=== PATIENT | male | born 1930 | race Caucasian/White ===

== ENCOUNTER 2016-07-26 17:01 | Observation (INO) | payer OTHER ==
[~2016-07-26] VITALS: Ht 167.6 cm; Wt 69.5 kg
--- NOTE | 2016-07-26 18:28 | ED CLINICAL REPORT ---
Clinical Report - Physicians/[facility] [address] [place] [address] 07/26/2016 17:03 Patient: ISIDRA FIELD Time Seen: 17:33. Arrived- By private vehicle. Historian- patient and family. HISTORY OF PRESENT ILLNESS Chief Complaint: "CAN'T EAT". This started about 2 weeks ago and is still present. It was gradual in onset and has been waxing/waning. At its maximum, severity described as moderate. When seen in the E.D., severity described as moderate. Modifying factors- worsened by food. Not relieved by anything. The patient has had loss of appetite and fatigue. No headache. He has had new onset of generalized weakness. (Pt states that his "nerves are shot" and he his having insomnia and has "no appetite". He also admits to some abdominal discomfort over the past weeks (mild)). Similar symptoms previously: Recent medical care: Not recently seen/assessed. REVIEW OF SYSTEMS No fever, sore throat, sinus drainage, nasal congestion or cough. No difficulty breathing, chest pain, vomiting, diarrhea or black stools. No bloody stools, difficulty with urination, skin rash, back pain or calf pain. No headache. The patient has had abdominal pain. He has had mild difficulty with ambulation. It has been associated with weakness in both legs. All systems otherwise negative, except as recorded above. PAST HISTORY PCP: Cristiano HEWITT PROBLEMS: Hypertension. Gout Mild dementia SURGERIES: Appendectomy. Cholecystectomy. Colonoscopy. Dental Surgery. Tonsillectomy. SOCIAL HISTORY Former smoker. No alcohol use. Is a local resident. ADDITIONAL NOTES The nursing notes have been reviewed. PHYSICAL EXAM Vital Signs: 07/26/2016 17:13 BP: 172/73. HR: 69. RR: 20. O2 saturation: 95%. Temp: 98.5 F. Pain level now: 7/10. Appearance: Alert. Patient in moderate distress. Eyes: Eyes normal inspection. No scleral icterus or pale conjunctivae. ENT: Pharynx normal. No pharyngeal erythema or tonsillar exudate. The mucous membranes are not dry. Neck: Normal inspection. Neck supple. CVS: Heart sounds normal. Pulses normal. Respiratory: No respiratory distress. Breath sounds normal. Abdomen: No visible injury. Moderate tenderness. No mass. No rebound tenderness or guarding. Back: Normal inspection. Skin: Skin warm and dry. Normal skin color. Normal skin turgor. Extremities: Extremities exhibit normal ROM. No lower extremity edema. Neuro: Oriented X 3. No motor deficit. LABS, X-RAYS, AND EKG Abdominal CT: IMPRESSION: 1. There is a 1.5 cm cyst in the head of the pancreas with a few layering dystrophic calcifications. Findings suggest possible chronic pseudocyst. No evidence of acute pancreatitis. 2. Multiple bilateral renal cysts. 3. Moderate calcified atheromatous changes aorta, iliac, and mesenteric vessels. 4. Moderate distention of the urinary bladder with prior transurethral resection of the prostate (TURP). 5. Findings discussed with Dr. Alfred. Study type: abdomen and pelvis. Abdominal CT performed with IV contrast. The study was independently viewed by me, interpreted by the radiologist and discussed with the radiologist. Laboratory Tests: UA-Culture if indicated: (LINDSAY: 07/26/2016 19:15) ( [facility] 07/26/2016 19:50) Final results Test Result Flag Units (Reference) URINE COLOR YELLOW URINE APPEARANCE CLEAR URINE GLUCOSE NEGATIVE (NEGATIVE) URINE BILIRUBIN NEGATIVE (NEGATIVE) URINE KETONE NEGATIVE (NEGATIVE) URINE SPECIFIC GRAVITY 1.010 (1.010-1.030) URINE PH 7.0 (5.0-8.0) URINE PROTEIN 2+ (NEGATIVE) URINE UROBILINOGEN 0.2 EU/dL (0.2-1.0) URINE NITRITE NEGATIVE (NEGATIVE) URINE BLOOD NEGATIVE (NEGATIVE) URINE LEUK ESTERASE NEGATIVE (NEGATIVE) URINE RBC NONE SEEN rbc/hpf (0-1) URINE WBC 0-1 wbc/hpf (0-1) URINE EPITHELIAL CELLS 0-1 EPI/hpf (0-5) URINE BACTERIA NONE SEEN (NONE SEEN) URINE COMMENT CULT NOT INDICATED URINE CULTURES ARE SET-UP BASED ON THE FOLLOWING CRITERIA:POSITIVE NITRITEPOSITIVE LEUKOCYTE ESTERASEGREATER THAN 10 WHITE BLOOD CELLSMODERATE (2+) OR GREATER BACTERIA CBC w Diff: (LINDSAY: 07/26/2016 17:55) ( Msg[facility]cvd 07/26/2016 18:10) Final results Test Result Flag Units (Reference) WHITE BLOOD COUNT 6.6 K/uL (4.5-11.5) RED BLOOD COUNT 5.56 M/uL (4.50-5.90) HEMOGLOBIN 14.8 gm/dL (13.5-17.5) HEMATOCRIT 44.6 % (41.0-53.0) MEAN CELL VOLUME 80 fL (80-100) MEAN CORPUSCULAR HGB 27 pg (26-34) MEAN CORPUSCULAR HGB CONC 33 g/dL (31-37) RED CELL DISTRIBUTION WIDTH 18.1 H % (11.6-14.8) PLATELET COUNT 325 K/uL (150-400) NEUTROPHIL % 63.1 % (50-75) LYMPH % 27.0 % (25-40) MONO % 7.5 % (3-14) EOSINOPHIL % 1.7 % (0-4) BASOPHIL % 0.7 % (0-2) PT with INR: (LINDSAY: 07/26/2016 17:55) ( [facility] 07/26/2016 18:20) Final results Test Result Flag Units (Reference) INR 0.9 (0.8-1.2) Low Intensity Therapy: INR 1.5-2.0 PT range 18.5-23.1Mod.Intensity Therapy: INR 2.0-3.0 PT range 23.1-31.5High Intensity Therapy: INR 2.5-3.5 PT range 27.4-35.5High Intensity Therapy 2: INR 3.0-4.0 PT range 31.5-39.3 BNP: (LINDSAY: 07/26/2016 17:55) ( [facility] 07/26/[facility] 18:32) Final results Test Result Flag Units (Reference) B-TYPE NATRIURETIC PEPTIDE 38.2 pg/ml (5-100) Lipase: (LINDSAY: 07/26/2016 17:55) ( [facility] 07/26/2016 18:21) Final results Test Result Flag Units (Reference) LIPASE 793 H U/L (73-393) AMYLASE 117 H U/L (25-115) ETHYL ALCOHOL <3 L mg/dL (3-10) CHEM 13 PANEL: (LINDSAY: 07/26/2016 17:55) ( MsgRcvd 07/26/2016 18:24) Final results Test Result Flag Units (Reference) GLUCOSE 103 mg/dL (70-110) BUN 19 H mg/dL (7-18) CREATININE 1.7 H mg/dL (0.6-1.3) Estimated GFR 41.01 mL/min Estimated GFR- 49.71 mL/min Note: Persistent reduction over 3 months in eGFR<60 mL/min/1.73 m2 defines CKD. Patients with eGFR values>=60 mL/min/1.73 m2 may also have CKD if evidence ofpersistent proteinuria. Additional information may be foundat www.kidney.org. SODIUM 141 mmol/L (136-145) POTASSIUM 4.8 mmol/L (3.5-5.1) CHLORIDE 101 mmol/L (98-107) CARBON DIOXIDE 27 mmol/L (21-32) CALCIUM 9.6 mg/dL (8.5-10.1) TOTAL PROTEIN 8.3 H g/dL (6.4-8.2) ALBUMIN 4.3 g/dL (3.3-5.0) BILIRUBIN, TOTAL 0.8 mg/dL (0.0-1.0) ALKALINE PHOSPHATASE 93 U/L (46-116) AST (SGOT) 26 U/L (15-37) ALT (SGPT) 21 U/L (12-78) CPK 82 U/L (24-260) MAGNESIUM 2.0 mg/dL (1.8-2.4) TROPONIN I <0.05 ng/mL (0.00-1.5) TROPONIN REFERENCE RANGE:<0.1 NEGATIVE0.1-1.5 INDETERMINANT>1.5 POSITIVE . Pulse Oximetry: 07/26/2016 17:13 O2 saturation: 95%. (FIO2 - room air). Interpretation: normal. PROGRESS AND PROCEDURES Course of Care: Normal Saline 1 liter IVPB given. Zofran 4 mg IVP given. Dilaudid 0.5 mg IVP given. Patient is stable. Physical exam findings are improved. Symptoms much better. Discussed case with hospitalist, (Liset). Reviewed test results. Agreed upon treatment plan. Health care provider will see patient in hospital. Patient/family counseled. Old ED records reviewed. Transition orders written. Disposition: Admitted to Acute Care. Condition: stable and improved. CLINICAL IMPRESSION Acute idiopathic pancreatitis. Essential hypertension. 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 INSTRUCTIONS Follow-up: Screening today revealed the patient's blood pressure to be in the hypertensive range. The patient should follow up with a primary care provider for blood pressure management. The patient was admitted and blood pressure will be managed during the admission. (Electronically signed by Kenton Alfred DO 07/26/2016 21:39)
--- NOTE | 2016-07-26 18:28 | ED ORDER SUMMARY ---
..... Patient: ISIDRA FIELD OrderSheet [facility] VisitID: [id number] [place] [address] 86y, M Registration Date/Time: 07/26/2016 ORDER SHEET Weight: 68.0 kg (stated) Allergies: Penicillin GENERAL ORDERS: UA-Culture if indicated Urgent (17:35 07/26/2016 [facility] (Ack 17:58 LTapper) (19:18 AMcQuoid ER Tech1) Amylase Urgent (17:35 07/26/2016 PHilson DO) (Ack 17:58 LTapper) (18:02 SRoberts R.N.) Lipase Urgent (17:35 07/26/2016 PH) (Ack 17:58 LTapper) (18:02 SRoberts R.N.) PT with INR Urgent (17:35 07/26/2016 PHilson DO) (Ack 17:58 LTapper) (18:02 SRoberts R.N.) Cardiac Panel Stat (17:35 07/26/2016 [facility]) (Ack 17:58 LTapper) (18:02 SRoberts R.N.) BNP Urgent (17:35 07/26/2016 PHilson DO) (Ack 17:58 LTapper) (18:02 SRoberts R.N.) Ethyl Alcohol Urgent (17:35 [facility]2016 [facility] (Ack 17:58 LTapper) (18:02 SRoberts R.N.) CT Abd/Pel w Cont (No) (N/A) Urgent (17:42 [facility]/[address] [facility] (Ack 17:58 LTapper) (19:06 Alesia) Call (Place call to): (Dr Hutchins) (19:30 07/26/[address] [facility] [address] [facility] [address] [facility] (Ack 19:38 AMcQuoid ER Tech1) (19:49 AMcQuoid ER Tech1) MEDICATION ORDERS: IV FLUIDS: IV NS : initial bolus 250 mL (1000 mL/hr), then 250 mL/hr for X3 (NOW) (17:34 07/26/2016 [facility]) (18:04 Stacy Lopez.NBlanka) Zofran IV 4 mg (NOW) (17:35 07/26/2016 [facility]) (18:06 Stacy Lopez.N.) Dilaudid IV 0.5 mg (HIGH ALERT MEDICATION, NOW) (18:28 07/26/2016 [facility]) (18:39 Yamilka Lopez.N.) ORDER SHEET NOTES: [Electronically signed by Dnoya Farris R.N. (20:40 07/26/2016)] [Electronically signed by Kenton Alfred DO (21:39 07/26/2016)] [Electronically locked/signed by Donya Farris R.N. (20:40 07/26/2016)]
--- NOTE | 2016-07-26 18:28 | ED ORDER SUMMARY ---
..... Patient: ISIDRA FIELD OrderSheet [facility] VisitID: [id number] [place] [address] 86y, M Registration Date/Time: 07/26/2016 ORDER SHEET Weight: 68.0 kg (stated) Allergies: Penicillin GENERAL ORDERS: UA-Culture if indicated Urgent (17:35 [facility]/26/2016 [facility] (Ack 17:58 LTapper) (19:18 AMcQuoid ER Tech1) Amylase Urgent (17:35 07/26/2016 PHmtson DO) (Ack 17:58 LTapper) (18:02 SRoberts R.N.) Lipase Urgent (17:35 07/26/2016 PH) (Ack 17:58 LTapper) (18:02 SRoberts R.N.) PT with INR Urgent (17:35 07/26/2016 PHmtson DO) (Ack 17:58 LTapper) (18:02 SRoberts R.N.) Cardiac Panel Stat (17:35 07/26/2016 [facility]) (Ack 17:58 LTapper) (18:02 SRoberts R.N.) BNP Urgent (17:35 07/26/2016 PHmtson DO) (Ack 17:58 LTapper) (18:02 SRoberts R.N.) Ethyl Alcohol Urgent (17:35 [facility]26/2016 [facility] (Ack 17:58 LTapper) (18:02 SRoberts R.N.) CT Abd/Pel w Cont (No) (N/A) Urgent (17:42 [facility]/26/2016 [facility] (Ack 17:58 LTapper) (19:06 Alesia) Call (Place call to): (Dr Hutchins) (19:30 07/26/2016 [facility] (Ack 19:38 AMcQuoid ER Tech1) (19:49 AMcQuoid ER Tech1) MEDICATION ORDERS: IV FLUIDS: IV NS : initial bolus 250 mL (1000 mL/hr), then 250 mL/hr for X3 (NOW) (17:34 07/26/2016 [facility]) (18:04 Stacy Lopez.NBlanka) Zofran IV 4 mg (NOW) (17:35 07/26/2016 [facility]) (18:06 Stacy Lopez.N.) Dilaudid IV 0.5 mg (HIGH ALERT MEDICATION, NOW) (18:28 07/26/2016 [facility]) (18:39 Yamilka Lopez.N.) ORDER SHEET NOTES: [Electronically signed by Donya Farris R.N. (20:40 07/26/2016)] [Electronically signed by Kenton Alfred DO (21:39 07/26/2016)] [Electronically locked/signed by Donya Farris R.N. (20:40 07/26/2016)]
--- NOTE | 2016-07-26 18:28 | ED NURSING NOTES ---
Clinical Report - Nurses [facility] [address] [place] [address] 07/26/2016 17:03 Patient: ISIDRA FIELD TRIAGE Triage time 17:14 Jul 26 2016. Acuity: LEVEL 3. Chief Complaint: (pt states that he is unable to eat for the last week or two). Alert. No acute distress. --17:24 Diana Nieto R.N. 17:13 07/26/16. BP: 172/73. HR: 69. RR: 20 (regular, unlabored and normal). O2 saturation: 95%. Temp: 98.5 F. Pain level now: 7/10. Pain level upon arrival: 7/10. Pain level at maximum: 7/10. Describes the quality as sharp. --17:24 Diana Nieto R.N. Weight: 68 kg stated. Height/Length: 67 inches Per Patient. BMI: 23.5. --17:23 Diana Nieto R.N. Medications None. --17:16 Diana Nieto R.N. Allergies Penicillin. --17:16 Diana Nieto R.N. History Historian: daughter and family. Onset. (2 weeks). He has had weakness. Reports muscle aches. 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 PAST MEDICAL HX: Hypertension. Immunizations: up-to-date. SOCIAL HX: Smoker- current status unknown. No infectious disease exposure. FALL RISK ASSESSMENT: Fall risk assessment completed. Risk factors identified include dizziness and patient age greater than 65 years. Fall interventions initiated. Side rails up x1. Brakes on Bed in low position. Patient identified as a fall risk by ID band. Family at bedside. Call light in reach of patient. Instructed not to get up without assistance. NUTRITIONAL RISK ASSESSMENT: Deficiencies were identified during the nutritional risk assessment. The patient has experienced recent unexpected weight loss- more than 10 pounds in 30 days. The patient has recently had a 75 percent decrease in intake. --17:24 Diana Nieto R.N. PROBLEMS: Upper Extremity Pain. Arthritis. Gout. Hypertension. --17:18 Diana Nieto R.N. ADDITIONAL SURGERIES: Appendectomy. Cholecystectomy. Colonoscopy. Dental Surgery. Tonsillectomy. --17:18 Diana Nieto R.N. Interventions ID and allergy band on patient. --17:24 Diana Nieto R.N. PHYSICAL ASSESSMENT GENERAL / NEURO / PSYCH: Alert. Oriented X 4. Appears in no acute distress. HEENT: No facial asymmetry noted. RESPIRATORY: Respirations not labored. CVS: Capillary refill less than 2 seconds. GI / : Abdominal tenderness. SKIN: Skin is warm and dry. --17:25 Diana Nieto R.N. NURSING PROGRESS NOTES Two patient identifiers checked. Call light placed in reach. Side rails up. Bed placed in lowest position. Brakes of bed on. Patient ready for evaluation- chart flagged. --17:25 Diana Nieto R.N. 17:49 07/26/2016 Started bag #1 1000 mL IV Fluids IV NS (Saline); bolus of 250 mL over 30 minute(s) then at 250 mL/hr over 3 hour(s) via site #1 via IV pump. Allergies verified and confirmed 5 rights. IV patency established. IV site checked: no pain, redness, or swelling. IV flushed thoroughly pre- and post-medication administration. --18:04 Donya Farris R.N. 17:54 07/26/2016 Site #1 started via IV in the right hand with an 22g angiocath, with aseptic technique and good blood return; one attempt. Blood drawn: rainbow set. Labeled in the presence of the patient and sent to the lab. Saline lock flushed. --18:04 Donya Farris R.N. 17:55 07/26/2016 Zofran (Ondansetron HCl) IVP 4 mg given over 1 minute(s) via site #1. Allergies verified and confirmed 5 rights. IV patency established. IV site checked: no pain, redness, or swelling. IV flushed thoroughly pre- and post-medication administration. IVP given by RN. --18:06 Donya Farris R.N. 18:18 07/26/2016 IV Fluids IV NS via IV site #1 Rate Changed: bag #1 decreased to 250 mL/hr via IV pump. IV patency established. IV site checked: no pain, redness, or swelling. IV flushed thoroughly. Confirmed 5 Rights. --18:18 Diana Nieto R.N. 18:35 07/26/2016 Dilaudid (HYDROmorphone HCl PF) IVP 0.5 mg given over 2 minute(s) via site #1. Allergies verified, confirmed 5 rights and sedative warning given to the patient. IV patency established. IV site checked: no pain, redness, or swelling. IV flushed thoroughly pre- and post-medication administration. --18:39 Diana Nieto R.N. 19:40. Patient ID band checked for patient name: patient confirmed. Instructions provided to collect clean catch urine and patient verbalized understanding. Clean catch urine collected with return of yellow-colored clear urine; sample sent to lab for urinalysis and culture. Specimen labeled in the presence of the patient. --19:55 Donya Farris R.N. 20:08 07/26/16. BP: 161/89. HR: 86. RR: 18. O2 saturation: 98% on room air. Pain level now: 0/10. 19:07/26/16. BP: 174/86. HR: 88. RR: 18. O2 saturation: 98%. Pain level now: 0/10. 18:07/26/16. BP: 162/87. HR: 85. RR: 18. 17:07/26/16. BP: 172/73. HR: 69. RR: 20 (regular, unlabored and normal). O2 saturation: 95%. Temp: 98.5 F. Pain level now: 7/10. Pain level upon arrival: 7/10. Pain level at maximum: 7/10. Describes the quality as sharp. --20:12 Donya Farris R.N. 20:10 Patient call light answered; patient requesting food, explained current NPO orders. --20:19 McQuoid, Cleopatra, ER Tech1 20:13 07/26/2016 Site #[address] upon admission; patent, no pain and no signs of infection or infiltration. --20:38 Donya Farris R.N. 20:24 07/26/2016 IV Fluids IV NS Continued: upon admission at the rate of 250 mL/hr. 250 mL remaining bag #1. IV patency established. IV site checked: no pain, redness, or swelling. IV flushed thoroughly. --20:39 Donya Farris R.N. DISPOSITION / DISCHARGE Admitted to Acute Care. Transported via stretcher by nurse with IV. Report was given to a nurse via a phone call. Report included patient's care, treatment, medications, reviewed medication reconcilliation, and condition (including any recent changes or anticipated changes). Report was acknowledged and care was transferred. (Pablito RN). Patient's personal items include: shirt, pants, undergarments, socks, shoes and hat; items were placed in belongings bag and transported with the patient. Collection of belongings was witnessed by 1 nurse. --20:14 Donya Farris R.N. 20:08 07/26/16. BP: 161/89. HR: 86. RR: 18. O2 saturation: 98% on room air. Pain level now: 0/10. 19:08 07/26/16. BP: 174/86. HR: 88. RR: 18. O2 saturation: 98%. Pain level now: 0/10. 18:09 07/26/16. BP: 162/87. HR: 85. RR: 18. 17:13 07/26/16. BP: 172/73. HR: 69. RR: 20 (regular, unlabored and normal). O2 saturation: 95%. Temp: 98.5 F. Pain level now: 7/10. Pain level upon arrival: 7/10. Pain level at maximum: 7/10. Describes the quality as sharp. --20:14 Donya Farris R.N. Medication list reviewed and validated. --20:14 Donya Farris R.N. Locked/Released at 07/26/2016 20:40 by Donya Farris R.N.
--- NOTE | 2016-07-26 19:48 | DIAGNOSTIC IMAGING REPORT ---
PROCEDURE: CT ABD/PELVIS WITH CONTRAST INDICATION: Abdominal pain. Elevated lipase amylase. Nausea. TECHNIQUE: 75 ml (one half-dose) of Isovue 300 were injected intravenously and axial images were obtained of the entire abdomen and pelvis with sagittal and coronal reformations. COMPARISON: None. FINDINGS: ABDOMEN: There is a 1.5 cm cyst in the head of the pancreas with layering dystrophic calcifications. Pancreas is otherwise normal. Gallbladder demonstrates a phrygian cap. No calcified gallstones are identified. Common duct is normal (4 mm). Liver and spleen (2 cm accessory splenic nodule) are normal. Bowel pattern is within normal limits, including appendix. Right kidney is of normal size (10.0 cm) with moderate parenchymal scarring and multiple cysts (largest 3.5 cm lower pole). Left kidney is of normal size (9.6 cm) with moderate parenchymal scarring and renal cysts (largest 4.5 cm upper pole). There are moderate calcified atheromatous changes aorta, mesenteric, iliac vessels. 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 There are moderate degenerative changes of the lumbar spine. PELVIS: Moderate distention of the urinary bladder with mild sacculation. Findings suggest prior TURP. No evidence of free fluid. IMPRESSION: 1. There is a 1.5 cm cyst in the head of the pancreas with a few layering dystrophic calcifications. Findings suggest possible chronic pseudocyst. No evidence of acute pancreatitis. 2. Multiple bilateral renal cysts. 3. Moderate calcified atheromatous changes aorta, iliac, and mesenteric vessels. 4. Moderate distention of the urinary bladder with prior transurethral resection of the prostate (TURP). 5. Findings discussed with Dr. Alfred. All CT scans at this facility use dose modulation, iterative reconstruction, and/or weight-based dosing when appropriate to reduce radiation dose to as low as reasonably achievable.
[2016-07-26 20:35] VITALS: BP 175/76
[2016-07-26] MEDS ORDERED: ALLOPURINOL300 MG PO (21:12)
--- NOTE | 2016-07-26 21:39 | ED MAR SUMMARY ---
..... Medication Administration Record [facility] [address] [place] [place] [address] Patient: ISIDRA FIELD Visit ID: [id number] 86y, M Weight: 68.0 kg Height/Length: 67 in BMI: 23.5 ALLERGIES: Penicillin Start 17:49 07/26/2016 Donya Farris R.N., Continued Upon Admission 20:24 07/26/2016 Donya Farris R.N. Medication Administered: IV NS (SALINE), Dose: IV Fluids over 3 hour(s), Rate: 250 mL/hr, Bolus: 250 mL over 30 minute(s), Dispensed: 1000 mL bag, Site: #1. Medication Ordered: IV NS : initial bolus 250 mL (1000 mL/hr), then 250 mL/hr for X3 (NOW). Given 17:55 07/26/2016 Donya Farris R.N. Medication Administered: ZOFRAN [IVP] (ONDANSETRON HCL), Dose: 4 mg IVP over 1 minute(s), Site: #1 right hand. Medication Ordered: Zofran IV 4 mg (NOW). Given 18:35 07/26/2016 Diana Nieto R.N. Medication Administered: DILAUDID [IVP] (HYDROMORPHONE HCL PF), Dose: 0.5 mg IVP over 2 minute(s), Site: #1 right hand. Medication Ordered: Dilaudid IV 0.5 mg (HIGH ALERT MEDICATION, NOW).
--- NOTE | 2016-07-26 21:39 | ED DISCHARGE INSTRUCTIONS ---
Patient: ISIDRA FIELD General Instructions [facility] VisitID: [id number] [place] [address] 86y, M Registration Date/Time: 07/26/2016 Acute idiopathic pancreatitis. Essential hypertension. 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 INSTRUCTIONS Follow-up: Screening today revealed the patient's blood pressure to be in the hypertensive range. The patient should follow up with a primary care provider for blood pressure management. The patient was admitted and blood pressure will be managed during the admission. ADDITIONAL INFORMATION High Blood Pressure --Established High Blood Pressure (Hypertension) is a chronic disease. The cause is unknown in most cases. It can usually be controlled with lifestyle changes and/or medicines. Symptoms of high blood pressure may include headache, dizziness, visual changes, chest pain and shortness of breath. Sometimes it causes no symptoms at all. However, even if there are no symptoms, untreated high blood pressure increases the risk of heart attack, also known as acute myocardial infarction, or AMI, and stroke. It is a serious health risk and should not be ignored. A normal blood pressure is 120/80 or less. The first (top) number is the "systolic" pressure. The second (bottom) number is the "diastolic" pressure. Hypertension exists when either the top number is 140 or higher, OR the bottom number is 90 or higher on repeated measurements. Home Care: All patients with high blood pressure should do the following to lower their pressure. If you are on medicines, then these methods may reduce or eliminate your need for medicines in the future. Begin a weight loss program if you are overweight. Reduce your salt intake. Avoid high salt foods (olives, pickles, smoked meats, salted potato chips, etc.). Do not add salt to your food at the table. Use only small amounts of salt when cooking. Begin an exercise program. Discuss with your doctor what type of exercise program would be best for you. It doesn't have to be difficult. Even brisk walking for 20 minutes three times a week is a good form of exercise. Avoid medicines which contain heart stimulants. This includes many cold and sinus decongestant pills and sprays as well as diet pills. Check the warnings about hypertension on the label. Stimulants such as amphetamine or cocaine could be lethal for someone with hypertension. Never take these. Limit your caffeine intake or switch to caffeine-free products. Stop smoking. If you are a long-time smoker, this can be hard. Enroll in a stop-smoking program to improve your chance of success. Learning how to handle stress better is an important part of any program to lower blood pressure. Learn about relaxation methods such as meditation, yoga or biofeedback. If medicines were prescribed, take them exactly as directed. Missing doses may cause your blood pressure get out of control. Consider buying an automatic blood pressure machine (available at most pharmacies). Use this to monitor your blood pressure at home and report the results to your doctor. Follow Up: Regular visits to your own physician for blood pressure checks and medicine adjustment is an important part of your care. Make a follow-up appointment as directed by our staff. Get Prompt Medical Attention if any of the following occur: Chest pain or shortness of breath Severe headache Throbbing or rushing sound in the ears Nosebleed Sudden severe abdominal pain Extreme drowsiness, confusion or fainting Dizziness or vertigo (dizziness with spinning sensation) Weakness of an arm or leg or one side of the face Difficulty with speech or vision You have been given the following additional information: Hypertension, Established (Electronically signed by Kenton Alfred DO 07/26/2016 21:39)
--- NOTE | 2016-07-26 21:39 | ED MAR SUMMARY ---
..... Medication Administration Record [facility] [address] [place] [address] Patient: ISIDRA FIELD Visit ID: [id number] 86y, M Weight: 68.0 kg Height/Length: 67 in BMI: 23.5 ALLERGIES: Penicillin Start 17:49 07/26/2016 Donya Farris R.N., Continued Upon Admission 20:24 07/26/2016 Donya Farris R.N. Medication Administered: IV NS (SALINE), Dose: IV Fluids over 3 hour(s), Rate: 250 mL/hr, Bolus: 250 mL over 30 minute(s), Dispensed: 1000 mL bag, Site: #1. Medication Ordered: IV NS : initial bolus 250 mL (1000 mL/hr), then 250 mL/hr for X3 (NOW). Given 17:55 07/26/2016 Donya Farris R.N. Medication Administered: ZOFRAN [IVP] (ONDANSETRON HCL), Dose: 4 mg IVP over 1 minute(s), Site: #1 right hand. Medication Ordered: Zofran IV 4 mg (NOW). Given 18:35 07/26/2016 Diana Nieto R.N. Medication Administered: DILAUDID [IVP] (HYDROMORPHONE HCL PF), Dose: 0.5 mg IVP over 2 minute(s), Site: #1 right hand. Medication Ordered: Dilaudid IV 0.5 mg (HIGH ALERT MEDICATION, NOW).
--- NOTE | 2016-07-26 21:39 | ED MED RECONCILIATION SUMMARY ---
Patient: ISIDRA FIELD Medication Reconciliation Report [facility] VisitID: [id number] [address] [place] [address] 86y, M Registration Date/Time: 07/26/2016 Weight: 68.0 kg Height/Length: 67 in. BMI: 23.5 ALLERGIES: Penicillin The patient's Home Medications are listed below: NONE. The source(s) of the original Home Medication information: Not obtained. The following Medications were given to the patient in the Emergency Department: IV NS IV Fluids bolus 250 mL over 30 minute(s), then 250 mL/hr, administered: 07/26/2016 5:49:00 PM Zofran [IVP] IVP 4 mg, administered: 07/26/2016 5:55:00 PM Dilaudid [IVP] IVP 0.5 mg, administered: 07/26/2016 6:35:00 PM The following Medications were prescribed to the patient: None.
--- NOTE | 2016-07-26 21:39 | ED MED RECONCILIATION SUMMARY ---
Patient: ISIDRA FIELD Medication Reconciliation Report [facility] VisitID: [id number] [address] [place] [address] 86y, M Registration Date/Time: 07/26/2016 Weight: 68.0 kg Height/Length: 67 in. BMI: 23.5 ALLERGIES: Penicillin The patient's Home Medications are listed below: NONE. The source(s) of the original Home Medication information: Not obtained. The following Medications were given to the patient in the Emergency Department: IV NS IV Fluids bolus 250 mL over 30 minute(s), then 250 mL/hr, administered: 07/26/2016 5:49:00 PM Zofran [IVP] IVP 4 mg, administered: 07/26/2016 5:55:00 PM Dilaudid [IVP] IVP 0.5 mg, administered: 07/26/2016 6:35:00 PM The following Medications were prescribed to the patient: None.
[2016-07-26 22:29] VITALS: BP 168/80
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
[2016-07-27 03:24] VITALS: BP 172/76
[2016-07-27 06:44] VITALS: BP 172/66
--- NOTE | 2016-07-27 08:19 | DIAGNOSTIC IMAGING REPORT ---
PROCEDURE: XR CHEST 1 VIEW INDICATION: pancreatitis, hypertension TECHNIQUE: Single view chest. 06:43 hours COMPARISON: None FINDINGS: Cardiomediastinal contour is within normal limits. Mild aortic arch atherosclerosis. No central venous congestion. Clear lungs. No effusion or pneumothorax. Intact osseous structures. Undersurface spurring at both acromioclavicular joints. IMPRESSION: 1. No evidence of acute cardiopulmonary disease.
--- NOTE | 2016-07-27 09:20 | Provider's Discharge Care Plan ---
Problem, Goal, Plan Problem List 1. Acute pancreatitis Instructions: Follow up as directed, You may resume a regular diet as tolerated. Please follow up with your primary care doctor as previously scheduled. Please return to the ER if your symptoms return or worsen. 2. Hypertension Instructions: Follow up as directed, Take meds as directed, Please continue taking your home blood pressure medications, and keep a list of your medications with you in your wallet. Please follow up with your primary care doctor.
--- NOTE | 2016-07-27 09:31 | Discharge Summary ---
Discharge Summary Report Admit Date 07/26/16 Discharge Date 07/27/16 Admission Diagnosis Acute pancreatitis Hypertension Discharge Diagnosis Acute pancreatitis, now resolved Hypertension Gout Early dementia Brief History Per H&P by admitting physician: 86-year-old white male, who is a resident of [facility], who relates a history of having decreased appetite and not eating very much over the last week and a half to 2 weeks. He seemed to worsen over the last 2 or 3 days and was not eating really anything at all. He was able to keep down orange juice. He and his daughter both became concerned and felt he should be evaluated. He has had no major emesis. He thinks he threw up 1 time a small amount. He had no blood in the emesis. He has had no diarrhea. He has had no fever or chills. He does not drink alcohol. He has not been on any medications other than allopurinol. He does relate a history of having had ulcer problems and surgery for ulcers many, many years ago. He thinks this was when he was still in the [employer] just after the [place] War. He has not had problems with ulcers since then. He has developed some memory difficulties over the last several years. He is normally followed at the [facility] in [place], but has not been there for quite some time. Hospital Course Patient was admitted for management of acute pancreatitis. Though patient did not have evidence of acute inflammation on CT, he met criteria based on classic pain and elevated lipase and amylase. There was an old pseudocyst also noted on CT that did not appear c/w malignancy. He was placed on bowel rest, IVF, and pain/nausea control. He did better than expected overnight, and his diet was quickly advanced the next morning. He had no further pain and tolerated regular food well. His lipase was downtrending. He will follow up with his PCP at his already-scheduled appointment at the [place]. He was noted to have significant HTN, for which we used amlodipine in house. He was adamant that he took blood pressure pills at home, and did not want any new prescriptions for this. General Appearance Alert, Cooperative, No acute distress, Oriented to person and place, thinks it's 2013. HEENT Atraumatic, PERRLA, Mucous membran moist/pink Lungs Normal air movement Cardiovascular Regular Rate, Normal S1, Normal S2, No murmurs Abdomen Normal bowel sounds, Soft, No tenderness Skin No Rashes Neurological Strength at 5/5 X4 ext, Sensation intact, Cranial nerves 3-12 NL Psych/Mental Status Mood NL Lab/Imaging Laboratory Tests 07/27 07/27 07/27 0506 0500 0500 Chemistry Plasma Sodium (136 - 145 mmol/L) 144 Plasma Potassium (3.5 - 5.1 mmol/L) 3.2 Plasma Chloride (98 - 107 mmol/L) 105 CO2 (Enzymatic) (21 - 32 mmol/L) 26 BUN (7 - 18 mg/dL) 15 Creatinine (0.6 - 1.3 mg/dL) 1.5 Est GFR ( Amer) (mL/min) 57.43 Est GFR (Non-Af Amer) (mL/min) 47.39 Glucose (70 - 110 mg/dL) 87 Uric Acid (2.6 - 7.2 mg/dL) 8.7 Cancelled Plasma Calcium (8.5 - 10.1 mg/dL) 8.4 Plasma Magnesium (1.8 - 2.4 mg/dL) 1.8 Total Bilirubin (0.0 - 1.0 mg/dL) 0.6 Direct Bilirubin (0 - 0.3 mg/dL) 0.2 AST (15 - 37 U/L) 11 ALT (12 - 78 U/L) 17 Alkaline Phosphatase (46 - 116 U/L) 81 Total Protein (6.4 - 8.2 g/dL) 7.0 Albumin (3.3 - 5.0 g/dL) 3.6 Triglycerides (30 - 200 mg/dL) 235 Cancelled Cholesterol (140 - 200 mg/dL) 175 Cancelled LDL Cholesterol, Calc (mg/dL) 85 Cancelled HDL Cholesterol (32 - 96 mg/dL) 43 Cancelled LDL/HDL Ratio 2.0 Cancelled Cholesterol/HDL Ratio 4.1 Cancelled Coronary Risk Interp (0.4 - 1.0) 0.6 Cancelled Amylase (25 - 115 U/L) 98 Lipase (73 - 393 U/L) 557 Hematology WBC (4.5 - 11.5 K/uL) 5.0 RBC (4.50 - 5.90 M/uL) 5.08 Hgb (13.5 - 17.5 gm/dL) 13.5 Hct (41.0 - 53.0 %) 40.6 MCV (80 - 100 fL) 80 MCH (26 - 34 pg) 27 RDW (11.6 - 14.8 %) 17.4 Neut % (Auto) (50 - 75 %) 66.5 Lymph % (Auto) (25 - 40 %) 24.9 [place] % (Auto) (3 - 14 %) 6.5 Eos % (Auto) (0 - 4 %) 1.8 Baso % (Auto) (0 - 2 %) 0.3 Plt Count, EDTA (150 - 400 K/uL) 270 PUBS MCHC (31 - 37 g/dL) 33 ESR Westergren (0 - 20 mm/hr) 16 07/26 07/26 07/26 07/26 1915 1755 1755 1755 Chemistry Plasma Sodium (136 - 145 mmol/L) 141 Plasma Potassium (3.5 - 5.1 mmol/L) 4.8 Plasma Chloride (98 - 107 mmol/L) 101 CO2 (Enzymatic) (21 - 32 mmol/L) 27 BUN (7 - 18 mg/dL) 19 Creatinine (0.6 - 1.3 mg/dL) 1.7 Est GFR ( Amer) (mL/min) 49.71 Est GFR (Non-Af Amer) (mL/min) 41.01 Glucose (70 - 110 mg/dL) 103 Plasma Calcium (8.5 - 10.1 mg/dL) 9.6 Plasma Magnesium (1.8 - 2.4 mg/dL) 2.0 Total Bilirubin (0.0 - 1.0 mg/dL) 0.8 AST (15 - 37 U/L) 26 ALT (12 - 78 U/L) 21 Alkaline Phosphatase (46 - 116 U/L) 93 Creatine Kinase (24 - 260 U/L) 82 Troponin (0.00 - 1.5 ng/mL) <0.05 B-Natriuretic Peptide (5 - 100 pg/ml) 38.2 Total Protein (6.4 - 8.2 g/dL) 8.3 Albumin (3.3 - 5.0 g/dL) 4.3 Amylase (25 - 115 U/L) 117 Lipase (73 - 393 U/L) 793 Coagulation INR (0.8 - 1.2) 0.9 Hematology WBC (4.5 - 11.5 K/uL) 6.6 RBC (4.50 - 5.90 M/uL) 5.56 Hgb (13.5 - 17.5 gm/dL) 14.8 Hct (41.0 - 53.0 %) 44.6 MCV (80 - 100 fL) 80 MCH (26 - 34 pg) 27 RDW (11.6 - 14.8 %) 18.1 Neut % (Auto) (50 - 75 %) 63.1 Lymph % (Auto) (25 - 40 %) 27.0 [place] % (Auto) (3 - 14 %) 7.5 Eos % (Auto) (0 - 4 %) 1.7 Baso % (Auto) (0 - 2 %) 0.7 Plt Count, EDTA (150 - 400 K/uL) 325 PUBS MCHC (31 - 37 g/dL) 33 Toxicology Plasma/Serum Ethyl Alc (3 - 10 mg/dL) <3 Urines Urine Color YELLOW Urine Appearance CLEAR Urine pH (5.0 - 8.0) 7.0 Ur Specific [place] (1.010 - 1.030) 1.010 Urine Protein (NEGATIVE) 2+ Urine Ketones (NEGATIVE) NEGATIVE Urine Blood (NEGATIVE) NEGATIVE Urine Nitrite (NEGATIVE) NEGATIVE Urine Bilirubin (NEGATIVE) NEGATIVE Urine Urobilinogen (0.2 - 1.0 EU/dL) 0.2 Ur Leukocyte Esterase (NEGATIVE) NEGATIVE Urine RBC (0 - 1 rbc/hpf) NONE SEEN Urine WBC (0 - 1 wbc/hpf) 0-1 Ur Epithelial Cells (0 - 5 EPI/hpf) 0-1 Urine Bacteria (NONE SEEN) NONE SEEN Urine Glucose (NEGATIVE) NEGATIVE Urine Comment CULT NOT INDICATED Microbiology Date/Time Procedure - Status Source Growth 07/26 2153 Superficial Wound Culture - RES NOSE 07/26 2153 Gram Stain - RES NOSE Discharge Instructions/Meds Patient was instructed to follow up with his PCP at his already scheduled appointment. He may resume a regular diet. E&M Codes Discharge: Inpt <30 min spent/[id number]
== END 2016-07-27 10:20 | disposition home or self-care (01) ==
LOC: ED SRH 17:01 → TRANS SRH 18:52 → ACUTE2 SRH 18:52
PROVIDERS: ADMIT Family Medicine
DX: K85.00 Idiopathic acute pancreatitis without necrosis or infection (principal); K86.3 Pseudocyst of pancreas; I10 Essential (primary) hypertension; M10.9 Gout, unspecified; F03.90 Unspecified dementia, unspecified severity, without behavioral disturbance, psychotic disturbance, mood disturbance, and anxiety; F06.8 Other specified mental disorders due to known physiological condition; R79.89 Other specified abnormal findings of blood chemistry
CPT/HCPCS: 29230; 29259; 90004; 90047; 90074; 90100; 90131; 90309; 90616; 91320; 92010; 92235; 92530; 92610; 92690; 92710; 92720; 92860; 94060; 95059; 95150

== ENCOUNTER 2016-07-30 15:08 | Emergency (ER) | payer OTHER ==
[~2016-07-30 15:08] MED LIST: ALLOPURINOL300 MG PO
--- NOTE | 2016-07-30 16:25 | DIAGNOSTIC IMAGING REPORT ---
PROCEDURE: CT HEAD WITHOUT CONTRAST INDICATION: TRAUMA/INJURY TECHNIQUE: Axial CT images were acquired through the head. Coronal and sagittal reformations were created. COMPARISON: None. FINDINGS: Moderate atrophy with prominent ventricles and sulci. No intracranial hemorrhage or extraaxial fluid collections. Ventricles are normal in size, shape and position. There is no mass, mass effect or midline shift. The graham-white matter differentiation is normal. There is no edema. The calvarium is intact. The paranasal sinuses and mastoid air cells are normally aerated. The extracranial soft tissues and orbits are normal. IMPRESSION: 1. No CT evidence of acute intracranial process. 2. Age related involutional and white matter changes. 3. Findings discussed with Terrell at 04:[address] scans at this facility use dose modulation, iterative reconstruction, and/or weight-based dosing when appropriate to reduce radiation dose to as low as reasonably achievable.
--- NOTE | 2016-07-30 16:27 | ED NURSING NOTES ---
Clinical Report - Nurses [place] [address] [place] [address] 07/30/2016 15:08 Patient: ISIDRA FIELD TRIAGE Triage time 15:10. Acuity: LEVEL 3. Chief Complaint: FALL while walking. Alert. No acute distress. EMMA COMA SCORE: Emma Coma Scale: 15- eyes open spontaneously (4); best verbal response- oriented x 4 (5); best motor response- obeys commands (6). --15:18 Radha Richards R.N. 15:10 07/30/16. BP: 169/83. HR: 94. RR: 18. O2 saturation: 98% on room air. Temp: 98.1 F (oral). Pain level now: 5/10. --15:18 Radha Richards R.N. Weight: 72.5 kg estimated. Height/Length: 67 inches Per Patient. BMI: 25.1. --15:15 Radha Richards R.N. Medications Allopurinol Oral 300 mg, daily. --15:12 Radha Richards R.N. Medication/allergy information source: the patient's correction record. --15:18 Radha Richards R.N. Allergies Penicillin. --15:12 Radha Richards R.N. Gemfibrozil. --15:14 Radha Richards R.N. History Arrived by EMS. Historian: EMS and patient. Accompanied by daughter (EMS). [facility] This occurred just prior to arrival. Occurred at home (correction). No loss of consciousness. SOCIAL HX: Smoker- current status unknown (no). No alcohol use or drug use. LEARNING NEEDS ASSESSMENT: The learning needs assessment revealed no barriers. FALL RISK ASSESSMENT: Fall risk assessment completed. Risk factors identified include patient age greater than 65 years and impairment of mobility. Fall interventions initiated. Patient placed on stretcher. Side rails up x2. Brakes on Bed in low position. FUNCTIONAL ASSESSMENT: Functional assessment performed: requires assistance with the activities of daily living; uses walker and cane. --15:18 Radha Richards R.N. PROBLEMS: PTSD. Pancreatitis. Upper Extremity Pain. Arthritis. Gout. Hypertension. --15:14 Radha Richards R.N. ADDITIONAL SURGERIES: Appendectomy. Cholecystectomy. Colonoscopy. Dental Surgery. Tonsillectomy. Umbilical Hernia Repair. --15:14 Radha Richards R.N. Assessment GENERAL / NEURO / PSYCH: Alert. Oriented X 4. Appears in no acute distress. Patient appears calm and cooperative. RESPIRATORY: Respirations not labored. SKIN: Skin is warm and dry. --15:18 Radha Richards R.N. Interventions ID and allergy band on patient. To treatment room. --15:18 Radha Richards R.N. DISPOSITION / DISCHARGE Departure time: 1710 PM. Condition at departure: improved and stable. The goals identified in the patient's plan of care were met. No learning barriers present. Discharge instructions provided and reviewed with the patient. Patient verbalized understanding. Written instructions provided in Irish. 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 No medication instructions, treatment instructions or referrals given to the patient. The patient was discharged by the physician. He was discharged home and unaccompanied at time of discharge anabella jenkins scrap picker. He left the Emergency Department ambulatory and via ([employer]). Driving ([employer]). FALL RISK ASSESSMENT: Fall risk assessment completed. No fall risk identified. EMMA COMA SCORE: Emma Coma Scale: 15- eyes open spontaneously (4); best verbal response- oriented x 4 (5); best motor response- obeys commands (6). --17:12 Kelsie Mooney R.N. 17:08 07/30/16. BP: 168/78 (regular adult cuff) taken on the left arm, via an automated monitor, while sitting. HR: 100. RR: 15. O2 saturation: 100% on room air. Temp: 98.6 F (oral). Pain level now: 0/10. --17:12 Kelsie Mooney R.N. Departure time: 1710 PM. --17:12 Kelsie Mooney R.N. Locked/Released at 07/30/2016 17:12 by eKlsie Mooney R.N.
--- NOTE | 2016-07-30 16:27 | ED NURSING NOTES ---
Clinical Report - Nurses [place] [address] [place] [address] 07/30/2016 15:08 Patient: ISIDRA FIELD TRIAGE Triage time 15:10. Acuity: LEVEL 3. Chief Complaint: FALL while walking. Alert. No acute distress. EMMA COMA SCORE: Emma Coma Scale: 15- eyes open spontaneously (4); best verbal response- oriented x 4 (5); best motor response- obeys commands (6). --15:18 Radha Richards R.N. 15:10 07/30/16. BP: 169/83. HR: 94. RR: 18. O2 saturation: 98% on room air. Temp: 98.1 F (oral). Pain level now: 5/10. --15:18 Radha Richards R.N. Weight: 72.5 kg estimated. Height/Length: 67 inches Per Patient. BMI: 25.1. --15:15 Radha Richards R.N. Medications Allopurinol Oral 300 mg, daily. --15:12 Radha Richards R.N. Medication/allergy information source: the patient's care home record. --15:18 Radha Richards R.N. Allergies Penicillin. --15:12 Radha Richards R.N. Gemfibrozil. --15:14 Radha Richards R.N. History Arrived by EMS. Historian: EMS and patient. Accompanied by daughter (EMS). [facility] This occurred just prior to arrival. Occurred at home (care home). No loss of consciousness. SOCIAL HX: Smoker- current status unknown (no). No alcohol use or drug use. LEARNING NEEDS ASSESSMENT: The learning needs assessment revealed no barriers. FALL RISK ASSESSMENT: Fall risk assessment completed. Risk factors identified include patient age greater than 65 years and impairment of mobility. Fall interventions initiated. Patient placed on stretcher. Side rails up x2. Brakes on Bed in low position. FUNCTIONAL ASSESSMENT: Functional assessment performed: requires assistance with the activities of daily living; uses walker and cane. --15:18 Radha Richards R.N. PROBLEMS: PTSD. Pancreatitis. Upper Extremity Pain. Arthritis. Gout. Hypertension. --15:14 Radha Richards R.N. ADDITIONAL SURGERIES: Appendectomy. Cholecystectomy. Colonoscopy. Dental Surgery. Tonsillectomy. Umbilical Hernia Repair. --15:14 Radha Richards R.N. Assessment GENERAL / NEURO / PSYCH: Alert. Oriented X 4. Appears in no acute distress. Patient appears calm and cooperative. RESPIRATORY: Respirations not labored. SKIN: Skin is warm and dry. --15:18 Radha Richards R.N. Interventions ID and allergy band on patient. To treatment room. --15:18 Radha Richards R.N. DISPOSITION / DISCHARGE Departure time: 1710 PM. Condition at departure: improved and stable. The goals identified in the patient's plan of care were met. No learning barriers present. Discharge instructions provided and reviewed with the patient. Patient verbalized understanding. Written instructions provided in Czech. 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 No medication instructions, treatment instructions or referrals given to the patient. The patient was discharged by the physician. He was discharged home and unaccompanied at time of discharge anabella jenkins pickup driver. He left the Emergency Department ambulatory and via ([employer]). Driving ([employer]). FALL RISK ASSESSMENT: Fall risk assessment completed. No fall risk identified. EMMA COMA SCORE: Emma Coma Scale: 15- eyes open spontaneously (4); best verbal response- oriented x 4 (5); best motor response- obeys commands (6). --17:12 Kelsie Mooney R.N. 17:08 07/30/16. BP: 168/78 (regular adult cuff) taken on the left arm, via an automated monitor, while sitting. HR: 100. RR: 15. O2 saturation: 100% on room air. Temp: 98.6 F (oral). Pain level now: 0/10. --17:12 Kelsie Mooney R.N. Departure time: 1710 PM. --17:12 Kelsie Mooney R.N. Locked/Released at 07/30/2016 17:12 by Kelsie Mooney R.N.
--- NOTE | 2016-07-30 16:27 | ED ORDER SUMMARY ---
..... Patient: ISIDRA FIELD OrderSheet [facility] VisitID: [id number] [address] [place] [address] 86y, M Registration Date/Time: 07/30/2016 ORDER SHEET Weight: 72.5 kg (estimated) Allergies: Penicillin, Gemfibrozil GENERAL ORDERS: CT Head wo Cont Urgent (15:45 07/30/2016 Jacque KEMP) (Ack 15:47 Justin) (15:58 Justin) MEDICATION ORDERS: IV FLUIDS: ORDER SHEET NOTES: [Electronically signed by Kelsie Mooney R.N. (17:12 07/30/2016)] [Electronically signed by Sandra Tejada MD (17:26 08/01/2016)] [Electronically locked/signed by Kelsie Mooney R.N. (17:12 07/30/2016)]
--- NOTE | 2016-07-30 16:27 | ED CLINICAL REPORT ---
Clinical Report - Physicians/Mid Levels [facility] [address] [place] [address] 07/30/2016 15:08 Patient: ISIDRA FIELD Time Seen: 15:16. Arrived- By ambulance. Historian- patient and EMS personnel. HISTORY OF PRESENT ILLNESS Chief Complaint: FALL. Location of injuries- head. The injury occurred today. Fell (Pt states he tripped and fell walking into the bathroom. He stumbled into the wall, which broke his fall, then ended up on the floor. Pt states he is not hurting anywhere, and has no complaints.). Occurred at home. The patient denies pain. The patient sustained a mild blow to the head. No neck pain, loss of consciousness or seizure. Not dazed. REVIEW OF SYSTEMS No numbness, dizziness, loss of vision, hearing loss or chest pain. No difficulty breathing, weakness, headache, nausea or abdominal pain. No laceration, fever, vomiting or urinary problems. The patient has no pain on weight bearing. All systems otherwise negative, except as recorded above. PAST HISTORY Problems: PTSD. Pancreatitis. Arthritis. Gout. Hypertension. Additional Surgeries: Appendectomy. Cholecystectomy. Colonoscopy. Dental Surgery. Tonsillectomy. Umbilical Hernia Repair. Medications: Allopurinol Oral 300 mg, daily. Allergies: Gemfibrozil. Penicillin. SOCIAL HISTORY Never smoker. No alcohol use or drug use. ADDITIONAL NOTES The nursing notes have been reviewed. PHYSICAL EXAM Vital Signs: 07/30/2016 15:10 BP: 169/83. HR: 94. RR: 18. O2 saturation: 98%. Temp: 98.1 F. Pain level now: 5/10. Have been reviewed. Appearance: Alert. No acute distress. (Pt answers questions appropriately.). Head: Head non-tender. Forehead: small abrasion of the upper left side of the forehead (Abrasion is faint, and partial-thickness only.). No erythema, tenderness, swelling, laceration or ecchymosis. No puncture wound, foreign body or deformity. Eyes: Pupils equal, round and reactive to light. EOM intact. ENT: No dental injury. Neck: Painless ROM. Non-tender. CVS: Heart sounds normal. Pulses normal. Respiratory: Breath sounds normal. Chest nontender. Abdomen: No visible injury. Soft and nontender. Back: No tenderness. ROM normal. Skin: Skin intact. Skin warm and dry. Normal skin color. Normal skin turgor. Extremities: Normal inspection. Pelvis stable. Extremities atraumatic. No lower extremity edema. (PT walks without difficulty, and requested to ambulate to the bathroom, which he did without assistance.). Gait: No limping gait. Neuro: No motor deficit. No sensory deficit. (Pt is alert and appropriate.). LABS, X-RAYS, AND EKG Pulse Oximetry: 07/30/2016 15:10 O2 saturation: 98%. (FIO2 - room air). Interpretation: normal. PROGRESS AND PROCEDURES Course of Care: D/w pt that I do not see any signs of serious injury. Pt had a clear-cut mechanical cause of his fall. No diagnostic work-up is indicated. Patient counseled in person regarding the patient's stable condition, test results, diagnosis and need for follow-up. Concerns were addressed. Old medical records reviewed. Disposition: Discharged. Condition: stable. CLINICAL IMPRESSION Single contusion to the scalp. Fall on same level by tripping. INSTRUCTIONS (The CT scan of your head looks good!). Warnings: GENERAL WARNINGS: Return or contact your physician immediately if your condition worsens or changes unexpectedly, if not improving as expected, or if other problems arise. Your Current Medications: CONTINUE TAKING THE FOLLOWING MEDICATIONS: Allopurinol Oral : 300 mg daily. Follow-up: Follow up with your doctor as needed. Understanding of the discharge instructions verbalized by patient. (Electronically signed by Sandra Tejada MD 08/01/2016 17:26)
--- NOTE | 2016-07-30 16:27 | ED ORDER SUMMARY ---
..... Patient: ISIDRA FIELD OrderSheet [facility] VisitID: [id number] [address] [place] [address] 86y, M Registration Date/Time: 07/30/2016 ORDER SHEET Weight: 72.5 kg (estimated) Allergies: Penicillin, Gemfibrozil GENERAL ORDERS: CT Head wo Cont Urgent (15:45 07/30/2016 Jacque KEMP) (Ack 15:47 Justin) (15:58 Justin) MEDICATION ORDERS: IV FLUIDS: ORDER SHEET NOTES: [Electronically signed by Kelsie Mooney R.N. (17:12 07/30/2016)] [Electronically signed by Sandra Tejada MD (17:26 08/01/2016)] [Electronically locked/signed by Kelsie Mooney R.N. (17:12 07/30/2016)]
--- NOTE | 2016-08-01 17:26 | ED DISCHARGE INSTRUCTIONS ---
Patient: ISIDRA FIELD General Instructions [facility] VisitID: [id number] [address] [place] [address] 86y, M Registration Date/Time: 07/30/2016 Single contusion to the scalp. Fall on same level by tripping. INSTRUCTIONS (The CT scan of your head looks good!). Warnings: GENERAL WARNINGS: Return or contact your physician immediately if your condition worsens or changes unexpectedly, if not improving as expected, or if other problems arise. Your Current Medications: CONTINUE TAKING THE FOLLOWING MEDICATIONS: Allopurinol Oral : 300 mg daily. Follow-up: Follow up with your doctor as needed. Understanding of the discharge instructions verbalized by patient. ADDITIONAL INFORMATION Scalp Contusion [No Wake-Up] A scalp contusion is a bruise with swelling and sometimes bleeding under the skin. The swelling should start to go down within two days. Although there is no sign of a serious injury at this time, symptoms may appear later. These could be a sign of a more serious problem (bruising or bleeding in the brain). Therefore, watch for the warning signs below. Home Care: During the next 24 hours someone must stay with you to check for the signs below. It is not necessary to stay awake or be awakened during the night. If you have swelling of the face or scalp, apply an ice pack (ice cubes in a plastic bag, wrapped in a towel) for 20 minutes. Do this every 1-2 hours until the swelling starts to go down. You may use acetaminophen (Tylenol) or ibuprofen (Motrin, Advil) to control pain, unless another pain medicine was prescribed. [ NOTE : If you have chronic liver or kidney disease or ever had a stomach ulcer or GI bleeding, talk with your doctor before using these medicines.] For the next 24 hours: Do not take alcohol, sedatives or medicines that make you sleepy. Do not drive or operate machinery. Avoid strenuous activities. No lifting or straining. If you have had any symptoms of a concussion today (nausea, vomiting, dizziness, confusion, headache, memory loss or if you were knocked out), do not return to sports or any activity that could result in another head injury until all symptoms are gone and you have been cleared by your doctor. A second head injury before fully recovering from the first one can lead to serious brain injury. Follow Up with your doctor if symptoms are not improving after 24 hours, or as directed. [NOTE: Any X-rays or CT scans taken will be reviewed by a radiologist. You will be notified of any new findings that may affect your care.] Get Prompt Medical Attention if any of the following occur: Repeated vomiting Severe or worsening headache or dizziness Unusual drowsiness, or unable to awaken as usual Confusion or change in behavior or speech, memory loss, blurred vision Convulsion (seizure) Increasing scalp or face swelling Redness, warmth or pus from the swollen area Fluid drainage or bleeding from the nose or ears Fever of 100.4F(38C) or higher, or as directed by your healthcare provider Mechanical Fall You have had a fall today. It appears that the cause is mechanical. That means that you slipped, tripped or lost your balance. If your fall had been due to fainting or a seizure, further tests would be required. Home Care: Rest today and resume your normal activities when you are feeling back to normal. If you were injured during the fall, follow the advice from your doctor regarding care of your injury. You may use acetaminophen (Tylenol) or ibuprofen (Motrin, Advil) to control pain, unless another pain medicine was prescribed. [NOTE: If you have chronic liver or kidney disease or ever had a stomach ulcer or GI bleeding, talk with your doctor before using these medicines.] Fall Prevention: Was there anything that caused your fall that can be fixed, removed, or replaced? Make your home safe by keeping walkways clear of objects you may trip over. Use non-slip pads under rugs. Do not walk in poorly lit areas. Do not stand on chairs or wobbly ladders. Use caution when reaching overhead or looking upward. This position can cause a loss of balance. Be sure your shoes fit properly, have non-slip bottoms and are in good condition. Be cautious when going up and down curbs, and walking on uneven sidewalks. If your balance is poor, consider using a cane or walker. Stay as active as you can. Balance, flexibility, strength, and endurance all come from exercise. They all play a role in preventing falls. Follow Up with your doctor or as advised by our staff. Get Prompt Medical Attention if any of the following occur: Repeated mechanical falls, or unexplained falls Dizziness, fainting or seizure Severe headache Chest pain or shortness of breath Palpitations (very rapid or very slow or irregular heartbeat) Blood in vomit, stools (black or red color) Weakness of an arm or leg or one side of the face Difficulty with speech or vision You have been given the following additional information: Scalp Contusion, No Wake Up Fall, Mechanical (Electronically signed by Sandra Tejada MD 08/01/2016 17:26)
--- NOTE | 2016-08-01 17:26 | ED MAR SUMMARY ---
..... Medication Administration Record [facility] [address] [place], [place] [id number] Patient: ISIDRA FIELD Visit ID: [id number] 86y, M Weight: 72.5 kg Height/Length: 67 in BMI: 25.1 ALLERGIES: Penicillin, Gemfibrozil
--- NOTE | 2016-08-01 17:26 | ED MED RECONCILIATION SUMMARY ---
Patient: ISIDRA FIELD Medication Reconciliation Report [facility] VisitID: [id number] [address] [place] [address] 86y, M Registration Date/Time: 07/30/2016 Weight: 72.5 kg Height/Length: 67 in. BMI: 25.1 ALLERGIES: Gemfibrozil, Penicillin The patient's Home Medications are listed below: CONTINUE TAKING THE FOLLOWING MEDICATIONS: Allopurinol Oral 300 mg, daily The source(s) of the original Home Medication information: patient's halfway record The following Medications were given to the patient in the Emergency Department: None. The following Medications were prescribed to the patient: None.
--- NOTE | 2016-08-01 17:26 | ED MED RECONCILIATION SUMMARY ---
Patient: ISIDRA FIELD Medication Reconciliation Report [facility] VisitID: [id number] [address] [place] [address] 86y, M Registration Date/Time: 07/30/2016 Weight: 72.5 kg Height/Length: 67 in. BMI: 25.1 ALLERGIES: Gemfibrozil, Penicillin The patient's Home Medications are listed below: CONTINUE TAKING THE FOLLOWING MEDICATIONS: Allopurinol Oral 300 mg, daily The source(s) of the original Home Medication information: patient's residential record The following Medications were given to the patient in the Emergency Department: None. The following Medications were prescribed to the patient: None.
--- NOTE | 2016-08-01 17:26 | ED MAR SUMMARY ---
..... Medication Administration Record [facility] [address] [place], [place] [id number] Patient: ISIDRA FIELD Visit ID: [id number] 86y, M Weight: 72.5 kg Height/Length: 67 in BMI: 25.1 ALLERGIES: Penicillin, Gemfibrozil
== END 2016-07-30 17:10 | disposition home or self-care (01) ==
LOC: ED SRH 15:08
DX: S00.03XA Contusion of scalp, initial encounter (principal); W01.0XXA Fall on same level from slipping, tripping and stumbling without subsequent striking against object, initial encounter; Y93.01 Activity, walking, marching and hiking; Y92.009 Unspecified place in unspecified non-institutional (private) residence as the place of occurrence of the external cause; Y99.8 Other external cause status; I10 Essential (primary) hypertension; Z79.899 Other long term (current) drug therapy; Z88.0 Allergy status to penicillin; Z88.8 Allergy status to other drugs, medicaments and biological substances

== ENCOUNTER 2016-08-05 23:22 | Emergency (ER) | payer OTHER ==
--- NOTE | 2016-08-07 02:29 | ED MAR SUMMARY ---
..... Medication Administration Record [facility] [address] [place], [place] [id number] Patient: ISIDRA FIELD Visit ID: [id number] 86y, M Weight: 79.3 kg Height/Length: 69 in BMI: 25.8 ALLERGIES: Penicillins
--- NOTE | 2016-08-07 02:29 | ED MED RECONCILIATION SUMMARY ---
Patient: ISIDRA FIELD Medication Reconciliation Report [facility] VisitID: [id number] [address] [place] [address] 86y, M Registration Date/Time: 08/05/2016 Weight: 79.3 kg Height/Length: 69 in. BMI: 25.8 ALLERGIES: Penicillins The patient's Home Medications are listed below: THE FOLLOWING MEDICATIONS NEED TO BE RECONCILED: Allopurinol Oral The source(s) of the original Home Medication information: Not obtained. The following Medications were given to the patient in the Emergency Department: None. The following Medications were prescribed to the patient: None.
--- NOTE | 2016-08-07 02:29 | ED NURSING NOTES ---
Clinical Report - Nurses [place] [address] [place] [address] 08/06/2016 4:01 Patient: ISIDRA FIELD TRIAGE Triage time 2322Aug 05 2016. ( see paper chart for all nursing notes.). --04:21 Mirtha Peterson R.N. Chief Complaint: NECK PAIN. --04:22 Mirtha Peterson R.N. Weight: 79.3 kg estimated. Height/Length: 69 inches Estimated. BMI: 25.8. --04:21 Mirtha Peterson R.N. Medications Allopurinol Oral. --04:23 Mirtha Peterson R.N. Allergies Penicillins. --04:23 Mirtha Peterson R.N. DISPOSITION / DISCHARGE Departure time: 0014. --04:22 Mirtha Peterson R.N. Locked/Released at 08/06/2016 4:23 by Mirtha Peterson R.N.
--- NOTE | 2016-08-07 02:29 | ED NURSING NOTES ---
Clinical Report - Nurses [place] [address] [place] [address] 08/06/2016 4:01 Patient: ISIDRA FIELD TRIAGE Triage time 2322Aug 05 2016. ( see paper chart for all nursing notes.). --04:21 Mirtha Peterson R.N. Chief Complaint: NECK PAIN. --04:22 Mirtha Peterson R.N. Weight: 79.3 kg estimated. Height/Length: 69 inches Estimated. BMI: 25.8. --04:21 Mirtha Peterson R.N. Medications Allopurinol Oral. --04:23 Mirtha Peterson R.N. Allergies Penicillins. --04:23 Mirtha Peterson R.N. DISPOSITION / DISCHARGE Departure time: 0014. --04:22 Mirtha Peterson R.N. Locked/Released at 08/06/2016 4:23 by Mirtha Peterson R.N.
--- NOTE | 2016-08-07 02:29 | ED MED RECONCILIATION SUMMARY ---
Patient: ISIDRA FIELD Medication Reconciliation Report [facility] VisitID: [id number] [address] [place] [address] 86y, M Registration Date/Time: 08/05/2016 Weight: 79.3 kg Height/Length: 69 in. BMI: 25.8 ALLERGIES: Penicillins The patient's Home Medications are listed below: THE FOLLOWING MEDICATIONS NEED TO BE RECONCILED: Allopurinol Oral The source(s) of the original Home Medication information: Not obtained. The following Medications were given to the patient in the Emergency Department: None. The following Medications were prescribed to the patient: None.
--- NOTE | 2016-08-07 02:29 | ED MAR SUMMARY ---
..... Medication Administration Record [facility] [address], [place] [id number] Patient: ISIDRA FIELD Visit ID: [id number] 86y, M Weight: 79.3 kg Height/Length: 69 in BMI: 25.8 ALLERGIES: Penicillins
--- NOTE | 2016-08-07 02:30 | ED CLINICAL REPORT ---
Clinical Report - Physicians/Mid Levels [facility] [address] [place] [address] 08/06/2016 4:01 Patient: ISIDRA FIELD Time Seen: 23:29. Arrived- By ambulance. Historian- patient and EMS personnel. HISTORY OF PRESENT ILLNESS Chief Complaint: NECK PAIN. Modifying factors- worsened by rotation of the head. Relieved by remaining still. It is described as being moderate in degree and in the area of the right side of the cervical spine. The quality is noted to be "pain" and similar to prior episodes. No radiation. Onset was today and it is still present. It was gradual in onset and has been waxing/waning. No bladder dysfunction, bowel dysfunction, sensory loss or motor loss. Patient notes the possibility of an injury but denies injury to the head or chest. Mechanism of injury- he was turning and bending (fall about one week ago). Occurred at home. No other injury. Similar symptoms previously: Recent medical care: The patient was seen recently at this facility in the emergency department and hospitalized. Seen for other problems. ( Seen on 07/26/16 with Diagnosis: Acute idiopathic pancreatitis. Essential hypertension. 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 REVIEW OF SYSTEMS No fever, chills, headache, sore throat or cough. No difficulty breathing, chest pain, skin rash, abdominal pain or nausea. No vomiting, diarrhea, black stools, difficulty with urination or urinary frequency. No hematuria or bloody stools. All systems otherwise negative, except as recorded above. PAST HISTORY Problems: PTSD. Arthritis. Gout. Hypertension. Acute idiopathic pancreatitis. Essential hypertension. 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 Cholecystectomy. Colonoscopy. Dental Surgery. Tonsillectomy. Umbilical Hernia Repair. Medications: Allopurinol Oral. Allergies: Penicillins. SOCIAL HISTORY Former smoker. History of drug use "medical": marijuana. No alcohol use. Residence: [facility]. ADDITIONAL NOTES The nursing notes have been reviewed. PHYSICAL EXAM Vital Signs: Blood pressure: BP 162 / 66. Heart rate: 70. Respiratory rate 20. Temperature: 98.2 oral. Oxygen saturation: 100 % room air. Appearance: Alert. Anxious. Patient in mild distress. HEENT: Normal external inspection. Head: No scalp tenderness. No swelling of the head or ecchymosis of the head. Eyes: No scleral icterus. ENT: Pharynx normal. No pharyngeal erythema or tonsillar exudate. Neck: Normal inspection. Pain in the neck upon movement. No vertebral tenderness. Moderate soft tissue tenderness in the right upper and mid neck area. (no midline tenderness). CVS: Normal heart rate and rhythm. Pulses normal. Respiratory: No respiratory distress. Breath sounds normal. Chest nontender. Abdomen: Normal inspection. Soft and nontender. Back: Normal inspection. No tenderness. Skin: Skin warm and dry. Normal skin color. Normal skin turgor. Extremities: Extremities exhibit normal ROM. Extremities nontender. Neuro: Mood/affect normal. No motor deficit. No sensory deficit. Reflexes normal. PROGRESS AND PROCEDURES Course of Care: Hydrocodone/APAP 5 mg PO given. Zofran 4 mg ODT PO given. Flexeril 10 mg PO given. 04:42 08/06/16. Patient is stable. Physical exam findings are improved. Symptoms much better. Pt with clear muscular tenderness and no bony tenderness or reason to suspect bony injury. Imaging (or other work up) not emergently indicated. Patient/family counseled. Old ED records reviewed. Patient has had multiple ED visits. Disposition: Discharged. Condition: stable and improved. CLINICAL IMPRESSION Acute neck pain associated with cervical strain. No radiculopathy or neuro deficit. INSTRUCTIONS Apply ice. Warnings: GENERAL WARNINGS: Return or contact your physician immediately if your condition worsens or changes unexpectedly, if not improving as expected, or if other problems arise. Your Current Medications: CONTINUE TAKING THE FOLLOWING MEDICATIONS: Allopurinol Oral. Prescription Medications: Hydrocodone/APAP 5mg / 325mg: take 1 orally every 8 hours as needed for pain. Dispense ten (10). No refill. Flexeril 10 mg: take 1 orally every 12 hours as needed for muscle spasm or pain. Dispense twenty (20). No refills. Substitution is permissible. OTC Medications: Acetaminophen (available over the counter): take according to label instructions. Motrin (available over the counter): take according to label instructions. Follow-up: Follow up with your doctor in about one day. (Electronically signed by Kenton Alfred DO 08/06/2016 4:44)
--- NOTE | 2016-08-07 02:30 | ED DISCHARGE INSTRUCTIONS ---
Patient: ISIDRA FIELD General Instructions [facility] VisitID: [id number] [place] [address] 86y, M Registration Date/Time: 08/05/2016 Acute neck pain associated with cervical strain. No radiculopathy or neuro deficit. INSTRUCTIONS Apply ice. Warnings: GENERAL WARNINGS: Return or contact your physician immediately if your condition worsens or changes unexpectedly, if not improving as expected, or if other problems arise. Your Current Medications: CONTINUE TAKING THE FOLLOWING MEDICATIONS: Allopurinol Oral. Prescription Medications: Hydrocodone/APAP 5mg / 325mg: take 1 orally every 8 hours as needed for pain. Dispense ten (10). No refill. Flexeril 10 mg: take 1 orally every 12 hours as needed for muscle spasm or pain. Dispense twenty (20). No refills. Substitution is permissible. OTC Medications: Acetaminophen (available over the counter): take according to label instructions. Motrin (available over the counter): take according to label instructions. Follow-up: Follow up with your doctor in about one day. ADDITIONAL INFORMATION Neck Pain [No Trauma] There are several possible causes of neck pain without injury: You can get a minor ligament sprain or muscle strain from a sudden minor neck movement. Sleeping with your neck in an awkward position can also cause this. Some persons respond to emotional stress by tensing the muscles of their neck, shoulders and upper back. Chronic spasm in these muscles can cause neck pain and sometimes headaches. Gradualwear and tearof the joints in the spine can cause degenerative arthritis.This can be a source of occasional or chronic neck pain. With aging or repeated small injuries to the neck, the spinal disks (the cushions between each spinal bone) may bulge and put pressure on a nearby spinal nerve. This causes tingling, pain or numbness spreading from the neck to the shoulder, arm or hand on one side. Acute neck pain usually gets better in one to two weeks. Neck pain related to disk disease, arthritis in the spinal joints or spinal stenosis (narrowing of the spinal canal) can become chronic and last for months or years. Unless you had a forceful physical injury (for example, a car accident or fall), X-rays are usually not ordered for the initial evaluation of neck pain. If pain continues and does not respond to medical treatment, x-rays and other tests may be performed at a later time. Home Care: Rest and relax the muscles. Use a comfortable pillow that supports the head and keeps the spine in a neutral position. The position of the head should not be tilted forward or backward. A rolled up towel may help for a custom fit. Some persons find relief with heat (hot shower, hot bath or heating pad) and massage, while others prefer cold packs (crushed or cubed ice in a plastic bag, wrapped in a towel) . Try both and use the method that feels best for 20 minutes several times a day. You may use acetaminophen (Tylenol) or ibuprofen (Motrin, Advil) to control pain, unless another medicine was prescribed. [ NOTE : If you have chronic liver or kidney disease or ever had a stomach ulcer or GI bleeding, talk with your doctor before using these medicines.] Follow Up with your physician or this facility if your symptoms do not show signs of improvement after one week. Physical therapy or further tests may be needed. [NOTE: A radiologist will review any X-rays or CT scans that were taken. We will notify you of any new findings that may affect your care.] Get Prompt Medical Attention if any of the following occur: Pain becomes worse or spreads into one or both arms Weakness or numbness in one or both arms Increasing headache Neck swelling, difficulty or painful swallowing Fever of 100.4F (38C) or higher, or as directed by your healthcare provider Hydrocodone Bitartrate, Acetaminophen Oral tablet What is this medicine? ACETAMINOPHEN; HYDROCODONE (a set a ZACARIAS bobby fen; jordan droe KOE done) is a pain reliever. It is used to treat mild to moderate pain. How should I use this medicine? Take this medicine by mouth. Swallow it with a full glass of water. Follow the directions on the prescription label. If the medicine upsets your stomach, take the medicine with food or milk. Do not take more than you are told to take. Talk to your plunger machine operator regarding the use of this medicine in children. This medicine is not approved for use in children. What side effects may I notice from receiving this medicine? Side effects that you should report to your doctor or health care transport nurse as soon as possible: allergic reactions like skin rash, itching or hives, swelling of the face, lips, or tongue breathing problems confusion feeling faint or lightheaded, falls stomach pain yellowing of the eyes or skin Side effects that usually do not require medical attention (report to your doctor or health care transport nurse if they continue or are bothersome): nausea, vomiting stomach upset What may interact with this medicine? alcohol antihistamines isoniazid medicines for depression, anxiety, or psychotic disturbances medicines for sleep muscle relaxants naltrexone narcotic medicines (opiates) for pain phenobarbital ritonavir tramadol What if I miss a dose? If you miss a dose, take it as soon as you can. If it is almost time for your next dose, take only that dose. Do not take double or extra doses. Where should I keep my medicine? Keep out of the reach of children. This medicine can be abused. Keep your medicine in a safe place to protect it from theft. Do not share this medicine with anyone. Selling or giving away this medicine is dangerous and against the law. Store at room temperature between 15 and 30 degrees C (59 and 86 degrees F). Protect from light. Keep container tightly closed. Throw away any unused medicine after the expiration date. Discard unused medicine and used packaging carefully. Pets and children can be harmed if they find used or lost packages. What should I tell my health care provider before I take this medicine? They need to know if you have any of these conditions: brain tumor Crohn's disease, inflammatory bowel disease, or ulcerative colitis drink more than 3 alcohol-containing drinks per day drug abuse or addiction head injury heart or circulation problems kidney disease or problems going to the bathroom liver disease lung disease, asthma, or breathing problems an unusual or allergic reaction to acetaminophen, hydrocodone, other opioid analgesics, other medicines, foods, dyes, or preservatives or trying to get breast-feeding What should I watch for while using this medicine? Tell your doctor or health care transport nurse if your pain does not go away, if it gets worse, or if you have new or a different type of pain. You may develop tolerance to the medicine. Tolerance means that you will need a higher dose of the medicine for pain relief. Tolerance is normal and is expected if you take the medicine for a long time. Do not suddenly stop taking your medicine because you may develop a severe reaction. Your body becomes used to the medicine. This does NOT mean you are addicted. Addiction is a behavior related to getting and using a drug for a non-medical reason. If you have pain, you have a medical reason to take pain medicine. Your doctor will tell you how much medicine to take. If your doctor wants you to stop the medicine, the dose will be slowly lowered over time to avoid any side effects. You may get drowsy or dizzy when you first start taking the medicine or change doses. Do not drive, use machinery, or do anything that may be dangerous until you know how the medicine affects you. Stand or sit up slowly. There are different types of narcotic medicines (opiates) for pain. If you take more than one type at the same time, you may have more side effects. Give your health care provider a list of all medicines you use. Your doctor will tell you how much medicine to take. Do not take more medicine than directed. Call emergency for help if you have problems breathing. The medicine will cause constipation. Try to have a bowel movement at least every 2 to 3 days. If you do not have a bowel movement for 3 days, call your doctor or health care transport nurse. Too much acetaminophen can be very dangerous. Do not take Tylenol (acetaminophen) or medicines that contain acetaminophen with this medicine. Many non-prescription medicines contain acetaminophen. Always read the labels carefully. Cyclobenzaprine Hydrochloride Oral tablet What is this medicine? CYCLOBENZAPRINE (norberto de la torre) is a muscle relaxer. It is used to treat muscle pain, spasms, and stiffness. How should I use this medicine? Take this medicine by mouth with a glass of water. Follow the directions on the prescription label. If this medicine upsets your stomach, take it with food or milk. Take your medicine at regular intervals. Do not take it more often than directed. Talk to your plunger machine operator regarding the use of this medicine in children. Special care may be needed. What side effects may I notice from receiving this medicine? Side effects that you should report to your doctor or health care transport nurse as soon as possible: allergic reactions like skin rash, itching or hives, swelling of the face, lips, or tongue chest pain fast heartbeat hallucinations seizures vomiting Side effects that usually do not require medical attention (report to your doctor or health care transport nurse if they continue or are bothersome): headache What may interact with this medicine? Do not take this medicine with any of the following medications: cisapride droperidol flecainide grepafloxacin halofantrine levomethadyl MAOIs like Carbex, Eldepryl, Marplan, Nardil, and Parnate nilotinib pimozide probucol sertindole This medicine may also interact with the following medications: abarelix alcohol contrast dyes dolasetron guanethidine medicines for cancer medicines for depression, anxiety, or psychotic disturbances medicines to treat an irregular heartbeat medicines used for sleep or numbness during surgery or procedure methadone octreotide ondansetron palonosetron phenothiazines like chlorpromazine, mesoridazine, prochlorperazine, thioridazine some medicines for infection like alfuzosin, chloroquine, clarithromycin, levofloxacin, mefloquine, pentamidine, troleandomycin tramadol vardenafil What if I miss a dose? If you miss a dose, take it as soon as you can. If it is almost time for your next dose, take only that dose. Do not take double or extra doses. Where should I keep my medicine? Keep out of the reach of children. Store at room temperature between 15 and 30 degrees C (59 and 86 degrees F). Keep container tightly closed. Throw away any unused medicine after the expiration date. What should I tell my health care provider before I take this medicine? They need to know if you have any of these conditions: heart disease, irregular heartbeat, or previous heart attack liver disease thyroid problem an unusual or allergic reaction to cyclobenzaprine, tricyclic antidepressants, lactose, other medicines, foods, dyes, or preservatives or trying to get breast-feeding What should I watch for while using this medicine? Check with your doctor or health care transport nurse if your condition does not improve within 1 to 3 weeks. You may get drowsy or dizzy when you first start taking the medicine or change doses. Do not drive, use machinery, or do anything that may be dangerous until you know how the medicine affects you. Stand or sit up slowly. Your mouth may get dry. Drinking water, chewing sugarless gum, or sucking on hard candy may help. You have been given the following additional information: Neck Pain, No Trauma Hydrocodone Bitartrate, Acetaminophen Oral tablet Cyclobenzaprine Hydrochloride Oral tablet (Electronically signed by Kenton Alfred DO 08/06/2016 4:44)
== END 2016-08-06 00:14 | disposition home or self-care (01) ==
LOC: ED SRH 23:22
DX: S16.1XXA Strain of muscle, fascia and tendon at neck level, initial encounter (principal); X58.XXXA Exposure to other specified factors, initial encounter; Y93.9 Activity, unspecified; Y92.9 Unspecified place or not applicable; Y99.9 Unspecified external cause status; I10 Essential (primary) hypertension; Z88.0 Allergy status to penicillin

== ENCOUNTER 2016-08-18 12:08 | Emergency (ER) | payer OTHER ==
--- NOTE | 2016-08-18 13:23 | DIAGNOSTIC IMAGING REPORT ---
PROCEDURE: CT HEAD WITHOUT CONTRAST INDICATION: FALL, ALTERED TECHNIQUE: Axial CT images were acquired through the head. Coronal and sagittal reformations were created. COMPARISON: Head CT 07/30/2016 FINDINGS: Moderate atrophy with prominent ventricles and sulci. No intracranial hemorrhage or extraaxial fluid collections. Ventricles are normal in size, shape and position. There is no mass, mass effect or midline shift. The graham-white matter differentiation is normal. There is no edema. The calvarium is intact. The paranasal sinuses and mastoid air cells are normally aerated. The extracranial soft tissues and orbits are normal. IMPRESSION: 1. No CT evidence of acute intracranial process. 2. Age related involutional and white matter changes All CT scans at this facility use dose modulation, iterative reconstruction, and/or weight-based dosing when appropriate to reduce radiation dose to as low as reasonably achievable.
--- NOTE | 2016-08-18 13:26 | DIAGNOSTIC IMAGING REPORT ---
PROCEDURE: CT CERVICAL SPINE W/O CONTRAST INDICATION: FALL TECHNIQUE: Noncontrast axial images with sagittal and coronal reformations. COMPARISON: None. 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 Alignment is normal. IMPRESSION: 1. Negative CT cervical spine. No evidence of an acute process or fracture. 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
--- NOTE | 2016-08-18 13:37 | DIAGNOSTIC IMAGING REPORT ---
PROCEDURE: XR CHEST 1 VIEW INDICATION: FALL, ALTERED TECHNIQUE: Portable AP view 01:18 p.m. COMPARISON: 07/27/2016 chest FINDINGS: Lungs are clear. Heart and mediastinum are normal. Thorax is normal. IMPRESSION: 1. Negative chest.
--- NOTE | 2016-08-18 16:06 | ED CLINICAL REPORT ---
Clinical Report - Physicians/Mid Levels [facility] [address] [address] 08/18/2016 12:09 Patient: ISIDRA FIELD Time Seen: 1222. Arrived- By ambulance. Historian- patient. HISTORY OF PRESENT ILLNESS Chief Complaint: FALL. Location of injuries- neck. The injury occurred just prior to arrival. Occurred on a street. Fell. The patient complains of moderate pain. (does not recall. incident. possible head injury. no other areas of pain/injury. does not remember fall or preceding symptoms.). REVIEW OF SYSTEMS No loss of vision, chest pain, nausea, abdominal pain or laceration. No fever or vomiting. All systems otherwise negative, except as recorded above. PAST HISTORY See nurses notes. Tetanus immunization status is unknown. SOCIAL HISTORY Never smoker. No alcohol use or drug use. No recent travel. Is a local resident. ADDITIONAL NOTES The nursing notes have been reviewed. PHYSICAL EXAM Vital Signs: 08/18/2016 12:06 BP: 190/79. HR: 105. RR: 20. O2 saturation: 98%. Blood pressure normal. Oxygen saturation normal. Appearance: Patient on a backboard. C-collar in place. Alert. Oriented X3. No acute distress. Head: Head non-tender. No swelling of head. No Coker's sign or raccoon eyes. Eyes: Pupils equal, round and reactive to light. Pupillary exam: (opacified right pupil). Left pupil: 3mm, round and reactive to light directly and consensually and with accommodation. EOM intact. Neck: Decrease in ROM. Tenderness present. Vertebral tenderness. (c-collar in place). CVS: Heart sounds normal. Pulses normal. Respiratory: No respiratory distress. Breath sounds normal. Chest nontender. No chest wall injury, rales, wheezes, rhonchi or crepitus. Abdomen: No visible injury. Soft and nontender. Bowel sounds normal. No mass. Back: No tenderness. ROM normal. No vertebral point tenderness, muscle spasm or limitation in ROM. Skin: Skin intact. Skin warm and dry. Normal skin color. Normal skin turgor. Extremities: Normal inspection. Pelvis stable. Extremities atraumatic. No lower extremity edema. Neuro: [place] Coma Scale: 15- eyes open spontaneously (4); best verbal response- oriented x 3 (5); best motor response- obeys commands (6). Oriented X 3. No motor deficit. No sensory deficit. LABS, X-RAYS, AND EKG Chest X-ray: (PROCEDURE: XR CHEST 1 VIEW INDICATION: FALL, ALTERED TECHNIQUE: Portable AP view 01:18 p.m. COMPARISON: 07/27/2016 chest FINDINGS: Lungs are clear. Heart and mediastinum are normal. Thorax is normal. IMPRESSION: 1. Negative chest.). Views: PA. The X-rays were independently viewed by me and interpreted by the radiologist. The X-rays were discussed with the radiologist (via pacs). CT C-Spine: (PROCEDURE: CT CERVICAL SPINE W/O CONTRAST INDICATION: FALL TECHNIQUE: Noncontrast axial images with sagittal and coronal reformations. COMPARISON: None. 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 Alignment is normal. IMPRESSION: 1. Negative CT cervical spine. No evidence of an acute process or fracture. 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 The study was independently viewed by me and interpreted by the radiologist. The study was discussed with the radiologist (via pacs). CT Head: (PROCEDURE: CT HEAD WITHOUT CONTRAST INDICATION: FALL, ALTERED TECHNIQUE: Axial CT images were acquired through the head. Coronal and sagittal reformations were created. COMPARISON: Head CT 07/30/2016 FINDINGS: Moderate atrophy with prominent ventricles and sulci. No intracranial hemorrhage or extraaxial fluid collections. Ventricles are normal in size, shape and position. There is no mass, mass effect or midline shift. The graham-white matter differentiation is normal. There is no edema. The calvarium is intact. The paranasal sinuses and mastoid air cells are normally aerated. The extracranial soft tissues and orbits are normal. IMPRESSION: 1. No CT evidence of acute intracranial process. 2. Age related involutional and white matter changes). Laboratory Tests: UA-Culture if indicated: (LINDSAY: 08/18/2016 14:20) ( MsgRcvd 08/18/2016 15:05) Final results Test Result Flag Units (Reference) URINE COLOR YELLOW URINE APPEARANCE CLEAR URINE GLUCOSE NEGATIVE (NEGATIVE) URINE BILIRUBIN NEGATIVE (NEGATIVE) URINE KETONE TRACE (NEGATIVE) URINE SPECIFIC GRAVITY 1.020 (1.010-1.030) URINE PH 6.0 (5.0-8.0) URINE PROTEIN 2+ (NEGATIVE) URINE UROBILINOGEN 0.2 EU/dL (0.2-1.0) URINE NITRITE NEGATIVE (NEGATIVE) URINE BLOOD TRACE-INTACT (NEGATIVE) URINE LEUK ESTERASE NEGATIVE (NEGATIVE) URINE RBC NONE SEEN rbc/hpf (0-1) URINE WBC RARE wbc/hpf (0-1) URINE EPITHELIAL CELLS RARE EPI/hpf (0-5) URINE BACTERIA NONE SEEN (NONE SEEN) URINE COMMENT CULT NOT INDICATED URINE CULTURES ARE SET-UP BASED ON THE FOLLOWING CRITERIA:POSITIVE NITRITEPOSITIVE LEUKOCYTE ESTERASEGREATER THAN 10 WHITE BLOOD CELLSMODERATE (2+) OR GREATER BACTERIA CBC w Diff: (LINDSAY: 08/18/2016 12:43) ( [facility] 08/18/2016 13:23) Final results Test Result Flag Units (Reference) WHITE BLOOD COUNT 7.0 K/uL (4.5-11.5) RED BLOOD COUNT 4.81 M/uL (4.50-5.90) HEMOGLOBIN 12.8 L gm/dL (13.5-17.5) HEMATOCRIT 38.6 L % (41.0-53.0) MEAN CELL VOLUME 80 fL (80-100) MEAN CORPUSCULAR HGB 27 pg (26-34) MEAN CORPUSCULAR HGB CONC 33 g/dL (31-37) RED CELL DISTRIBUTION WIDTH 18.3 H % (11.6-14.8) PLATELET COUNT 342 K/uL (150-400) NEUTROPHIL % 72.5 % (50-75) LYMPH % 19.0 L % (25-40) MONO % 7.8 % (3-14) EOSINOPHIL % 0.4 % (0-4) BASOPHIL % 0.3 % (0-2) PT with INR: (LINDSAY: 08/18/2016 12:43) ( [facility] 08/18/2016 13:23) Final results Test Result Flag Units (Reference) INR 1.0 (0.8-1.2) Low Intensity Therapy: INR 1.5-2.0 PT range 18.5-23.1Mod.Intensity Therapy: INR 2.0-3.0 PT range 23.1-31.5High Intensity Therapy: INR 2.5-3.5 PT range 27.4-35.5High Intensity Therapy 2: INR 3.0-4.0 PT range 31.5-39.3 Lactate, Serum: (LINDSAY: 08/18/2016 15:10) ( [facility] 08/18/2016 15:41) Final results Test Result Flag Units (Reference) LACTIC ACID 1.7 mmol/L (0.4-2.0) Lactate, Serum: (LINDSAY: 08/18/2016 12:43) ( [facility] 08/18/2016 13:39) Final results Test Result Flag Units (Reference) LACTIC ACID 3.0 H mmol/L (0.4-2.0) CMP: (LINDSAY: 08/18/2016 12:43) ( [facility] 08/18/2016 13:39) Final results Test Result Flag Units (Reference) GLUCOSE 108 mg/dL (70-110) BUN 39 H mg/dL (7-18) CREATININE 2.1 H mg/dL (0.6-1.3) Estimated GFR 32.14 mL/min Estimated GFR- 38.95 mL/min Note: Persistent reduction over 3 months in eGFR<60 mL/min/1.73 m2 defines CKD. Patients with eGFR values>=60 mL/min/1.73 m2 may also have CKD if evidence ofpersistent proteinuria. Additional information may be foundat www.kidney.org. SODIUM 140 mmol/L (136-145) POTASSIUM 4.5 mmol/L (3.5-5.1) CHLORIDE 101 mmol/L (98-107) CARBON DIOXIDE 25 mmol/L (21-32) CALCIUM 9.5 mg/dL (8.5-10.1) TOTAL PROTEIN 7.5 g/dL (6.4-8.2) ALBUMIN 3.9 g/dL (3.3-5.0) BILIRUBIN, TOTAL 0.7 mg/dL (0.0-1.0) ALKALINE PHOSPHATASE 81 U/L (46-116) AST (SGOT) 15 U/L (15-37) ALT (SGPT) 19 U/L (12-78) TROPONIN I <0.05 ng/mL (0.00-1.5) TROPONIN REFERENCE RANGE:<0.1 NEGATIVE0.1-1.5 INDETERMINANT>1.5 POSITIVE THYROID STIMULATING HORMONE 0.271 L uIU/mL (0.30-3.74) . PROGRESS AND PROCEDURES C-Spine Status: Cervical spine cleared by history and physical exam and CT scan. Patient alert and oriented times three and does not appear intoxicated. No distracting injury present. No complaint of neck pain. There is no neurological deficit or point tenderness on examination. Full cervical spine range of motion without pain. Course of Care: the patient is a pleasant 86-year-old male presenting for evaluation of ground-level fall. On examination, the patient is reporting posterior neck pain. No neurological deficits orevidence of trauma on examination except for mild tenderness. Patient will be evaluated with CT scan of the head as well as neck. Patient is amnestic to the event. We'll also order laboratory studies for possible preceding symptoms however patient does not recall any these. Patient is agreeable to the treatment and plan. Laboratory studies are pending. Patient is currently resting in bed and in no acute distress. The patient's workup was remarkable for lactic acidosis. Lactate is 3.0. The patient will be given fluid bolus and the lactate will be redrawn. Patient likely with mild dehydration. Rest of laboratory studies and imaging are otherwise unremarkable. Please see results above. C-spine was cleared clinically and radiographically. Patient continues to be astigmatic at this time. Pain is improved since being here in the emergency department. Repeat lactic acid is noted to be normal. Patient is stable for outpatient management. Patient encouraged to follow up with his primary care doctor and return for any worsening of symptoms. Discussed with patient workup, diagnosis, home care, follow-up, and return precautions. All questions have been answered. The patient expressed understanding of these instructions and was agreeable to them. CLINICAL IMPRESSION Acute neck pain associated with cervical sprain. (acute right sided). Fall (acute). Minor closed head injury. Unknown whether a loss of consciousness occurred. (acute). lactic acidosis, acute resolved. INSTRUCTIONS (use extreme cautions when walking). Warnings: GENERAL WARNINGS: Return or contact your physician immediately if your condition worsens or changes unexpectedly, if not improving as expected, or if other problems arise. SPECIFICALLY, return if you develop weakness, numbness, tingling, pain or incontinence. Prescription Medications: [place] 5 mg / 325 mg tablets: take 1 orally every 6 hours as needed for pain. Dispense ten (10). No refill. Substitution is permissible. Follow-up: Return to the emergency department as needed. Follow up with your doctor in three days. Reason for referral: recheck today's concerns. Summary of care provided to patient via paper. Screening today revealed the patient's blood pressure to be in the normal range. The patient should follow up with a primary care provider for blood pressure management. Understanding of the discharge instructions verbalized by patient. (Electronically signed by Anil Holloway Dr. 08/24/2016 21:45)
--- NOTE | 2016-08-18 16:07 | ED ORDER SUMMARY ---
..... Patient: ISIDRA FIELD OrderSheet [facility] VisitID: [id number] [place] [address] 86y, M Registration Date/Time: 08/18/2016 ORDER SHEET Weight: 72.5 kg (stated) Allergies: Penicillins GENERAL ORDERS: Chest 1V Urgent (12:35 08/18/2016 Harshad Reddy) (Ack 12:43 LNations ER Tech1) (13:11 Justin) CT Head wo Cont Urgent (12:35 08/18/2016 Harshad Reddy) (Ack 12:44 LNations ER Tech1) (13:11 Justin) Inside Sales Engineer (Continuous) (altered) (12:35 08/18/2016 Harshad Reddy) (Ack 12:38 LNations ER Tech1) (12:51 TChapman R.N.) CT Cervical Spine wo Cont Urgent (12:36 08/18/2016 Harshad Reddy) (Ack 12:44 LNations ER Tech1) (13:11 Justin) - (c-spine precations) (12:37 08/18/2016 Harshad Reddy) (Ack 12:38 LNations ER Tech1) (14:41 JBoardley R.N.) CBC w Diff Urgent (12:37 08/18/2016 Harshad Reddy) (Ack 12:39 LNations ER Tech1) (14:40 JBoardley R.N.) CMP Urgent (12:37 08/18/2016 Harshad Reddy) (Ack 12:39 LNations ER Tech1) (14:40 JBoardley R.N.) UA-Culture if indicated Urgent (12:37 08/18/2016 Harshad Reddy) (Ack 12:39 LNations ER Tech1) (14:40 JBoardley R.N.) PT with INR Urgent (12:37 08/18/2016 Harshad Reddy) (Ack 12:39 LNations ER Tech1) (14:40 JBoardley R.N.) Troponin-I Urgent (12:37 08/18/2016 Harshad Reddy) (Ack 12:43 LNations ER Tech1) (14:40 JBoardley R.N.) Lactate, Serum Urgent (12:37 08/18/2016 Harshad Reddy) (Ack 12:43 LNations ER Tech1) (14:40 JBoardley R.N.) TSH Urgent (12:37 08/18/2016 Harshad Reddy) (Ack 12:43 LNations ER Tech1) (14:40 JBoardley R.N.) Pulse oximeter (12:37 08/18/2016 Harshad Reddy) (Ack 12:38 LNations ER Tech1) (12:51 TChapman R.N.) EKG - ER Stat (12:37 08/18/2016 Harshad Reddy) (Ack 12:38 LNations ER Tech1) (12:54 NIKOoerner) C-Collar, Remove (13:47 08/18/2016 Harshad Reddy) (14:41 JBoardley R.N.) Lactate, Serum Urgent (14:47 08/18/2016 Harshad Reddy) (Ack 14:53 LNations ER Tech1) (15:26 LNations ER Tech1) MEDICATION ORDERS: IV FLUIDS: Morphine IV 4 mg (HIGH ALERT MEDICATION, NOW) (12:36 08/18/2016 Harshad Reddy) (12:47 TChapman R.N.) IV Saline Lock (12:37 08/18/2016 Harshad Reddy) (12:46 TChapman R.N.) IV NS : initial bolus 1000 mL (1000 mL/hr), then none - for X1 (NOW) (13:47 08/18/2016 Harshad Redyd) (Ack 14:37 JBoardley R.N.) (14:40 JBoardley R.N.) Zofran IV 4 mg (NOW) (14:36 08/18/2016 JBoardley R.N. verbal order read back to Harshad Reddy) (14:36 JBoardley R.N.) Zofran IV 4 mg (NOW) (14:46 08/18/2016 Harshad Reddy) (Ack 14:53 JBoardley R.N.) (Cancelled: Other15:44 JBoardley R.N.) ORDER SHEET NOTES: [Electronically signed by Bernarda Kinney R.N. (17:16 08/18/2016)] [Electronically signed by Anil Holloway Dr. (21:45 08/24/2016)] [Electronically locked/signed by Bernarda Kinney R.N. (17:16 08/18/2016)]
--- NOTE | 2016-08-18 16:07 | ED NURSING NOTES ---
Clinical Report - Nurses [facility] [place] [address] 08/18/2016 12:09 [id number] Triage time 12:06. --12:11 Bernarda Kinney R.N. 12:06 08/18/16. BP: 190/79. HR: 105. RR: 20. O2 saturation: 98%. Pain level now 03/10. --12:11 Bernarda Kinney R.N. Chief Complaint: NECK PAIN. PM late entry -12:06. --16:57 Bernarda Kinney R.N. 12:25 08/18/16. Pain level now 03/10. --16:57 Bernarda Kinney R.N. Weight: 72.5 kg stated. Height/Length: 67 inches Per Patient. BMI: 25.1. --14:42 Nikunj Linares R.N. Allergies Penicillins. --16:55 Bernarda Kinney R.N. History Arrived by EMS. Historian: patient. ( out front on street at [facility]). History of recent trauma- fall. Occurred at home. SOCIAL HX: No alcohol use or drug use. --12:11 Bernarda Kinney R.N. PHYSICAL ASSESSMENT GENERAL / NEURO / PSYCH: Appears in pain, anxious and in distress. The patient is disoriented to person, place, time and situation. RESPIRATORY: Respirations not labored. Chest nontender. Breath sounds within normal limits. CVS: Normal heart rate and rhythm. Capillary refill less than 2 seconds. GI / : Abdomen soft and nontender. Bowel sounds within normal limits. CVA tenderness. EXTREMITIES: Sensation intact in extremities. BACK: ( c collar in place). Limited ROM of the neck. --12:19 Bernarda Kinney R.N. NURSING PROGRESS NOTES 12:10. C-collar applied. Patient placed on backboard. Patient gowned. Side rails up x 1. Bed placed in lowest position. Brakes of bed on. Patient ready for evaluation- chart flagged and ED physician notified. ( physician has been notified. Pt needs to be cleared from board). --12:21 Bernarda Kinney R.N. HEENT: The patient reports neck pain. ( patient very confused. Is stating "Just let me "). --12:22 Bernarda Kinney R.N. 12:34 08/18/16. ( patient removed from backboard). --12:34 Bernarda Kinney R.N. 12:46 08/18/2016 Site #1 started via IV in the left forearm with an 22g angiocath, with good blood return; one attempt. Blood drawn: rainbow set. Saline lock flushed. --12:46 Bernarda Kinney R.N. 12:47 08/18/2016 Morphine IVP 4 mg given. via site #1. --12:47 Bernarda Kinney R.N. 12:52 08/18/16. EKG time: (1252). EKG was performed by a tech and shown to the ED physician. --12:53 Collette eBrnard 12:59 08/18/16. Reassessment after medication administered (patient states pain in neck is 4/10. He continues to call out for gorlfriend and does not remember that he has been told dtr is on the way. Patient is continually reassured that dtr is coming anf that he fell. He seems to think he tried to kill himself.). --12:59 Bernarda Kinney R.N. 13:25 08/18/16. BP: 148/78. HR: 90. RR: 16. O2 saturation: 100%. Pain level now 0/10. --13:26 Bernarda Kinney R.N. 13:25 08/18/16. ( patient is still talking about his girlfriend and "why he tried to kill himself"). --13:26 Bernarda Kinney R.N. 13:33 08/18/16. ( spoke with Mera at [facility] where patient lives. She states that he was on a HTN medication but has not been on one since at [facility]. They do not give him his medications but monitor for if patient is taking or not.). --13:33 Bernarda Kinney R.N. 14:36 08/18/2016 Zofran (Ondansetron HCl) IVP 4 mg given over 2 minute(s) via site #1. Allergies verified and confirmed 5 rights. IV patency established. IV site checked: no pain, redness, or swelling. IV flushed thoroughly pre- and post-medication administration. IVP given by RN. --14:36 Nikunj Linares R.N. 14:40 08/18/2016 Started bag #1 1000 mL IV Fluids IV NS (Saline); at 1000 mL/hr over 1 hour(s) via site #1. Completed per protocol. --14:40 Nikunj Linares R.N. 14:41 08/18/16. ( C-collar removed). --14:41 Nikunj Linares R.N. 14:43 08/18/16. Pulse oximeter and NIBP monitor placed on patient; monitor alarms on. --14:43 Nikujn Linares R.N. 14:43 08/18/16. ( Pt with emesis, aware, new order for zofran for nausea). --14:43 Nikunj Linares R.N. 14:43 08/18/16. --14:43 Nikunj Linares R.N. 14:43 08/18/16. BP: 155/59. HR: 92. RR: 18. O2 saturation: 99% on room air. --14:43 Nikunj Linares R.N. 15:05 08/18/16. ( Lab at bedside drawing blood). --15:05 Nikunj Linares R.N. ( assisted pt. to stand beside bed to urinate. Assisted pt back to bed.). --15:31 Ritu Jones ER [facility] 15:32 08/18/16. BP: 156/53 (regular adult cuff) taken on the right arm, via an automated monitor, while lying. HR: 91. RR: 16. O2 saturation: 99%. Pain level now: 4/10. Additional comments: head. --15:34 Bernarda Kinney R.N. 16:40. ( Patient getting dressed. Awaiting daughters arrival). --16:54 Bernarda Kinney R.N. DISPOSITION / DISCHARGE Condition at departure: improved. No learning barriers present. Discharge instructions provided and reviewed with the relative, patient and family. Reviewed medication(s) side effects and precautions information. Prescription(s) given to the animal caretaker supervisor. Patient and family verbalized understanding. The patient was discharged home and accompanied by family. He left the Emergency Department in a wheelchair and via private vehicle. Family member driving. --17:16 Bernarda Kinney R.N. 16:50 08/18/16. BP: 180/57. HR: 94. RR: 18. O2 saturation: 100%. Temp: 98 F. Pain level now: 08/08. --17:16 Bernarda Kinney R.N. Locked/Released at 08/18/2016 17:16 by Bernarda Kinney R.N.
--- NOTE | 2016-08-18 16:07 | ED ORDER SUMMARY ---
..... Patient: ISIDRA FIELD OrderSheet [facility] VisitID: [id number] [place] [address] 86y, M Registration Date/Time: 08/18/2016 ORDER SHEET Weight: 72.5 kg (stated) Allergies: Penicillins GENERAL ORDERS: Chest 1V Urgent (12:35 08/18/2016 Harshad Reddy) (Ack 12:43 LNations ER Tech1) (13:11 Justin) CT Head wo Cont Urgent (12:35 08/18/2016 Harshad Reddy) (Ack 12:44 LNations ER Tech1) (13:11 Justin) Cosmetology Instructor (Continuous) (altered) (12:35 08/18/2016 Harshad Reddy) (Ack 12:38 LNations ER Tech1) (12:51 TChapman R.N.) CT Cervical Spine wo Cont Urgent (12:36 08/18/2016 Harshad Reddy) (Ack 12:44 LNations ER Tech1) (13:11 Justin) - (c-spine precations) (12:37 08/18/2016 Harshad Reddy) (Ack 12:38 LNations ER Tech1) (14:41 JBoardley R.N.) CBC w Diff Urgent (12:37 08/18/2016 Harshad Reddy) (Ack 12:39 LNations ER Tech1) (14:40 JBoardley R.N.) CMP Urgent (12:37 08/18/2016 Harshad Reddy) (Ack 12:39 LNations ER Tech1) (14:40 JBoardley R.N.) UA-Culture if indicated Urgent (12:37 08/18/2016 Harshad Reddy) (Ack 12:39 LNations ER Tech1) (14:40 JBoardley R.N.) PT with INR Urgent (12:37 08/18/2016 Harshad Reddy) (Ack 12:39 LNations ER Tech1) (14:40 JBoardley R.N.) Troponin-I Urgent (12:37 08/18/2016 Harshad Reddy) (Ack 12:43 LNations ER Tech1) (14:40 JBoardley R.N.) Lactate, Serum Urgent (12:37 08/18/2016 Harshad Reddy) (Ack 12:43 LNations ER Tech1) (14:40 JBoardley R.N.) TSH Urgent (12:37 08/18/2016 Harshad Reddy) (Ack 12:43 LNations ER Tech1) (14:40 JBoardley R.N.) Pulse oximeter (12:37 08/18/2016 Harshad Reddy) (Ack 12:38 LNations ER Tech1) (12:51 TChapman R.N.) EKG - ER Stat (12:37 08/18/2016 Harshad Reddy) (Ack 12:38 LNations ER Tech1) (12:54 NIKOoerner) C-Collar, Remove (13:47 08/18/2016 Harshad Reddy) (14:41 JBoardley R.N.) Lactate, Serum Urgent (14:47 08/18/2016 Harshad Reddy) (Ack 14:53 LNations ER Tech1) (15:26 LNations ER Tech1) MEDICATION ORDERS: IV FLUIDS: Morphine IV 4 mg (HIGH ALERT MEDICATION, NOW) (12:36 08/18/2016 Harshad Reddy) (12:47 TChapman R.N.) IV Saline Lock (12:37 08/18/2016 Harshad Reddy) (12:46 TChapman R.N.) IV NS : initial bolus 1000 mL (1000 mL/hr), then none - for X1 (NOW) (13:47 08/18/2016 Harshad Reddy) (Ack 14:37 JBoardley R.N.) (14:40 JBoardley R.N.) Zofran IV 4 mg (NOW) (14:36 08/18/2016 JBoardley R.N. verbal order read back to Harshad Reddy) (14:36 JBoardley R.N.) Zofran IV 4 mg (NOW) (14:46 08/18/2016 Harshad Reddy) (Ack 14:53 JBoardley R.N.) (Cancelled: Other15:44 JBoardley R.N.) ORDER SHEET NOTES: [Electronically signed by Bernarda Kinney R.N. (17:16 08/18/2016)] [Electronically signed by Anil Holloway Dr. (21:45 08/24/2016)] [Electronically locked/signed by Bernarda Kinney R.N. (17:16 08/18/2016)]
--- NOTE | 2016-08-18 16:07 | ED NURSING NOTES ---
Clinical Report - Nurses [facility] [place] [address] 08/18/2016 12:09 [id number] Triage time 12:06. --12:11 Bernarda Kinney R.N. 12:06 08/18/16. BP: 190/79. HR: 105. RR: 20. O2 saturation: 98%. Pain level now 03/10. --12:11 Bernarda Kinney R.N. Chief Complaint: NECK PAIN. PM late entry -12:06. --16:57 Bernarda Kinney R.N. 12:25 08/18/16. Pain level now 03/10. --16:57 Bernarda Kinney R.N. Weight: 72.5 kg stated. Height/Length: 67 inches Per Patient. BMI: 25.1. --14:42 Nikunj Linares R.N. Allergies Penicillins. --16:55 Bernarda Kinney R.N. History Arrived by EMS. Historian: patient. ( out front on street at [facility]). History of recent trauma- fall. Occurred at home. SOCIAL HX: No alcohol use or drug use. --12:11 Bernarda Kinney R.N. PHYSICAL ASSESSMENT GENERAL / NEURO / PSYCH: Appears in pain, anxious and in distress. The patient is disoriented to person, place, time and situation. RESPIRATORY: Respirations not labored. Chest nontender. Breath sounds within normal limits. CVS: Normal heart rate and rhythm. Capillary refill less than 2 seconds. GI / : Abdomen soft and nontender. Bowel sounds within normal limits. CVA tenderness. EXTREMITIES: Sensation intact in extremities. BACK: ( c collar in place). Limited ROM of the neck. --12:19 Bernarda Kinney R.N. NURSING PROGRESS NOTES 12:10. C-collar applied. Patient placed on backboard. Patient gowned. Side rails up x 1. Bed placed in lowest position. Brakes of bed on. Patient ready for evaluation- chart flagged and ED physician notified. ( physician has been notified. Pt needs to be cleared from board). --12:21 Bernarda Kinney R.N. HEENT: The patient reports neck pain. ( patient very confused. Is stating "Just let me "). --12:22 Bernarda Kinney R.N. 12:34 08/18/16. ( patient removed from backboard). --12:34 Bernarda Kinney R.N. 12:46 08/18/2016 Site #1 started via IV in the left forearm with an 22g angiocath, with good blood return; one attempt. Blood drawn: rainbow set. Saline lock flushed. --12:46 Bernarda Kinney R.N. 12:47 08/18/2016 Morphine IVP 4 mg given. via site #1. --12:47 Bernarda Kinney R.N. 12:52 08/18/16. EKG time: (1252). EKG was performed by a tech and shown to the ED physician. --12:53 Collette Bernard 12:59 08/18/16. Reassessment after medication administered (patient states pain in neck is 4/10. He continues to call out for gorlfriend and does not remember that he has been told dtr is on the way. Patient is continually reassured that dtr is coming anf that he fell. He seems to think he tried to kill himself.). --12:59 Bernarda Kinney R.N. 13:25 08/18/16. BP: 148/78. HR: 90. RR: 16. O2 saturation: 100%. Pain level now 0/10. --13:26 Bernarda Kinney R.N. 13:25 08/18/16. ( patient is still talking about his girlfriend and "why he tried to kill himself"). --13:26 Bernarda Kinney R.N. 13:33 08/18/16. ( spoke with Mera at [facility] where patient lives. She states that he was on a HTN medication but has not been on one since at [facility]. They do not give him his medications but monitor for if patient is taking or not.). --13:33 Bernarda Kinney R.N. 14:36 08/18/2016 Zofran (Ondansetron HCl) IVP 4 mg given over 2 minute(s) via site #1. Allergies verified and confirmed 5 rights. IV patency established. IV site checked: no pain, redness, or swelling. IV flushed thoroughly pre- and post-medication administration. IVP given by RN. --14:36 Nikunj Linares R.N. 14:40 08/18/2016 Started bag #1 1000 mL IV Fluids IV NS (Saline); at 1000 mL/hr over 1 hour(s) via site #1. Completed per protocol. --14:40 Nikunj Linares R.N. 14:41 08/18/16. ( C-collar removed). --14:41 Nikunj Linares R.N. 14:43 08/18/16. Pulse oximeter and NIBP monitor placed on patient; monitor alarms on. --14:43 Nikunj Linares R.N. 14:43 08/18/16. ( Pt with emesis, aware, new order for zofran for nausea). --14:43 Nikunj Linares R.N. 14:43 08/18/16. --14:43 Nikunj Linares R.N. 14:43 08/18/16. BP: 155/59. HR: 92. RR: 18. O2 saturation: 99% on room air. --14:43 Nikunj Linares R.N. 15:05 08/18/16. ( Lab at bedside drawing blood). --15:05 Nikunj Linares R.N. ( assisted pt. to stand beside bed to urinate. Assisted pt back to bed.). --15:31 Ritu Jones ER [facility] 15:32 08/18/16. BP: 156/53 (regular adult cuff) taken on the right arm, via an automated monitor, while lying. HR: 91. RR: 16. O2 saturation: 99%. Pain level now: 4/10. Additional comments: head. --15:34 Bernarda Kinney R.N. 16:40. ( Patient getting dressed. Awaiting daughters arrival). --16:54 Bernarda Kinney R.N. DISPOSITION / DISCHARGE Condition at departure: improved. No learning barriers present. Discharge instructions provided and reviewed with the relative, patient and family. Reviewed medication(s) side effects and precautions information. Prescription(s) given to the corporate staff accountant. Patient and family verbalized understanding. The patient was discharged home and accompanied by family. He left the Emergency Department in a wheelchair and via private vehicle. Family member driving. --17:16 Bernarda Kinney R.N. 16:50 08/18/16. BP: 180/57. HR: 94. RR: 18. O2 saturation: 100%. Temp: 98 F. Pain level now: 08/08. --17:16 Bernarda Kinney R.N. Locked/Released at 08/18/2016 17:16 by Bernarda Kinney R.N.
--- NOTE | 2016-08-24 21:45 | ED MAR SUMMARY ---
..... Medication Administration Record [facility] [address] [address] Patient: ISIDRA FIELD Visit ID: [id number] 86y, M Weight: 72.5 kg Height/Length: 67 in BMI: 25.1 ALLERGIES: Penicillins Given 12:47 08/18/2016 Bernarda Kinney R.N. Medication Administered: MORPHINE [IVP], Dose: 4 mg IVP, Site: #1 left forearm. Medication Ordered: Morphine IV 4 mg (HIGH ALERT MEDICATION, NOW). Given 14:36 08/18/2016 Nikunj Linares R.N. Medication Administered: ZOFRAN [IVP] (ONDANSETRON HCL), Dose: 4 mg IVP over 2 minute(s), Site: #1 left forearm. Medication Ordered: Zofran IV 4 mg (NOW). Start 14:40 08/18/2016 Nikunj Linares R.N. Medication Administered: IV NS (SALINE), Dose: IV Fluids over 1 hour(s), Rate: 1000 mL/hr, Dispensed: 1000 mL bag, Site: #1 left forearm. Medication Ordered: IV NS : initial bolus 1000 mL (1000 mL/hr), then none - for X1 (NOW).
--- NOTE | 2016-08-24 21:45 | ED MED RECONCILIATION SUMMARY ---
Patient: ISIDRA FIELD Medication Reconciliation Report [facility] VisitID: [id number] [address] [place] [address] 86y, M Registration Date/Time: 08/18/2016 Weight: 72.5 kg Height/Length: 67 in. BMI: 25.1 ALLERGIES: Penicillins The patient's Home Medications are listed below: Not obtained. The source(s) of the original Home Medication information: Not obtained. The following Medications were given to the patient in the Emergency Department: Morphine [IVP] IVP 4 mg, administered: 08/18/2016 12:47:00 PM Zofran [IVP] IVP 4 mg, administered: 08/18/2016 2:36:00 PM IV NS IV Fluids bolus 0, then 1000 mL/hr, administered: 08/18/2016 2:40:00 PM The following Medications were prescribed to the patient: [place] 5 mg / 325 mg tablets: take 1 orally every 6 hours as needed for pain. Dispense ten (10). No refill. Substitution is permissible. -- Anil Holloway Dr.
--- NOTE | 2016-08-24 21:45 | ED MED RECONCILIATION SUMMARY ---
Patient: ISIDRA FIELD Medication Reconciliation Report [facility] VisitID: [id number] [address] [place] [address] 86y, M Registration Date/Time: 08/18/2016 Weight: 72.5 kg Height/Length: 67 in. BMI: 25.1 ALLERGIES: Penicillins The patient's Home Medications are listed below: Not obtained. The source(s) of the original Home Medication information: Not obtained. The following Medications were given to the patient in the Emergency Department: Morphine [IVP] IVP 4 mg, administered: 08/18/2016 12:47:00 PM Zofran [IVP] IVP 4 mg, administered: 08/18/2016 2:36:00 PM IV NS IV Fluids bolus 0, then 1000 mL/hr, administered: 08/18/2016 2:40:00 PM The following Medications were prescribed to the patient: [place] 5 mg / 325 mg tablets: take 1 orally every 6 hours as needed for pain. Dispense ten (10). No refill. Substitution is permissible. -- Anil Holloway Dr.
--- NOTE | 2016-08-24 21:45 | ED DISCHARGE INSTRUCTIONS ---
Patient: ISIDRA FIELD General Instructions [facility] VisitID: [id number] [place] [address] 86y, M Registration Date/Time: 08/18/2016 Acute neck pain associated with cervical sprain. (acute right sided). Fall (acute). Minor closed head injury. Unknown whether a loss of consciousness occurred. (acute). lactic acidosis, acute resolved. INSTRUCTIONS (use extreme cautions when walking). Warnings: GENERAL WARNINGS: Return or contact your physician immediately if your condition worsens or changes unexpectedly, if not improving as expected, or if other problems arise. SPECIFICALLY, return if you develop weakness, numbness, tingling, pain or incontinence. Prescription Medications: [place] 5 mg / 325 mg tablets: take 1 orally every 6 hours as needed for pain. Dispense ten (10). No refill. Substitution is permissible. Follow-up: Return to the emergency department as needed. Follow up with your doctor in three days. Reason for referral: recheck today's concerns. Summary of care provided to patient via paper. Screening today revealed the patient's blood pressure to be in the normal range. The patient should follow up with a primary care provider for blood pressure management. Understanding of the discharge instructions verbalized by patient. ADDITIONAL INFORMATION Fall, Uncertain Cause You have had a fall today. but the cause of your fall is not certain. Falls can occur due to slipping, tripping or losing your balance. A fall can also occur from a fainting spell or seizure. Because the cause of your fall today is not certain, it is possible that a fainting spell or seizure was the cause. This means that it could happen again, without warning. If you fall again, without a cause, then you should return to this facility promptly to have further tests. Otherwise, follow up with your doctor as explained below. Home Care: 1) Rest today and resume your normal activities as soon as you are feeling back to normal. It is best to remain with someone who can check on you for the next 24 hours to watch for another episode of falling. 2) If you were injured during the fall, follow the advice from your doctor regarding care of your injury. 3) If you become light-headed or dizzy, lie down immediately or sit and lean forward with your head down. 4) As a precaution, do not drive a car or operate dangerous equipment, do not take a bath alone (use a shower instead) and do not swim alone until you see your doctor. A condition causing fainting or seizures must be ruled out before resuming these activities. 5)You may use acetaminophen (Tylenol) or ibuprofen (Motrin, Advil) to control pain, unless another pain medicine was prescribed. [ NOTE : If you have chronic liver or kidney disease or ever had a stomach ulcer or GI bleeding, talk with your doctor before using these medicines.] 6) Keep your appointments for any further testing that may have been scheduled for you. Follow Up: Unless, given other advice, call your doctor on the next office day to advise of your fall and to schedule an appointment. Get Prompt Medical Attention if any of the following occur: -- Another unexplained fall -- Dizziness, fainting or seizure -- Severe headache -- Chest pain or shortness of breath -- Palpitations (very rapid or very slow or irregular heart beat) -- Blood in vomit, stools (black or red color) -- Weakness of an arm or leg or one side of the face -- Difficulty with speech or vision Neck Sprain Or Strain A sudden force that causes turning or bending of the neck (such as in a car accident) can stretch or tear muscles (strain) and ligaments (sprain) and cause neck pain. Sometimes neck pain occurs after a simple awkward movement. In either case, muscle spasm is commonly present and contributes to the pain. Unless you had a forceful physical injury (for example, a car accident or fall), X-rays are usually not ordered for the initial evaluation of neck pain. If pain continues and dose not respond to medical treatment, X-rays and other tests may be performed at a later time. Home care The following guidelines will help you care for your injury at home: You may feel more soreness and spasm the first few days after the injury. Reduce your activity level until symptoms begin to improve. When lying down, use a comfortable pillow that supports the head and keeps the spine in a neutral position. The position of the head should not be tilted forward or backward. Use ice packs (ice in a plastic bag, wrapped in a towel) to treat acute pain. Apply for 20 minutes every 24 hours during the first two days. Then, begin local heat (hot shower, hot bath or heating pad) andmassageto reduce muscle spasm. Some patients feel best alternating hot and cold treatments, or just staying with one method only. Do what feels the best to you and gives the most relief. You may use acetaminophen or ibuprofen to control pain, unless another pain medicine was prescribed.If you have chronic liver or kidney disease or ever had a stomach ulcer or GI bleeding, talk with your doctor before using these medicines. Follow-up care Follow up with your physician or this facility if your symptoms do not show signs of improvement. Physical therapy may be needed. If you had X-rays today, they didnt show any broken bones, breaks, or fractures. Sometimes fractures dont show up on the first X-ray. Bruises and sprains can sometimes hurt as much as a fracture. These injuries can take time to heal completely. If your symptoms dont improve or they get worse, talk with your doctor. You may need a repeat X-ray. When to seek medical care Get prompt medical attention if any of the following occur: Pain becomes worse or spreads into your arms Weakness or numbness in one or both arms Head Injury, No Wake-Up (Adult) You have had a head injury. It does not appear serious at this time. Symptoms of a more serious problem (concussion, bruising, or bleeding in the brain) may appear later. Therefore, watch for the WARNING SIGNS listed below. Home Care: Your healthcare provider will tell you whether its okay to drive. If so, you can drive yourself home. For the next day or so, be careful when driving or using heavy machinery until you are sure you have no delayed symptoms. During the next 24 hours someone must stay with you to check for the signs below. It is not necessary to stay awake or be awakened during the night. If you have swelling of the face or scalp, apply an ice pack (ice cubes in a plastic bag, wrapped in a towel) for 20 minutes. Do this every 1-2 hours until the swelling starts to go down. Do not use aspirin or ibuprofen (Motrin, Advil) after a head injury.You may use acetaminophen (Tylenol)to control pain, unless another pain medicine was prescribed. [NOTE: If you have chronic liver or kidney disease or ever had a stomach ulcer or GI bleeding, talk with your doctor before using these medicines.] For the next 24 hours: Do not take alcohol, sedatives or medicines that make you sleepy. Avoid strenuous activities. No lifting or straining. If you have had any symptoms of a concussion today (nausea, vomiting, dizziness, confusion, headache, memory loss or if you were knocked out), do not return to sports or any activity that could result in another head injury until all symptoms are gone and you have been cleared by your doctor. A second head injury before fully recovering from the first one can lead to serious brain injury. Follow Up with your doctor if symptoms are not improving after 24 hours, or as directed. [NOTE: A radiologist will review any X-rays or CT scans that were taken. We will notify you of any new findings that may affect your care.] Get Prompt Medical Attention if any of the followingWARNING SIGNS occur: Repeated vomiting Severe or worsening headache or dizziness Unusual drowsiness, or unable to awaken as usual Confusion or change in behavior or speech, memory loss, blurred vision Convulsion (seizure) Increasing scalp or face swelling Redness, warmth or pus from the swollen area Fluid drainage or bleeding from the nose or ears Hydrocodone Bitartrate, Acetaminophen Oral tablet What is this medicine? ACETAMINOPHEN; HYDROCODONE (a set a ZACARIAS bobby fen; jordan droe KOE done) is a pain reliever. It is used to treat mild to moderate pain. How should I use this medicine? Take this medicine by mouth. Swallow it with a full glass of water. Follow the directions on the prescription label. If the medicine upsets your stomach, take the medicine with food or milk. Do not take more than you are told to take. Talk to your community dietitian regarding the use of this medicine in children. This medicine is not approved for use in children. What side effects may I notice from receiving this medicine? Side effects that you should report to your doctor or health director of healthcare systems as soon as possible: allergic reactions like skin rash, itching or hives, swelling of the face, lips, or tongue breathing problems confusion feeling faint or lightheaded, falls stomach pain yellowing of the eyes or skin Side effects that usually do not require medical attention (report to your doctor or health director of healthcare systems if they continue or are bothersome): nausea, vomiting stomach upset What may interact with this medicine? alcohol antihistamines isoniazid medicines for depression, anxiety, or psychotic disturbances medicines for sleep muscle relaxants naltrexone narcotic medicines (opiates) for pain phenobarbital ritonavir tramadol What if I miss a dose? If you miss a dose, take it as soon as you can. If it is almost time for your next dose, take only that dose. Do not take double or extra doses. Where should I keep my medicine? Keep out of the reach of children. This medicine can be abused. Keep your medicine in a safe place to protect it from theft. Do not share this medicine with anyone. Selling or giving away this medicine is dangerous and against the law. Store at room temperature between 15 and 30 degrees C (59 and 86 degrees F). Protect from light. Keep container tightly closed. Throw away any unused medicine after the expiration date. Discard unused medicine and used packaging carefully. Pets and children can be harmed if they find used or lost packages. What should I tell my health care provider before I take this medicine? They need to know if you have any of these conditions: brain tumor Crohn's disease, inflammatory bowel disease, or ulcerative colitis drink more than 3 alcohol-containing drinks per day drug abuse or addiction head injury heart or circulation problems kidney disease or problems going to the bathroom liver disease lung disease, asthma, or breathing problems an unusual or allergic reaction to acetaminophen, hydrocodone, other opioid analgesics, other medicines, foods, dyes, or preservatives or trying to get breast-feeding What should I watch for while using this medicine? Tell your doctor or health director of healthcare systems if your pain does not go away, if it gets worse, or if you have new or a different type of pain. You may develop tolerance to the medicine. Tolerance means that you will need a higher dose of the medicine for pain relief. Tolerance is normal and is expected if you take the medicine for a long time. Do not suddenly stop taking your medicine because you may develop a severe reaction. Your body becomes used to the medicine. This does NOT mean you are addicted. Addiction is a behavior related to getting and using a drug for a non-medical reason. If you have pain, you have a medical reason to take pain medicine. Your doctor will tell you how much medicine to take. If your doctor wants you to stop the medicine, the dose will be slowly lowered over time to avoid any side effects. You may get drowsy or dizzy when you first start taking the medicine or change doses. Do not drive, use machinery, or do anything that may be dangerous until you know how the medicine affects you. Stand or sit up slowly. There are different types of narcotic medicines (opiates) for pain. If you take more than one type at the same time, you may have more side effects. Give your health care provider a list of all medicines you use. Your doctor will tell you how much medicine to take. Do not take more medicine than directed. Call emergency for help if you have problems breathing. The medicine will cause constipation. Try to have a bowel movement at least every 2 to 3 days. If you do not have a bowel movement for 3 days, call your doctor or health director of healthcare systems. Too much acetaminophen can be very dangerous. Do not take Tylenol (acetaminophen) or medicines that contain acetaminophen with this medicine. Many non-prescription medicines contain acetaminophen. Always read the labels carefully. You have been given the following additional information: Fall, Uncertain Cause Neck Sprain/Strain HEAD INJURY, No Wake-Up (Adult) Hydrocodone Bitartrate, Acetaminophen Oral tablet (Electronically signed by Anil Holloway Dr. 08/24/2016 21:45)
--- NOTE | 2016-08-24 21:45 | ED MAR SUMMARY ---
..... Medication Administration Record [facility] [address] [place] [address] Patient: ISIDRA FIELD Visit ID: [id number] 86y, M Weight: 72.5 kg Height/Length: 67 in BMI: 25.1 ALLERGIES: Penicillins Given 12:47 08/18/2016 Bernarda Kinney R.N. Medication Administered: MORPHINE [IVP], Dose: 4 mg IVP, Site: #1 left forearm. Medication Ordered: Morphine IV 4 mg (HIGH ALERT MEDICATION, NOW). Given 14:36 08/18/2016 Nikunj Linares R.N. Medication Administered: ZOFRAN [IVP] (ONDANSETRON HCL), Dose: 4 mg IVP over 2 minute(s), Site: #1 left forearm. Medication Ordered: Zofran IV 4 mg (NOW). Start 14:40 08/18/2016 Nikunj Linares R.N. Medication Administered: IV NS (SALINE), Dose: IV Fluids over 1 hour(s), Rate: 1000 mL/hr, Dispensed: 1000 mL bag, Site: #1 left forearm. Medication Ordered: IV NS : initial bolus 1000 mL (1000 mL/hr), then none - for X1 (NOW).
== END 2016-08-18 16:50 | disposition home or self-care (01) ==
LOC: ED SRH 12:08
DX: S13.4XXA Sprain of ligaments of cervical spine, initial encounter (principal); S09.90XA Unspecified injury of head, initial encounter; E87.2 Acidosis; W19.XXXA Unspecified fall, initial encounter; Y92.410 Unspecified street and highway as the place of occurrence of the external cause; Z88.0 Allergy status to penicillin
CPT/HCPCS: 90004; 90100; 90616; 92031; 93140; 94060; 95059

== ENCOUNTER 2016-08-19 17:09 | Emergency (ER) | payer OTHER ==
--- NOTE | 2016-08-19 19:01 | ED CLINICAL REPORT ---
Clinical Report - Physicians/Mid Levels [facility] [address] [place] [address] 08/19/2016 17:10 Patient: ISIDRA FIELD Time Seen: 17:30. Arrived- By ambulance. Historian- patient and EMS personnel. HISTORY OF PRESENT ILLNESS Chief Complaint: HEAD INJURY. This started yesterday and is still present. It was gradual in onset and has been waxing/waning. At its maximum, severity described as moderate. When seen in the E.D., severity described as moderate. Modifying factors- worsened by movement. Relieved by rest. The patient has had a moderate left-sided headache (states scalp hurts after a fall). He has had fatigue and muscle aches. Similar symptoms previously: Recent medical care: The patient was seen recently at this facility in the emergency department. Seen for similar symptoms. Evaluation/treatment: CXR, CT and labs. REVIEW OF SYSTEMS No fever, sore throat, sinus drainage, nasal congestion or cough. No difficulty breathing, chest pain, abdominal pain, nausea or vomiting. No diarrhea, skin rash or calf pain. He has had mild difficulty with urination (hesitancy - chronic). It has been similar to previous symptoms. No urgency or frequency of urination. He has had a headache (left posterior scalp area). No difficulty with ambulation. All systems otherwise negative, except as recorded above. PAST HISTORY Problems: PTSD. Arthritis. Gout. Hypertension. Acute idiopathic pancreatitis. Essential hypertension. 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 Cholecystectomy. Colonoscopy. Dental Surgery. Tonsillectomy. Umbilical Hernia Repair. Medications: None. Allergies: Penicillins. SOCIAL HISTORY Never smoker. No alcohol use or drug use. Residence: [facility] Is a local resident. Resides in an assisted living center. ADDITIONAL NOTES The nursing notes have been reviewed. PHYSICAL EXAM Vital Signs: 08/19/2016 17:14 BP: 159/70. HR: 91. RR: 15. O2 saturation: 100%. Temp: 98.4 F. Appearance: Alert. Patient in mild distress. Eyes: No scleral icterus or pale conjunctivae. ENT: Pharynx normal. No pharyngeal erythema or tonsillar exudate. The mucous membranes are not dry. Neck: Trachea is not deviated. Normal inspection. Mild pain in the entire posterior neck upon turning the head to the right and turning the head to the left. Neck supple. No mass in the neck. Mild soft tissue tenderness in the left upper, mid and lower neck area. No vertebral tenderness. No vertebral step-off. CVS: Normal heart rate and rhythm. Pulses normal. Respiratory: No respiratory distress. Breath sounds normal. Chest nontender. No decreased air movement, rales, rhonchi or wheezes. Abdomen: No visible injury. Soft and nontender. Bowel sounds normal. No mass. No rebound tenderness, distention or guarding. (umbilical hernia which is easily reduced; nonincarcerated or strangulated). Back: Normal inspection. Skin: Skin warm and dry. Normal skin color. Normal skin turgor. Extremities: Lower extremity edema. Extremities exhibit normal ROM. No calf tenderness. Neuro: Oriented X 3. No motor deficit. LABS, X-RAYS, AND EKG EKG: EKG time: (17:41). Normal sinus rhythm. Rate: 75. Normal P waves. First-degree atrioventricular block. Normal axis. 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 Non-specific ST segment / T wave abnormalities. EKG unchanged when compared with prior EKG. The study has been interpreted contemporaneously by me. The EKG appears to be a good tracing. Laboratory Tests: UA-Culture if indicated: (LINDSAY: 08/19/2016 18:40) ( MsgRcvd 08/19/2016 18:55) Final results Test Result Flag Units (Reference) URINE COLOR YELLOW URINE APPEARANCE CLEAR URINE GLUCOSE NEGATIVE (NEGATIVE) URINE BILIRUBIN NEGATIVE (NEGATIVE) URINE KETONE NEGATIVE (NEGATIVE) URINE SPECIFIC GRAVITY 1.015 (1.010-1.030) URINE PH 6.5 (5.0-8.0) URINE PROTEIN 2+ (NEGATIVE) URINE UROBILINOGEN 0.2 EU/dL (0.2-1.0) URINE NITRITE NEGATIVE (NEGATIVE) URINE BLOOD NEGATIVE (NEGATIVE) URINE LEUK ESTERASE NEGATIVE (NEGATIVE) URINE RBC NONE SEEN rbc/hpf (0-1) URINE WBC RARE wbc/hpf (0-1) URINE EPITHELIAL CELLS RARE EPI/hpf (0-5) URINE BACTERIA NONE SEEN (NONE SEEN) URINE COMMENT CULT NOT INDICATED URINE CULTURES ARE SET-UP BASED ON THE FOLLOWING CRITERIA:POSITIVE NITRITEPOSITIVE LEUKOCYTE ESTERASEGREATER THAN 10 WHITE BLOOD CELLSMODERATE (2+) OR GREATER BACTERIA CBC w Diff: (LINDSAY: 08/19/2016 17:25) ( [facility] 08/19/2016 17:48) Final results Test Result Flag Units (Reference) WHITE BLOOD COUNT 5.8 K/uL (4.5-11.5) RED BLOOD COUNT 4.27 L M/uL (4.50-5.90) HEMOGLOBIN 11.6 L gm/dL (13.5-17.5) HEMATOCRIT 34.4 L % (41.0-53.0) MEAN CELL VOLUME 81 fL (80-100) MEAN CORPUSCULAR HGB 27 pg (26-34) MEAN CORPUSCULAR HGB CONC 34 g/dL (31-37) RED CELL DISTRIBUTION WIDTH 18.9 H % (11.6-14.8) PLATELET COUNT 311 K/uL (150-400) NEUTROPHIL % 67.5 % (50-75) LYMPH % 22.6 L % (25-40) MONO % 8.4 % (3-14) EOSINOPHIL % 1.1 % (0-4) BASOPHIL % 0.4 % (0-2) [id number]: (LINDSAY: 08/19/2016 17:25) ( [facility] 08/19/2016 17:58) Final results Test Result Flag Units (Reference) D-DIMER QUANTITATIVE 0.57 H ug/mLFEU (0.27-0.52) The primary value of this quantitative assay relates toits negative predictive value (i.e. exclusion) of pulmonaryembolism/deep vein thrombosis/DIC.Elevated levels of d-dimer may also occur with:, age, cancer, inflammation, liver disease,post-op, infection, hematoma, coronary disease, peripheralarteriopathy, bleeding disorders and thrombolytic treatment.Results should be correlated with other clinical andradiological data.Testing Methodology: Latex Immunoassay Urine Drug Screen: (LINDSAY: 08/19/2016 18:40) ( [facility] 08/19/2016 19:05) Final results Test Result Flag Units (Reference) AMPHETAMINE/METHAMPHETAMINE NEGATIVE (NEGATIVE) BARBITURATE NEGATIVE (NEGATIVE) BENZODIAZEPINE NEGATIVE (NEGATIVE) CANNABINOID NEGATIVE (NEGATIVE) COCAINE NEGATIVE (NEGATIVE) ECSTASY NEGATIVE (NEGATIVE) METHADONE NEGATIVE (NEGATIVE) OPIATE POSITIVE H (NEGATIVE) The urine drug screen is a qualitative screening test fordrug overdose and abuse. All screen results should beconsidered as presumptive.Drugs screened for are as follows:BenzodiazepinesCocaineAmphetamines/MetamphetaminesTHC (Tetrahydrocannabinol)OpiatesBarbituratesEcstasyMethadonePositive results are unconfirmed. For confirmation, notifythe lab for the specimen to be sent to the reference lab.All confirmations must be performed by a differentmethodology.The ingestion of natural herbal and plant productscontaining Ephedra/Ephedra metabolites can produce in urineone or more substances capable of cross reacting withamphetamine/methamphetamine immunoassays. These testsprovide a preliminary result only. A more specificalternative chemical method must be used to obtain aconfirmed analytical result. BNP: (LINDSAY: 08/19/2016 17:25) ( [facility] 08/19/2016 18:12) Final results Test Result Flag Units (Reference) B-TYPE NATRIURETIC PEPTIDE 21.2 pg/ml (5-100) Amylase: (LINDSAY: 08/19/2016 17:25) ( [facility] 08/19/2016 18:09) Final results Test Result Flag Units (Reference) AMYLASE 91 U/L (25-115) THYROID STIMULATING HORMONE 0.174 L uIU/mL (0.30-3.74) CHEM 13 PANEL: (LINDSAY: 08/19/2016 17:25) ( [facility] 08/19/2016 18:00) Final results Test Result Flag Units (Reference) GLUCOSE 107 mg/dL (70-110) BUN 32 H mg/dL (7-18) CREATININE 1.9 H mg/dL (0.6-1.3) Estimated GFR 36.07 mL/min Estimated GFR- 43.72 mL/min Note: Persistent reduction over 3 months in eGFR<60 mL/min/1.73 m2 defines CKD. Patients with eGFR values>=60 mL/min/1.73 m2 may also have CKD if evidence ofpersistent proteinuria. Additional information may be foundat www.kidney.org. SODIUM 138 mmol/L (136-145) POTASSIUM 3.7 # mmol/L (3.5-5.1) CHLORIDE 100 mmol/L (98-107) CARBON DIOXIDE 29 mmol/L (21-32) CALCIUM 9.1 mg/dL (8.5-10.1) TOTAL PROTEIN 7.3 g/dL (6.4-8.2) ALBUMIN 3.7 g/dL (3.3-5.0) BILIRUBIN, TOTAL 0.5 mg/dL (0.0-1.0) ALKALINE PHOSPHATASE 78 U/L (46-116) AST (SGOT) 15 U/L (15-37) ALT (SGPT) 19 U/L (12-78) CPK 75 U/L (24-260) MAGNESIUM 1.9 mg/dL (1.8-2.4) TROPONIN I <0.05 ng/mL (0.00-1.5) TROPONIN REFERENCE RANGE:<0.1 NEGATIVE0.1-1.5 INDETERMINANT>1.5 POSITIVE . Pulse Oximetry: 08/19/2016 17:14 O2 saturation: 100%. (FIO2 - room air). Interpretation: normal. Note - Tests: (IMAGING TESTS DONE YESTERDAY: Chest X-ray: (PROCEDURE: XR CHEST 1 VIEW INDICATION: FALL, ALTERED TECHNIQUE: Portable AP view 01:18 p.m. COMPARISON: 07/27/2016 chest FINDINGS: Lungs are clear. Heart and mediastinum are normal. Thorax is normal. IMPRESSION: 1. Negative chest.). Views: PA. The X-rays were independently viewed by me and interpreted by the radiologist. The X-rays were discussed with the radiologist (via pacs). CT C-Spine: (PROCEDURE: CT CERVICAL SPINE W/O CONTRAST INDICATION: FALL TECHNIQUE: Noncontrast axial images with sagittal and coronal reformations. COMPARISON: None. 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 Alignment is normal. IMPRESSION: 1. Negative CT cervical spine. No evidence of an acute process or fracture. 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 The study was independently viewed by me and interpreted by the radiologist. The study was discussed with the radiologist (via pacs). CT Head: (PROCEDURE: CT HEAD WITHOUT CONTRAST INDICATION: FALL, ALTERED TECHNIQUE: Axial CT images were acquired through the head. Coronal and sagittal reformations were created. COMPARISON: Head CT 07/30/2016 FINDINGS: Moderate atrophy with prominent ventricles and sulci. No intracranial hemorrhage or extraaxial fluid collections. Ventricles are normal in size, shape and position. There is no mass, mass effect or midline shift. The graham-white matter differentiation is normal. There is no edema. The calvarium is intact. The paranasal sinuses and mastoid air cells are normally aerated. The extracranial soft tissues and orbits are normal. IMPRESSION: 1. No CT evidence of acute intracranial process. 2. Age related involutional and white matter changes).). PROGRESS AND PROCEDURES Course of Care: Flexeril 10mg po. Acetaminophen 1000mg po. Very slight elevation of d-dimer c/w small scalp hematoma. Otherwise there are no clinical signs of VTE. He has chronic dementia and may need a higher level of care. His daughter, who was with him yesterday is ill with a viral sounding illness by her report. We called [facility] and someone will check on him tonight and tomorrow and he should f/u with his pcp tomorrow. He has assisted living at [facility], but still lives independently. His daughter reports that she took his car keys yesterday. Patient/family counseled. Old ED records reviewed. Disposition: Discharged. Condition: stable and improved. CLINICAL IMPRESSION Chronic dementia. No behavioral disturbance. Acute cervical strain. Single contusion with soft tissue hematoma to the scalp. Acute hyperthyroidism. No thyroid storm or goiter. Fall on same level by tripping. INSTRUCTIONS Drink plenty of fluids. (You were given a prescription for Christiana yesterday, please take this as prescribed. It is very important that you follow up with your doctor). Warnings: Further evaluation is necessary in order to recheck abnormal lab, obtain test results, conduct further tests and assess the possibility of serious illness. It is very important to follow up with a physician. SEDATIVE MEDICATION: You were given sedative medication during your visit. Do not drive or operate dangerous machinery. CONTROLLED SUBSTANCE WARNINGS. GENERAL WARNINGS: Return or contact your physician immediately if your condition worsens or changes unexpectedly, if not improving as expected, or if other problems arise. Prescription Medications: Methocarbamol 750 mg: take 1-2 orally every 8 hours as needed for muscle spasm or pain. Dispense twenty (20). No refill. OTC Medications: Acetaminophen (available over the counter): take according to label instructions. Motrin (available over the counter): take according to label instructions. Follow-up: Follow up with your doctor tomorrow. (Electronically signed by Kenton Alfred DO 08/19/2016 22:16)
--- NOTE | 2016-08-19 19:01 | ED ORDER SUMMARY ---
..... Patient: ISIDRA FIELD OrderSheet [facility] VisitID: [id number] [place] [address] 86y, M Registration Date/Time: 08/19/2016 ORDER SHEET Weight: 72.5 kg (stated) Allergies: Penicillins GENERAL ORDERS: EKG - ER Stat (17:08/19/2016 SReitz R.N. per protocol) (17:32 SReitz R.N.) (Ack 17:32 LNations ER Tech1) Paving And Surfacing Labourer (Continuous) ([facility]/2016 [facility]) (17:32 MWinterer R.N.) (17:32 SReitz R.N.) (Ack 17:32 LNations ER Tech1) UA-Culture if indicated Urgent (17:08/19/2016 [facility]) (Ack 17:32 LNations ER Tech1) (18:43 MWinterer R.N.) Cardiac Panel Stat (17:08/19/2016 [facility]) (Ack 17:32 LNations ER Tech1) (17:42 MWinterer R.N.) BNP Urgent ([facility] (Ack 17:32 LNations ER Tech1) (17:42 MWinterer R.N.) D-Dimer Urgent (17:08/19/2016 [facility] (Ack 17:32 LNations ER Tech1) (17:42 MWinterer R.N.) Amylase Urgent (17:08/19/2016 [facility] (Ack 17:32 LNations ER Tech1) (17:42 MWinterer R.N.) Urine Drug Screen Urgent (:08/19/2016 [facility]) (Ack 17:33 LNations ER Tech1) (18:43 MWinterer R.N.) TSH Urgent (:08/19/2016 [facility] (Ack 17:33 LNations ER Tech1) (17:42 MWinterer R.N.) Oxygen (2 L/min) (NC) (17:08/19/2016 [facility]) (17:32 MWinterer R.N.) (Ack 17:32 LNations ER Tech1) Pulse oximeter (17:31 08/19/2016 [facility]) (17:32 MWinterer R.N.) (17:32 SReitz R.N.) (Ack 17:32 LNations ER Tech1) Vitals (17:31 08/19/2016 [facility]) (17:32 MWinterer R.N.) (17:32 SReitz R.N.) (Ack 17:32 LNations ER Tech1) MEDICATION ORDERS: Flexeril PO 10 mg (NOW) (18:07 08/19/2016 [facility]) (Ack 18:36 MWinterer R.N.) (18:50 MWinterer R.N.) Acetaminophen PO 1,000 mg (NOW) (18:08 08/19/2016 [facility]) (Ack 18:36 MWinterer R.N.) (18:50 MWinterer R.N.) IV FLUIDS: IV NS with Normal Saline 1 Liter: initial bolus 500 mL (1000 mL/hr), then 250 mL/hr for X2 (NOW) (17:31 08/19/2016 [facility]) (17:42 MWinterer R.N.) ORDER SHEET NOTES: [Electronically signed by Savanna Harris R.N. (21:34 08/19/2016)] [Electronically signed by Kenton Alfred DO (22:16 08/19/2016)] [Electronically locked/signed by Savanna Harris R.N. (21:34 08/19/2016)]
--- NOTE | 2016-08-19 19:01 | ED NURSING NOTES ---
Clinical Report - Nurses [facility] [address] [place] [address] 08/19/2016 17:10 Patient: ISIDRA FIELD TRIAGE Triage time 17:14. Acuity: LEVEL 3. Chief Complaint: CONFUSED and (dizzy/headache and neck/back pain). Alert. No acute distress. ( Per EMS: supervisor floor assembly at [facility] stated pt. was not at his baseline functioning and was confused. Pt appears alert and oriented at this time.). SEPSIS SCREEN: Sepsis Screen. Negative (no infection suspected/documented). EMMA COMA SCORE: Emma Coma Scale: 15- eyes open spontaneously (4); best verbal response- oriented x 4 (5); best motor response- obeys commands (6). --17:22 Ramona Casas R.N. 17:14 08/19/16. BP: 159/70. HR: 91. RR: 15. O2 saturation: 100%. Temp: 98.4 F. Pain level now 10/10. --17:22 Ramona Casas R.N. Weight: 72.5 kg stated. Height/Length: 67 inches Per Patient. BMI: 25.1. --17:19 Ramona Casas R.N. Medications None. --17:21 Ramona Casas R.N. Allergies Penicillins. --17:21 Ramona Casas R.N. History Arrived by EMS. Historian: patient. Unaccompanied. Primary physician (pt does not recall). This started yesterday. Treatment LOCATE TECHNICIAN: None. Finger stick glucose performed (196). BP: 184/94. ( LOCATE TECHNICIAN: multiple attempt for IV access.). PAST MEDICAL HX: Immunizations: up-to-date. SOCIAL HX: Never smoker. No alcohol use or drug use. No infectious disease exposure. ABUSE ASSESSMENT: No report of abuse. NUTRITIONAL RISK ASSESSMENT: The nutritional risk assessment revealed no deficiencies. LEARNING NEEDS ASSESSMENT: The learning needs assessment revealed no barriers. 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 --17:22 Ramona Casas R.N. FUNCTIONAL ASSESSMENT: Functional assessment performed: cognitive impairment- senile dementia. --17:24 Ramona Casas R.N. PROBLEMS: Head Injury. Neck Pain. Contusion. Fall. PTSD. Pancreatitis. Upper Extremity Pain. Arthritis. Gout. Hypertension. --17:21 Ramona Casas R.N. ADDITIONAL SURGERIES: Appendectomy. Cholecystectomy. Colonoscopy. Dental Surgery. Tonsillectomy. Umbilical Hernia Repair. --17:21 Ramona Casas R.N. Interventions ID band on patient. Transported via stretcher. --17:22 Ramona Casas R.N. PHYSICAL ASSESSMENT Ambulatory to room. GENERAL / NEURO / PSYCH: Alert. Appears in no acute distress. Speech within normal limits. RESPIRATORY: Respirations not labored. CVS: Capillary refill less than 2 seconds. SKIN: Skin is warm and dry. Normal skin turgor. --17:23 Ramona Casas R.N. NURSING PROGRESS NOTES generator operator, pulse oximeter and NIBP monitor placed on patient; addiction professional- Lead II; monitor alarms on. Patient gowned. Two patient identifiers checked. Call light placed in reach. Side rails up x 2. Bed placed in lowest position. Brakes of bed on. Patient ready for evaluation- chart flagged. --17:23 Ramona Casas R.N. 17:30 08/19/2016 Site #1 started via IV in the left forearm with an 22g angiocath, with aseptic technique and good blood return; two attempts. Blood drawn: rainbow set. Labeled in the presence of the patient and sent to the lab. Saline lock flushed with 10 mL saline. --17:30 Savanna Harris R.N. 17:42 08/19/2016 Started bag #1 1000 mL IV Fluids IV NS (Saline); at 999 mL/hr over 30 minute(s) via site #1 via IV pump. Allergies verified and confirmed 5 rights. IV patency established. IV site checked: no pain, redness, or swelling. IV flushed thoroughly pre- and post-medication administration. --17:42 Winterer, Savanna, R.N. Care transferred and report given (to Savanna Clemens RN). --17:58 Ramona Casas R.N. EKG time: (1741). EKG was performed by a nurse and shown to the ED physician. --18:25 Jenna Arvizu R.N. Assisted patient with urinal and to stand (x2 RNs x20 minutes. Unable to urinate. Will attempt again). --18:26 Jenna Arvizu R.N. 18:44 08/19/16. Checked patient name and birthdate: patient confirmed urine collected with return of yellow-colored clear urine; sample sent to lab for urinalysis. Specimen labeled in the presence of the patient. ( Pt urinated in urinal. 300 mL output.). --18:44 Savanna Harris R.N. 18:50 08/19/2016 Flexeril (Cyclobenzaprine HCl) PO 10 mg given. Allergies verified and confirmed 5 rights. --18:50 Savanna Harris R.N. 18:50 08/19/2016 Acetaminophen (APAP) PO 1000 mg given. Allergies verified and confirmed 5 rights. --18:50 Savanna Harris R.N. 19:30 08/19/2016 IV Fluids IV NS Discontinued: bag #1 discontinued upon discharge. Total amount infused: 600 mL. IV patency established. IV site checked: no pain, redness, or swelling. IV flushed thoroughly. --21:34 Savanna Harris R.N. DISPOSITION / DISCHARGE Departure time: 19:30 Aug 19 2016. Condition at departure: improved and stable. No learning barriers present. Reviewed medication(s) side effects, precautions and dosing information. Prescription(s) given to the patient. Patient verbalized understanding. Written instructions provided in Faroese. The patient was discharged by the physician. He was discharged home and accompanied by grandson. He left the Emergency Department in a wheelchair and via private vehicle. Family member driving. --21:32 Savanna Harris R.N. 21:26 08/19/16. BP: 134/76. HR: 75. RR: 12. O2 saturation: 98% on room air. Temp: 98.2 F (oral). --21:32 Savanna Harris R.N. 19:30 08/19/2016 Site #1 removed upon discharge. Catheter intact. Manual pressure and bandage applied. --21:33 Savanna Harris R.N. Locked/Released at 08/19/2016 21:34 by Savanna Harris R.N.
--- NOTE | 2016-08-19 19:01 | ED NURSING NOTES ---
Clinical Report - Nurses [facility] [address] [place] [address] 08/19/2016 17:10 Patient: ISIDRA FIELD TRIAGE Triage time 17:14. Acuity: LEVEL 3. Chief Complaint: CONFUSED and (dizzy/headache and neck/back pain). Alert. No acute distress. ( Per EMS: wild animal caretaker at [facility] stated pt. was not at his baseline functioning and was confused. Pt appears alert and oriented at this time.). SEPSIS SCREEN: Sepsis Screen. Negative (no infection suspected/documented). EMMA COMA SCORE: Emma Coma Scale: 15- eyes open spontaneously (4); best verbal response- oriented x 4 (5); best motor response- obeys commands (6). --17:22 Ramona Casas R.N. 17:14 08/19/16. BP: 159/70. HR: 91. RR: 15. O2 saturation: 100%. Temp: 98.4 F. Pain level now 10/10. --17:22 Ramona Casas R.N. Weight: 72.5 kg stated. Height/Length: 67 inches Per Patient. BMI: 25.1. --17:19 Ramona Casas R.N. Medications None. --17:21 Ramona Casas R.N. Allergies Penicillins. --17:21 Ramona Casas R.N. History Arrived by EMS. Historian: patient. Unaccompanied. Primary physician (pt does not recall). This started yesterday. Treatment LOCKSTITCH LINING SETTER: None. Finger stick glucose performed (196). BP: 184/94. ( LOCKSTITCH LINING SETTER: multiple attempt for IV access.). PAST MEDICAL HX: Immunizations: up-to-date. SOCIAL HX: Never smoker. No alcohol use or drug use. No infectious disease exposure. ABUSE ASSESSMENT: No report of abuse. NUTRITIONAL RISK ASSESSMENT: The nutritional risk assessment revealed no deficiencies. LEARNING NEEDS ASSESSMENT: The learning needs assessment revealed no barriers. 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 --17:22 Ramona Casas R.N. FUNCTIONAL ASSESSMENT: Functional assessment performed: cognitive impairment- senile dementia. --17:24 Ramona Casas R.N. PROBLEMS: Head Injury. Neck Pain. Contusion. Fall. PTSD. Pancreatitis. Upper Extremity Pain. Arthritis. Gout. Hypertension. --17:21 Ramona Casas R.N. ADDITIONAL SURGERIES: Appendectomy. Cholecystectomy. Colonoscopy. Dental Surgery. Tonsillectomy. Umbilical Hernia Repair. --17:21 Ramona Casas R.N. Interventions ID band on patient. Transported via stretcher. --17:22 Ramona Casas R.N. PHYSICAL ASSESSMENT Ambulatory to room. GENERAL / NEURO / PSYCH: Alert. Appears in no acute distress. Speech within normal limits. RESPIRATORY: Respirations not labored. CVS: Capillary refill less than 2 seconds. SKIN: Skin is warm and dry. Normal skin turgor. --17:23 Ramona Casas R.N. NURSING PROGRESS NOTES phototypesetting equipment monitor, pulse oximeter and NIBP monitor placed on patient; monitoring coordinator- Lead II; monitor alarms on. Patient gowned. Two patient identifiers checked. Call light placed in reach. Side rails up x 2. Bed placed in lowest position. Brakes of bed on. Patient ready for evaluation- chart flagged. --17:23 Ramona Casas R.N. 17:30 08/19/2016 Site #1 started via IV in the left forearm with an 22g angiocath, with aseptic technique and good blood return; two attempts. Blood drawn: rainbow set. Labeled in the presence of the patient and sent to the lab. Saline lock flushed with 10 mL saline. --17:30 Savanna Harris R.N. 17:42 08/19/2016 Started bag #1 1000 mL IV Fluids IV NS (Saline); at 999 mL/hr over 30 minute(s) via site #1 via IV pump. Allergies verified and confirmed 5 rights. IV patency established. IV site checked: no pain, redness, or swelling. IV flushed thoroughly pre- and post-medication administration. --17:42 Winterer, Savanna, R.N. Care transferred and report given (to Savanna Clemens RN). --17:58 Ramona Casas R.N. EKG time: (1741). EKG was performed by a nurse and shown to the ED physician. --18:25 Jenna Arvizu R.N. Assisted patient with urinal and to stand (x2 RNs x20 minutes. Unable to urinate. Will attempt again). --18:26 Jenna Arvizu R.N. 18:44 08/19/16. Checked patient name and birthdate: patient confirmed urine collected with return of yellow-colored clear urine; sample sent to lab for urinalysis. Specimen labeled in the presence of the patient. ( Pt urinated in urinal. 300 mL output.). --18:44 Saavnna Harris R.N. 18:50 08/19/2016 Flexeril (Cyclobenzaprine HCl) PO 10 mg given. Allergies verified and confirmed 5 rights. --18:50 Savanna Harris R.N. 18:50 08/19/2016 Acetaminophen (APAP) PO 1000 mg given. Allergies verified and confirmed 5 rights. --18:50 Savanna Harris R.N. 19:30 08/19/2016 IV Fluids IV NS Discontinued: bag #1 discontinued upon discharge. Total amount infused: 600 mL. IV patency established. IV site checked: no pain, redness, or swelling. IV flushed thoroughly. --21:34 Savanna Harris R.N. DISPOSITION / DISCHARGE Departure time: 19:30 Aug 19 2016. Condition at departure: improved and stable. No learning barriers present. Reviewed medication(s) side effects, precautions and dosing information. Prescription(s) given to the patient. Patient verbalized understanding. Written instructions provided in Kyrgyz. The patient was discharged by the physician. He was discharged home and accompanied by grandson. He left the Emergency Department in a wheelchair and via private vehicle. Family member driving. --21:32 Savanna Harris R.N. 21:26 08/19/16. BP: 134/76. HR: 75. RR: 12. O2 saturation: 98% on room air. Temp: 98.2 F (oral). --21:32 Savanna Harris R.N. 19:30 08/19/2016 Site #1 removed upon discharge. Catheter intact. Manual pressure and bandage applied. --21:33 Savanna Harris R.N. Locked/Released at 08/19/2016 21:34 by Savanna Harris R.N.
--- NOTE | 2016-08-19 19:01 | ED ORDER SUMMARY ---
..... Patient: ISIDRA FIELD OrderSheet [facility] VisitID: [id number] [place] [address] 86y, M Registration Date/Time: 08/19/2016 ORDER SHEET Weight: 72.5 kg (stated) Allergies: Penicillins GENERAL ORDERS: EKG - ER Stat (17:08/19/2016 SReitz R.N. per protocol) (17:32 SReitz R.N.) (Ack 17:32 LNations ER Tech1) Nurse Advisor (Continuous) ([facility] (17:32 MWinterer R.N.) (17:32 SReitz R.N.) (Ack 17:32 LNations ER Tech1) UA-Culture if indicated Urgent (17:08/19/2016 [facility] (Ack 17:32 LNations ER Tech1) (18:43 MWinterer R.N.) Cardiac Panel Stat (17:08/19/2016 [facility] (Ack 17:32 LNations ER Tech1) (17:42 MWinterer R.N.) BNP Urgent [facility] (Ack 17:32 LNations ER Tech1) (17:42 MWinterer R.N.) D-Dimer Urgent ([facility] (Ack 17:32 LNations ER Tech1) (17:42 MWinterer R.N.) Amylase Urgent (17:08[facility]19[facility] (Ack 17:32 LNations ER Tech1) (17:42 MWinterer R.N.) Urine Drug Screen Urgent (:08/19/2016 [facility] (Ack 17:33 LNations ER Tech1) (18:43 MWinterer R.N.) TSH Urgent (:08[facility]19/[facility] (Ack 17:33 LNations ER Tech1) (17:42 MWinterer R.N.) Oxygen (2 L/min) (NC) (17:08/19/2016 [facility]) (17:32 MWinterer R.N.) (Ack 17:32 LNations ER Tech1) Pulse oximeter (17:31 08/19/2016 [facility]) (17:32 MWinterer R.N.) (17:32 SReitz R.N.) (Ack 17:32 LNations ER Tech1) Vitals (17:31 08/19/2016 [facility]) (17:32 MWinterer R.N.) (17:32 SReitz R.N.) (Ack 17:32 LNations ER Tech1) MEDICATION ORDERS: Flexeril PO 10 mg (NOW) (18:07 08/19/2016 [facility]) (Ack 18:36 MWinterer R.N.) (18:50 MWinterer R.N.) Acetaminophen PO 1,000 mg (NOW) (18:08 08/19/2016 [facility]) (Ack 18:36 MWinterer R.N.) (18:50 MWinterer R.N.) IV FLUIDS: IV NS with Normal Saline 1 Liter: initial bolus 500 mL (1000 mL/hr), then 250 mL/hr for X2 (NOW) (17:31 08/19/2016 [facility]) (17:42 MWinterer R.N.) ORDER SHEET NOTES: [Electronically signed by Savanna Harris R.N. (21:34 08/19/2016)] [Electronically signed by Kenton Alfred DO (22:16 08/19/2016)] [Electronically locked/signed by Savanna Harris R.N. (21:34 08/19/2016)]
--- NOTE | 2016-08-19 22:16 | ED MED RECONCILIATION SUMMARY ---
Patient: ISIDRA FIELD Medication Reconciliation Report [facility] VisitID: [id number] [address] [place] [address] 86y, M Registration Date/Time: 08/19/2016 Weight: 72.5 kg Height/Length: 67 in. BMI: 25.1 ALLERGIES: Penicillins The patient's Home Medications are listed below: NONE. The source(s) of the original Home Medication information: Not obtained. The following Medications were given to the patient in the Emergency Department: IV NS IV Fluids bolus 0, then 999 mL/hr, administered: 08/19/2016 5:42:00 PM Flexeril [PO] PO 10 mg, administered: 08/19/2016 6:50:00 PM Acetaminophen [PO] PO 1000 mg, administered: 08/19/2016 6:50:00 PM The following Medications were prescribed to the patient: Acetaminophen (available over the counter): take according to label instructions. -- Kenton Alfred DO Motrin (available over the counter): take according to label instructions. -- Kenton Alfred DO Methocarbamol 750 mg: take 1-2 orally every 8 hours as needed for muscle spasm or pain. Dispense twenty (20). No refill. -- Kenton Alfred DO
--- NOTE | 2016-08-19 22:16 | ED MED RECONCILIATION SUMMARY ---
Patient: ISIDRA FIELD Medication Reconciliation Report [facility] VisitID: [id number] [address] [place] [address] 86y, M Registration Date/Time: 08/19/2016 Weight: 72.5 kg Height/Length: 67 in. BMI: 25.1 ALLERGIES: Penicillins The patient's Home Medications are listed below: NONE. The source(s) of the original Home Medication information: Not obtained. The following Medications were given to the patient in the Emergency Department: IV NS IV Fluids bolus 0, then 999 mL/hr, administered: 08/19/2016 5:42:00 PM Flexeril [PO] PO 10 mg, administered: 08/19/2016 6:50:00 PM Acetaminophen [PO] PO 1000 mg, administered: 08/19/2016 6:50:00 PM The following Medications were prescribed to the patient: Acetaminophen (available over the counter): take according to label instructions. -- Kenton Alfred DO Motrin (available over the counter): take according to label instructions. -- Kenton Alfred DO Methocarbamol 750 mg: take 1-2 orally every 8 hours as needed for muscle spasm or pain. Dispense twenty (20). No refill. -- Kenton Alfred DO
--- NOTE | 2016-08-19 22:16 | ED MAR SUMMARY ---
..... Medication Administration Record [facility] [address] [place] [address] Patient: ISIDRA FIELD Visit ID: [id number] 86y, M Weight: 72.5 kg Height/Length: 67 in BMI: 25.1 ALLERGIES: Penicillins Start 17:42 08/19/2016 Savanna Harris R.N., Stop 19:30 08/19/2016 Savanna Harris R.N. Medication Administered: IV NS (SALINE), Dose: IV Fluids over 30 minute(s), Rate: 999 mL/hr, Dispensed: 1000 mL bag, Site: #1 left forearm. Medication Ordered: IV NS with Normal Saline 1 Liter: initial bolus 500 mL (1000 mL/hr), then 250 mL/hr for X2 (NOW). Given 18:50 08/19/2016 Savanna Harris R.N. Medication Administered: FLEXERIL [PO] (CYCLOBENZAPRINE HCL), Dose: 10 mg PO. Medication Ordered: Flexeril PO 10 mg (NOW). Given 18:50 08/19/2016 Savanna Harris R.N. Medication Administered: ACETAMINOPHEN [PO] (APAP), Dose: 1000 mg PO. Medication Ordered: Acetaminophen PO 1,000 mg (NOW).
--- NOTE | 2016-08-19 22:16 | ED MAR SUMMARY ---
..... Medication Administration Record [facility] [address] [place] [address] Patient: ISIDRA FIELD Visit ID: [id number] 86y, M Weight: 72.5 kg Height/Length: 67 in BMI: 25.1 ALLERGIES: Penicillins Start 17:42 08/19/2016 Savanna Harris R.N., Stop 19:30 08/19/2016 Savanna Harris R.N. Medication Administered: IV NS (SALINE), Dose: IV Fluids over 30 minute(s), Rate: 999 mL/hr, Dispensed: 1000 mL bag, Site: #1 left forearm. Medication Ordered: IV NS with Normal Saline 1 Liter: initial bolus 500 mL (1000 mL/hr), then 250 mL/hr for X2 (NOW). Given 18:50 08/19/2016 Savanna Harris R.N. Medication Administered: FLEXERIL [PO] (CYCLOBENZAPRINE HCL), Dose: 10 mg PO. Medication Ordered: Flexeril PO 10 mg (NOW). Given 18:50 08/19/2016 Savanna Harris R.N. Medication Administered: ACETAMINOPHEN [PO] (APAP), Dose: 1000 mg PO. Medication Ordered: Acetaminophen PO 1,000 mg (NOW).
--- NOTE | 2016-08-19 22:16 | ED DISCHARGE INSTRUCTIONS ---
Patient: ISIDRA FIELD General Instructions [facility] VisitID: [id number] [place] [address] 86y, M Registration Date/Time: 08/19/2016 Chronic dementia. No behavioral disturbance. Acute cervical strain. Single contusion with soft tissue hematoma to the scalp. Acute hyperthyroidism. No thyroid storm or goiter. Fall on same level by tripping. INSTRUCTIONS Drink plenty of fluids. (You were given a prescription for [place] yesterday, please take this as prescribed. It is very important that you follow up with your doctor). Warnings: Further evaluation is necessary in order to recheck abnormal lab, obtain test results, conduct further tests and assess the possibility of serious illness. It is very important to follow up with a physician. SEDATIVE MEDICATION: You were given sedative medication during your visit. Do not drive or operate dangerous machinery. CONTROLLED SUBSTANCE WARNINGS. GENERAL WARNINGS: Return or contact your physician immediately if your condition worsens or changes unexpectedly, if not improving as expected, or if other problems arise. Prescription Medications: Methocarbamol 750 mg: take 1-2 orally every 8 hours as needed for muscle spasm or pain. Dispense twenty (20). No refill. OTC Medications: Acetaminophen (available over the counter): take according to label instructions. Motrin (available over the counter): take according to label instructions. Follow-up: Follow up with your doctor tomorrow. ADDITIONAL INFORMATION Neck Sprain Or Strain A sudden force that causes turning or bending of the neck (such as in a car accident) can stretch or tear muscles (strain) and ligaments (sprain) and cause neck pain. Sometimes neck pain occurs after a simple awkward movement. In either case, muscle spasm is commonly present and contributes to the pain. Unless you had a forceful physical injury (for example, a car accident or fall), X-rays are usually not ordered for the initial evaluation of neck pain. If pain continues and dose not respond to medical treatment, X-rays and other tests may be performed at a later time. Home care The following guidelines will help you care for your injury at home: You may feel more soreness and spasm the first few days after the injury. Reduce your activity level until symptoms begin to improve. When lying down, use a comfortable pillow that supports the head and keeps the spine in a neutral position. The position of the head should not be tilted forward or backward. Use ice packs (ice in a plastic bag, wrapped in a towel) to treat acute pain. Apply for 20 minutes every 24 hours during the first two days. Then, begin local heat (hot shower, hot bath or heating pad) andmassageto reduce muscle spasm. Some patients feel best alternating hot and cold treatments, or just staying with one method only. Do what feels the best to you and gives the most relief. You may use acetaminophen or ibuprofen to control pain, unless another pain medicine was prescribed.If you have chronic liver or kidney disease or ever had a stomach ulcer or GI bleeding, talk with your doctor before using these medicines. Follow-up care Follow up with your physician or this facility if your symptoms do not show signs of improvement. Physical therapy may be needed. If you had X-rays today, they didnt show any broken bones, breaks, or fractures. Sometimes fractures dont show up on the first X-ray. Bruises and sprains can sometimes hurt as much as a fracture. These injuries can take time to heal completely. If your symptoms dont improve or they get worse, talk with your doctor. You may need a repeat X-ray. When to seek medical care Get prompt medical attention if any of the following occur: Pain becomes worse or spreads into your arms Weakness or numbness in one or both arms Scalp Contusion [No Wake-Up] A scalp contusion is a bruise with swelling and sometimes bleeding under the skin. The swelling should start to go down within two days. Although there is no sign of a serious injury at this time, symptoms may appear later. These could be a sign of a more serious problem (bruising or bleeding in the brain). Therefore, watch for the warning signs below. Home Care: During the next 24 hours someone must stay with you to check for the signs below. It is not necessary to stay awake or be awakened during the night. If you have swelling of the face or scalp, apply an ice pack (ice cubes in a plastic bag, wrapped in a towel) for 20 minutes. Do this every 1-2 hours until the swelling starts to go down. You may use acetaminophen (Tylenol) or ibuprofen (Motrin, Advil) to control pain, unless another pain medicine was prescribed. [ NOTE : If you have chronic liver or kidney disease or ever had a stomach ulcer or GI bleeding, talk with your doctor before using these medicines.] For the next 24 hours: Do not take alcohol, sedatives or medicines that make you sleepy. Do not drive or operate machinery. Avoid strenuous activities. No lifting or straining. If you have had any symptoms of a concussion today (nausea, vomiting, dizziness, confusion, headache, memory loss or if you were knocked out), do not return to sports or any activity that could result in another head injury until all symptoms are gone and you have been cleared by your doctor. A second head injury before fully recovering from the first one can lead to serious brain injury. Follow Up with your doctor if symptoms are not improving after 24 hours, or as directed. [NOTE: Any X-rays or CT scans taken will be reviewed by a radiologist. You will be notified of any new findings that may affect your care.] Get Prompt Medical Attention if any of the following occur: Repeated vomiting Severe or worsening headache or dizziness Unusual drowsiness, or unable to awaken as usual Confusion or change in behavior or speech, memory loss, blurred vision Convulsion (seizure) Increasing scalp or face swelling Redness, warmth or pus from the swollen area Fluid drainage or bleeding from the nose or ears Fever of 100.4F(38C) or higher, or as directed by your healthcare provider Mechanical Fall You have had a fall today. It appears that the cause is mechanical. That means that you slipped, tripped or lost your balance. If your fall had been due to fainting or a seizure, further tests would be required. Home Care: Rest today and resume your normal activities when you are feeling back to normal. If you were injured during the fall, follow the advice from your doctor regarding care of your injury. You may use acetaminophen (Tylenol) or ibuprofen (Motrin, Advil) to control pain, unless another pain medicine was prescribed. [NOTE: If you have chronic liver or kidney disease or ever had a stomach ulcer or GI bleeding, talk with your doctor before using these medicines.] Fall Prevention: Was there anything that caused your fall that can be fixed, removed, or replaced? Make your home safe by keeping walkways clear of objects you may trip over. Use non-slip pads under rugs. Do not walk in poorly lit areas. Do not stand on chairs or wobbly ladders. Use caution when reaching overhead or looking upward. This position can cause a loss of balance. Be sure your shoes fit properly, have non-slip bottoms and are in good condition. Be cautious when going up and down curbs, and walking on uneven sidewalks. If your balance is poor, consider using a cane or walker. Stay as active as you can. Balance, flexibility, strength, and endurance all come from exercise. They all play a role in preventing falls. Follow Up with your doctor or as advised by our staff. Get Prompt Medical Attention if any of the following occur: Repeated mechanical falls, or unexplained falls Dizziness, fainting or seizure Severe headache Chest pain or shortness of breath Palpitations (very rapid or very slow or irregular heartbeat) Blood in vomit, stools (black or red color) Weakness of an arm or leg or one side of the face Difficulty with speech or vision Hyperthyroidism You have been diagnosed with hyperthyroidism, which means you have an overactive thyroid gland that produces too much thyroid hormone. This hormone is important to body growth and metabolism. If you have too much thyroid hormone many body processes speed up or overreact, causing a variety of symptoms. Your doctor may recommend thyroid-lowering medicines, radiation or surgery to treat your condition. Signs Of Hyperthyroidism (too much thyroid hormone, which can be a side effect of treatment for low thyroid): Restlessness, nervousness, tremor Increased appetite with weight loss Excess sweating Palpitations or irregular heartbeat Feeling cold, or cold hands and/or feet Signs Of Hypothyroidism (too little thyroid hormone): Fatigue or sluggishness Difficulty concentrating or thinking clearly; forgetfulness Dry skin, hair loss Depression Unexpected weight gain Feeling overheated Home Care: Take your medicine exactly as directed at the same time every day. Keep your pills in a container that is labeled with the days of the week. This will help you remember whether youve taken your medicine each day. Never stop treatment on your own. If you do, your symptoms will return. Follow Up with your doctor or as advised by our staff. Your thyroid level will need to be monitored for the rest of your life. During your routine visits, tell your doctor about any symptoms such as the ones listed below. Get Prompt Medical Attention if any of the following occur: Loss of consciousness Extreme fatigue Puffy hands, face, or feet Chest pain or shortness of breath Trouble breathing Fast or irregular heartbeat Confusion Methocarbamol Oral tablet What is this medicine? METHOCARBAMOL (meth oh JOLLY ba mole) helps to relieve pain and stiffness in muscles caused by strains, sprains, or other injury to your muscles. How should I use this medicine? Take this medicine by mouth with a full glass of water. Follow the directions on the prescription label. Take your medicine at regular intervals. Do not take your medicine more often than directed. Talk to your dag coater regarding the use of this medicine in children. Special care may be needed. What side effects may I notice from receiving this medicine? Side effects that you should report to your doctor or health critical care unit manager as soon as possible: allergic reactions like skin rash, itching or hives, swelling of the face, lips, or tongue blurred vision or changes in vision confusion fainting spells fever nausea or vomiting seizures Side effects that usually do not require medical attention (report to your doctor or health critical care unit manager if they continue or are bothersome): dizziness drowsiness headache metallic taste What may interact with this medicine? alcohol or medicines that contain alcohol cholinesterase inhibitors like neostigmine, ambenonium, and pyridostigmine bromide other medicines that cause drowsiness What if I miss a dose? If you miss a dose, take it as soon as you can. If it is almost time for your next dose, take only the next dose. Do not take double or extra doses. Where should I keep my medicine? Keep out of the reach of children. Store at room temperature between 20 and 25 degrees C (68 and 77 degrees F). Keep container tightly closed. Throw away any unused medicine after the expiration date. What should I tell my health care provider before I take this medicine? They need to know if you have any of these conditions: kidney disease seizures an unusual or allergic reaction to methocarbamol, other medicines, foods, dyes, or preservatives or trying to get breast-feeding What should I watch for while using this medicine? You may get drowsy or dizzy. Do not drive, use machinery, or do anything that needs mental alertness until you know how this medicine affects you. Do not stand or sit up quickly, especially if you are an older patient. This reduces the risk of dizzy or fainting spells. Alcohol may interfere with the effect of this medicine. Avoid alcoholic drinks. Acetaminophen Oral tablet What is this medicine? ACETAMINOPHEN (a set a ZACARIAS bobby fen) is a pain reliever. It is used to treat mild pain and fever. How should I use this medicine? Take this medicine by mouth with a glass of water. Follow the directions on the package or prescription label. Take your medicine at regular intervals. Do not take your medicine more often than directed. Talk to your dag coater regarding the use of this medicine in children. While this drug may be prescribed for children as young as 6 years of age for selected conditions, precautions do apply. What side effects may I notice from receiving this medicine? Side effects that you should report to your doctor or health critical care unit manager as soon as possible: allergic reactions like skin rash, itching or hives, swelling of the face, lips, or tongue breathing problems fever or sore throat redness, blistering, peeling or loosening of the skin, including inside the mouth trouble passing urine or change in the amount of urine unusual bleeding or bruising unusually weak or tired yellowing of the eyes or skin Side effects that usually do not require medical attention (report to your doctor or health critical care unit manager if they continue or are bothersome): headache nausea, stomach upset What may interact with this medicine? alcohol imatinib isoniazid other medicines with acetaminophen What if I miss a dose? If you miss a dose, take it as soon as you can. If it is almost time for your next dose, take only that dose. Do not take double or extra doses. Where should I keep my medicine? Keep out of reach of children. Store at room temperature between 20 and 25 degrees C (68 and 77 degrees F). Protect from moisture and heat. Throw away any unused medicine after the expiration date. What should I tell my health care provider before I take this medicine? They need to know if you have any of these conditions: if you frequently drink alcohol containing drinks liver disease an unusual or allergic reaction to acetaminophen, other medicines, foods, dyes or preservatives or trying to get breast-feeding What should I watch for while using this medicine? Tell your doctor or health critical care unit manager if the pain lasts more than 10 days (5 days for children), if it gets worse, or if there is a new or different kind of pain. Also, check with your doctor if a fever lasts for more than 3 days. Do not take other medicines that contain acetaminophen with this medicine. Always read labels carefully. If you have questions, ask your doctor or pharmacist. If you take too much acetaminophen get medical help right away. Too much acetaminophen can be very dangerous and cause liver damage. Even if you do not have symptoms, it is important to get help right away. Ibuprofen Oral tablet What is this medicine? IBUPROFEN (eye BYOO proe fen) is a non-steroidal anti-inflammatory drug (NSAID). It is used for dental pain, fever, headaches or migraines, osteoarthritis, rheumatoid arthritis, or painful monthly periods. It can also relieve minor aches and pains caused by a cold, flu, or sore throat. How should I use this medicine? Take this medicine by mouth with a glass of water. Follow the directions on the prescription label. Take this medicine with food if your stomach gets upset. Try to not lie down for at least 10 minutes after you take the medicine. Take your medicine at regular intervals. Do not take your medicine more often than directed. A special MedGuide will be given to you by the pharmacist with each prescription and refill. Be sure to read this information carefully each time. Talk to your dag coater regarding the use of this medicine in children. Special care may be needed. What side effects may I notice from receiving this medicine? Side effects that you should report to your doctor or health critical care unit manager as soon as possible: allergic reactions like skin rash, itching or hives, swelling of the face, lips, or tongue black or bloody stools, blood in the urine or in vomit breathing problems changes in vision chest pain general ill feeling or flu-like symptoms nausea or vomiting redness, blistering, peeling or loosening of the skin, including inside the mouth slurred speech or weakness on one side of the body stomach pain unexplained weight gain or swelling unusually weak or tired yellowing of eyes or skin Side effects that usually do not require medical attention (report to your doctor or health critical care unit manager if they continue or are bothersome): constipation or diarrhea dizziness gas or heartburn stomach upset What may interact with this medicine? Do not take this medicine with any of the following medications: cidofovir ketorolac methotrexate pemetrexed This medicine may also interact with the following medications: alcohol aspirin diuretics lithium other drugs for inflammation like prednisone warfarin What if I miss a dose? If you miss a dose, take it as soon as you can. If it is almost time for your next dose, take only that dose. Do not take double or extra doses. Where should I keep my medicine? Keep out of the reach of children. Store at room temperature between 15 and 30 degrees C (59 and 86 degrees F). Keep container tightly closed. Throw away any unused medicine after the expiration date. What should I tell my health care provider before I take this medicine? They need to know if you have any of these conditions: asthma cigarette smoker drink more than 3 alcohol containing drinks a day heart disease or circulation problems such as heart failure or leg edema (fluid retention) high blood pressure kidney disease liver disease stomach bleeding or ulcers an unusual or allergic reaction to ibuprofen, aspirin, other NSAIDS, other medicines, foods, dyes, or preservatives or trying to get breast-feeding What should I watch for while using this medicine? Tell your doctor or healthcare professional if your symptoms do not start to get better or if they get worse. This medicine does not prevent heart attack or stroke. In fact, this medicine may increase the chance of a heart attack or stroke. The chance may increase with longer use of this medicine and in people who have heart disease. If you take aspirin to prevent heart attack or stroke, talk with your doctor or health critical care unit manager. Do not take other medicines that contain aspirin, ibuprofen, or naproxen with this medicine. Side effects such as stomach upset, nausea, or ulcers may be more likely to occur. Many medicines available without a prescription should not be taken with this medicine. This medicine can cause ulcers and bleeding in the stomach and intestines at any time during treatment. Ulcers and bleeding can happen without warning symptoms and can cause . To reduce your risk, do not smoke cigarettes or drink alcohol while you are taking this medicine. You may get drowsy or dizzy. Do not drive, use machinery, or do anything that needs mental alertness until you know how this medicine affects you. Do not stand or sit up quickly, especially if you are an older patient. This reduces the risk of dizzy or fainting spells. This medicine can cause you to bleed more easily. Try to avoid damage to your teeth and gums when you brush or floss your teeth. You have been given the following additional information: Neck Sprain/Strain Scalp Contusion, No Wake Up Fall, Mechanical Hyperthyroidism Methocarbamol Oral tablet Acetaminophen Oral tablet Ibuprofen Oral tablet (Electronically signed by Kenton Alfred DO 08/19/2016 22:16)
== END 2016-08-19 19:30 | disposition home or self-care (01) ==
LOC: ED SRH 17:09
DX: S00.03XA Contusion of scalp, initial encounter (principal); S16.1XXA Strain of muscle, fascia and tendon at neck level, initial encounter; E05.90 Thyrotoxicosis, unspecified without thyrotoxic crisis or storm; F03.90 Unspecified dementia, unspecified severity, without behavioral disturbance, psychotic disturbance, mood disturbance, and anxiety; W01.0XXA Fall on same level from slipping, tripping and stumbling without subsequent striking against object, initial encounter; Y93.9 Activity, unspecified; Y92.9 Unspecified place or not applicable; Y99.9 Unspecified external cause status; I10 Essential (primary) hypertension; Z88.0 Allergy status to penicillin
CPT/HCPCS: 90004; 90100; 90616; 91320; 91556; 92530; 92610; 92720; 92760; 92761; 92762; 92763; 92764; 92765; 92766; 92767; 93140; 95059

== ENCOUNTER 2016-08-20 13:26 | Emergency (ER) | payer OTHER ==
--- NOTE | 2016-08-20 14:48 | DIAGNOSTIC IMAGING REPORT ---
PROCEDURE: CT HEAD WITHOUT CONTRAST INDICATION: TRAUMA/INJURY TECHNIQUE: Noncontrast axial images with sagittal and coronal reformations. COMPARISON: Compared to a head CT studies on 08/18/2016 and 07/30/2016. FINDINGS: There is mild old small vessel disease and mild atrophic changes. Brain and ventricles are otherwise normal. No evidence of an acute process or hemorrhage. Sinuses and mastoids are normal. 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 Carotid vascular calcifications. IMPRESSION: 1. 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 2. Otherwise negative head CT. No evidence of acute process. 3. Findings discussed with ARON Murdock at [address] scans at this facility use dose modulation, iterative reconstruction, and/or weight-based dosing when appropriate to reduce radiation dose to as low as reasonably achievable.
--- NOTE | 2016-08-20 14:55 | ED ORDER SUMMARY ---
..... Patient: ISIDRA FIELD OrderSheet [facility] VisitID: [id number] [place] [address] 86y, M Registration Date/Time: 08/20/2016 ORDER SHEET Weight: 72.5 kg (stated) Allergies: Penicillins GENERAL ORDERS: CT Head wo Cont Urgent (13:08/20/2016 HBivens A.R.N.P.) (Ack 13:37 KHoerner) (14:09 LNations ER Tech1) CBC w Diff Urgent (13:08/20/2016 HBivens A.R.N.P.) (Ack 13:37 KHoerner) (16:56 SRoberts R.N.) CMP Urgent (13:08/20/2016 HBivens A.R.N.P.) (Ack 13:37 KHoerner) (16:56 SRoberts R.N.) MEDICATION ORDERS: IV FLUIDS: IV Saline Lock (13:08/20/2016 HBivens A.R.N.P.) (Ack 13:36 SRoberts R.N.) (16:58 SRoberts R.N.) ORDER SHEET NOTES: [Electronically signed by Deana Best A.R.N.P. (15:58 08/20/2016)] [Electronically signed by Donya Farris R.N. (16:59 08/20/2016)] [Electronically locked/signed by Donya Farris R.N. (16:59 08/20/2016)]
--- NOTE | 2016-08-20 14:55 | ED NURSING NOTES ---
Clinical Report - Nurses [address] [place] [address] 08/20/2016 13:25 [id number] Triage time 13:25. Acuity: LEVEL 4. Chief Complaint: FALL while standing, onto a wood surface and landed on their head; slipped (Getting out of chair, slipped and fell. Hitting rt side of the head.). Alert. No acute distress. SEPSIS SCREEN: Sepsis Screen: negative. Negative (no infection suspected/documented). GABRIELLE COMA SCORE: [place] Coma Scale: 15- eyes open spontaneously (4); best verbal response- oriented x 4 (5); best motor response- obeys commands (6). --13:35 Donya Farris R.N. 13:25 08/20/16. BP: 188/87. HR: 115. RR: 20. O2 saturation: 100%. Temp: 98.7 F. Pain level now: 8/10. --13:35 Donya Farris R.N. 13:25 08/20/16. BP: 188/87. HR: 115. RR: 20. O2 saturation: 100%. Temp: 98.7 F. Pain level now: 8/10. --13:35 Donya Farris R.N. Weight: 72.5 kg stated. Height/Length: 67 inches Per Patient. BMI: 25.1. --13:30 Donya Farris R.N. Medications Robaxin 750mg 1-2 tabs q 8 hrs prn . --13:32 Donya Farris R.N. Motrin Oral, PRN. --13:33 Donya Farris R.N. Acetaminophen Oral. --13:33 Donya Farris R.N. Allergies Penicillins. --13:32 Donya Farris R.N. Medication/allergy information source: the patient. --13:35 Donya Farris R.N. History Arrived by EMS. Historian: patient. [facility] Location of [place]: head. He has had neck pain. No loss of consciousness. Trauma activation: Pre-hospital notification of patient arrival was not received. 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 HR: 110. RR: 20. O2 saturation: 100. Upon arrival patient awake. PAST MEDICAL HX: Tetanus status: unknown. SOCIAL HX: Smoker- current status unknown. No alcohol use or drug use. FALL RISK ASSESSMENT: Fall risk assessment completed. No fall risk identified. NUTRITIONAL RISK ASSESSMENT: The nutritional risk assessment revealed no deficiencies. FUNCTIONAL ASSESSMENT: Functional assessment: no impairments noted. LEARNING NEEDS ASSESSMENT: The learning needs assessment revealed no barriers. SKIN INTEGRITY ASSESSMENT: Skin integrity risk assessment completed. No skin integrity risk identified. --13:35 Donya Farris R.N. PROBLEMS: Dementia. Hyperthyroidism. Cervical Strain. Head Injury. Neck Pain. Contusion. Fall. PTSD. Pancreatitis. Upper Extremity Pain. Arthritis. Gout. Hypertension. --13:34 Donya Farris R.N. ADDITIONAL SURGERIES: Appendectomy. Cholecystectomy. Colonoscopy. Dental Surgery. Tonsillectomy. Umbilical Hernia Repair. --13:34 Donya Farris R.N. Interventions ID band on patient. To room. --13:35 Donya Farris R.N. PHYSICAL ASSESSMENT Ambulatory to room. Patient gowned. GENERAL / NEURO / PSYCH: Alert. Oriented X 4. Appears anxious. HEENT: ( pain rt sikhism). RESPIRATORY: Respirations not labored. CVS: Capillary refill less than 2 seconds. GI / : Abdomen nontender. EXTREMITIES: Extremities exhibit normal ROM. Neuro-vascular status intact to the extremity. SKIN: Skin intact. Skin is warm and dry. --13:36 Donya Farris R.N. NURSING PROGRESS NOTES Patient gowned. Two patient identifiers checked. Call light placed in reach. Side rails up x 2. Bed placed in lowest position. Brakes of bed on. Patient ready for evaluation. --13:36 Donya Farris R.N. 13:36 08/20/2016 One (1) unsuccessful IV access attempt including the left forearm. Applied bandaid. --13:41 Etelvina Miguel R.N. ( pt. request bed side commode. Is taken to . Pt. refuses to use it. States "I will just shit the bed"). --14:06 Ritu Jones, ER Tech1 Patient transported to CT by stretcher with tech. --14:09 Ritu Jones, ER Tech1 Patient returned from CT by stretcher with tech. --14:22 Donya Farris R.N. 13:38 08/20/2016 Site #1 started via IV in the left forearm with an 22g angiocath, with aseptic technique and good blood return; one attempt. Blood drawn: rainbow set. Labeled in the presence of the patient and sent to the lab. Saline lock flushed with 10 mL saline. --16:58 Donya Farris R.N. 15:12 08/20/2016 Site #1 removed upon discharge. Catheter intact. Bandaid applied. --16:59 Donya Farris R.N. DISPOSITION / DISCHARGE Condition at departure: improved. No learning barriers present. Discharge instructions provided and reviewed with the patient. Patient verbalized understanding. Written instructions provided in Maltese. The patient was discharged home and accompanied by family. He left the Emergency Department in a wheelchair and via private vehicle. Family member driving. Medication list reviewed and validated. --16:54 Donya Farris R.N. 16:51 08/20/16. BP: 180/79. HR: 89. RR: 20. O2 saturation: 100% on room air. Temp: deferred. Pain level now: 06/10. 14:43 08/20/16. BP: 156/78. HR: 86. RR: 18. O2 saturation: 98% on room air. 13:25 08/20/16. BP: 188/87. HR: 115. RR: 20. O2 saturation: 100%. Temp: 98.7 F. Pain level now: 01/08. --16:54 Donya Farris R.N. Locked/Released at 08/20/2016 16:59 by Donya Farris R.N.
--- NOTE | 2016-08-20 14:55 | ED NURSING NOTES ---
Clinical Report - Nurses [address] [place] [address] 08/20/2016 13:25 [id number] Triage time 13:25. Acuity: LEVEL 4. Chief Complaint: FALL while standing, onto a wood surface and landed on their head; slipped (Getting out of chair, slipped and fell. Hitting rt side of the head.). Alert. No acute distress. SEPSIS SCREEN: Sepsis Screen: negative. Negative (no infection suspected/documented). GABRIELLE COMA SCORE: [place] Coma Scale: 15- eyes open spontaneously (4); best verbal response- oriented x 4 (5); best motor response- obeys commands (6). --13:35 Donya Farris R.N. 13:25 08/20/16. BP: 188/87. HR: 115. RR: 20. O2 saturation: 100%. Temp: 98.7 F. Pain level now: 8/10. --13:35 Donya Farris R.N. 13:25 08/20/16. BP: 188/87. HR: 115. RR: 20. O2 saturation: 100%. Temp: 98.7 F. Pain level now: 8/10. --13:35 Donya Farris R.N. Weight: 72.5 kg stated. Height/Length: 67 inches Per Patient. BMI: 25.1. --13:30 Donya Farris R.N. Medications Robaxin 750mg 1-2 tabs q 8 hrs prn . --13:32 Donya Farris R.N. Motrin Oral, PRN. --13:33 Donya Farris R.N. Acetaminophen Oral. --13:33 Donya Farris R.N. Allergies Penicillins. --13:32 Donya Farris R.N. Medication/allergy information source: the patient. --13:35 Donya Farris R.N. History Arrived by EMS. Historian: patient. [facility] Location of injuries: head. He has had neck pain. No loss of consciousness. Trauma activation: Pre-hospital notification of patient arrival was not received. 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 HR: 110. RR: 20. O2 saturation: 100. Upon arrival patient awake. PAST MEDICAL HX: Tetanus status: unknown. SOCIAL HX: Smoker- current status unknown. No alcohol use or drug use. FALL RISK ASSESSMENT: Fall risk assessment completed. No fall risk identified. NUTRITIONAL RISK ASSESSMENT: The nutritional risk assessment revealed no deficiencies. FUNCTIONAL ASSESSMENT: Functional assessment: no impairments noted. LEARNING NEEDS ASSESSMENT: The learning needs assessment revealed no barriers. SKIN INTEGRITY ASSESSMENT: Skin integrity risk assessment completed. No skin integrity risk identified. --13:35 Donya Farris R.N. PROBLEMS: Dementia. Hyperthyroidism. Cervical Strain. Head Injury. Neck Pain. Contusion. Fall. PTSD. Pancreatitis. Upper Extremity Pain. Arthritis. Gout. Hypertension. --13:34 Donya Farris R.N. ADDITIONAL SURGERIES: Appendectomy. Cholecystectomy. Colonoscopy. Dental Surgery. Tonsillectomy. Umbilical Hernia Repair. --13:34 Donya Farris R.N. Interventions ID band on patient. To room. --13:35 Donya Farris R.N. PHYSICAL ASSESSMENT Ambulatory to room. Patient gowned. GENERAL / NEURO / PSYCH: Alert. Oriented X 4. Appears anxious. HEENT: ( pain rt gnosticist). RESPIRATORY: Respirations not labored. CVS: Capillary refill less than 2 seconds. GI / : Abdomen nontender. EXTREMITIES: Extremities exhibit normal ROM. Neuro-vascular status intact to the extremity. SKIN: Skin intact. Skin is warm and dry. --13:36 Donya Farris R.N. NURSING PROGRESS NOTES Patient gowned. Two patient identifiers checked. Call light placed in reach. Side rails up x 2. Bed placed in lowest position. Brakes of bed on. Patient ready for evaluation. --13:36 Donya Farris R.N. 13:36 08/20/2016 One (1) unsuccessful IV access attempt including the left forearm. Applied bandaid. --13:41 Etelvina Miguel R.N. ( pt. request bed side commode. Is taken to . Pt. refuses to use it. States "I will just shit the bed"). --14:06 Ritu Jones, ER Tech1 Patient transported to CT by stretcher with tech. --14:09 Ritu Jones, ER Tech1 Patient returned from CT by stretcher with tech. --14:22 Donya Farris R.N. 13:38 08/20/2016 Site #1 started via IV in the left forearm with an 22g angiocath, with aseptic technique and good blood return; one attempt. Blood drawn: rainbow set. Labeled in the presence of the patient and sent to the lab. Saline lock flushed with 10 mL saline. --16:58 Donya Farris R.N. 15:12 08/20/2016 Site #1 removed upon discharge. Catheter intact. Bandaid applied. --16:59 Donya Farris R.N. DISPOSITION / DISCHARGE Condition at departure: improved. No learning barriers present. Discharge instructions provided and reviewed with the patient. Patient verbalized understanding. Written instructions provided in Syriac. The patient was discharged home and accompanied by family. He left the Emergency Department in a wheelchair and via private vehicle. Family member driving. Medication list reviewed and validated. --16:54 Donya Farris R.N. 16:51 08/20/16. BP: 180/79. HR: 89. RR: 20. O2 saturation: 100% on room air. Temp: deferred. Pain level now: 06/10. 14:43 08/20/16. BP: 156/78. HR: 86. RR: 18. O2 saturation: 98% on room air. 13:25 08/20/16. BP: 188/87. HR: 115. RR: 20. O2 saturation: 100%. Temp: 98.7 F. Pain level now: 01/08. --16:54 Donya Farris R.N. Locked/Released at 08/20/2016 16:59 by Donya Farris R.N.
--- NOTE | 2016-08-20 14:55 | ED CLINICAL REPORT ---
Clinical Report - Physicians/Mid Levels [facility] [address] [place] [address] 08/20/2016 13:25 Patient: ISIDRA FIELD Time Seen: 1320; initial patient contact, initial documentation, patient care assumed. Arrived- By ambulance. Historian- patient. RETURN VISIT: recently seen in this ED by another ED physician. Seen now for the same problem as before. HISTORY OF PRESENT ILLNESS Chief Complaint: INJURY TO HEAD. Location of injuries- head. The injury occurred 2 days ago. Fell. Occurred at home. The patient complains of mild pain. The patient sustained a blow to the head. No neck pain, loss of consciousness or seizure. Not dazed. pt seen here 08/18 for fall and hit his head, everything ok, dc home, was sent here yesterday because staff said he wasn't acting right, work up done, everything ok, sent back, sent back here again today, for same thing, staff said he wasn't acting right and pt c/o headache, on L side of head near synagogue. REVIEW OF SYSTEMS No seizure, numbness, hearing loss, loss of vision or chest pain. No weakness, difficulty breathing or laceration. All systems otherwise negative, except as recorded above. PAST HISTORY See nurses notes. PROBLEMS: Dementia. Hyperthyroidism. Cervical Strain. Head Injury. Neck Pain. Contusion. Fall. PTSD. Pancreatitis. Upper Extremity Pain. Arthritis. Gout. Hypertension. --13:34 Donya Farris R.N. ADDITIONAL SURGERIES: Appendectomy. Cholecystectomy. Colonoscopy. Dental Surgery. Tonsillectomy. Umbilical Hernia Repair. --13:34 Donya Farris R.N. SOCIAL HISTORY Former smoker. No alcohol use or drug use. No recent travel. Is a local resident. Resides in an assisted living center. FAMILY HISTORY No significant family medical history. ADDITIONAL NOTES The nursing notes have been reviewed with agreement regarding the chief complaint, HPI, ROS, PMH and patient medications and allergies. PHYSICAL EXAM Vital Signs: 08/20/2016 13:25 BP: 188/87. HR: 115. RR: 20. O2 saturation: 100%. Temp: 98.7 F. Pain level now: 01/08. Have been reviewed as abnormal and appear to be correct. Hypertensive. Tachycardic. Respiratory rate normal. Temperature normal. Oxygen saturation normal. Appearance: Alert. No acute distress. Head: Head non-tender. No swelling of head. Eyes: Pupils equal, round and reactive to light. EOM intact. ENT: No dental injury. Pharynx normal. Neck: Painless ROM. Non-tender. CVS: Normal heart rate and rhythm. Heart sounds normal. Pulses normal. Respiratory: Breath sounds normal. Chest nontender. Abdomen: Soft and nontender. No organomegaly. Back: No tenderness. ROM normal. Skin: Skin intact. Skin warm and dry. Normal skin color. Normal skin turgor. Extremities: Normal inspection. Pelvis stable. Extremities atraumatic. No lower extremity edema. Neuro: Oriented X 3. Mood/affect normal. Speech normal. No motor deficit. No sensory deficit. LABS, X-RAYS, AND EKG CT Head: . (IMPRESSION: 1. 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 2. Otherwise negative head CT. No evidence of acute process. 3. Findings discussed with ARON Murdock at [address] scans at this facility use dose modulation, iterative reconstruction, and/or weight-based dosing when appropriate to reduce radiation dose to as low as reasonably achievable. Electronically Final signed by:Elías Lamb MD 08/20/2016 2:43:48 PM). The study was interpreted by the radiologist and discussed with the radiologist. Interpretation time: 14:45. Laboratory Tests: . CBC w Diff: (LINDSAY: 08/20/2016 13:40) ( MsgRcvd 08/20/2016 13:59) Final results Test Result Flag Units (Reference) WHITE BLOOD COUNT 5.4 K/uL (4.5-11.5) RED BLOOD COUNT 4.20 L M/uL (4.50-5.90) HEMOGLOBIN 11.2 L gm/dL (13.5-17.5) HEMATOCRIT 33.6 L % (41.0-53.0) MEAN CELL VOLUME 80 fL (80-100) MEAN CORPUSCULAR HGB 27 pg (26-34) MEAN CORPUSCULAR HGB CONC 33 g/dL (31-37) RED CELL DISTRIBUTION WIDTH 18.5 H % (11.6-14.8) PLATELET COUNT 277 K/uL (150-400) NEUTROPHIL % 74.9 % (50-75) LYMPH % 15.9 L % (25-40) MONO % 7.8 % (3-14) EOSINOPHIL % 1.0 % (0-4) BASOPHIL % 0.4 % (0-2) CMP: (LINDSAY: 08/20/2016 13:40) ( MsgRcvd 08/20/2016 14:11) Final results Test Result Flag Units (Reference) GLUCOSE 140 H mg/dL (70-110) BUN 27 H mg/dL (7-18) CREATININE 1.9 H mg/dL (0.6-1.3) Estimated GFR 36.07 mL/min Estimated GFR- 43.72 mL/min Note: Persistent reduction over 3 months in eGFR<60 mL/min/1.73 m2 defines CKD. Patients with eGFR values>=60 mL/min/1.73 m2 may also have CKD if evidence ofpersistent proteinuria. Additional information may be foundat www.kidney.org. SODIUM 142 mmol/L (136-145) POTASSIUM 3.7 mmol/L (3.5-5.1) CHLORIDE 103 mmol/L (98-107) CARBON DIOXIDE 28 mmol/L (21-32) CALCIUM 8.8 mg/dL (8.5-10.1) TOTAL PROTEIN 7.1 g/dL (6.4-8.2) ALBUMIN 3.6 g/dL (3.3-5.0) BILIRUBIN, TOTAL 0.5 mg/dL (0.0-1.0) ALKALINE PHOSPHATASE 83 U/L (46-116) AST (SGOT) 21 U/L (15-37) ALT (SGPT) 21 U/L (12-78) . PROGRESS AND PROCEDURES Course of Care: old er charts reviewed 14:32 08/20/16. Bun creat results last 2 visits 08/18 39 and 2.1 08/19 32 and 1.9. Patient counseled in person regarding the patient's stable condition, test results and diagnosis. 14:54. Differential Diagnosis: Other possible considerations: icb, sah, subdural hematoma, skull fx, concussion, contusion, electrolyte issue. Above considerations are based on history, physical exam, laboratory data and other information. Differential diagnosis was discussed with patient. Disposition: Discharged home in good and unchanged condition (14:54). Condition: good and stable. CLINICAL IMPRESSION Minor closed head injury. Left cerebral contusion. No loss of consciousness. INSTRUCTIONS Warnings: HEAD INJURY PRECAUTIONS: An observer must check on the patient frequently for the next 24 hours to confirm that the patient responds as expected, is not confused, has no new weakness or numbness, and has no other problems. GENERAL WARNINGS: Return or contact your physician immediately if your condition worsens or changes unexpectedly, if not improving as expected, or if other problems arise. Specifically return if problem worsens. Follow-up: Follow up with your doctor in about three days even if well. Call for an appointment. Summary of care provided to patient. Screening today revealed the patient's blood pressure to be in the hypertensive range. The patient should follow up with a primary care provider for blood pressure management. Understanding of the discharge instructions verbalized by patient. (Electronically signed by Deana Best A.R.N.P. 08/20/2016 15:58)
--- NOTE | 2016-08-20 14:55 | ED ORDER SUMMARY ---
..... Patient: ISIDRA FIELD OrderSheet [facility] VisitID: [id number] [place] [address] 86y, M Registration Date/Time: 08/20/2016 ORDER SHEET Weight: 72.5 kg (stated) Allergies: Penicillins GENERAL ORDERS: CT Head wo Cont Urgent (13:08/20/2016 HBivens A.R.N.P.) (Ack 13:37 KHoerner) (14:09 LNations ER Tech1) CBC w Diff Urgent (13:08/20/2016 HBivens A.R.N.P.) (Ack 13:37 KHoerner) (16:56 SRoberts R.N.) CMP Urgent (13:08/20/2016 HBivens A.R.N.P.) (Ack 13:37 KHoerner) (16:56 SRoberts R.N.) MEDICATION ORDERS: IV FLUIDS: IV Saline Lock (13:08/20/2016 HBivens A.R.N.P.) (Ack 13:36 SRoberts R.N.) (16:58 SRoberts R.N.) ORDER SHEET NOTES: [Electronically signed by Deana Best A.R.N.P. (15:58 08/20/2016)] [Electronically signed by Donya Farris R.N. (16:59 08/20/2016)] [Electronically locked/signed by Donya Farris R.N. (16:59 08/20/2016)]
--- NOTE | 2016-08-20 16:59 | ED MAR SUMMARY ---
..... Medication Administration Record [address] [place], [place] [id number] Patient: ISIDRA FIELD Visit ID: [id number] 86y, M Weight: 72.5 kg Height/Length: 67 in BMI: 25.1 ALLERGIES: Penicillins
--- NOTE | 2016-08-20 16:59 | ED MED RECONCILIATION SUMMARY ---
Patient: ISIDRA FIELD Medication Reconciliation Report [facility] VisitID: [id number] [address] [place] [address] 86y, M Registration Date/Time: 08/20/2016 Weight: 72.5 kg Height/Length: 67 in. BMI: 25.1 ALLERGIES: Penicillins The patient's Home Medications are listed below: THE FOLLOWING MEDICATIONS NEED TO BE RECONCILED: Acetaminophen Oral Motrin Oral, PRN Robaxin 750mg 1-2 tabs q 8 hrs prn The source(s) of the original Home Medication information: patient The following Medications were given to the patient in the Emergency Department: None. The following Medications were prescribed to the patient: None.
--- NOTE | 2016-08-20 16:59 | ED DISCHARGE INSTRUCTIONS ---
Patient: ISIDRA FIELD General Instructions [facility] VisitID: [id number] [place] [address] 86y, M Registration Date/Time: 08/20/2016 Minor closed head injury. Left cerebral contusion. No loss of consciousness. INSTRUCTIONS Warnings: HEAD INJURY PRECAUTIONS: An observer must check on the patient frequently for the next 24 hours to confirm that the patient responds as expected, is not confused, has no new weakness or numbness, and has no other problems. GENERAL WARNINGS: Return or contact your physician immediately if your condition worsens or changes unexpectedly, if not improving as expected, or if other problems arise. Specifically return if problem worsens. Follow-up: Follow up with your doctor in about three days even if well. Call for an appointment. Summary of care provided to patient. Screening today revealed the patient's blood pressure to be in the hypertensive range. The patient should follow up with a primary care provider for blood pressure management. Understanding of the discharge instructions verbalized by patient. ADDITIONAL INFORMATION Head Injury, No Wake-Up (Adult) You have had a head injury. It does not appear serious at this time. Symptoms of a more serious problem (concussion, bruising, or bleeding in the brain) may appear later. Therefore, watch for the WARNING SIGNS listed below. Home Care: Your healthcare provider will tell you whether its okay to drive. If so, you can drive yourself home. For the next day or so, be careful when driving or using heavy machinery until you are sure you have no delayed symptoms. During the next 24 hours someone must stay with you to check for the signs below. It is not necessary to stay awake or be awakened during the night. If you have swelling of the face or scalp, apply an ice pack (ice cubes in a plastic bag, wrapped in a towel) for 20 minutes. Do this every 1-2 hours until the swelling starts to go down. Do not use aspirin or ibuprofen (Motrin, Advil) after a head injury.You may use acetaminophen (Tylenol)to control pain, unless another pain medicine was prescribed. [NOTE: If you have chronic liver or kidney disease or ever had a stomach ulcer or GI bleeding, talk with your doctor before using these medicines.] For the next 24 hours: Do not take alcohol, sedatives or medicines that make you sleepy. Avoid strenuous activities. No lifting or straining. If you have had any symptoms of a concussion today (nausea, vomiting, dizziness, confusion, headache, memory loss or if you were knocked out), do not return to sports or any activity that could result in another head injury until all symptoms are gone and you have been cleared by your doctor. A second head injury before fully recovering from the first one can lead to serious brain injury. Follow Up with your doctor if symptoms are not improving after 24 hours, or as directed. [NOTE: A radiologist will review any X-rays or CT scans that were taken. We will notify you of any new findings that may affect your care.] Get Prompt Medical Attention if any of the followingWARNING SIGNS occur: Repeated vomiting Severe or worsening headache or dizziness Unusual drowsiness, or unable to awaken as usual Confusion or change in behavior or speech, memory loss, blurred vision Convulsion (seizure) Increasing scalp or face swelling Redness, warmth or pus from the swollen area Fluid drainage or bleeding from the nose or ears Head Injury, No Wake-Up (Adult) You have had a head injury. It does not appear serious at this time. Symptoms of a more serious problem (concussion, bruising, or bleeding in the brain) may appear later. Therefore, watch for the WARNING SIGNS listed below. Home Care: Your healthcare provider will tell you whether its okay to drive. If so, you can drive yourself home. For the next day or so, be careful when driving or using heavy machinery until you are sure you have no delayed symptoms. During the next 24 hours someone must stay with you to check for the signs below. It is not necessary to stay awake or be awakened during the night. If you have swelling of the face or scalp, apply an ice pack (ice cubes in a plastic bag, wrapped in a towel) for 20 minutes. Do this every 1-2 hours until the swelling starts to go down. Do not use aspirin or ibuprofen (Motrin, Advil) after a head injury.You may use acetaminophen (Tylenol)to control pain, unless another pain medicine was prescribed. [NOTE: If you have chronic liver or kidney disease or ever had a stomach ulcer or GI bleeding, talk with your doctor before using these medicines.] For the next 24 hours: Do not take alcohol, sedatives or medicines that make you sleepy. Avoid strenuous activities. No lifting or straining. If you have had any symptoms of a concussion today (nausea, vomiting, dizziness, confusion, headache, memory loss or if you were knocked out), do not return to sports or any activity that could result in another head injury until all symptoms are gone and you have been cleared by your doctor. A second head injury before fully recovering from the first one can lead to serious brain injury. Follow Up with your doctor if symptoms are not improving after 24 hours, or as directed. [NOTE: A radiologist will review any X-rays or CT scans that were taken. We will notify you of any new findings that may affect your care.] Get Prompt Medical Attention if any of the followingWARNING SIGNS occur: Repeated vomiting Severe or worsening headache or dizziness Unusual drowsiness, or unable to awaken as usual Confusion or change in behavior or speech, memory loss, blurred vision Convulsion (seizure) Increasing scalp or face swelling Redness, warmth or pus from the swollen area Fluid drainage or bleeding from the nose or ears You have been given the following additional information: HEAD INJURY, No Wake-Up (Adult) HEAD INJURY, No Wake-Up (Adult) (Electronically signed by Deana Best A.R.N.P. 08/20/2016 15:58)
--- NOTE | 2016-08-20 16:59 | ED MAR SUMMARY ---
..... Medication Administration Record [facility] [address] [place], [place] [id number] Patient: ISIDRA FIELD Visit ID: [id number] 86y, M Weight: 72.5 kg Height/Length: 67 in BMI: 25.1 ALLERGIES: Penicillins
--- NOTE | 2016-08-20 16:59 | ED MED RECONCILIATION SUMMARY ---
Patient: ISIDRA FIELD Medication Reconciliation Report [facility] VisitID: [id number] [address] [place] [address] 86y, M Registration Date/Time: 08/20/2016 Weight: 72.5 kg Height/Length: 67 in. BMI: 25.1 ALLERGIES: Penicillins The patient's Home Medications are listed below: THE FOLLOWING MEDICATIONS NEED TO BE RECONCILED: Acetaminophen Oral Motrin Oral, PRN Robaxin 750mg 1-2 tabs q 8 hrs prn The source(s) of the original Home Medication information: patient The following Medications were given to the patient in the Emergency Department: None. The following Medications were prescribed to the patient: None.
== END 2016-08-20 15:12 | disposition home or self-care (01) ==
LOC: ED SRH 13:26
DX: S09.90XD Unspecified injury of head, subsequent encounter (principal); F43.10 Post-traumatic stress disorder, unspecified; W01.198D Fall on same level from slipping, tripping and stumbling with subsequent striking against other object, subsequent encounter; Y93.9 Activity, unspecified; Y92.009 Unspecified place in unspecified non-institutional (private) residence as the place of occurrence of the external cause; Y99.9 Unspecified external cause status; I10 Essential (primary) hypertension; F03.90 Unspecified dementia, unspecified severity, without behavioral disturbance, psychotic disturbance, mood disturbance, and anxiety; Z87.891 Personal history of nicotine dependence; Z88.0 Allergy status to penicillin
CPT/HCPCS: 90100; 95059

== ENCOUNTER 2016-08-27 21:16 | Emergency (ER) | payer OTHER ==
--- NOTE | 2016-08-27 22:20 | DIAGNOSTIC IMAGING REPORT ---
PROCEDURE: XR RIBS UNILAT W/PA CHEST-RT INDICATION: TRAUMA/INJURY TECHNIQUE: Two views of the right ribs with single PA view chest. COMPARISON: Compared to chest x-ray on 08/06/2016. FINDINGS: RIGHT RIBS: Findings suggest old fracture of the right fourth, fifth, and sixth ribs. Osseous structures are otherwise normal. No evidence of acute fracture. CHEST: Allowing for suboptimal inspiration, lungs are clear. Heart and mediastinum are normal. Thorax is unchanged. IMPRESSION: 1. Findings suggest old fractures of the right ribs. 2. No evidence of acute rib fracture. 3. Negative chest.
--- NOTE | 2016-08-28 00:15 | DIAGNOSTIC IMAGING REPORT ---
PROCEDURE: CT ABD/PELVIS WITH CONTRAST INDICATION: Trauma/injury. TECHNIQUE: 80 ml of Isovue 300 were injected intravenously and axial images were obtained of the entire abdomen and pelvis with sagittal and coronal reformations. COMPARISON: Comparison is made to CT abdomen and pelvis on 07/26/2016. FINDINGS: ABDOMEN: Gallbladder demonstrates a phrygian cap. liver and spleen (2 cm accessory splenic nodule) are normal. There is a 1.5 cm cyst with layering dystrophic calcifications in the head of the pancreas. Pancreas is otherwise normal. There are multiple bilateral renal cysts which are unchanged. There are moderate calcified atheromatous changes of the aorta. Interruption of the inferior vena cava represents a normal variant. There are moderate degenerative change of the lumbar spine. PELVIS: Moderate distention of the urinary bladder. Pelvic structures are otherwise normal. IMPRESSION: 1. There is a 1.5 cm cyst in the head of the pancreas with a few dystrophic calcification is most compatible with chronic pseudocyst. No change. 2. Bilateral renal cysts. 3. 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 4. Moderate distention of the urinary bladder. 5. No evidence of acute process. 6. Findings discussed with Dr. Be Dutta. All CT scans at this facility use dose modulation, iterative reconstruction, and/or weight-based dosing when appropriate to reduce radiation dose to as low as reasonably achievable.
--- NOTE | 2016-08-28 00:18 | DIAGNOSTIC IMAGING REPORT ---
PROCEDURE: CTA THORAX WITH CONTRAST INDICATION: CHEST PAIN TECHNIQUE: AML of Isovue 370 was injected intravenously and axial images were obtained of the entire thorax with 3D sagittal and coronal MIP reconstructions. COMPARISON: Comparison is made to chest x-ray and right ribs earlier in the day (08/27/2016). FINDINGS: There is mild basilar parenchymal scarring. Lungs are otherwise clear. Pulmonary vessels are normal and there is no evidence of pulmonary embolus. 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 There are moderate calcifications of the thoracic aorta. Heart and mediastinum are of normal size. There are moderate degenerative change of the thoracic spine with ossification of the anterior longitudinal ligament. There are old right rib fractures. IMPRESSION: 1. Negative CT pulmonary arteriogram. No evidence of pulmonary embolus. 2. 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 3. No evidence of acute process. Findings discussed with Dr. Be Dutta. All CT scans at this facility use dose modulation, iterative reconstruction, and/or weight-based dosing when appropriate to reduce radiation dose to as low as reasonably achievable.
--- NOTE | 2016-08-28 00:24 | ED ORDER SUMMARY ---
..... Patient: ISIDRA FIELD OrderSheet [facility] VisitID: [id number] [address] [place] [address] 86y, M Registration Date/Time: 08/27/2016 ORDER SHEET Weight: 71.2 kg (stated) Allergies: Penicillins GENERAL ORDERS: Ribs Unilat w PA Chest Right Urgent (21:44 08/27/2016 Blayne Reddy) (Ack 21:45 NIKOoerner) (22:09 SBalde R.N.) CBC w Diff Urgent (21:45 08/27/2016 Blayne Reddy) (Ack 21:45 NIKOoerner) (22:09 SBalde R.N.) CMP Urgent (21:45 08/27/2016 Blayne Reddy) (Ack 21:45 NIKOoerner) (22:09 SBalde R.N.) UA-Culture if indicated Urgent (21:45 08/27/2016 Blayne Reddy) (Ack 21:45 NIKOoerner) (23:33 KHoerner) D-Dimer Urgent (21:45 08/27/2016 Blayne Reddy) (Ack 21:45 NIKOoerner) (22:09 SBalde R.N.) CT Thorax/Abd/Pelvis wo Cont Urgent (22:31 08/27/2016 Blayne Reddy) (Ack 22:33 KHoerner) (Cancelled: Physician Order22:43 SBalde R.N.) CT Abd/Pel w Cont (No) (yes) Urgent (22:41 08/27/2016 SBalde R.N. verbal order read back to Blayne Reddy) (Ack 22:46 NIKOoejose danielner) (23:03 SBalde R.N.) CTA Thorax w Cont (No) (yes) Urgent (22:42 08/27/2016 SBalde R.N. verbal order read back to Blayne Reddy) (Ack 22:46 NIKOoejose danielner) (23:03 SBalde R.N.) MEDICATION ORDERS: IV FLUIDS: IV Saline Lock (21:45 08/27/2016 Blayne Reddy) (21:48 SBalde R.N.) Morphine IV 4 mg (HIGH ALERT MEDICATION, NOW) (21:45 08/27/2016 Blayne Reddy) (21:48 SBalde R.N.) Morphine IV 4 mg (HIGH ALERT MEDICATION, NOW) (22:56 08/27/2016 Blayne Reddy) (23:03 SBalde R.N.) IV NS : initial bolus none -, then 1000 mL/hr for X1 (NOW) (23:26 08/27/2016 Blayne Reddy) (Ack 23:35 HSoule) (23:36 TLewis R.N.) ORDER SHEET NOTES: [Electronically signed by Chela Ramirez (03:16 08/28/2016)] [Electronically signed by Be Dutta Dr. (04:54 08/28/2016)] [Electronically locked/signed by Chela Ramirez (03:16 08/28/2016)]
--- NOTE | 2016-08-28 00:24 | ED NURSING NOTES ---
Clinical Report - Nurses [facility] [address] [place] [address] 08/27/2016 21:17 [id number] Triage time 21:Aug 27 2016. Acuity: LEVEL 3. Chief Complaint: FALL ("CAN'T REMEMBER"). Alert. No acute distress. EMMA COMA SCORE: Emma Coma Scale: 15- eyes open spontaneously (4); best verbal response- oriented x 4 (5); best motor response- obeys commands (6). --21:36 Saige Fowler R.N. 21:21 08/27/16. BP: 200/74. HR: 92. RR: 18. O2 saturation: 100%. Temp: 97.2 F. Pain level now 10/10. --21:36 Saige Fowler R.N. Weight: 71.2 kg stated. Height/Length: 67 inches Per Patient. BMI: 24.6. --21:20 Saige Fowler R.N. Medications None. --21:23 Saige Fowler R.N. Allergies Penicillins. --21:23 Saige Fowler R.N. History Arrived by EMS. Historian: patient. Accompanied by (BY SELF). Location of injuries: back. This occurred just prior to arrival. Treatment BENEFITS COUNSELOR: None. Trauma activation: Pre-hospital notification of patient arrival was received. PAST MEDICAL HX: Immunizations: has received pneumonia vaccine; seasonal influenza. SOCIAL HX: Former smoker. No alcohol use or drug use. No infectious disease exposure. NUTRITIONAL RISK ASSESSMENT: The nutritional risk assessment revealed no deficiencies. FUNCTIONAL ASSESSMENT: Functional assessment: no impairments noted. LEARNING NEEDS ASSESSMENT: The learning needs assessment revealed no barriers. SKIN INTEGRITY ASSESSMENT: Skin integrity risk assessment completed. No skin integrity risk identified. --21:36 Saige Fowler R.N. PROBLEMS: Dementia. Hyperthyroidism. Cervical Strain. Head Injury. Neck Pain. Contusion. Fall. PTSD. Pancreatitis. Upper Extremity Pain. Arthritis. Gout. Hypertension. --21:24 Saige Fowler R.N. ADDITIONAL SURGERIES: Appendectomy. Cholecystectomy. Colonoscopy. Dental Surgery. Tonsillectomy. Umbilical Hernia Repair. --21:24 Saige Fowler R.N. Interventions ID band on patient. To room. --21:36 Saige Fowler R.N. PHYSICAL ASSESSMENT BACK: Back: ("it hurts" pt can't specifiy). --22:08 Saige Fowler R.N. RESPIRATORY: Respirations not labored. CVS: Capillary refill less than 2 seconds. EXTREMITIES: Limited ROM present ("I can't sit up"). SKIN: Skin is warm and dry. --22:08 Saige Fowler R.N. GENERAL / NEURO / PSYCH: Emma Coma Scale: 14- eyes open spontaneously (4); best verbal response- disoriented (4); best motor response- obeys commands (6). The patient is disoriented to place and situation (daughter states her father is a bit confused, he has been getting worse. She is currently the POA and is trying to change his living situation from Independant to Assisted.). --23:06 Saige Fowler R.N. NURSING PROGRESS NOTES 21:35 08/27/2016 Site #1 started via IV in the left antecubital space with an 20g angiocath, with aseptic technique and good blood return; two attempts. Blood drawn: rainbow set. Labeled in the presence of the patient and sent to the lab. Saline lock flushed with 10 mL saline. --21:36 Mirtha Peterson R.N. 21:48 08/27/2016 Morphine IVP 4 mg given over 1 minute(s) via site #1. --21:48 Saige Fowler R.N. Patient transported to radiology by stretcher with tech. (21:50Aug 27 2016). --22:02 Saige Fowler R.N. ( Called [facility] and gave Cassandra an update.). --22:09 Saige Fowler R.N. Patient returned from radiology by stretcher with tech. (22:13 Aug 27 2016). --22:13 Saige Fowler R.N. 22:14 08/27/16. BP: 198/71. HR: 78. RR: 18. O2 saturation: 100%. Pain level now 10. --22:14 Saige Fowler R.N. ( pt continues to complain of pain with any movement, yelling and moaning. Daughter Zahida was called and updated on pt's care. She will come and get him when discharged,.). --22:36 Saige Fowler R.N. Patient transported to [place] by stretcher with [employer]. (23:00 Aug 27 2016). --23:00 Saige Fowler R.N. ( Pt offered a urinal numerous times, states he has to pee, but will not move. Offered a catheter for quick relief, but pt refused.). --23:03 Saige Fowler R.N. 23:03 08/27/2016 Morphine IVP 4 mg given over 2 minute(s) via site #1. Sedative warning given to the patient. IV patency established. IV site checked: no pain, redness, or swelling. IV flushed thoroughly pre- and post-medication administration. IVP given by RN. --23:03 Saige Fowler R.N. 23:22 08/27/16. BP: 112/78. HR: 95. RR: 20. O2 saturation: 98%. Pain level now 03/10. --23:31 Saige Fowler R.N. ( pt moved to room 3.). --23:31 Saige Fowler R.N. Care transferred and report given (To Ela RN). --23:32 Saige Fowler R.N. 23:36 08/27/2016 Started IV Fluids IV NS (Saline); at 1000 mL/hr over 1 hour(s) via site #1 via IV pump. Allergies verified and confirmed 5 rights. IV patency established. IV site checked: no pain, redness, or swelling. IV flushed thoroughly pre- and post-medication administration. --23:36 Vickey Briones R.N. 23:55 08/27/16. BP: 171/57. HR: 98. RR: 20. O2 saturation: 98%. --23:56 Chela Ramirez ( Patient assisted with urinal. New blankets given and patient rolled to side with pillows for support. Patient has no complaints at this time.). --23:56 Chela Ramirez ( Provider aware of patient vitals no new orders at this time). --00:13 Chela Ramirez ( Patient family at bedside, RN and family attempting to transfer patient from bed to chair, patient normally ambulates with walker independently . Patient experiencing difficulty standing and turning. Provider notified.). --00:42 Chela Ramirez ( Patient assisted back into bed.). --00:53 Chela Ramirez ( Provider at bedside discussing plan of care with patient and family). --01:31 Chela Ramirez 01:55 08/28/2016 IV Fluids IV NS Discontinued: bag #1 discontinued upon discharge. Total amount infused: 800 mL. IV patency established. IV site checked: no pain, redness, or swelling. IV flushed thoroughly. --02:33 Chela Ramirez. DISPOSITION / DISCHARGE 00:34 08/28/16. BP: 164/70. HR: 70. RR: 20. O2 saturation: 96% on room air. Temp: 98 F (oral). Pain level now: 01/08. --00:35 Chela Ramirez 01:55 08/28/16. BP: 162/70. HR: 68. RR: 20. O2 saturation: 96% on room air. Temp: 98 F. Pain level now: 01/08. --02:32 Chela Ramirez 01:55 08/28/16. Condition at departure: stable. The goals identified in the patient's plan of care were met. No learning barriers present. Discharge instructions provided and reviewed with the patient and family. Patient and family verbalized understanding. Written instructions provided in Malagasy. ( Follow up with PCP in two days. Daughter states she will help facilitate an appointment for him. Patient daughter and RN discussed potential need for increased care at the facility. Patient assisted up and into wheelchair. Patient and family left without paperwork and prescriptions, RN will send discharge paperwork to [facility]. Patient and family verbalized understanding and have no additional questions at this time.). The patient was discharged by the physician. He was discharged home and accompanied by family. He left the Emergency Department in a wheelchair and via private vehicle. Family member driving. ( Patient assisted out to vehicle with his daughter.). --02:32 Chela Ramirez 01:55 08/28/2016 Site #1 removed upon discharge. Catheter intact. Bandaid applied. --02:33 Chela Ramirez. Locked/Released at 08/28/2016 3:16 by Chela Ramirez,
--- NOTE | 2016-08-28 00:24 | ED ORDER SUMMARY ---
..... Patient: ISIDRA FIELD OrderSheet [facility] VisitID: [id number] [address] [place] [address] 86y, M Registration Date/Time: 08/27/2016 ORDER SHEET Weight: 71.2 kg (stated) Allergies: Penicillins GENERAL ORDERS: Ribs Unilat w PA Chest Right Urgent (21:44 08/27/2016 Blayne Reddy) (Ack 21:45 NIKOoerner) (22:09 SBalde R.N.) CBC w Diff Urgent (21:45 08/27/2016 Blayne Reddy) (Ack 21:45 NIKOoerner) (22:09 SBalde R.N.) CMP Urgent (21:45 08/27/2016 Blayne Reddy) (Ack 21:45 NIKOoerner) (22:09 SBalde R.N.) UA-Culture if indicated Urgent (21:45 08/27/2016 Blayne Reddy) (Ack 21:45 NIKOoerner) (23:33 KHoerner) D-Dimer Urgent (21:45 08/27/2016 Blayne Reddy) (Ack 21:45 NIKOoerner) (22:09 SBalde R.N.) CT Thorax/Abd/Pelvis wo Cont Urgent (22:31 08/27/2016 Blayne Reddy) (Ack 22:33 KHoerner) (Cancelled: Physician Order22:43 SBalde R.N.) CT Abd/Pel w Cont (No) (yes) Urgent (22:41 08/27/2016 SBalde R.N. verbal order read back to Blayne Reddy) (Ack 22:46 NIKOoejose danielner) (23:03 SBalde R.N.) CTA Thorax w Cont (No) (yes) Urgent (22:42 08/27/2016 SBalde R.N. verbal order read back to Blayne Reddy) (Ack 22:46 NIKOoejose danielner) (23:03 SBalde R.N.) MEDICATION ORDERS: IV FLUIDS: IV Saline Lock (21:45 08/27/2016 Blayne Reddy) (21:48 SBalde R.N.) Morphine IV 4 mg (HIGH ALERT MEDICATION, NOW) (21:45 08/27/2016 Blayne Reddy) (21:48 SBalde R.N.) Morphine IV 4 mg (HIGH ALERT MEDICATION, NOW) (22:56 08/27/2016 Blayne Reddy) (23:03 SBalde R.N.) IV NS : initial bolus none -, then 1000 mL/hr for X1 (NOW) (23:26 08/27/2016 Blayne Reddy) (Ack 23:35 HSoule) (23:36 TLewis R.N.) ORDER SHEET NOTES: [Electronically signed by Chela Ramirez (03:16 08/28/2016)] [Electronically signed by Be Dutta Dr. (04:54 08/28/2016)] [Electronically locked/signed by Chela Ramirez (03:16 08/28/2016)]
--- NOTE | 2016-08-28 00:24 | ED NURSING NOTES ---
Clinical Report - Nurses [facility] [address] [place] [address] 08/27/2016 21:17 [id number] Triage time 21:Aug 27 2016. Acuity: LEVEL 3. Chief Complaint: FALL ("CAN'T REMEMBER"). Alert. No acute distress. EMMA COMA SCORE: Emma Coma Scale: 15- eyes open spontaneously (4); best verbal response- oriented x 4 (5); best motor response- obeys commands (6). --21:36 Saige Fowler R.N. 21:21 08/27/16. BP: 200/74. HR: 92. RR: 18. O2 saturation: 100%. Temp: 97.2 F. Pain level now 10/10. --21:36 Saige Fowler R.N. Weight: 71.2 kg stated. Height/Length: 67 inches Per Patient. BMI: 24.6. --21:20 Saige Fowler R.N. Medications None. --21:23 Saige Fowler R.N. Allergies Penicillins. --21:23 Saige Fowler R.N. History Arrived by EMS. Historian: patient. Accompanied by (BY SELF). Location of injuries: back. This occurred just prior to arrival. Treatment CASING MAN: None. Trauma activation: Pre-hospital notification of patient arrival was received. PAST MEDICAL HX: Immunizations: has received pneumonia vaccine; seasonal influenza. SOCIAL HX: Former smoker. No alcohol use or drug use. No infectious disease exposure. NUTRITIONAL RISK ASSESSMENT: The nutritional risk assessment revealed no deficiencies. FUNCTIONAL ASSESSMENT: Functional assessment: no impairments noted. LEARNING NEEDS ASSESSMENT: The learning needs assessment revealed no barriers. SKIN INTEGRITY ASSESSMENT: Skin integrity risk assessment completed. No skin integrity risk identified. --21:36 Saige Fowler R.N. PROBLEMS: Dementia. Hyperthyroidism. Cervical Strain. Head Injury. Neck Pain. Contusion. Fall. PTSD. Pancreatitis. Upper Extremity Pain. Arthritis. Gout. Hypertension. --21:24 Saige Fowler R.N. ADDITIONAL SURGERIES: Appendectomy. Cholecystectomy. Colonoscopy. Dental Surgery. Tonsillectomy. Umbilical Hernia Repair. --21:24 Saige Fowler R.N. Interventions ID band on patient. To room. --21:36 Saige Fowler R.N. PHYSICAL ASSESSMENT BACK: Back: ("it hurts" pt can't specifiy). --22:08 Saige Fowler R.N. RESPIRATORY: Respirations not labored. CVS: Capillary refill less than 2 seconds. EXTREMITIES: Limited ROM present ("I can't sit up"). SKIN: Skin is warm and dry. --22:08 Saige Fowler R.N. GENERAL / NEURO / PSYCH: Emma Coma Scale: 14- eyes open spontaneously (4); best verbal response- disoriented (4); best motor response- obeys commands (6). The patient is disoriented to place and situation (daughter states her father is a bit confused, he has been getting worse. She is currently the POA and is trying to change his living situation from Independant to Assisted.). --23:06 Saige Fowler R.N. NURSING PROGRESS NOTES 21:35 08/27/2016 Site #1 started via IV in the left antecubital space with an 20g angiocath, with aseptic technique and good blood return; two attempts. Blood drawn: rainbow set. Labeled in the presence of the patient and sent to the lab. Saline lock flushed with 10 mL saline. --21:36 Mirtha Peterson R.N. 21:48 08/27/2016 Morphine IVP 4 mg given over 1 minute(s) via site #1. --21:48 Saige Fowler R.N. Patient transported to radiology by stretcher with tech. (21:50Aug 27 2016). --22:02 Saige Fowler R.N. ( Called [facility] and gave Cassandra an update.). --22:09 Saige Fowler R.N. Patient returned from radiology by stretcher with tech. (22:13 Aug 27 2016). --22:13 Saige Fowler R.N. 22:14 08/27/16. BP: 198/71. HR: 78. RR: 18. O2 saturation: 100%. Pain level now 10. --22:14 Saige Fowler R.N. ( pt continues to complain of pain with any movement, yelling and moaning. Daughter Zahida was called and updated on pt's care. She will come and get him when discharged,.). --22:36 Saige Fowler R.N. Patient transported to [place] by stretcher with [employer]. (23:00 Aug 27 2016). --23:00 Saige Fowler R.N. ( Pt offered a urinal numerous times, states he has to pee, but will not move. Offered a catheter for quick relief, but pt refused.). --23:03 Saige Fowler R.N. 23:03 08/27/2016 Morphine IVP 4 mg given over 2 minute(s) via site #1. Sedative warning given to the patient. IV patency established. IV site checked: no pain, redness, or swelling. IV flushed thoroughly pre- and post-medication administration. IVP given by RN. --23:03 Saige Fowler R.N. 23:22 08/27/16. BP: 112/78. HR: 95. RR: 20. O2 saturation: 98%. Pain level now 03/10. --23:31 Saige Fowler R.N. ( pt moved to room 3.). --23:31 Saige Fowler R.N. Care transferred and report given (To Ela RN). --23:32 Saige Fowler R.N. 23:36 08/27/2016 Started IV Fluids IV NS (Saline); at 1000 mL/hr over 1 hour(s) via site #1 via IV pump. Allergies verified and confirmed 5 rights. IV patency established. IV site checked: no pain, redness, or swelling. IV flushed thoroughly pre- and post-medication administration. --23:36 Vickey Briones R.N. 23:55 08/27/16. BP: 171/57. HR: 98. RR: 20. O2 saturation: 98%. --23:56 Chela Ramirez ( Patient assisted with urinal. New blankets given and patient rolled to side with pillows for support. Patient has no complaints at this time.). --23:56 Chela Ramirez ( Provider aware of patient vitals no new orders at this time). --00:13 Chela Ramirez ( Patient family at bedside, RN and family attempting to transfer patient from bed to chair, patient normally ambulates with walker independently . Patient experiencing difficulty standing and turning. Provider notified.). --00:42 Chela Ramirez ( Patient assisted back into bed.). --00:53 Chela Ramirez ( Provider at bedside discussing plan of care with patient and family). --01:31 Chela Ramirez 01:55 08/28/2016 IV Fluids IV NS Discontinued: bag #1 discontinued upon discharge. Total amount infused: 800 mL. IV patency established. IV site checked: no pain, redness, or swelling. IV flushed thoroughly. --02:33 Chela Ramirez. DISPOSITION / DISCHARGE 00:34 08/28/16. BP: 164/70. HR: 70. RR: 20. O2 saturation: 96% on room air. Temp: 98 F (oral). Pain level now: 01/08. --00:35 Chela Ramirez 01:55 08/28/16. BP: 162/70. HR: 68. RR: 20. O2 saturation: 96% on room air. Temp: 98 F. Pain level now: 01/08. --02:32 Chela Ramirez 01:55 08/28/16. Condition at departure: stable. The goals identified in the patient's plan of care were met. No learning barriers present. Discharge instructions provided and reviewed with the patient and family. Patient and family verbalized understanding. Written instructions provided in Bulgarian. ( Follow up with PCP in two days. Daughter states she will help facilitate an appointment for him. Patient daughter and RN discussed potential need for increased care at the facility. Patient assisted up and into wheelchair. Patient and family left without paperwork and prescriptions, RN will send discharge paperwork to [facility]. Patient and family verbalized understanding and have no additional questions at this time.). The patient was discharged by the physician. He was discharged home and accompanied by family. He left the Emergency Department in a wheelchair and via private vehicle. Family member driving. ( Patient assisted out to vehicle with his daughter.). --02:32 Chela Ramirez 01:55 08/28/2016 Site #1 removed upon discharge. Catheter intact. Bandaid applied. --02:33 Chela Ramirez. Locked/Released at 08/28/2016 3:16 by Chela Ramirez,
--- NOTE | 2016-08-28 00:24 | ED CLINICAL REPORT ---
Clinical Report - Physicians/Mid Levels [facility] [address] [place] [address] 08/27/2016 21:17 Patient: ISIDRA FIELD Time Seen: 21:23; initial patient contact. Arrived- By ambulance. Historian- patient and EMS personnel. HISTORY OF PRESENT ILLNESS Location of injuries- chest. Chief Complaint: FALL. The injury occurred just prior to arrival. Fell and landed on a carpeted surface; tripped. No fainting episodes. Occurred at a [place] [facility]. The patient complains of moderate pain. REVIEW OF SYSTEMS No numbness, dizziness, loss of vision or laceration. He has had difficulty breathing, right-sided chest pain and abdominal pain but no pain on weight bearing. All systems otherwise negative, except as recorded above. PAST HISTORY Dementia. Hyperthyroidism. Cervical Strain. Head Injury. Neck Pain. Contusion. Fall. PTSD. Pancreatitis. Upper Extremity Pain. Arthritis. Gout. Hypertension. SURGERIES: Colonoscopy. Dental Surgery. Tonsillectomy. Umbilical Hernia Repair. SOCIAL HISTORY Former smoker. No alcohol use or drug use. ADDITIONAL NOTES The nursing notes have been reviewed. PHYSICAL EXAM Vital Signs: 08/27/2016 21:21 BP: 200/74. HR: 92. RR: 18. O2 saturation: 100%. Temp: 97.2 F. Have been reviewed. Hypertensive. Heart rate normal. Respiratory rate normal. Temperature normal. Oxygen saturation normal. Appearance: Alert. Oriented X3. Appears to be in pain. Head: Head non-tender. No swelling of head. Eyes: Pupils equal, round and reactive to light. EOM intact. ENT: No dental injury. Neck: No pain with movement of head/neck. No muscle spasm in the neck. Non-tender. No vertebral tenderness. CVS: Heart sounds normal. Rate normal. Rhythm normal. Respiratory: Chest wall injury: moderate tenderness and small abrasion and ecchymosis located in the left, anterior and lateral chest. No deformity. No splinting present. No paradoxical movement. Breath sounds normal. Abdomen: No visible injury. Soft. Mild tenderness diffusely. No guarding, rebound tenderness or Schaffer's sign present. Bowel sounds normal. No organomegaly. No mass. Back: No tenderness. ROM normal. Skin: Skin intact. Skin warm and dry. Normal skin color. Extremities: Extremities atraumatic. Neuro: Oriented X 3. No motor deficit. LABS, X-RAYS, AND EKG EKG: EKG time: (2134). No acute process. Normal sinus rhythm. Rate: 90. Normal P waves. First-degree atrioventricular block. Normal QRS complex. Left axis deviation. Normal ST and T waves, QT and QTc. Prior EKG unavailable. The study has been interpreted contemporaneously by me. The EKG appears to be a good tracing. I agree with and confirm the computer reading of the EKG. Interpretation time: 2134. Sternum / Ribs X-rays: (1. Findings suggest old fractures of the right ribs. 2. No evidence of acute rib fracture. 3. Negative chest.). Views: right ribs. AP of chest. Technique: good. The X-rays were independently viewed by me, interpreted by the radiologist and discussed with the radiologist. A comparison with prior films reveals that the findings are unchanged. Interpretation time: 22:34. Chest CT: (1. Negative CT pulmonary arteriogram. No evidence of pulmonary embolus. 2. 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 Chest CT performed with contrast. The study was interpreted by the radiologist and discussed with the radiologist. Interpretation time: 00:26. CT Abdomen: 1. There is a 1.5 cm cyst in the head of the pancreas with a few dystrophic calcification is most compatible with chronic pseudocyst. No change. 2. Bilateral renal cysts. 3. 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 4. Moderate distention of the urinary bladder. 5. No evidence of acute process. Study type: upper abdomen; lower abdomen; pelvis. Abdominal CT performed with IV contrast. The study was interpreted by the radiologist and discussed with the radiologist. Interpretation time: 00:27. Laboratory Tests: CBC w Diff: (LINDSAY: 08/27/2016 21:30) ( MsgRcvd 08/27/2016 21:54) Final results Test Result Flag Units (Reference) WHITE BLOOD COUNT 6.4 K/uL (4.5-11.5) RED BLOOD COUNT 4.07 L M/uL (4.50-5.90) HEMOGLOBIN 10.9 L gm/dL (13.5-17.5) HEMATOCRIT 32.7 L % (41.0-53.0) MEAN CELL VOLUME 80 fL (80-100) MEAN CORPUSCULAR HGB 27 pg (26-34) MEAN CORPUSCULAR HGB CONC 33 g/dL (31-37) RED CELL DISTRIBUTION WIDTH 18.9 H % (11.6-14.8) PLATELET COUNT 334 K/uL (150-400) NEUTROPHIL % 60.3 % (50-75) LYMPH % 29.7 % (25-40) MONO % 7.3 % (3-14) EOSINOPHIL % 1.7 % (0-4) BASOPHIL % 1.0 % (0-2) [id number]: (LINDSAY: 08/27/2016 21:30) ( MsgRcvd 08/27/2016 22:17) Final results Test Result Flag Units (Reference) D-DIMER QUANTITATIVE 5.30 *H ug/mLFEU (0.27-0.52) CRITICAL RESULTS CALLEDCalled to JONEL CHAVARRIA RN 08/27/16 2216Were 2 patient identifiers used? YWas the result read back? YThe primary value of this quantitative assay relates toits negative predictive value (i.e. exclusion) of pulmonaryembolism/deep vein thrombosis/DIC.Elevated levels of d-dimer may also occur with:, age, cancer, inflammation, liver disease,post-op, infection, hematoma, coronary disease, peripheralarteriopathy, bleeding disorders and thrombolytic treatment.Results should be correlated with other clinical andradiological data.Testing Methodology: Latex Immunoassay CMP: (LINDSAY: 08/27/2016 21:30) ( MsgRcvd 08/27/2016 22:18) Final results Test Result Flag Units (Reference) GLUCOSE 110 mg/dL (70-110) BUN 28 H mg/dL (7-18) CREATININE 1.8 H mg/dL (0.6-1.3) Estimated GFR 38.40 mL/min Estimated GFR- 46.54 mL/min Note: Persistent reduction over 3 months in eGFR<60 mL/min/1.73 m2 defines CKD. Patients with eGFR values>=60 mL/min/1.73 m2 may also have CKD if evidence ofpersistent proteinuria. Additional information may be foundat www.[email or web address].org. SODIUM 137 mmol/L (136-145) POTASSIUM 4.8 mmol/L (3.5-5.1) CHLORIDE 101 mmol/L (98-107) CARBON DIOXIDE 27 mmol/L (21-32) CALCIUM 9.3 mg/dL (8.5-10.1) TOTAL PROTEIN 7.1 g/dL (6.4-8.2) ALBUMIN 3.6 g/dL (3.3-5.0) BILIRUBIN, TOTAL 0.7 mg/dL (0.0-1.0) ALKALINE PHOSPHATASE 93 U/L (46-116) AST (SGOT) 22 U/L (15-37) ALT (SGPT) 28 U/L (12-78) . PROGRESS AND PROCEDURES Disposition: [facility] to [place] [facility] in good and improved condition. Condition: good. CLINICAL IMPRESSION Single contusion with soft tissue hematoma and abrasion to the right chest. Fall on same level by tripping. INSTRUCTIONS Apply ice for 20 minutes four times a day until better. Don't apply ice directly to skin. (You need to take your medications as prescribed!!!). Prescription Medications: Hydrocodone/APAP 5mg / 325mg: take 1 orally every 6 hours as needed for pain. Dispense fifteen (15). No refill. Follow-up: Follow up with your doctor in about two days. Call for an appointment. Blood pressure screening was not performed during this visit because the patient has an active diagnosis of hypertension. The patient should follow up with a primary care provider for blood pressure management. (Electronically signed by Be Dutta Dr. 08/28/2016 4:54)
--- NOTE | 2016-08-28 04:55 | ED MAR SUMMARY ---
..... Medication Administration Record [facility] [address] [place] [address] Patient: ISIDRA FIELD Visit ID: [id number] 86y, M Weight: 71.2 kg Height/Length: 67 in BMI: 24.6 ALLERGIES: Penicillins Given 21:48 08/27/2016 Saige Fowler R.N. Medication Administered: MORPHINE [IVP], Dose: 4 mg IVP over 1 minute(s), Site: #1 left AC. Medication Ordered: Morphine IV 4 mg (HIGH ALERT MEDICATION, NOW). Given 23:03 08/27/2016 Saige Fowler R.N. Medication Administered: MORPHINE [IVP], Dose: 4 mg IVP over 2 minute(s), Site: #1 left AC. Medication Ordered: Morphine IV 4 mg (HIGH ALERT MEDICATION, NOW). Start 23:36 08/27/2016 Vickey Briones R.N., Stop 01:55 08/28/2016 Chela Ramirez, Medication Administered: IV NS (SALINE), Dose: IV Fluids over 1 hour(s), Rate: 1000 mL/hr, Site: #1 left AC. Medication Ordered: IV NS : initial bolus none -, then 1000 mL/hr for X1 (NOW).
--- NOTE | 2016-08-28 04:55 | ED MAR SUMMARY ---
..... Medication Administration Record [facility] [address] [place] [address] Patient: ISIDRA FIELD Visit ID: [id number] 86y, M Weight: 71.2 kg Height/Length: 67 in BMI: 24.6 ALLERGIES: Penicillins Given 21:48 08/27/2016 Saige Fowler R.N. Medication Administered: MORPHINE [IVP], Dose: 4 mg IVP over 1 minute(s), Site: #1 left AC. Medication Ordered: Morphine IV 4 mg (HIGH ALERT MEDICATION, NOW). Given 23:03 08/27/2016 Saige Fowler R.N. Medication Administered: MORPHINE [IVP], Dose: 4 mg IVP over 2 minute(s), Site: #1 left AC. Medication Ordered: Morphine IV 4 mg (HIGH ALERT MEDICATION, NOW). Start 23:36 08/27/2016 Vickey Briones R.N., Stop 01:55 08/28/2016 Chela Ramirez, Medication Administered: IV NS (SALINE), Dose: IV Fluids over 1 hour(s), Rate: 1000 mL/hr, Site: #1 left AC. Medication Ordered: IV NS : initial bolus none -, then 1000 mL/hr for X1 (NOW).
--- NOTE | 2016-08-28 04:55 | ED MED RECONCILIATION SUMMARY ---
Patient: ISIDRA FIELD Medication Reconciliation Report [facility] VisitID: [id number] [address] [place] [address] 86y, M Registration Date/Time: 08/27/2016 Weight: 71.2 kg Height/Length: 67 in. BMI: 24.6 ALLERGIES: Penicillins The patient's Home Medications are listed below: NONE. The source(s) of the original Home Medication information: Not obtained. The following Medications were given to the patient in the Emergency Department: Morphine [IVP] IVP 4 mg, administered: 08/27/2016 9:48:00 PM Morphine [IVP] IVP 4 mg, administered: 08/27/2016 11:03:00 PM IV NS IV Fluids bolus 0, then 1000 mL/hr, administered: 08/27/2016 11:36:00 PM The following Medications were prescribed to the patient: Hydrocodone/APAP 5mg / 325mg: take 1 orally every 6 hours as needed for pain. Dispense fifteen (15). No refill. -- Be Dutta Dr.
--- NOTE | 2016-08-28 04:55 | ED MED RECONCILIATION SUMMARY ---
Patient: ISIDRA FIELD Medication Reconciliation Report [facility] VisitID: [id number] [address] [place] [address] 86y, M Registration Date/Time: 08/27/2016 Weight: 71.2 kg Height/Length: 67 in. BMI: 24.6 ALLERGIES: Penicillins The patient's Home Medications are listed below: NONE. The source(s) of the original Home Medication information: Not obtained. The following Medications were given to the patient in the Emergency Department: Morphine [IVP] IVP 4 mg, administered: 08/27/2016 9:48:00 PM Morphine [IVP] IVP 4 mg, administered: 08/27/2016 11:03:00 PM IV NS IV Fluids bolus 0, then 1000 mL/hr, administered: 08/27/2016 11:36:00 PM The following Medications were prescribed to the patient: Hydrocodone/APAP 5mg / 325mg: take 1 orally every 6 hours as needed for pain. Dispense fifteen (15). No refill. -- Be Dutta Dr.
--- NOTE | 2016-08-28 04:55 | ED DISCHARGE INSTRUCTIONS ---
Patient: ISIDRA FIELD General Instructions [facility] VisitID: [id number] [address] [place] [address] 86y, M Registration Date/Time: 08/27/2016 Single contusion with soft tissue hematoma and abrasion to the right chest. Fall on same level by tripping. INSTRUCTIONS Apply ice for 20 minutes four times a day until better. Don't apply ice directly to skin. (You need to take your medications as prescribed!!!). Prescription Medications: Hydrocodone/APAP 5mg / 325mg: take 1 orally every 6 hours as needed for pain. Dispense fifteen (15). No refill. Follow-up: Follow up with your doctor in about two days. Call for an appointment. Blood pressure screening was not performed during this visit because the patient has an active diagnosis of hypertension. The patient should follow up with a primary care provider for blood pressure management. ADDITIONAL INFORMATION Mechanical Fall You have had a fall today. It appears that the cause is mechanical. That means that you slipped, tripped or lost your balance. If your fall had been due to fainting or a seizure, further tests would be required. Home Care: Rest today and resume your normal activities when you are feeling back to normal. If you were injured during the fall, follow the advice from your doctor regarding care of your injury. You may use acetaminophen (Tylenol) or ibuprofen (Motrin, Advil) to control pain, unless another pain medicine was prescribed. [NOTE: If you have chronic liver or kidney disease or ever had a stomach ulcer or GI bleeding, talk with your doctor before using these medicines.] Fall Prevention: Was there anything that caused your fall that can be fixed, removed, or replaced? Make your home safe by keeping walkways clear of objects you may trip over. Use non-slip pads under rugs. Do not walk in poorly lit areas. Do not stand on chairs or wobbly ladders. Use caution when reaching overhead or looking upward. This position can cause a loss of balance. Be sure your shoes fit properly, have non-slip bottoms and are in good condition. Be cautious when going up and down curbs, and walking on uneven sidewalks. If your balance is poor, consider using a cane or walker. Stay as active as you can. Balance, flexibility, strength, and endurance all come from exercise. They all play a role in preventing falls. Follow Up with your doctor or as advised by our staff. Get Prompt Medical Attention if any of the following occur: Repeated mechanical falls, or unexplained falls Dizziness, fainting or seizure Severe headache Chest pain or shortness of breath Palpitations (very rapid or very slow or irregular heartbeat) Blood in vomit, stools (black or red color) Weakness of an arm or leg or one side of the face Difficulty with speech or vision Contusion,Soft Tissue You have a CONTUSION, which is a bruise with swelling and some bleeding under the skin. There are no broken bones. This injury takes a few days to a few weeks to heal. Home Care: 1) Keep the injured part elevated to reduce pain and swelling. This is especially important during the first 48 hours. 2) Make an ice pack (ice cubes in a plastic bag, wrapped in a towel) and apply for 20 minutes every 1-2 hours the first day. Continue this 3-4 times a day until the pain and swelling goes away. 3) You may use acetaminophen (Tylenol) or ibuprofen (Motrin, Advil) to control pain, unless another pain medicine was prescribed. [ NOTE : If you have chronic liver or kidney disease or ever had a stomach ulcer or GI bleeding, talk with your doctor before using these medicines.] Follow Up with your doctor or this facility if you are not improving within the next THREE days. [NOTE: If X-rays were taken, they will be reviewed by a radiologist. You will be notified of any new findings that may affect your care.] Get Prompt Medical Attention if any of the following occur: -- Pain or swelling increases -- Injured arm or leg becomes cold, blue, numb or tingly -- Redness, warmth or drainage from the skin Hydrocodone Bitartrate, Acetaminophen Oral tablet What is this medicine? ACETAMINOPHEN; HYDROCODONE (a set a ZACARIAS bobby fen; jordan droe KOE done) is a pain reliever. It is used to treat mild to moderate pain. How should I use this medicine? Take this medicine by mouth. Swallow it with a full glass of water. Follow the directions on the prescription label. If the medicine upsets your stomach, take the medicine with food or milk. Do not take more than you are told to take. Talk to your [employer] regarding the use of this medicine in children. This medicine is not approved for use in children. What side effects may I notice from receiving this medicine? Side effects that you should report to your doctor or health student career development specialist as soon as possible: allergic reactions like skin rash, itching or hives, swelling of the face, lips, or tongue breathing problems confusion feeling faint or lightheaded, falls stomach pain yellowing of the eyes or skin Side effects that usually do not require medical attention (report to your doctor or health student career development specialist if they continue or are bothersome): nausea, vomiting stomach upset What may interact with this medicine? alcohol antihistamines isoniazid medicines for depression, anxiety, or psychotic disturbances medicines for sleep muscle relaxants naltrexone narcotic medicines (opiates) for pain phenobarbital ritonavir tramadol What if I miss a dose? If you miss a dose, take it as soon as you can. If it is almost time for your next dose, take only that dose. Do not take double or extra doses. Where should I keep my medicine? Keep out of the reach of children. This medicine can be abused. Keep your medicine in a safe place to protect it from theft. Do not share this medicine with anyone. Selling or giving away this medicine is dangerous and against the law. Store at room temperature between 15 and 30 degrees C (59 and 86 degrees F). Protect from light. Keep container tightly closed. Throw away any unused medicine after the expiration date. Discard unused medicine and used packaging carefully. Pets and children can be harmed if they find used or lost packages. What should I tell my health care provider before I take this medicine? They need to know if you have any of these conditions: brain tumor Crohn's disease, inflammatory bowel disease, or ulcerative colitis drink more than 3 alcohol-containing drinks per day drug abuse or addiction head injury heart or circulation problems kidney disease or problems going to the bathroom liver disease lung disease, asthma, or breathing problems an unusual or allergic reaction to acetaminophen, hydrocodone, other opioid analgesics, other medicines, foods, dyes, or preservatives or trying to get breast-feeding What should I watch for while using this medicine? Tell your doctor or health student career development specialist if your pain does not go away, if it gets worse, or if you have new or a different type of pain. You may develop tolerance to the medicine. Tolerance means that you will need a higher dose of the medicine for pain relief. Tolerance is normal and is expected if you take the medicine for a long time. Do not suddenly stop taking your medicine because you may develop a severe reaction. Your body becomes used to the medicine. This does NOT mean you are addicted. Addiction is a behavior related to getting and using a drug for a non-medical reason. If you have pain, you have a medical reason to take pain medicine. Your doctor will tell you how much medicine to take. If your doctor wants you to stop the medicine, the dose will be slowly lowered over time to avoid any side effects. You may get drowsy or dizzy when you first start taking the medicine or change doses. Do not drive, use machinery, or do anything that may be dangerous until you know how the medicine affects you. Stand or sit up slowly. There are different types of narcotic medicines (opiates) for pain. If you take more than one type at the same time, you may have more side effects. Give your health care provider a list of all medicines you use. Your doctor will tell you how much medicine to take. Do not take more medicine than directed. Call emergency for help if you have problems breathing. The medicine will cause constipation. Try to have a bowel movement at least every 2 to 3 days. If you do not have a bowel movement for 3 days, call your doctor or health student career development specialist. Too much acetaminophen can be very dangerous. Do not take Tylenol (acetaminophen) or medicines that contain acetaminophen with this medicine. Many non-prescription medicines contain acetaminophen. Always read the labels carefully. You have been given the following additional information: Fall, Mechanical Contusion, Soft Tissue Hydrocodone Bitartrate, Acetaminophen Oral tablet (Electronically signed by Be Dutta Dr. 08/28/2016 4:54)
== END 2016-08-28 01:55 | disposition home or self-care (01) ==
LOC: ED SRH 21:16
DX: S20.211A Contusion of right front wall of thorax, initial encounter (principal); S20.311A Abrasion of right front wall of thorax, initial encounter; W01.0XXA Fall on same level from slipping, tripping and stumbling without subsequent striking against object, initial encounter; Y93.89 Activity, other specified; Y92.129 Unspecified place in nursing home as the place of occurrence of the external cause; I10 Essential (primary) hypertension; Z87.891 Personal history of nicotine dependence; Z88.0 Allergy status to penicillin

== ENCOUNTER 2016-09-13 14:35 | Emergency (ER) | payer OTHER ==
--- NOTE | 2016-09-13 15:36 | DIAGNOSTIC IMAGING REPORT ---
PROCEDURE: XR CHEST 2 VIEW INDICATION: CHEST PAIN TECHNIQUE: PA and lateral view. COMPARISON: Chest x-ray 08/18/2016 FINDINGS: Lingular scar. Cardiovascular structures are normal. Bony thorax is unremarkable. IMPRESSION: 1. Negative chest.
--- NOTE | 2016-09-13 17:00 | ED ORDER SUMMARY ---
..... Patient: ISDIRA FIELD OrderSheet [facility] VisitID: [id number] [place] [address] 86y, M Registration Date/Time: 09/13/2016 ORDER SHEET Weight: 81.6 kg (stated) Allergies: Penicillins GENERAL ORDERS: Chest 2V Urgent (14:54 09/13/2016 [facility] (Ack 14:56 TBergley) (15:22 JSimbeck R.N.) Parking Lot Spotter (Continuous) (14:54 09/13/2016 [facility] (Ack 14:55 TBergley) (15:11 JSimbeck R.N.) UA-Culture if indicated Urgent (14:54 [facility]/2016 [facility] (Ack 14:55 TBergley) (16:26 RMarsden R.N.) Cardiac Panel Stat (14:54 09/13/2016 [facility] (Ack 14:55 TBergley) (15:57 JSimbeck R.N.) BNP Urgent (14:54 09/13/2016 [facility]) (Ack 14:55 TBergley) (15:57 JSimbeck R.N.) D-Dimer Urgent (14:54 [facility]/2016 [facility] (Ack 14:55 TBergley) (15:57 JSimbeck R.N.) Amylase Urgent (14:54 09/13/2016 [facility] ) (Ack 14:55 TBergley) (15:57 JSimbeck R.N.) PT with INR Urgent (14:54 09/13/2016 [facility]) (Ack 14:55 TBergley) (15:57 JSimbeck R.N.) TSH Urgent (14:54 09/13/2016 [facility]) (Ack 14:55 TBergley) (15:57 JSimbeck R.N.) Urine Drug Screen Urgent (14:54 09/13/2016 [facility]) (Ack 14:56 TBergley) (16:26 RMarsden R.N.) Pulse oximeter (14:54 09/13/2016 [facility]) (Ack 14:55 TBergley) (15:11 JSimbeck R.N.) EKG - ER Stat (14:54 09/13/2016 [facility]) (Ack 14:55 TBergley) (14:57 TBergley) Vitals (14:54 09/13/2016 [facility]) (Ack 14:55 TBergley) (15:11 JSimbeck R.N.) Call (Place call to): (Dr Fontenot) (16:45 09/13/2016 [facility]) (Ack 16:47 TBergley) (16:56 TBergley) MEDICATION ORDERS: Aspirin PO 325 mg (if not yet taken today) (15:22 09/13/2016 [facility]) (Ack 15:25 JSimbeck R.N.) (Hold 15:25 JSimbeck R.N.) NitroGLYCERIN Paste Topical 1.5 in. (NOW, to CW) (15:23 09/13/2016 [facility]) (15:57 JSimbeck R.N.) Lovenox Subcut 80 mg (HIGH ALERT MEDICATION, NOW) (16:44 09/13/2016 [facility]) (Ack 16:56 Fayden R.N.) (Cancelled: Patient Nktsevk57:26 JSimbeck R.N.) IV FLUIDS: IV NS : initial bolus 250 mL (1000 mL/hr), then 250 mL/hr for X3 (NOW) (14:54 09/13/2016 [facility]) (15:56 JSimbeck R.N.) ORDER SHEET NOTES: [Electronically signed by Todd Ramesh R.N. (17:45 09/13/2016)] [Electronically signed by Kenton Alfred DO (19:59 09/13/2016)] [Electronically locked/signed by Todd Ramesh R.N. (17:45 09/13/2016)]
--- NOTE | 2016-09-13 17:00 | ED CLINICAL REPORT ---
Clinical Report - Physicians/Mid Levels [facility] [address] [place] [address] 09/13/2016 14:46 Patient: ISIDRA FIELD Time Seen: 14:50. Arrived- By ambulance. Historian- patient and EMS personnel. HISTORY OF PRESENT ILLNESS Chief Complaint: CHEST DISCOMFORT. At its maximum, severity described as moderate. When seen in the E.D., severity described as mild. Modifying factors. Not worsened by anything. Not relieved by anything. It is described as dull and "pain" and it is described as located in the left chest area. No radiation. This started just prior to arrival about 3 hours ago and is still present. It was gradual in onset and has been waxing/waning. Onset during light activity. No nausea, vomiting or diaphoresis. He has had difficulty breathing. (Pt had a fall about 2 1/2 weeks ago with left chest wall injury Daughter reports to be his POA). Similar symptoms previously: None. Recent medical care: The patient was seen recently at this facility in the emergency department. Seen for other problems. Evaluation/treatment: CT and labs. Diagnosis: (fall with chest wall injury). REVIEW OF SYSTEMS No fever, chills, pedal edema, calf pain or fainting episodes. No headache, sore throat, abdominal pain, black stools or difficulty with urination. No skin rash, joint pain or bloody stools. The patient has had a mild nonproductive cough. No blood tinged sputum or frankly bloody sputum. He has had occasional suicidal thoughts. The patient has not conceived of a specific plan. All systems otherwise negative, except as recorded above. PAST HISTORY [facility]. Hyperthyroidism. Cervical Strain. Head Injury. Neck Pain. Contusion. Fall. PTSD. Pancreatitis. Upper Extremity Pain. Arthritis. Gout. Hypertension. SURGERIES: Appendectomy. Cholecystectomy. Colonoscopy. Dental Surgery. Tonsillectomy. Umbilical Hernia Repair. Medications: None. Allergies: Penicillins. SOCIAL HISTORY Former smoker, end date 1981. No alcohol use or drug use. Residence: [facility]. ADDITIONAL NOTES The nursing notes have been reviewed. PHYSICAL EXAM Vital Signs: 09/13/2016 14:56 BP: 151/63. HR: 97. RR: 20. O2 saturation: 100%. Temp: 98.5 F. Pain level now: 06/10. Appearance: Alert. Oriented X3. No acute distress. Eyes: Pupils equal, round and reactive to light. Eyes normal inspection. No scleral icterus or pale conjunctivae. ENT: Pharynx normal. No pharyngeal erythema or tonsillar exudate. The mucous membranes are not dry. Neck: Normal inspection. Neck supple. CVS: Normal heart rate and rhythm. Heart sounds normal. Pulses normal. Respiratory: No respiratory distress. Breath sounds normal. No chest pain reproduced on physical exam, decreased air movement, rales, rhonchi or wheezes. No prolonged expiration. Abdomen: Soft and nontender. Back: Normal external inspection. Skin: Skin warm and dry. Normal skin color. Normal skin turgor. Extremities: Extremities exhibit normal ROM. No calf tenderness. No lower extremity edema. Neuro: Oriented X 3. No motor deficit. LABS, X-RAYS, AND EKG EKG: EKG time: (15:08). Normal sinus rhythm. Rate: 95. Normal P waves. Left anterior fascicular block. Q waves in lead II, III and aVF consistent with inferior infarction. Non-specific ST segment / T wave abnormalities. Non-specific T wave flattening in lead I and aVL. EKG unchanged when compared with prior EKG. (no change from [id number]). The study has been interpreted contemporaneously by me. The EKG appears to be a good tracing. Rhythm Strip #1: Normal sinus rhythm. Regular rhythm. Narrow QRS complexes. No ectopy. Chest X-ray: No acute disease. Normal lung markings present. Normal heart size. Mediastinum normal. Great vessels normal. No infiltrate. Views: PA and lateral. Technique: good. The X-rays were interpreted contemporaneously by me. The X-rays were discussed with the radiologist (via PACS note). A comparison with prior films reveals that the findings are unchanged. Laboratory Tests: UA-Culture if indicated: (LINDSAY: 09/13/2016 16:05) ( MsgRcvd 09/13/2016 16:48) Final results Test Result Flag Units (Reference) URINE COLOR YELLOW URINE APPEARANCE CLEAR URINE GLUCOSE NEGATIVE (NEGATIVE) URINE BILIRUBIN NEGATIVE (NEGATIVE) URINE KETONE NEGATIVE (NEGATIVE) URINE SPECIFIC GRAVITY 1.015 (1.010-1.030) URINE PH 7.0 (5.0-8.0) URINE PROTEIN 2+ (NEGATIVE) URINE UROBILINOGEN 0.2 EU/dL (0.2-1.0) URINE NITRITE NEGATIVE (NEGATIVE) URINE BLOOD NEGATIVE (NEGATIVE) URINE LEUK ESTERASE NEGATIVE (NEGATIVE) URINE RBC NONE SEEN rbc/hpf (0-1) URINE WBC RARE wbc/hpf (0-1) URINE EPITHELIAL CELLS RARE EPI/hpf (0-5) URINE BACTERIA NONE SEEN (NONE SEEN) URINE COMMENT CULT NOT INDICATED URINE CULTURES ARE SET-UP BASED ON THE FOLLOWING CRITERIA:POSITIVE NITRITEPOSITIVE LEUKOCYTE ESTERASEGREATER THAN 10 WHITE BLOOD CELLSMODERATE (2+) OR GREATER BACTERIA CBC w Diff: (LINDSAY: 09/13/2016 15:50) ( [facility] 09/13/2016 16:26) Final results Test Result Flag Units (Reference) WHITE BLOOD COUNT 5.3 K/uL (4.5-11.5) RED BLOOD COUNT 4.10 L M/uL (4.50-5.90) HEMOGLOBIN 11.0 L gm/dL (13.5-17.5) HEMATOCRIT 33.1 L % (41.0-53.0) MEAN CELL VOLUME 81 fL (80-100) MEAN CORPUSCULAR HGB 27 pg (26-34) MEAN CORPUSCULAR HGB CONC 33 g/dL (31-37) RED CELL DISTRIBUTION WIDTH 18.2 H % (11.6-14.8) PLATELET COUNT 339 K/uL (150-400) NEUTROPHIL % 65.5 % (50-75) LYMPH % 24.6 L % (25-40) MONO % 8.4 % (3-14) EOSINOPHIL % 1.3 % (0-4) BASOPHIL % 0.2 % (0-2) PT with INR: (LINDSAY: 09/13/2016 15:50) ( [facility] 09/13/2016 16:32) Final results Test Result Flag Units (Reference) INR 1.0 (0.8-1.2) Low Intensity Therapy: INR 1.5-2.0 PT range 18.5-23.1Mod.Intensity Therapy: INR 2.0-3.0 PT range 23.1-31.5High Intensity Therapy: INR 2.5-3.5 PT range 27.4-35.5High Intensity Therapy 2: INR 3.0-4.0 PT range 31.5-39.3 D-DIMER QUANTITATIVE 0.49 ug/mLFEU (0.27-0.52) The primary value of this quantitative assay relates toits negative predictive value (i.e. exclusion) of pulmonaryembolism/deep vein thrombosis/DIC.Elevated levels of d-dimer may also occur with:, age, cancer, inflammation, liver disease,post-op, infection, hematoma, coronary disease, peripheralarteriopathy, bleeding disorders and thrombolytic treatment.Results should be correlated with other clinical andradiological data.Testing Methodology: Latex Immunoassay Urine Drug Screen: (LINDSAY: 09/13/2016 16:05) ( MsgRcvd 09/13/2016 16:35) Final results Test Result Flag Units (Reference) AMPHETAMINE/METHAMPHETAMINE NEGATIVE (NEGATIVE) BARBITURATE NEGATIVE (NEGATIVE) BENZODIAZEPINE NEGATIVE (NEGATIVE) CANNABINOID NEGATIVE (NEGATIVE) COCAINE NEGATIVE (NEGATIVE) ECSTASY NEGATIVE (NEGATIVE) METHADONE NEGATIVE (NEGATIVE) OPIATE NEGATIVE (NEGATIVE) The urine drug screen is a qualitative screening test fordrug overdose and abuse. All screen results should beconsidered as presumptive.Drugs screened for are as follows:BenzodiazepinesCocaineAmphetamines/MetamphetaminesTHC (Tetrahydrocannabinol)OpiatesBarbituratesEcstasyMethadonePositive results are unconfirmed. For confirmation, notifythe lab for the specimen to be sent to the reference lab.All confirmations must be performed by a differentmethodology.The ingestion of natural herbal and plant productscontaining Ephedra/Ephedra metabolites can produce in urineone or more substances capable of cross reacting withamphetamine/methamphetamine immunoassays. These testsprovide a preliminary result only. A more specificalternative chemical method must be used to obtain aconfirmed analytical result. BNP: (LINDSAY: 09/13/2016 15:50) ( MsgRcvd 09/13/2016 16:57) Final results Test Result Flag Units (Reference) B-TYPE NATRIURETIC PEPTIDE 47.3 pg/ml (5-100) CHEM 13 PANEL: (LINDSAY: 09/13/2016 15:50) ( MsgRcvd 09/13/2016 16:42) Final results Test Result Flag Units (Reference) GLUCOSE 123 H mg/dL (70-110) BUN 26 H mg/dL (7-18) CREATININE 2.1 H mg/dL (0.6-1.3) Estimated GFR 32.14 mL/min Estimated GFR- 38.95 mL/min Note: Persistent reduction over 3 months in eGFR<60 mL/min/1.73 m2 defines CKD. Patients with eGFR values>=60 mL/min/1.73 m2 may also have CKD if evidence ofpersistent proteinuria. Additional information may be foundat www.kidney.org. SODIUM 144 mmol/L (136-145) POTASSIUM 3.7 mmol/L (3.5-5.1) CHLORIDE 105 mmol/L (98-107) CARBON DIOXIDE 29 mmol/L (21-32) CALCIUM 8.9 mg/dL (8.5-10.1) TOTAL PROTEIN 6.9 g/dL (6.4-8.2) ALBUMIN 3.4 g/dL (3.3-5.0) BILIRUBIN, TOTAL 0.4 mg/dL (0.0-1.0) ALKALINE PHOSPHATASE 133 H U/L (46-116) AST (SGOT) 13 L U/L (15-37) ALT (SGPT) 18 U/L (12-78) CPK 34 U/L (24-260) MAGNESIUM 2.1 mg/dL (1.8-2.4) AMYLASE 105 U/L (25-115) TROPONIN I <0.05 ng/mL (0.00-1.5) TROPONIN REFERENCE RANGE:<0.1 NEGATIVE0.1-1.5 INDETERMINANT>1.5 POSITIVE THYROID STIMULATING HORMONE 0.881 uIU/mL (0.30-3.74) . (Cr 1.8 on 08/27/2016). Pulse Oximetry: 09/13/2016 14:56 O2 saturation: 100%. (FIO2 - room air). Interpretation: normal. PROGRESS AND PROCEDURES Course of Care: Nitroglycerin 1.5 inches paste inches. Normal Saline 500 mL IVPB given. ASA 325 mg PO given. Lovenox 80 mg subQ given. 17:09 09/13/16. Pt is refusing admission after full discussion of risks and benefits to include even . I cannot hold him against his will - he is alert and oriented to place and person - confused about day. He can state his reasons for leaving and, although I think he is making a poor choice, he still declines admission. The pt had agreed to admission prior to this and I had discussed the case with the hospitalist and a bed was obtained for him prior to his change of mind. Discussed case with hospitalist, (Po call returned 16:47). Reviewed test results. Agreed upon treatment plan. Patient/family counseled. Old ED records reviewed. Patient has had multiple ED visits (9 visits to [facility] ED in past 4 months (7 in past 45 days)). Transition orders written. Disposition: Discharged (AMA). CLINICAL IMPRESSION Precordial chest pain characterized as "discomfort" .12 lead EKG performed. Acute dyspnea. Abnormal EKG: Q waves. Mild chronic anemia. INSTRUCTIONS Drink plenty of fluids. Warnings: Further evaluation is necessary in order to recheck abnormal lab, obtain test results, conduct further tests and assess the possibility of serious illness. It is very important to follow up with a physician. GENERAL WARNINGS: Return or contact your physician immediately if your condition worsens or changes unexpectedly, if not improving as expected, or if other problems arise. OTC Medications: Take aspirin according to label instructions. Available over the counter. (325 mg / day) Follow-up: [facility]. (Electronically signed by Kenton Alfred DO 09/13/2016 19:59)
--- NOTE | 2016-09-13 17:00 | ED NURSING NOTES ---
Clinical Report - Nurses [facility] [address] [place] [address] 09/13/2016 14:46 [id number] Triage time 14:56. Acuity: LEVEL 3. Chief Complaint: CHEST PAIN. 15:04 09/13/16. SEPSIS SCREEN: Sepsis Screen. Negative (no infection suspected/documented). GABRIELLE COMA SCORE: [place] Coma Scale: 15- eyes open spontaneously (4); best verbal response- oriented x 4 (5); best motor response- obeys commands (6). --15:05 Todd Ramesh R.N. 14:56 09/13/16. BP: 151/63. HR: 97. RR: 20. O2 saturation: 100% on room air. Temp: 98.5 F (oral). Pain level now: 06/10. --15:05 Todd Ramesh R.N. Weight: 81.6 kg stated. Height/Length: 72 inches Per Patient. BMI: 24.4. --15:02 Todd Ramesh R.N. Medications None. --14:59 Todd Ramesh R.N. Allergies Penicillins. --14:58 Todd Ramesh R.N. History Arrived by EMS, and (Medic 46). This started just prior to arrival. 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 SOCIAL HX: Former smoker, end date 1981. No alcohol use or drug use. ABUSE ASSESSMENT: No report of abuse. --15:05 Todd Ramesh R.N. PROBLEMS: Dementia. Hyperthyroidism. Cervical Strain. Head Injury. Neck Pain. Fall. PTSD. Pancreatitis. Arthritis. Gout. Hypertension. --14:59 Todd Ramesh R.N. ADDITIONAL SURGERIES: Appendectomy. Cholecystectomy. Colonoscopy. Dental Surgery. Tonsillectomy. Umbilical Hernia Repair. --15:00 Todd Ramesh R.N. Interventions ID band on patient. To treatment room. --15:05 Todd Ramesh R.N. PHYSICAL ASSESSMENT 15:05 09/13/16. To room via stretcher. GENERAL / NEURO / PSYCH: Alert. Appears in no acute distress. The patient is disoriented (dementia). HEENT: Mucous membranes are pink. RESPIRATORY: Respirations not labored. Chest wall tenderness. Breath sounds within normal limits. CVS: Normal sinus rhythm noted. Cardiac rhythm: normal sinus rhythm. Heart sounds within normal limits. Pulses within normal limits. Capillary refill less than 2 seconds. GI / : Abdomen soft and nontender. EXTREMITIES: Bilateral 1+ edema of the lower extremities. SKIN: Skin is warm and dry. Skin is non-tender. ( poor turgor). --15:07 Todd Ramesh R.N. NURSING PROGRESS NOTES EKG time: (1508). EKG was ordered, performed by a tech and shown to the ED physician. --15:09 Kaya Fernandez <<STRICKEN ENTRY-- 14:59 09/13/2016 Site #1 started prior to arrival by EMS via IV in the left antecubital space with an 20g angiocath. Saline lock flushed with 10 mL saline. --15:14 Todd Ramesh R.N. --END STRIKE>> Correction. --15:57 Todd Ramesh R.N. 14:59 09/13/2016 Site #1 started prior to arrival by EMS via IV in the left antecubital space with an 18g angiocath. Saline lock flushed with 10 mL saline. --15:57 Todd Ramesh R.N. 15:08 09/13/16. case monitor, pulse oximeter and NIBP monitor placed on patient; manager cardiac- Lead II and aVR; monitor alarms on. Patient gowned. Head of bed elevated. Two patient identifiers checked. Call light placed in reach. Side rails up x 2. Bed placed in lowest position. Brakes of bed on. Patient ready for evaluation- chart flagged. --15:08 Todd Ramesh R.N. 15:11 09/13/16. ( Pt's daughter is at the bedside). --15:11 Todd Ramesh R.N. 15:35 09/13/2016 Started bag #1 1000 mL IV Fluids IV NS (Saline); bolus of 250 mL over 15 minute(s) then at 250 mL/hr over 3 hour(s) via site #1 via IV pump. Allergies verified and confirmed 5 rights. IV patency established. IV site checked: no pain, redness, or swelling. IV flushed thoroughly pre- and post-medication administration. --15:56 Todd Ramesh R.N. 15:35 09/13/2016 NITROGLYCERIN PASTE Topical Paste 1.5 inch. Applied to the left chest. Allergies verified and confirmed 5 rights. --15:57 Todd Ramesh R.N. 15:50 09/13/2016 Site #2 started via IV in the left wrist with an 20g angiocath, with aseptic technique and good blood return; one attempt. Blood drawn: rainbow set. Labeled in the presence of the patient and sent to the lab. Saline lock flushed with 10 mL saline. --15:55 Todd Ramesh R.N. 17:00 09/13/16. ( H&P GIVEN TO PTS FAMILY TO ASSIST WITH FILLING OUT.). --17:00 Jailene Bowman 15:30 09/13/16. BP: 166/61. HR: 99. RR: 20. O2 saturation: 99% on room air. Pain level now: 0/10. --17:32 oTdd Ramesh R.N. 16:30 09/13/16. BP: 150/60. HR: 111. RR: 20. O2 saturation: 98% on room air. Pain level now: 0/10. --17:34 Todd Ramesh R.N. <<STRICKEN ENTRY-- 17:30 09/13/16. BP: 152/61. HR: 99. RR: 20. O2 saturation: 99% on room air. Pain level now: 0/10. --17:35 Todd Ramesh R.N. --END STRIKE>> Correction. --17:36 Todd Ramesh R.N. 17:15 09/13/16. BP: 152/61. HR: 110. RR: 20. O2 saturation: 99% on room air. Temp: deferred. Pain level now: 0/10. --17:35 Todd Ramesh R.N. 17:15 09/13/2016 IV Fluids IV NS Discontinued: bag #1 upon discharge. Total amount infused: 800 mL. IV patency established. IV site checked: no pain, redness, or swelling. IV flushed thoroughly. --17:45 Todd Ramesh R.N. 17:44 09/13/16. ( Pt received a total of 800ml IV NS.). --17:44 Todd Ramesh R.N. DISPOSITION / DISCHARGE 17:20 09/13/2016 Site #[address] upon discharge; patent, no pain and no signs of infection or infiltration. --17:37 Todd Ramesh R.N. 17:38 09/13/2016 Site #2 removed upon discharge. Bandage applied. --17:38 Todd Ramesh R.N. 17:39 09/13/16. Departure time: 1730. Condition at departure: improved. ( Error correction: charted in error that he left with an IV in place. Both IV sites were removed prior to discharge.). Discharge instructions provided and reviewed with the patient and family. The patient left the Emergency Department against medical advice; patient was accompanied by a family member. The patient appears to be alert, in no acute distress and uncooperative. The patient stated is leaving the ED due to personal reasons. Notified the ED physician of patient departure. Prior to leaving the ED, he was advised to stay for completion of treatment and return if needed. He was informed of the risks of leaving and verbalized understanding of these risks. Patient signed form prior to leaving. He left the Emergency Department ambulatory and via private vehicle. ( with his daughter). --17:42 Todd Ramesh R.N. 17:15 09/13/16. BP: 152/61. HR: 110. RR: 20. O2 saturation: 99% on room air. Pain level now: 0/10. --17:43 Todd Ramesh R.N. Locked/Released at 09/13/2016 17:45 by Todd Ramesh R.N.
--- NOTE | 2016-09-13 17:00 | ED ORDER SUMMARY ---
..... Patient: ISIDRA FIELD OrderSheet [facility] VisitID: [id number] [place] [address] 86y, M Registration Date/Time: 09/13/2016 ORDER SHEET Weight: 81.6 kg (stated) Allergies: Penicillins GENERAL ORDERS: Chest 2V Urgent (14:54 [facility]/2016 [facility] (Ack 14:56 TBergley) (15:22 JSimbeck R.N.) Manager Medical Affairs (Continuous) (14:54 09/13/2016 [facility]) (Ack 14:55 TBergley) (15:11 JSimbeck R.N.) UA-Culture if indicated [facility]:54 [facility] (Ack 14:55 TBergley) (16:26 RMarsden R.N.) Cardiac Panel Stat (14:54 09/13/2016 [facility] (Ack 14:55 TBergley) (15:57 JSimbeck R.N.) BNP Urgent (14:54 09/13/2016 [facility]) (Ack 14:55 TBergley) (15:57 JSimbeck R.N.) D-Dimer [facility]14:54 [facility] ([facility]ck 14:55 TBergley) (15:57 JSimbeck R.N.) Amylase Urgent (14:54 09/13/2016 [facility] (Ack 14:55 TBergley) (15:57 JSimbeck R.N.) PT with INR Urgent (14:54 09/13/2016 [facility]) (Ack 14:55 TBergley) (15:57 JSimbeck R.N.) TSH Urgent (14:54 09/13/2016 [facility]) (Ack 14:55 TBergley) (15:57 JSimbeck R.N.) Urine Drug Screen Urgent (14:54 09/13/2016 [facility]) (Ack 14:56 TBergley) (16:26 RMarsden R.N.) Pulse oximeter (14:54 09/13/2016 [facility]) (Ack 14:55 TBergley) (15:11 JSimbeck R.N.) EKG - ER Stat (14:54 09/13/2016 [facility]) (Ack 14:55 TBergley) (14:57 TBergley) Vitals (14:54 09/13/2016 [facility]) (Ack 14:55 TBergley) (15:11 JSimbeck R.N.) Call (Place call to): (Dr Fontenot) (16:45 09/13/2016 [facility]) (Ack 16:47 TBergley) (16:56 TBergley) MEDICATION ORDERS: Aspirin PO 325 mg (if not yet taken today) (15:22 09/13/2016 [facility]) (Ack 15:25 JSimbeck R.N.) (Hold 15:25 JSimbeck R.N.) NitroGLYCERIN Paste Topical 1.5 in. (NOW, to CW) (15:23 09/13/2016 [facility]) (15:57 JSimbeck R.N.) Lovenox Subcut 80 mg (HIGH ALERT MEDICATION, NOW) (16:44 09/13/2016 [facility]) (Ack 16:56 Fayden R.N.) (Cancelled: Patient Qabuljt21:26 JSimbeck R.N.) IV FLUIDS: IV NS : initial bolus 250 mL (1000 mL/hr), then 250 mL/hr for X3 (NOW) (14:54 09/13/2016 [facility]) (15:56 JSimbeck R.N.) ORDER SHEET NOTES: [Electronically signed by Todd Ramesh R.N. (17:45 09/13/2016)] [Electronically signed by Kenton Alfred DO (19:59 09/13/2016)] [Electronically locked/signed by Todd Ramesh R.N. (17:45 09/13/2016)]
--- NOTE | 2016-09-13 17:00 | ED NURSING NOTES ---
Clinical Report - Nurses [facility] [address] [place] [address] 09/13/2016 14:46 [facility]: [facility]IDRA FIELD [facility] [id number] TRIAGE Triage time 14:56. Acuity: LEVEL 3. Chief Complaint: CHEST PAIN. 15:04 09/13/16. SEPSIS SCREEN: Sepsis Screen. Negative (no infection suspected/documented). GABRIELLE COMA SCORE: Elmore Coma Scale: 15- eyes open spontaneously (4); best verbal response- oriented x 4 (5); best motor response- obeys commands (6). --15:05 Todd Ramesh R.N. 14:56 09/13/16. BP: 151/63. HR: 97. RR: 20. O2 saturation: 100% on room air. Temp: 98.5 F (oral). Pain level now: 06/10. --15:05 Todd Ramesh R.N. Weight: 81.6 kg stated. Height/Length: 72 inches Per Patient. BMI: 24.4. --15:02 Todd Ramesh R.N. Medications None. --14:59 Todd Ramesh R.N. Allergies Penicillins. --14:58 Todd Ramesh R.N. History Arrived by EMS, and (Medic 46). This started just prior to arrival. Treatment PROPERTY ECONOMIST: (NS 200ml IV, ASA 324mg po). SOCIAL HX: Former smoker, end date 1981. No alcohol use or drug use. ABUSE ASSESSMENT: No report of abuse. --15:05 Todd Ramesh R.N. PROBLEMS: Dementia. Hyperthyroidism. Cervical Strain. Head Injury. Neck Pain. Fall. PTSD. Pancreatitis. Arthritis. Gout. Hypertension. --14:59 Todd Ramesh R.N. ADDITIONAL SURGERIES: Appendectomy. Cholecystectomy. Colonoscopy. Dental Surgery. Tonsillectomy. Umbilical Hernia Repair. --15:00 Todd Ramesh R.N. Interventions ID band on patient. To treatment room. --15:05 Todd Ramesh R.N. PHYSICAL ASSESSMENT 15:05 09/13/16. To room via stretcher. GENERAL / NEURO / PSYCH: Alert. Appears in no acute distress. The patient is disoriented (dementia). HEENT: Mucous membranes are pink. RESPIRATORY: Respirations not labored. Chest wall tenderness. Breath sounds within normal limits. CVS: Normal sinus rhythm noted. Cardiac rhythm: normal sinus rhythm. Heart sounds within normal limits. Pulses within normal limits. Capillary refill less than 2 seconds. GI / : Abdomen soft and nontender. EXTREMITIES: Bilateral 1+ edema of the lower extremities. SKIN: Skin is warm and dry. Skin is non-tender. ( poor turgor). --15:07 Todd Ramesh R.N. NURSING PROGRESS NOTES EKG time: (1508). EKG was ordered, performed by a tech and shown to the ED physician. --15:09 Kaya Fernandez <<STRICKEN ENTRY-- 14:59 09/13/2016 Site #1 started prior to arrival by EMS via IV in the left antecubital space with an 20g angiocath. Saline lock flushed with 10 mL saline. --15:14 Todd Ramesh R.N. --END STRIKE>> Correction. --15:57 Todd Ramesh R.N. 14:59 09/13/2016 Site #1 started prior to arrival by EMS via IV in the left antecubital space with an 18g angiocath. Saline lock flushed with 10 mL saline. --15:57 Todd Ramesh R.N. 15:08 09/13/16. surveillance system monitor, pulse oximeter and NIBP monitor placed on patient; surveillance system monitor- Lead II and aVR; monitor alarms on. Patient gowned. Head of bed elevated. Two patient identifiers checked. Call light placed in reach. Side rails up x 2. Bed placed in lowest position. Brakes of bed on. Patient ready for evaluation- chart flagged. --15:08 Todd Ramesh R.N. 15:11 09/13/16. ( Pt's daughter is at the bedside). --15:11 Todd Ramesh R.N. 15:35 09/13/2016 Started bag #1 1000 mL IV Fluids IV NS (Saline); bolus of 250 mL over 15 minute(s) then at 250 mL/hr over 3 hour(s) via site #1 via IV pump. Allergies verified and confirmed 5 rights. IV patency established. IV site checked: no pain, redness, or swelling. IV flushed thoroughly pre- and post-medication administration. --15:56 Todd Ramesh R.N. 15:35 09/13/2016 NITROGLYCERIN PASTE Topical Paste 1.5 inch. Applied to the left chest. Allergies verified and confirmed 5 rights. --15:57 Todd Ramesh R.N. 15:50 09/13/2016 Site #2 started via IV in the left wrist with an 20g angiocath, with aseptic technique and good blood return; one attempt. Blood drawn: rainbow set. Labeled in the presence of the patient and sent to the lab. Saline lock flushed with 10 mL saline. --15:55 Todd Ramesh R.N. 17:00 09/13/16. ( H&P GIVEN TO PTS FAMILY TO ASSIST WITH FILLING OUT.). --17:00 Jailene Bowman 15:30 09/13/16. BP: 166/61. HR: 99. RR: 20. O2 saturation: 99% on room air. Pain level now: 0/10. --17:32 Todd Ramesh R.N. 16:30 09/13/16. BP: 150/60. HR: 111. RR: 20. O2 saturation: 98% on room air. Pain level now: 0/10. --17:34 Todd Ramesh R.N. <<STRICKEN ENTRY-- 17:30 09/13/16. BP: 152/61. HR: 99. RR: 20. O2 saturation: 99% on room air. Pain level now: 0/10. --17:35 Todd Raemsh R.N. --END STRIKE>> Correction. --17:36 Todd Ramesh R.N. 17:15 09/13/16. BP: 152/61. HR: 110. RR: 20. O2 saturation: 99% on room air. Temp: deferred. Pain level now: 0/10. --17:35 Todd Ramesh R.N. 17:15 09/13/2016 IV Fluids IV NS Discontinued: bag #1 upon discharge. Total amount infused: 800 mL. IV patency established. IV site checked: no pain, redness, or swelling. IV flushed thoroughly. --17:45 Todd Ramesh R.N. 17:44 09/13/16. ( Pt received a total of 800ml IV NS.). --17:44 Todd Ramesh R.N. DISPOSITION / DISCHARGE 17:20 09/13/2016 Site #[address] upon discharge; patent, no pain and no signs of infection or infiltration. --17:37 Todd Ramesh R.N. 17:38 09/13/2016 Site #2 removed upon discharge. Bandage applied. --17:38 Todd Ramesh R.N. 17:39 09/13/16. Departure time: 1730. Condition at departure: improved. ( Error correction: charted in error that he left with an IV in place. Both IV sites were removed prior to discharge.). Discharge instructions provided and reviewed with the patient and family. The patient left the Emergency Department against medical advice; patient was accompanied by a family member. The patient appears to be alert, in no acute distress and uncooperative. The patient stated is leaving the ED due to personal reasons. Notified the ED physician of patient departure. Prior to leaving the ED, he was advised to stay for completion of treatment and return if needed. He was informed of the risks of leaving and verbalized understanding of these risks. Patient signed form prior to leaving. He left the Emergency Department ambulatory and via private vehicle. ( with his daughter). --17:42 Todd Ramesh R.N. 17:15 09/13/16. BP: 152/61. HR: 110. RR: 20. O2 saturation: 99% on room air. Pain level now: 0/10. --17:43 Todd Ramesh R.N. Locked/Released at 09/13/2016 17:45 by Todd Ramesh R.N.
--- NOTE | 2016-09-13 19:59 | ED MED RECONCILIATION SUMMARY ---
Patient: ISIDRA FIELD Medication Reconciliation Report [facility] VisitID: [id number] [address] [place] [address] 86y, M Registration Date/Time: 09/13/2016 Weight: 81.6 kg Height/Length: 72 in. BMI: 24.4 ALLERGIES: Penicillins The patient's Home Medications are listed below: NONE. The source(s) of the original Home Medication information: Not obtained. The following Medications were given to the patient in the Emergency Department: IV NS IV Fluids bolus 250 mL over 15 minute(s), then 250 mL/hr, administered: 09/13/2016 3:35:00 PM NITROGLYCERIN PASTE [TOPICAL] Topical 1.5 in., administered: 09/13/2016 3:35:00 PM The following Medications were prescribed to the patient: Take aspirin according to label instructions. Available over the counter.(325 mg / day) -- Kenton Alfred DO
--- NOTE | 2016-09-13 19:59 | ED MED RECONCILIATION SUMMARY ---
Patient: ISIDRA FIELD Medication Reconciliation Report [facility] VisitID: [id number] [address] [place] [address] 86y, M Registration Date/Time: 09/13/2016 Weight: 81.6 kg Height/Length: 72 in. BMI: 24.4 ALLERGIES: Penicillins The patient's Home Medications are listed below: NONE. The source(s) of the original Home Medication information: Not obtained. The following Medications were given to the patient in the Emergency Department: IV NS IV Fluids bolus 250 mL over 15 minute(s), then 250 mL/hr, administered: 09/13/2016 3:35:00 PM NITROGLYCERIN PASTE [TOPICAL] Topical 1.5 in., administered: 09/13/2016 3:35:00 PM The following Medications were prescribed to the patient: Take aspirin according to label instructions. Available over the counter.(325 mg / day) -- Kenton Alfred DO
--- NOTE | 2016-09-13 19:59 | ED DISCHARGE INSTRUCTIONS ---
Patient: ISIDRA FIELD General Instructions [facility] VisitID: [id number] [address] [place] [address] 86y, M Registration Date/Time: 09/13/2016 Precordial chest pain characterized as "discomfort" .12 lead EKG performed. Acute dyspnea. Abnormal EKG: Q waves. Mild chronic anemia. INSTRUCTIONS Drink plenty of fluids. Warnings: Further evaluation is necessary in order to recheck abnormal lab, obtain test results, conduct further tests and assess the possibility of serious illness. It is very important to follow up with a physician. GENERAL WARNINGS: Return or contact your physician immediately if your condition worsens or changes unexpectedly, if not improving as expected, or if other problems arise. OTC Medications: Take aspirin according to label instructions. Available over the counter. (325 mg / day) Follow-up: [facility]. (Electronically signed by Kenton Alfred DO 09/13/2016 19:59)
--- NOTE | 2016-09-13 19:59 | ED MAR SUMMARY ---
..... Medication Administration Record [facility] [address] [place] [address] Patient: ISIDRA FIELD Visit ID: [id number] 86y, M Weight: 81.6 kg Height/Length: 72 in BMI: 24.4 ALLERGIES: Penicillins Start 15:35 09/13/2016 Todd Ramesh R.N., Stop 17:15 09/13/2016 Todd Ramesh R.N. Medication Administered: IV NS (SALINE), Dose: IV Fluids over 3 hour(s), Rate: 250 mL/hr, Bolus: 250 mL over 15 minute(s), Dispensed: 1000 mL bag, Site: #1 left . Medication Ordered: IV NS : initial bolus 250 mL (1000 mL/hr), then 250 mL/hr for X3 (NOW). Given 15:35 09/13/2016 Todd Ramesh R.N. Medication Administered: NITROGLYCERIN PASTE [TOPICAL], Dose: 1.5 in. Paste Topical. Medication Ordered: NitroGLYCERIN Paste Topical 1.5 in. (NOW, to ).
--- NOTE | 2016-09-13 19:59 | ED MAR SUMMARY ---
..... Medication Administration Record [facility] [address] [place] [address] Patient: ISIDRA FIELD Visit ID: [id number] 86y, M Weight: 81.6 kg Height/Length: 72 in BMI: 24.4 ALLERGIES: Penicillins Start 15:35 09/13/2016 Todd Ramesh R.N., Stop 17:15 09/13/2016 Todd Ramesh R.N. Medication Administered: IV NS (SALINE), Dose: IV Fluids over 3 hour(s), Rate: 250 mL/hr, Bolus: 250 mL over 15 minute(s), Dispensed: 1000 mL bag, Site: #1 left . Medication Ordered: IV NS : initial bolus 250 mL (1000 mL/hr), then 250 mL/hr for X3 (NOW). Given 15:35 09/13/2016 Todd Ramesh R.N. Medication Administered: NITROGLYCERIN PASTE [TOPICAL], Dose: 1.5 in. Paste Topical. Medication Ordered: NitroGLYCERIN Paste Topical 1.5 in. (NOW, to ).
--- NOTE | 2016-09-13 19:59 | ED DISCHARGE INSTRUCTIONS ---
Patient: ISIDRA FIELD General Instructions [facility] VisitID: [id number] [address] [place] [address] 86y, M Registration Date/Time: 09/13/2016 Precordial chest pain characterized as "discomfort" .12 lead EKG performed. Acute dyspnea. Abnormal EKG: Q waves. Mild chronic anemia. INSTRUCTIONS Drink plenty of fluids. Warnings: Further evaluation is necessary in order to recheck abnormal lab, obtain test results, conduct further tests and assess the possibility of serious illness. It is very important to follow up with a physician. GENERAL WARNINGS: Return or contact your physician immediately if your condition worsens or changes unexpectedly, if not improving as expected, or if other problems arise. OTC Medications: Take aspirin according to label instructions. Available over the counter. (325 mg / day) Follow-up: Follow [facility]. (Electronically signed by Kenton Alfred DO 09/13/2016 19:59)
== END 2016-09-13 17:30 | disposition left against medical advice (07) ==
LOC: ED SRH 14:35 → TRANS SRH 16:57 → ED SRH 16:57 → TRANS SRH 17:30
DX: R07.2 Precordial pain (principal); R06.00 Dyspnea, unspecified; R94.31 Abnormal electrocardiogram [ECG] [EKG]; D64.9 Anemia, unspecified; I10 Essential (primary) hypertension; E07.9 Disorder of thyroid, unspecified; Z87.891 Personal history of nicotine dependence; Z88.0 Allergy status to penicillin
CPT/HCPCS: 90004; 90100; 90616; 91320; 91556; 92530; 92610; 92720; 92760; 92761; 92762; 92763; 92764; 92765; 92766; 92767; 93140; 94060; 95059

== ENCOUNTER 2016-09-16 00:27 | Emergency (ER) | payer OTHER ==
--- NOTE | 2016-09-16 02:48 | ED CLINICAL REPORT ---
Clinical Report - Physicians/Mid Levels [facility] [address] [place] [address] 09/16/2016 0:27 [id number] Time Seen: 00:42. Arrived- By ambulance. Historian- EMS personnel. History limited by dementia. Physical Exam limited by dementia. HISTORY OF PRESENT ILLNESS Location of injuries- head and right elbow and right forearm. Chief Complaint: FALL. The injury occurred just prior to arrival. Fell. (assisted living facility). The patient denies pain. The patient sustained a blow to the head and was dazed. No neck pain or loss of consciousness. REVIEW OF SYSTEMS No chills, fever, sweats, calf pain or chest pain. No cough, difficulty breathing, pedal edema, palpitations or abdominal pain. No constipation, diarrhea, nausea, vomiting or urinary problems. All systems otherwise negative, except as recorded above. PAST HISTORY Problems: Anemia. Dyspnea. Abnormal EKG. Chest Pain. Hyperthyroidism. Cervical Strain. Head Injury. Neck Pain. Contusion. PTSD. Pancreatitis. Upper Extremity Pain. Arthritis. Gout. Hypertension. Additional Surgeries: Appendectomy. Cholecystectomy. Colonoscopy. Dental Surgery. Tonsillectomy. Umbilical Hernia Repair. Medications: Allopurinol Oral. Aspirin. Methocarbamol. Motrin. Acetaminophen Oral. Allergies: Gemfibrozil. Penicillin. SOCIAL HISTORY Never smoker. No alcohol use or drug use. Resides in an assisted living center. FAMILY HISTORY Denies family medical history. ADDITIONAL NOTES The nursing notes have been reviewed. PHYSICAL EXAM Vital Signs: 09/16/2016 00:29 BP: 167/73. HR: 73. RR: 16. O2 saturation: 100%. Temp: 98.2 F. Pain level now: 2/10. Have been reviewed. Appearance: Alert. No acute distress. Eyes: Pupils equal, round and reactive to light. EOM intact. ENT: No dental injury. Pharynx normal. Neck: Painless ROM. Non-tender. CVS: Heart sounds normal. Respiratory: Breath sounds normal. Abdomen: No visible injury. Soft and nontender. Bowel sounds normal. No organomegaly. No mass. Skin: Skin warm and dry. Extremities: Normal inspection. Right elbow: small abrasion. Right forearm: large abrasion. Pelvis stable. No lower extremity edema. Neuro: Moderately altered mental status: forgetful and disoriented to time. Eyes open to voice. Best verbal response: disoriented. Best motor response: obeys commands. No motor deficit. No sensory deficit. LABS, X-RAYS, AND EKG EKG: Rate: 67. First-degree atrioventricular block. Q waves in lead II and aVF. Left axis deviation. EKG unchanged when compared with prior EKG. (13 September 2016). Chest X-ray: No acute disease. The X-rays were independently viewed by me. A comparison with prior films reveals that the findings are unchanged (September 13, 2016). CT Head: (I discussed the case by phone with Dr. Rios, wave soldering machine operator radiologist. I compare the images of 08/20/2016 with those of today. They look unchanged. However he has concerns that given the size of the ventricles this may be suggestive of normal pressure hydrocephalus.). The study was interpreted contemporaneously by me and discussed with the radiologist. Laboratory Tests: CBC w Diff: (LINDSAY: 09/16/2016 00:42) ( MsgRcvd 09/16/2016 00:50) Final results Test Result Flag Units (Reference) WHITE BLOOD COUNT 5.2 K/uL (4.5-11.5) RED BLOOD COUNT 4.10 L M/uL (4.50-5.90) HEMOGLOBIN 11.0 L gm/dL (13.5-17.5) HEMATOCRIT 33.1 L % (41.0-53.0) MEAN CELL VOLUME 81 fL (80-100) MEAN CORPUSCULAR HGB 27 pg (26-34) MEAN CORPUSCULAR HGB CONC 33 g/dL (31-37) RED CELL DISTRIBUTION WIDTH 18.6 H % (11.6-14.8) PLATELET COUNT 339 K/uL (150-400) NEUTROPHIL % 60.9 % (50-75) LYMPH % 27.2 % (25-40) MONO % 8.4 % (3-14) EOSINOPHIL % 2.8 % (0-4) BASOPHIL % 0.7 % (0-2) CMP: (LINDSAY: 09/16/2016 00:42) ( MsgRcvd 09/16/2016 01:12) Final results Test Result Flag Units (Reference) GLUCOSE 96 mg/dL (70-110) BUN 30 H mg/dL (7-18) CREATININE 1.8 H mg/dL (0.6-1.3) Estimated GFR 38.40 mL/min Estimated GFR- 46.54 mL/min Note: Persistent reduction over 3 months in eGFR<60 mL/min/1.73 m2 defines CKD. Patients with eGFR values>=60 mL/min/1.73 m2 may also have CKD if evidence ofpersistent proteinuria. Additional information may be foundat www.kidney.org. SODIUM 143 mmol/L (136-145) POTASSIUM 3.7 mmol/L (3.5-5.1) CHLORIDE 105 mmol/L (98-107) CARBON DIOXIDE 27 mmol/L (21-32) CALCIUM 9.1 mg/dL (8.5-10.1) TOTAL PROTEIN 7.3 g/dL (6.4-8.2) ALBUMIN 3.6 g/dL (3.3-5.0) BILIRUBIN, TOTAL 0.4 mg/dL (0.0-1.0) ALKALINE PHOSPHATASE 132 H U/L (46-116) AST (SGOT) 20 U/L (15-37) ALT (SGPT) 19 U/L (12-78) LIPASE 807 H U/L (73-393) AMYLASE 116 H U/L (25-115) CPK 47 U/L (24-260) TROPONIN I <0.05 ng/mL (0.00-1.5) TROPONIN REFERENCE RANGE:<0.1 NEGATIVE0.1-1.5 INDETERMINANT>1.5 POSITIVE . PROGRESS AND PROCEDURES Course of Care: Patient is stable. Patient/family counseled. Old medical records reviewed. Disposition: Discharged. Condition: stable. CLINICAL IMPRESSION Chronic dementia. Hypotension. Mild volume depletion. Renal insufficiency. Possible normal pressure hydrocephalus. Fall. INSTRUCTIONS Warnings: GENERAL WARNINGS: Return or contact your physician immediately if your condition worsens or changes unexpectedly, if not improving as expected, or if other problems arise. Your Current Medications: CONTINUE TAKING THE FOLLOWING MEDICATIONS: Acetaminophen Oral. Allopurinol Oral. Aspirin*. Methocarbamol*. Motrin*. Follow-up: Follow up with your doctor in four days. Call for an appointment. Follow up with a neurologist and neurosurgeon- as recommended by your primary care physician. Understanding of the discharge instructions verbalized by patient. (Electronically signed by Derek Vila MD 09/17/2016 9:52)
--- NOTE | 2016-09-16 02:48 | ED ORDER SUMMARY ---
..... Patient: ISIDRA FIELD OrderSheet [facility] VisitID: [id number] [address] [place] [address] 86y, M Registration Date/Time: 09/16/2016 ORDER SHEET Weight: 65.7 kg (estimated) Allergies: Penicillin, Gemfibrozil GENERAL ORDERS: Chest 1V Urgent (00:09/16/2016 Cordelia KEMP) (Ack 0:45 LMuller) (0:49 LMuller) Awning Frame Maker (Continuous) (:09/16/2016 Cordelia KEMP) (0:44 MCook R.N.) (Ack 0:45 LMuller) CBC w Diff Urgent (:09/16/2016 Cordelia KEMP) (0:44 MCook R.N.) (Ack 0:45 LMuller) (0:45 LMuller) CMP Urgent (:09/16/2016 Cordelia KEMP) (0:44 MCook R.N.) (Ack 0:45 LMuller) (0:45 LMuller) UA-Culture if indicated Urgent (:09/16/2016 Cordelia KEMP) (Ack 0:45 LMuller) (2:50 RCollier R.N.) Amylase Urgent (:09/16/2016 Cordelia KEMP) (0:44 MCook R.N.) (Ack 0:45 LMuller) (0:45 LMuller) Lipase Urgent (:09/16/2016 Cordelia KEMP) (0:44 MCook R.N.) (Ack 0:45 LMuller) (0:45 LMuller) CPK Urgent (:09/16/2016 Cordelia KEMP) (0:44 MCook R.N.) (Ack 0:45 LMuller) (0:45 LMuller) Troponin-I Urgent (:09/16/2016 Cordelia KEMP) (0:44 MCook R.N.) (Ack 0:45 LMuller) (0:45 LMuller) Oxygen (2 L/min) (NC) (:43 09/16/2016 Cordelia KEMP) (Ack 0:45 LMuller) (2:50 RCollier R.N.) Pulse oximeter (00:43 09/16/2016 Cordelia KEMP) (0:44 MCook R.N.) (Ack 0:45 LMuller) EKG - ER Stat (00:43 09/16/2016 Cordelia KEMP) (0:44 MCook R.N.) (Ack 0:45 LMuller) Vitals - Orthostatic (00:43 09/16/2016 Cordelia KEMP) (Ack 0:45 LMuller) (1:02 MCook R.N.) (1:03 LMuller) CT Head wo Cont Urgent (01:49 09/16/2016 Cordelia KEMP) (Ack 1:53 LMuller) (2:20 GUnger) MEDICATION ORDERS: IV FLUIDS: IV Saline Lock (00:43 09/16/2016 Cordelia KEMP) (0:45 MCook R.N.) IV NS : initial bolus 500 mL (1000 mL/hr), then 100 mL/hr for 4h (NOW); Urgent (01:29 09/16/2016 Cordelia KEMP) (Ack 1:34 RCollier R.N.) (1:37 MCook R.N.) ORDER SHEET NOTES: [Electronically signed by Mirtha Peterson R.N. (03:33 09/16/2016)] [Electronically signed by Derek Vila MD (09:52 09/17/2016)] [Electronically locked/signed by Mirtha Peterson R.N. (03:33 09/16/2016)]
--- NOTE | 2016-09-16 02:48 | ED ORDER SUMMARY ---
..... Patient: ISIDRA FIELD OrderSheet [facility] VisitID: [id number] [address] [place] [address] 86y, M Registration Date/Time: 09/16/2016 ORDER SHEET Weight: 65.7 kg (estimated) Allergies: Penicillin, Gemfibrozil GENERAL ORDERS: Chest 1V Urgent (00:09/16/2016 Cordelia KEMP) (Ack 0:45 LMuller) (0:49 LMuller) Coach Driver (Continuous) (:09/16/2016 Cordelia KEMP) (0:44 MCook R.N.) (Ack 0:45 LMuller) CBC w Diff Urgent (:09/16/2016 Cordelia KEMP) (0:44 MCook R.N.) (Ack 0:45 LMuller) (0:45 LMuller) CMP Urgent (:09/16/2016 Cordelia KEMP) (0:44 MCook R.N.) (Ack 0:45 LMuller) (0:45 LMuller) UA-Culture if indicated Urgent (:09/16/2016 Cordelia KEMP) (Ack 0:45 LMuller) (2:50 RCollier R.N.) Amylase Urgent (:09/16/2016 Cordelia KEMP) (0:44 MCook R.N.) (Ack 0:45 LMuller) (0:45 LMuller) Lipase Urgent (:09/16/2016 Cordelia KEMP) (0:44 MCook R.N.) (Ack 0:45 LMuller) (0:45 LMuller) CPK Urgent (:09/16/2016 Cordelia KEMP) (0:44 MCook R.N.) (Ack 0:45 LMuller) (0:45 LMuller) Troponin-I Urgent (:09/16/2016 Cordelia KEMP) (0:44 MCook R.N.) (Ack 0:45 LMuller) (0:45 LMuller) Oxygen (2 L/min) (NC) (:43 09/16/2016 Cordelia KEMP) (Ack 0:45 LMuller) (2:50 RCollier R.N.) Pulse oximeter (00:43 09/16/2016 Cordelia KEMP) (0:44 MCook R.N.) (Ack 0:45 LMuller) EKG - ER Stat (00:43 09/16/2016 Cordelia KEMP) (0:44 MCook R.N.) (Ack 0:45 LMuller) Vitals - Orthostatic (00:43 09/16/2016 Cordelia KEMP) (Ack 0:45 LMuller) (1:02 MCook R.N.) (1:03 LMuller) CT Head wo Cont Urgent (01:49 09/16/2016 Cordelia KEMP) (Ack 1:53 LMuller) (2:20 GUnger) MEDICATION ORDERS: IV FLUIDS: IV Saline Lock (00:43 09/16/2016 Cordelia KEMP) (0:45 MCook R.N.) IV NS : initial bolus 500 mL (1000 mL/hr), then 100 mL/hr for 4h (NOW); Urgent (01:29 09/16/2016 Cordelia KEMP) (Ack 1:34 RCollier R.N.) (1:37 MCook R.N.) ORDER SHEET NOTES: [Electronically signed by Mirtha Peterson R.N. (03:33 09/16/2016)] [Electronically signed by Derek Vila MD (09:52 09/17/2016)] [Electronically locked/signed by Mirtha Peterson R.N. (03:33 09/16/2016)]
--- NOTE | 2016-09-16 02:48 | ED NURSING NOTES ---
Clinical Report - Nurses [facility] [address] [place] [address] 09/16/2016 0:27 Patient: ISIDRA FIELD TRIAGE Triage time 00:Sep 16 2016. Acuity: LEVEL 3. Chief Complaint: DIZZINESS and NEAR-SYNCOPE and (Pt fell down at his place of residence ([facility] [address])). Alert. SEPSIS SCREEN: Sepsis Screen. Negative (no infection suspected/documented). --00:35 Rick Morris R.N. 00:29 09/16/16. BP: 167/73. HR: 73. RR: 16. O2 saturation: 100% on room air. Temp: 98.2 F. Pain level now: 07/11. --00:35 Rick Morris R.N. Weight: 65.7 kg estimated. Height/Length: 65 inches Estimated. BMI: 24.1. --00:29 Rick Morris R.N. Medications Acetaminophen Oral. --00:31 Rick Morris R.N. Motrin. --00:31 Rick Morris R.N. Methocarbamol. --00:31 Rick Morris R.N. Aspirin. --00:31 Rick Morris R.N. Allopurinol Oral. --01:01 Rcik Morris R.N. Allergies Penicillin. --00:30 Rick Morris R.N. Gemfibrozil. --00:31 Rick Morris R.N. History Arrived by EMS. Historian: patient. This started just prior to arrival and today. He has had trouble walking (dizziness). He has had a headache. 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 PAST MEDICAL HX: Hypertension. No history of stroke or diabetes mellitus. No history of seizures or GI bleed. Immunizations: up-to-date. SURGERY HX: ( Possible colectomy?). SOCIAL HX: Never smoker. No alcohol use or drug use. No infectious disease exposure. FALL RISK ASSESSMENT: Fall risk assessment completed. No fall risk identified. NUTRITIONAL RISK ASSESSMENT: The nutritional risk assessment revealed no deficiencies. FUNCTIONAL ASSESSMENT: Functional assessment: no impairments noted. LEARNING NEEDS ASSESSMENT: The learning needs assessment revealed no barriers. SKIN INTEGRITY ASSESSMENT: Skin integrity risk assessment completed. No skin integrity risk identified. --00:35 Rick Morris R.N. PROBLEMS: Anemia. Dyspnea. Abnormal EKG. Chest Pain. Dementia. Hyperthyroidism. Cervical Strain. Head Injury. Neck Pain. Contusion. Fall. PTSD. Pancreatitis. Upper Extremity Pain. Arthritis. Gout. Hypertension. --00:32 Rick Morris R.N. Interventions ID band on patient. --00:35 Rick Morris R.N. PHYSICAL ASSESSMENT GENERAL / NEURO / PSYCH: Appears in no acute distress. The patient is disoriented to situation. Speech within normal limits. HEENT: Pupils equal, round and reactive to light. RESPIRATORY: Respirations not labored. CVS: Normal sinus rhythm noted. GI / : Abdomen soft and nontender. Abnormal bowel sounds present (umbilical hernia). SKIN: Skin is warm and dry. --00:35 Rick Morris R.N. SKIN: ( abrasion to R elbow from today's fall. Skin tear to R forearm present. Both prior to admission.). --00:37 Rick Morris R.N. CVS: ( 2+ pitting edema to LLE, 1+ edema to RLE.). --00:49 Rick Morris R.N. NURSING PROGRESS NOTES The plan of care for this patient has been created. Monitoring of patient in place. Patient gowned. Head of bed elevated. Reassurance given. Two patient identifiers checked. Call light placed in reach. Side rails up x 2. Bed placed in lowest position. Patient ready for evaluation- chart flagged and ED physician notified. ( Pt is pleasant, cooperative.). --00:36 Rcik Morris R.N. Patient ID band checked for patient name and birthdate: patient confirmed. Blood samples drawn from the left antecubital space peripheral IV site; labeled in presence of the patient and sent to lab: rainbow set. Line flushed with 10 mL normal saline post blood draw. --00:39 Rick Morris R.N. 00:45 09/16/2016 Site #1 started via IV in the left antecubital space with an 20g angiocath, with aseptic technique and good blood return; one attempt. Blood drawn: rainbow set. Labeled in the presence of the patient and sent to the lab. Saline lock flushed with 10 mL saline. --00:45 Rick Morris R.N. 00:49 09/16/16. BP: 160/71 taken while lying. HR: 61. Additional comments: Orthostatic VS. --00:50 Rick Morris R.N. ( Checking orthostatic VS.). --00:50 Rick Morris R.N. 00:55 09/16/16. BP: 162/49 taken while sitting. HR: 74. --00:58 Rick Morris R.N. 00:58 09/16/16. BP: 168/59 taken while standing. HR: 96. --00:58 Rick Morris R.N. ( Orthostatics complete. Pt is confused, repeatedly asking when he can go home, asking to see his girlfriend, states he has forgotten why he is here. Reorients easily but also confuses easily. WCTM.). --00:59 Rick Morris R.N. EKG time: (0050 AM). EKG was ordered, performed by a tech and shown to the ED physician. --01:06 Sara Cooley ( Called Pt's daughter (Anita) who gave a summary of Pt's latest episode of falling and CP/SOB. Pt is baseline demented, belligerent at times, last visit to ED resulted in him leaving AMA. Pt is resting quietly now.). --01:19 Rick Morris R.N. Care transferred and report received. --01:28 Mirtha Peterson R.N. 01:37 09/16/2016 Started bag #1 1000 mL IV Fluids IV NS (Saline); bolus of 500 mL wide open via site #1 via IV pump. Allergies verified and confirmed 5 rights. IV patency established. IV site checked: no pain, redness, or swelling. IV flushed thoroughly pre- and post-medication administration. --01:37 Rick Morris R.N. Patient returned from CT by stretcher with tech. --02:17 Mirtha Peterson R.N. 02:25- assisted pt to stand at bedside to use urinal. Pt denies dizziness. --02:29 Mirtha Peterson R.N. Patient ID band checked for patient name and birthdate: patient confirmed urine collected with return of yellow-colored clear urine; sample sent to lab. Specimen labeled in the presence of the patient. --02:29 Mirtha Peterson R.N. 02:29 09/16/16. BP: 186/61. HR: 66. RR: 15. O2 saturation: 100% on room air. Pain level now: 0/10. --02:30 Mirtha Peterson R.N. 02:10 09/16/2016 IV Fluids IV NS Discontinued: bag #1 STOPPED. Total amount infused: 500 mL. IV patency established. IV site checked: no pain, redness, or swelling. IV flushed thoroughly. --02:50 Mirtha Peterson R.N. DISPOSITION / DISCHARGE ( called pts daughter, Anali, to inform her that her father is ready to go home. Anali states she will come pick him up.). --03:08 Mirtha Peterson R.N. 03:30 09/16/16. BP: 168/58. HR: 69. RR: 15. O2 saturation: 100% on room air. Temp: deferred. Pain level now: 0/10. --03:31 Mirtha Peterson R.N. 03:15- assisted pt to dress. --03:32 Mirtha Peterson R.N. 03:19. No learning barriers present. Discharge instructions provided and reviewed with the family. Family verbalized understanding. Written instructions provided in Eritrean. The patient was discharged home and accompanied by family. He left the Emergency Department in a wheelchair, via private vehicle and (assisted to car by RN). Family member driving. --03:31 Mirtha Peterson R.N. 03:15 09/16/2016 Site #1 removed upon discharge. Catheter intact. Manual pressure, pressure dressing and bandage applied. --03:32 Mirtha Peterson R.N. Locked/Released at 09/16/2016 3:33 by Mirtha Peterson R.N.
--- NOTE | 2016-09-16 06:53 | DIAGNOSTIC IMAGING REPORT ---
PROCEDURE: XR CHEST 1 VIEW INDICATION: FALL TECHNIQUE: Portable AP view (1250 hours). COMPARISON: None. FINDINGS: Allowing for overlying wires and electrodes, lungs are clear minor scarring at the left lung base).. Heart and mediastinum are normal. Mild degenerative change of the thoracic spine. IMPRESSION: 1. Negative chest.
--- NOTE | 2016-09-16 07:00 | DIAGNOSTIC IMAGING REPORT ---
PROCEDURE: CT HEAD WITHOUT CONTRAST INDICATION: TRAUMA/INJURY TECHNIQUE: Noncontrast axial images with sagittal and coronal reformations. Preliminary report provided by Doe Rios MD ([facility]) COMPARISON: Compare to head CT and 08/20/2016, 08/18/2016, and 07/30/2016. FINDINGS: Moderate atrophic changes with mild chronic ventriculomegaly (no change). No evidence of acute process or hemorrhage. Sinuses and mastoids are normal. Right orbital scleral buckle with silicone oil. IMPRESSION: 1. Moderate atrophic changes with mild chronic ventriculomegaly (no change). 2. No evidence of acute process. 3. Preliminary report provided to Dr. Derek Vila. All CT scans at this facility use dose modulation, iterative reconstruction, and/or weight-based dosing when appropriate to reduce radiation dose to as low as reasonably achievable.
--- NOTE | 2016-09-16 07:00 | DIAGNOSTIC IMAGING REPORT ---
PROCEDURE: CT HEAD WITHOUT CONTRAST INDICATION: TRAUMA/INJURY TECHNIQUE: Noncontrast axial images with sagittal and coronal reformations. Preliminary report provided by Doe Rios MD ([facility]) COMPARISON: Compare to head CT and 08/20/2016, 08/18/2016, and 07/30/2016. FINDINGS: Moderate atrophic changes with mild chronic ventriculomegaly (no change). No evidence of acute process or hemorrhage. Sinuses and mastoids are normal. Right orbital scleral buckle with silicone oil. IMPRESSION: 1. Moderate atrophic changes with mild chronic ventriculomegaly (no change). 2. No evidence of acute process. 3. Preliminary report provided to Dr. Derek Vila. All CT scans at this facility use dose modulation, iterative reconstruction, and/or weight-based dosing when appropriate to reduce radiation dose to as low as reasonably achievable.
--- NOTE | 2016-09-17 09:52 | ED MAR SUMMARY ---
..... Medication Administration Record [facility] [address] [place] [address] Patient: ISIDRA FIELD Visit ID: [id number] 86y, M Weight: 65.7 kg Height/Length: 65 in BMI: 24.1 ALLERGIES: Gemfibrozil, Penicillin Start 01:37 09/16/2016 Rick Morris RMora, Stop 02:10 09/16/2016 Mirtha Peterson RBlankaNBlanka Medication Administered: IV NS (SALINE), Dose: IV Fluids, Bolus: 500 mL wide open, Dispensed: 1000 mL bag, Site: #1 left AC. Medication Ordered: IV NS : initial bolus 500 mL (1000 mL/hr), then 100 mL/hr for 4h (NOW); Urgent.
--- NOTE | 2016-09-17 09:52 | ED DISCHARGE INSTRUCTIONS ---
Patient: ISIDRA FIELD General Instructions [facility] VisitID: [id number] [place] [address] 86y, M Registration Date/Time: 09/16/2016 Chronic dementia. Hypotension. Mild volume depletion. Renal insufficiency. Fall. INSTRUCTIONS Warnings: GENERAL WARNINGS: Return or contact your physician immediately if your condition worsens or changes unexpectedly, if not improving as expected, or if other problems arise. Your Current Medications: CONTINUE TAKING THE FOLLOWING MEDICATIONS: Acetaminophen Oral. Allopurinol Oral. Aspirin*. Methocarbamol*. Motrin*. Follow-up: Follow up with your doctor in four days. Call for an appointment. Follow up with a neurologist and neurosurgeon- as recommended by your primary care physician. Understanding of the discharge instructions verbalized by patient. ADDITIONAL INFORMATION Fall, Uncertain Cause You have had a fall today. but the cause of your fall is not certain. Falls can occur due to slipping, tripping or losing your balance. A fall can also occur from a fainting spell or seizure. Because the cause of your fall today is not certain, it is possible that a fainting spell or seizure was the cause. This means that it could happen again, without warning. If you fall again, without a cause, then you should return to this facility promptly to have further tests. Otherwise, follow up with your doctor as explained below. Home Care: 1) Rest today and resume your normal activities as soon as you are feeling back to normal. It is best to remain with someone who can check on you for the next 24 hours to watch for another episode of falling. 2) If you were injured during the fall, follow the advice from your doctor regarding care of your injury. 3) If you become light-headed or dizzy, lie down immediately or sit and lean forward with your head down. 4) As a precaution, do not drive a car or operate dangerous equipment, do not take a bath alone (use a shower instead) and do not swim alone until you see your doctor. A condition causing fainting or seizures must be ruled out before resuming these activities. 5)You may use acetaminophen (Tylenol) or ibuprofen (Motrin, Advil) to control pain, unless another pain medicine was prescribed. [ NOTE : If you have chronic liver or kidney disease or ever had a stomach ulcer or GI bleeding, talk with your doctor before using these medicines.] 6) Keep your appointments for any further testing that may have been scheduled for you. Follow Up: Unless, given other advice, call your doctor on the next office day to advise of your fall and to schedule an appointment. Get Prompt Medical Attention if any of the following occur: -- Another unexplained fall -- Dizziness, fainting or seizure -- Severe headache -- Chest pain or shortness of breath -- Palpitations (very rapid or very slow or irregular heart beat) -- Blood in vomit, stools (black or red color) -- Weakness of an arm or leg or one side of the face -- Difficulty with speech or vision Renal Insufficiency The role of the kidneys is to remove waste products and excess water from the body. When the kidneys do not function normally, waste products build up in the blood.The early stage of this process is called renal insufficiency . If renal insufficiency worsens it can lead to chronic renal failure. This allows excess water, waste and toxic substances to build up in the body. This can become a threat to life, requiring dialysis or a kidney transplant to stay alive. Diabetes is the leading causes of renal insufficiency. Other causes include high blood pressure, hardening of the arteries, lupus, inflammation of the blood vessels (vasculitis), prior viral and bacterial infections, and others. Certain gqxf-mib-espwwok pain medicines can cause renal failure when taken often over a long period of time. These include aspirin, ibuprofen (Advil, Motrin) and related anti-inflammatory medicines. Home Care: If you have diabetes, talk to your doctor about the quality of your blood sugar control.Ask about any changes needed to your diet or medicines. If you have high blood pressure: Take your blood pressure medicine. Take up a regular exercise program that you enjoy.Check with your doctor to be sure your planned exercise program is right for you. Reduce your salt (sodium) intake.Your doctor can tell you how much salt per day is safe for you. If you are overweight, talk to your doctor about a weight loss plan. If you smoke, you must quit.Smoking worsens kidney disease.Talk to your doctor about ways to help you quit.For more information, visit the following links: www.smokefree.gov/pubs/clearing_the_air.pdf www.smokefree.gov www.quitnet.Doculynx Talk to your doctor about any dietary restrictions advised. In general, it is advisable to limit protein, salt, potassium and phosphorus.Avoid excess fluids. Do not add salt at the table and avoid salty foods.A calcium supplement may be prescribed to protect your bones from osteoporosis. Avoid the following over the counter medicines, or consult your doctor before using: Aspirin and anti-inflammatory drugs such as ibuprofen (Advil, Motrin), naprosyn (Aleve); [Short term use of acetaminophen (Tylenol) for fever or pain is okay.] Laxatives and antacids containing magnesium or aluminum (Mylanta, Maalox) Avoid Fleet or phosphosoda enemas which contain phosphorus Certain stomach acid-blocking medicine such as cimetidine (Tagamet), ranitidine (Zantac) Decongestants containing pseudoephedrine (such as some forms of Sudafed or Actifed) Herbal supplements Follow Up with your doctor or as advised by our staff. Contact one of the following for more information. [place] [employer] Kidney [phone] [phone] www.aakp.org National Kidney Foundation www.kidney.org Return Promptly or contact your doctor if any of the following occurs: Nausea or vomiting Severe weakness, dizziness, fainting, drowsiness or confusion Chest pain or shortness of breath Unexpected weight gain or swelling in the legs, ankles or around the eyes Heart beating fast, slow or irregularly Decrease or loss in urine output Orthostatic Hypotension The normal blood pressure range is between 90/60and 140/80. Low blood pressure (also calledhypotension) is a decrease in blood pressure from what is normal for you. Orthostatic hypotensionis a type of low blood pressure that occurs only when changing body position from lying to standing. It can cause symptoms of dizziness, lightheadedness or fainting. Some of the causesof orthostatic hypotension are: Certain medicines, including: High blood pressure medicines Diuretics (water pills) Some heart medicines Some antidepressants Pain, anxiety, sedative, and sleeping medicines Dehydration (from vomiting, diarrhea, or poor fluid intake) Severe infection, high fever Blood loss (for example, bleeding from the stomach or intestines) Treatment will depend on the cause of your low blood pressure. Home Care: Rest until symptoms improve. Change positions slowly from lying to standing.When getting out of bed, sit on the side of the bed with your legs down for at least 30 seconds before standing. This gives your body time to adjust to the position change. Follow the treatment plan described by your physician. Follow Up with your doctor or as advised by our staff. Get Prompt Medical Attention if any of the following occur: Dizziness, lightheadedness or fainting Black or red color in your stools or vomit Persistent diarrhea or vomiting Inability to eat or drink Fever of 100.4F (38C) or higher, or as directed by your healthcare provider Urinary burning or foul-smelling urine Dementia & Caregiver Support (Advice For The Caregiver) Dementia is a chronic condition that affects the brain. It causes a gradual loss of memory. There may be trouble recognizing familiar people and places, or knowing what day it is. Memory, judgment and decision-making may also be affected. In severe cases there may be limited or no response to verbal commands. The most common form of dementia is Alzheimers disease. The cause of Alzheimer's disease is not fully understood. So far there is no cure. However, there are medicines to slow down the progress of the disease and to treat some of the symptoms. Some of the less common causes for dementia are curable. So, it is important to have a complete medical evaluation to look for conditions that can be treated. Home Care: A responsible person must be with the person who has advanced dementia at all times. He/she should not be left alone or unsupervised. In the case of advanced advanced dementia, keep medicines (prescription and uywm-wim-qathwgj) in a secure place, under the caregivers control. A person with advanced dementia should not be allowed to take their own medicines. This needs to be supervised by the caregiver. Ways to help a person with dementia: Activities:Keep to a daily routine. Changes in environment and schedules can be a source of stress for someone with dementia. Make a time schedule for common tasks of living such as bathing, dressing, taking medicines, meal times, going for walks, shopping, naps, and bed time. Communication:When speaking to a person with dementia, talk slowly and clearly. Use a gentle tone of voice. Choose short, simple words and sentences. Ask one question at a time. Do not interrupt, criticize or argue. Be calm and supportive. Use friendly facial expressions. Use pointing and touching to help communicate. If there has been loss of long-term memory, do not ask questions about past events. Instead, talk about what is happening now. Behavioral tips:Use lists, signs, family photos, clocks and calendars as memory aids. Label cabinets and drawers. Try to distract, not confront, the patient. When he/she becomes frustrated or upset, direct his/her attention to eating or some other activity of interest. Medical-Legal tips: Talk to your doctor and/or paper guillotine operator about getting a Power of Garbage Man for health care and for financial decisions. It is best to do this while the person can still sign legal documents and make his/her own legal decisions. Otherwise a court order will be needed. Support For The Caregiver: As the caregiver, you will need a lot of support for yourself. Caring for a person with dementia is a full-time job. It can drain your emotions and lead to frustration and anger towards the one you love. It is common to have feelings of grief over losing the familiar relationship that you once knew. As a caregiver to someone with dementia, you are at higher risk for depression, anxiety and stress reactions. Here are some tips to help you cope with being a caregiver: Learn about dementia and Alzheimers disease so you know what to expect. Find out about the resources in your community, including adult day care programs. Ask our staff for a referral to a adoption social worker, if needed. Take care of yourself with a good diet, exercise and plenty of rest. Ask for help. Share some of the caretaking duties with family and friends. Make personal time for yourself. This is essential! Consider hiring an in-home sitter. Seek counseling and/or join a caregivers support group. Don't isolate yourself, or try to cope with this alone. In a support group, you can learn from others in a similar situation. Contact the Alzheimers Association ( ) or visit their website (www.alz.org) for more information. Follow-Up with the patients doctor or as advised by our staff. Get Prompt Medical Attention if any of the following occur: Frequent falling Refusal to eat or drink Violent behavior or behavior becomes too difficult to manage at home Increased drowsiness, or failure to respond normally Increasing headache, nausea or repeated vomiting Numbness or weakness of the face, one arm or one leg Slurred speech, trouble speaking, walking or seeing Fainting spell, dizziness or seizure Unexplained fever over 100.4 F (38.0 C) oral You have been given the following additional information: Fall, Uncertain Cause Renal Insufficiency Hypotension, Orthostatic Dementia, Any Type (Electronically signed by Derek Vila MD 09/17/2016 9:52)
--- NOTE | 2016-09-17 09:52 | ED MED RECONCILIATION SUMMARY ---
Patient: ISIDRA FIELD Medication Reconciliation Report [facility] VisitID: [id number] [address] [place] [address] 86y, M Registration Date/Time: 09/16/2016 Weight: 65.7 kg Height/Length: 65 in. BMI: 24.1 ALLERGIES: Gemfibrozil, Penicillin The patient's Home Medications are listed below: CONTINUE TAKING THE FOLLOWING MEDICATIONS: Acetaminophen Oral Allopurinol Oral Aspirin Methocarbamol Motrin The source(s) of the original Home Medication information: Not obtained. The following Medications were given to the patient in the Emergency Department: IV NS IV Fluids bolus 500 mL wide open, administered: 09/16/2016 1:37:00 AM The following Medications were prescribed to the patient: None.
--- NOTE | 2016-09-17 09:52 | ED MED RECONCILIATION SUMMARY ---
Patient: ISIDRA FIELD Medication Reconciliation Report [facility] VisitID: [id number] [address] [place] [address] 86y, M Registration Date/Time: 09/16/2016 Weight: 65.7 kg Height/Length: 65 in. BMI: 24.1 ALLERGIES: Gemfibrozil, Penicillin The patient's Home Medications are listed below: CONTINUE TAKING THE FOLLOWING MEDICATIONS: Acetaminophen Oral Allopurinol Oral Aspirin Methocarbamol Motrin The source(s) of the original Home Medication information: Not obtained. The following Medications were given to the patient in the Emergency Department: IV NS IV Fluids bolus 500 mL wide open, administered: 09/16/2016 1:37:00 AM The following Medications were prescribed to the patient: None.
--- NOTE | 2016-09-17 09:52 | ED MAR SUMMARY ---
..... Medication Administration Record [facility] [address] [place] [address] Patient: ISIDRA FIELD Visit ID: [id number] 86y, M Weight: 65.7 kg Height/Length: 65 in BMI: 24.1 ALLERGIES: Gemfibrozil, Penicillin Start 01:37 09/16/2016 Rick Morris RMora, Stop 02:10 09/16/2016 Mirtha Peterson RBlankaNBlanka Medication Administered: IV NS (SALINE), Dose: IV Fluids, Bolus: 500 mL wide open, Dispensed: 1000 mL bag, Site: #1 left AC. Medication Ordered: IV NS : initial bolus 500 mL (1000 mL/hr), then 100 mL/hr for 4h (NOW); Urgent.
== END 2016-09-16 03:19 | disposition home or self-care (01) ==
LOC: ED SRH 00:27
DX: F03.90 Unspecified dementia, unspecified severity, without behavioral disturbance, psychotic disturbance, mood disturbance, and anxiety (principal); I95.9 Hypotension, unspecified; N28.9 Disorder of kidney and ureter, unspecified; E86.9 Volume depletion, unspecified; I10 Essential (primary) hypertension; Z79.82 Long term (current) use of aspirin; Z79.899 Other long term (current) drug therapy; Z88.0 Allergy status to penicillin; Z88.8 Allergy status to other drugs, medicaments and biological substances
CPT/HCPCS: 90004; 90100; 90616; 92235; 92530; 92610; 95059

== ENCOUNTER 2016-09-19 22:34 | Emergency (ER) | payer OTHER ==
--- NOTE | 2016-09-20 08:30 | ED ORDER SUMMARY ---
..... Patient: ISIDRA FIELD OrderSheet [facility] VisitID: [id number] [place] [address] 86y, M Registration Date/Time: 09/19/2016 ORDER SHEET Weight: 74.8 kg (stated) Allergies: Gemfibrozil, Penicillin GENERAL ORDERS: CBC w Diff Urgent (22:56 09/19/2016 Harshad Reddy) (Ack 22:58 IJurca ER Tech1) (23:33 CBradburn R.N.) CMP Urgent (22:56 09/19/2016 Harshad Reddy) (Ack 22:58 TANurca ER Tech1) (23:33 NOLAradburn R.N.) UA-Culture if indicated Urgent (22:56 09/19/2016 Harshad Reddy) (Ack 22:58 IJurca ER Tech1) (0:24 RCollier R.N.) PT with INR Urgent (22:56 09/19/2016 Harshad Reddy) (Ack 22:58 IJurca ER Tech1) (23:33 CBradburn R.N.) Urine Drug Screen Urgent (22:56 09/19/2016 Harshad Reddy) (Ack 22:58 IJurca ER Tech1) (0:24 RCollier R.N.) TSH Urgent (22:56 09/19/2016 Harshad Reddy) (Ack 22:58 IJurca ER Tech1) (23:33 CBradburn R.N.) Acetaminophen Level Urgent (22:56 09/19/2016 Harshad Reddy) (Ack 22:58 IJurca ER Tech1) (23:33 CBradburn R.N.) Salicylate Level Urgent (22:56 09/19/2016 Harshad Reddy) (Ack 22:58 TANurca ER Tech1) (23:33 NOLAradburn R.N.) Ethyl Alcohol Urgent (22:56 09/19/2016 Harshad Reddy) (Ack 22:58 IJurca ER Tech1) (23:33 CBradburn R.N.) MEDICATION ORDERS: IV FLUIDS: ORDER SHEET NOTES: [Electronically signed by Anil Holloway Dr. (06:58 09/21/2016)] [Electronically signed by Savanna Harris R.N. (10:38 09/21/2016)] [Electronically locked/signed by Savanna Harris R.N. (10:38 09/21/2016)]
--- NOTE | 2016-09-20 08:30 | ED CLINICAL REPORT ---
Clinical Report - Physicians/Mid Levels [facility] [address] [place] [address] 09/19/2016 22:34 Patient: ISIDRA FIELD Time Seen: 2250. Arrived- By private vehicle. Historian- patient. HISTORY OF PRESENT ILLNESS Chief Complaint: DEPRESSED and SUICIDAL THOUGHTS. This started just prior to arrival today. (suicidal gesture with knife held to chest). Has not been eating. Has been depressed. The symptoms are described as moderate. No injury is present. REVIEW OF SYSTEMS No headache, chest pain, fever or skin rash. All systems otherwise negative, except as recorded above. PAST HISTORY See nurses notes. Medications: Acetaminophen Oral. Allopurinol Oral. Aspirin. Methocarbamol. Motrin. Allergies: Gemfibrozil. Penicillin. SOCIAL HISTORY Never smoker. No alcohol use or drug use. ADDITIONAL NOTES The nursing notes have been reviewed. PHYSICAL EXAM Vital Signs: 09/19/2016 22:53 BP: 187/65. HR: 89. RR: 18. O2 saturation: 98%. Temp: 97.9 F. Pain level now: 0/10. Oxygen saturation normal. Appearance: Alert. No acute distress. Appearance is normal. (Nontoxic appearance). Eyes: Pupils equal, round and reactive to light. Neck: Normal inspection. Neck supple. CVS: Normal heart rate and rhythm. Heart sounds normal. Respiratory: Breath sounds normal. Chest nontender. Abdomen: Soft and nontender. Back: No tenderness. Skin: Skin warm and dry. Normal skin color. Normal skin turgor. Psych / Neuro: Oriented X 3. Appears depressed. Speech normal. Cognition normal. Thought process and content normal. Insight and judgement normal. Cranial nerves normal (as tested). No cerebellar findings. No motor deficit. LABS, X-RAYS, AND EKG Laboratory Tests: UA-Culture if indicated: (LINDSAY: 09/19/2016 00:20) ( MsgRcvd 09/20/2016 00:34) Final results Test Result Flag Units (Reference) URINE COLOR YELLOW URINE APPEARANCE CLEAR URINE GLUCOSE NEGATIVE (NEGATIVE) URINE BILIRUBIN NEGATIVE (NEGATIVE) URINE KETONE NEGATIVE (NEGATIVE) URINE SPECIFIC GRAVITY 1.010 (1.010-1.030) URINE PH 7.0 (5.0-8.0) URINE PROTEIN 1+ (NEGATIVE) URINE UROBILINOGEN 0.2 EU/dL (0.2-1.0) URINE NITRITE NEGATIVE (NEGATIVE) URINE BLOOD NEGATIVE (NEGATIVE) URINE LEUK ESTERASE NEGATIVE (NEGATIVE) URINE RBC RARE rbc/hpf (0-1) URINE WBC RARE wbc/hpf (0-1) URINE EPITHELIAL CELLS NONE SEEN EPI/hpf (0-5) URINE BACTERIA NONE SEEN (NONE SEEN) URINE COMMENT CULT NOT INDICATED URINE CULTURES ARE SET-UP BASED ON THE FOLLOWING CRITERIA:POSITIVE NITRITEPOSITIVE LEUKOCYTE ESTERASEGREATER THAN 10 WHITE BLOOD CELLSMODERATE (2+) OR GREATER BACTERIA CBC w Diff: (LINDASY: 09/19/2016 23:30) ( [facility] 09/19/2016 23:41) Final results Test Result Flag Units (Reference) WHITE BLOOD COUNT 4.8 K/uL (4.5-11.5) RED BLOOD COUNT 4.11 L M/uL (4.50-5.90) HEMOGLOBIN 10.6 L gm/dL (13.5-17.5) HEMATOCRIT 33.5 L % (41.0-53.0) MEAN CELL VOLUME 81 fL (80-100) MEAN CORPUSCULAR HGB 26 pg (26-34) MEAN CORPUSCULAR HGB CONC 32 g/dL (31-37) RED CELL DISTRIBUTION WIDTH 18.6 H % (11.6-14.8) PLATELET COUNT 285 K/uL (150-400) LYMPH % 34.9 % (25-40) MONO % 6.2 % (3-14) GRANULOCYTE % 58.9 PT with INR: (LINDSAY: 09/19/2016 23:30) ( [facility] 09/19/2016 23:46) Final results Test Result Flag Units (Reference) INR 1.0 (0.8-1.2) Low Intensity Therapy: INR 1.5-2.0 PT range 18.5-23.1Mod.Intensity Therapy: INR 2.0-3.0 PT range 23.1-31.5High Intensity Therapy: INR 2.5-3.5 PT range 27.4-35.5High Intensity Therapy 2: INR 3.0-4.0 PT range 31.5-39.3 Urine Drug Screen: (LINDSAY: 09/19/2016 00:20) ( MsgRcvd 09/20/2016 00:42) Final results Test Result Flag Units (Reference) AMPHETAMINE/METHAMPHETAMINE NEGATIVE (NEGATIVE) BARBITURATE NEGATIVE (NEGATIVE) BENZODIAZEPINE NEGATIVE (NEGATIVE) CANNABINOID NEGATIVE (NEGATIVE) COCAINE NEGATIVE (NEGATIVE) ECSTASY NEGATIVE (NEGATIVE) METHADONE NEGATIVE (NEGATIVE) OPIATE NEGATIVE (NEGATIVE) The urine drug screen is a qualitative screening test fordrug overdose and abuse. All screen results should beconsidered as presumptive.Drugs screened for are as follows:BenzodiazepinesCocaineAmphetamines/MetamphetaminesTHC (Tetrahydrocannabinol)OpiatesBarbituratesEcstasyMethadonePositive results are unconfirmed. For confirmation, notifythe lab for the specimen to be sent to the reference lab.All confirmations must be performed by a differentmethodology.The ingestion of natural herbal and plant productscontaining Ephedra/Ephedra metabolites can produce in urineone or more substances capable of cross reacting withamphetamine/methamphetamine immunoassays. These testsprovide a preliminary result only. A more specificalternative chemical method must be used to obtain aconfirmed analytical result. Salicylate Level: (LINDSAY: 09/19/2016 23:30) ( [facility]) Final results Test Result Flag Units (Reference) SALICYLATE <2.8 L mg/dL (2.8-20) CMP: (LINDSAY: 09/19/2016 23:30) ( LagRcvd 09/20/2016 00:05) Final results Test Result Flag Units (Reference) GLUCOSE 93 mg/dL (70-110) BUN 30 H mg/dL (7-18) CREATININE 1.9 H mg/dL (0.6-1.3) Estimated GFR 36.07 mL/min Estimated GFR- 43.72 mL/min Note: Persistent reduction over 3 months in eGFR<60 mL/min/1.73 m2 defines CKD. Patients with eGFR values>=60 mL/min/1.73 m2 may also have CKD if evidence ofpersistent proteinuria. Additional information may be foundat www.kidney.org. SODIUM 144 mmol/L (136-145) POTASSIUM 4.1 mmol/L (3.5-5.1) CHLORIDE 103 mmol/L (98-107) CARBON DIOXIDE 29 mmol/L (21-32) CALCIUM 9.1 mg/dL (8.5-10.1) TOTAL PROTEIN 7.4 g/dL (6.4-8.2) ALBUMIN 3.7 g/dL (3.3-5.0) BILIRUBIN, TOTAL 0.6 mg/dL (0.0-1.0) ALKALINE PHOSPHATASE 137 H U/L (46-116) AST (SGOT) 17 U/L (15-37) ALT (SGPT) 20 U/L (12-78) ETHYL ALCOHOL <3 L mg/dL (3-10) THYROID STIMULATING HORMONE 0.469 uIU/mL (0.30-3.74) ACETAMINOPHEN < 2.0 L ug/mL (10-30) . PROGRESS AND PROCEDURES Course of Care: the patient is a pleasant 86-year-old male with past medical history significant for dementia presenting for evaluation of depression and suicidal gesture. At this time, patient will have laboratory studies drawn for medical clearance. Patient otherwise is in bed in no acute distress. Patient with subjective signs of depression. No homicidal ideation. No delusions or hallucinations. Patient is cooperative. Patient is medically cleared. Page has been placed out to the crisis counselor teams. Patient will be evaluated by them. Initial evaluation showed patient would likely need the [facility] evaluation. We are currently now awaiting the professional to come and evaluate the patient. Patient was evaluated by the [facility]. Patient not to Be a Danger to Self or Other People. Patient with Signs of Depression and with Adequate Resources. Patient without Any Signs of Suicide at This Time. Had a Discussion with the Patient in Regards to His Workup Here in Emergency Department Today As Well As the Diagnosis and Treatment As Well As Plan of Care. Patient Will Be Encouraged to Follow up with His Psychiatrist at the [facility]. Feel That This Is the Most Appropriate Place for the Patient. Also Spoke with Family in Regards to Home Care. They Feel Comfortable with Watching the Patient and Will Return Immediately for Any concerning Signs or Symptoms. Patient Is a Stable Outpatient Candidate. Do Not Feel Patient Needs Be Admitted to the Hospital Require Further Emergency Department Workup/Evaluation. Patient without [place] to Firearms or Dangerous Weapons Otherwise. CLINICAL IMPRESSION 09/20/2016 03:59 BP: 179/63. HR: 63. RR: 18. O2 saturation: 100%. Pain level now: 0/10. Adjustment disorder with depressed mood (acute). Hypertensive. Oxygen saturation normal. Suicidal ideation (acute). Essential hypertension. INSTRUCTIONS Warnings: GENERAL WARNINGS: Return or contact your physician immediately if your condition worsens or changes unexpectedly, if not improving as expected, or if other problems arise. Specifically return if pain, vomiting, bleeding, breathing difficulty or fever. symptoms return. Your Current Medications: CONTINUE TAKING THE FOLLOWING MEDICATIONS: Acetaminophen Oral. Allopurinol Oral. Aspirin*. Methocarbamol*. Motrin*. Follow-up: Return to the emergency department as needed. Follow up with a specialist your psychiatrist. Call for the next available appointment. Reason for referral: recheck today's concerns. Summary of care provided to patient and family via paper. Follow up with your doctor in three days. Reason for referral: recheck today's concerns. Summary of care provided to patient and family via paper. Screening today revealed the patient's blood pressure to be in the hypertensive range. The patient should follow up with a primary care provider for blood pressure management. Understanding of the discharge instructions verbalized by patient and family. (Electronically signed by Anil Holloway Dr. 09/21/2016 6:58)
--- NOTE | 2016-09-20 08:30 | ED NURSING NOTES ---
Clinical Report - Nurses [facility] [place] [address] 09/19/2016 22:34 Patient: ISIDRA FIELD TRIAGE Triage time 22:53. Acuity: LEVEL 2. Chief Complaint: SUICIDAL THOUGHTS. --22:58 Marla Durant R.N. 22:53 09/19/16. BP: 187/65. HR: 89. RR: 18. O2 saturation: 98% on room air. Temp: 97.9 F. Pain level now: 0/10. --22:58 Marla Durant R.N. Weight: 74.8 kg stated. Height/Length: 67 inches Per Patient. BMI: 25.9. --22:56 Marla Durant R.N. Medications Acetaminophen Oral. Allopurinol Oral. Aspirin. Methocarbamol. Motrin. --22:55 Marla Durant R.N. Allergies Gemfibrozil. Penicillin. --22:55 Marla uDrant R.N. History Arrived by private vehicle. Historian: patient and family. Accompanied by family. Onset: just prior to arrival. ( Family states pt placed a knife against his chest and stated he was going to kill himself.). SOCIAL HX: No alcohol use or drug use. FALL RISK ASSESSMENT: Fall risk assessment completed per protocol. Risk factors identified include patient age greater than 65 years, history of fall and impairment of mobility and cognition. Fall interventions initiated. Patient placed on stretcher. Side rails up x2. Brakes on Bed in low position. Patient visible from nurses' station. Call light in reach of patient. Instructed not to get up without assistance. --22:58 Marla Durant R.N. Interventions ID band on patient. --22:58 Marla Durant R.N. PHYSICAL ASSESSMENT GENERAL / NEURO / PSYCH: Alert. Appears in no acute distress. The patient is disoriented to person, place and time. Speech within normal limits. Affect appears normal. Patient appears calm and cooperative. Good eye contact. The patient describes suicidal thoughts (today, per family and [facility] home, pt does not remember.). Patient appears well-nourished and neat and clean. RESPIRATORY: Respirations not labored. Breath sounds within normal limits. SKIN: Skin is warm. --23:00 Marla Durant R.N. To room via wheelchair. --23:00 Marla Durant R.N. NURSING PROGRESS NOTES Patient ready for evaluation- chart flagged. --23:00 Marla Durant R.N. Two patient identifiers checked. Call light placed in reach. Side rails up x 1. Bed placed in lowest position. Brakes of bed on. --23: Marla Durant R.N. Patient ID band checked for patient name and birthdate: patient confirmed urine collected with return of yellow-colored adonay-colored clear urine; sample sent to lab. Specimen labeled in the presence of the patient. ( assisted pt to stand at bedside and use urinal.). --00:22 Mirtha Peterson R.N. 00:22 09/20/16. BP: 196/69. HR: 73. RR: 15 (regular and unlabored). O2 saturation: 100%. Pain level now: 0/10. --00:23 Mirtha Peterson R.N. Warming measures: blanket applied. --00:24 Mirtha Peterson R.N. The patient reports no complaints and he is calm and resting quietly. ( pt close to nurses station, pt denies SI or HI at this time, states just wants to go home to his girlfriend.). GENERAL / NEURO / PSYCH: Patient appears calm and cooperative. Affect appears normal. Two patient identifiers checked. Side rails up x 2. Bed placed in lowest position. --01:24 Marla Durant R.N. 01:21 09/20/16. BP: 168/62. HR: 79. RR: 18. O2 saturation: 100%. Temp: deferred. Pain level now: 0/10. --01:24 Marla Durant R.N. The patient reports no complaints and he is resting quietly. Overall patient status- he states feels better. GENERAL / NEURO / PSYCH: Patient appears calm and cooperative. Two patient identifiers checked. Call light placed in reach. Side rails up x 2. Bed placed in lowest position. Brakes of bed on. --02:19 Marla Durant R.N. The patient reports no complaints. Overall patient status is the same- he states feels the same. ( pt stood at bedside with assistance to void, no distress noted, placed back on bed and given warm blankets.). GENERAL / NEURO / PSYCH: Patient appears calm and cooperative. SKIN: Skin is warm. Two patient identifiers checked. Side rails up x 2. Bed placed in lowest position. Brakes of bed on. --04:11 Marla Durant R.N. 03:59 09/20/16. BP: 179/63. HR: 63. RR: 18. O2 saturation: 100% on room air. Temp: deferred. Pain level now: 0/10. --04:11 Marla Durant R.N. ( PAT here for evaluation). --04:22 Marla Durant R.N. GENERAL / NEURO / PSYCH: Patient appears calm and cooperative. Affect appears normal. --04:42 Marla Durant R.N. 07:35. ( tongue trimmer helped patient to use the urinal.). --07:58 Josejeb Palak 07:45. ( At patient bedside to bring breakfast. patient requested coffee however he declined cooled down coffee. he agreed to have extra juice instead.). --08:01 Jose Daleya. Intake & Output Urine: voided, with return of 450 mL adoany-colored cloudy urine. --04:40 Marla Durant R.N. 07:35. Urine: 200 mL. --08:00 Edi Palak. DISPOSITION / DISCHARGE 09:32 09/20/16. Departure time: 921. ( MD aware of discharge vitals). Learning barriers present. Ability to learn limited by dementia; teaching performed with the family. Discharge instructions provided and reviewed with the patient and family. Patient and family verbalized understanding. Written instructions provided in Somali. The patient was discharged by the physician. He was discharged home and accompanied by family. He left the Emergency Department in a wheelchair and via private vehicle. Family member driving. --09:32 Jenna Arvizu R.N. 09:28 09/20/16. BP: 183/72. HR: 100. RR: 17. O2 saturation: 100% on room air. Temp: 97.5 F (oral). Pain level now 0/10. --09:32 Jenna Arvizu R.N. Locked/Released at 09/21/2016 10:38 by Savanna Harris R.N.
--- NOTE | 2016-09-20 08:30 | ED CLINICAL REPORT ---
Clinical Report - Physicians/Mid Levels [facility] [address] [place] [address] 09/19/2016 22:34 Patient: ISIDRA FIELD Time Seen: 2250. Arrived- By private vehicle. Historian- patient. HISTORY OF PRESENT ILLNESS Chief Complaint: DEPRESSED and SUICIDAL THOUGHTS. This started just prior to arrival today. (suicidal gesture with knife held to chest). Has not been eating. Has been depressed. The symptoms are described as moderate. No injury is present. REVIEW OF SYSTEMS No headache, chest pain, fever or skin rash. All systems otherwise negative, except as recorded above. PAST HISTORY See nurses notes. Medications: Acetaminophen Oral. Allopurinol Oral. Aspirin. Methocarbamol. Motrin. Allergies: Gemfibrozil. Penicillin. SOCIAL HISTORY Never smoker. No alcohol use or drug use. ADDITIONAL NOTES The nursing notes have been reviewed. PHYSICAL EXAM Vital Signs: 09/19/2016 22:53 BP: 187/65. HR: 89. RR: 18. O2 saturation: 98%. Temp: 97.9 F. Pain level now: 0/10. Oxygen saturation normal. Appearance: Alert. No acute distress. Appearance is normal. (Nontoxic appearance). Eyes: Pupils equal, round and reactive to light. Neck: Normal inspection. Neck supple. CVS: Normal heart rate and rhythm. Heart sounds normal. Respiratory: Breath sounds normal. Chest nontender. Abdomen: Soft and nontender. Back: No tenderness. Skin: Skin warm and dry. Normal skin color. Normal skin turgor. Psych / Neuro: Oriented X 3. Appears depressed. Speech normal. Cognition normal. Thought process and content normal. Insight and judgement normal. Cranial nerves normal (as tested). No cerebellar findings. No motor deficit. LABS, X-RAYS, AND EKG Laboratory Tests: UA-Culture if indicated: (LINDSAY: 09/19/2016 00:20) ( MsgRcvd 09/20/2016 00:34) Final results Test Result Flag Units (Reference) URINE COLOR YELLOW URINE APPEARANCE CLEAR URINE GLUCOSE NEGATIVE (NEGATIVE) URINE BILIRUBIN NEGATIVE (NEGATIVE) URINE KETONE NEGATIVE (NEGATIVE) URINE SPECIFIC GRAVITY 1.010 (1.010-1.030) URINE PH 7.0 (5.0-8.0) URINE PROTEIN 1+ (NEGATIVE) URINE UROBILINOGEN 0.2 EU/dL (0.2-1.0) URINE NITRITE NEGATIVE (NEGATIVE) URINE BLOOD NEGATIVE (NEGATIVE) URINE LEUK ESTERASE NEGATIVE (NEGATIVE) URINE RBC RARE rbc/hpf (0-1) URINE WBC RARE wbc/hpf (0-1) URINE EPITHELIAL CELLS NONE SEEN EPI/hpf (0-5) URINE BACTERIA NONE SEEN (NONE SEEN) URINE COMMENT CULT NOT INDICATED URINE CULTURES ARE SET-UP BASED ON THE FOLLOWING CRITERIA:POSITIVE NITRITEPOSITIVE LEUKOCYTE ESTERASEGREATER THAN 10 WHITE BLOOD CELLSMODERATE (2+) OR GREATER BACTERIA CBC w Diff: (LINDSAY: 09/19/2016 23:30) ( [facility] 09/19/2016 23:41) Final results Test Result Flag Units (Reference) WHITE BLOOD COUNT 4.8 K/uL (4.5-11.5) RED BLOOD COUNT 4.11 L M/uL (4.50-5.90) HEMOGLOBIN 10.6 L gm/dL (13.5-17.5) HEMATOCRIT 33.5 L % (41.0-53.0) MEAN CELL VOLUME 81 fL (80-100) MEAN CORPUSCULAR HGB 26 pg (26-34) MEAN CORPUSCULAR HGB CONC 32 g/dL (31-37) RED CELL DISTRIBUTION WIDTH 18.6 H % (11.6-14.8) PLATELET COUNT 285 K/uL (150-400) LYMPH % 34.9 % (25-40) MONO % 6.2 % (3-14) GRANULOCYTE % 58.9 PT with INR: (LINDSAY: 09/19/2016 23:30) ( [facility] 09/19/2016 23:46) Final results Test Result Flag Units (Reference) INR 1.0 (0.8-1.2) Low Intensity Therapy: INR 1.5-2.0 PT range 18.5-23.1Mod.Intensity Therapy: INR 2.0-3.0 PT range 23.1-31.5High Intensity Therapy: INR 2.5-3.5 PT range 27.4-35.5High Intensity Therapy 2: INR 3.0-4.0 PT range 31.5-39.3 Urine Drug Screen: (LINDSAY: 09/19/2016 00:20) ( MsgRcvd 09/20/2016 00:42) Final results Test Result Flag Units (Reference) AMPHETAMINE/METHAMPHETAMINE NEGATIVE (NEGATIVE) BARBITURATE NEGATIVE (NEGATIVE) BENZODIAZEPINE NEGATIVE (NEGATIVE) CANNABINOID NEGATIVE (NEGATIVE) COCAINE NEGATIVE (NEGATIVE) ECSTASY NEGATIVE (NEGATIVE) METHADONE NEGATIVE (NEGATIVE) OPIATE NEGATIVE (NEGATIVE) The urine drug screen is a qualitative screening test fordrug overdose and abuse. All screen results should beconsidered as presumptive.Drugs screened for are as follows:BenzodiazepinesCocaineAmphetamines/MetamphetaminesTHC (Tetrahydrocannabinol)OpiatesBarbituratesEcstasyMethadonePositive results are unconfirmed. For confirmation, notifythe lab for the specimen to be sent to the reference lab.All confirmations must be performed by a differentmethodology.The ingestion of natural herbal and plant productscontaining Ephedra/Ephedra metabolites can produce in urineone or more substances capable of cross reacting withamphetamine/methamphetamine immunoassays. These testsprovide a preliminary result only. A more specificalternative chemical method must be used to obtain aconfirmed analytical result. Salicylate Level: (LINDSAY: 09/19/2016 23:30) ( [facility] Final results Test Result Flag Units (Reference) SALICYLATE <2.8 L mg/dL (2.8-20) CMP: (LINDSAY: 09/19/2016 23:30) ( MngRcvd 09/20/2016 00:05) Final results Test Result Flag Units (Reference) GLUCOSE 93 mg/dL (70-110) BUN 30 H mg/dL (7-18) CREATININE 1.9 H mg/dL (0.6-1.3) Estimated GFR 36.07 mL/min Estimated GFR- 43.72 mL/min Note: Persistent reduction over 3 months in eGFR<60 mL/min/1.73 m2 defines CKD. Patients with eGFR values>=60 mL/min/1.73 m2 may also have CKD if evidence ofpersistent proteinuria. Additional information may be foundat www.kidney.org. SODIUM 144 mmol/L (136-145) POTASSIUM 4.1 mmol/L (3.5-5.1) CHLORIDE 103 mmol/L (98-107) CARBON DIOXIDE 29 mmol/L (21-32) CALCIUM 9.1 mg/dL (8.5-10.1) TOTAL PROTEIN 7.4 g/dL (6.4-8.2) ALBUMIN 3.7 g/dL (3.3-5.0) BILIRUBIN, TOTAL 0.6 mg/dL (0.0-1.0) ALKALINE PHOSPHATASE 137 H U/L (46-116) AST (SGOT) 17 U/L (15-37) ALT (SGPT) 20 U/L (12-78) ETHYL ALCOHOL <3 L mg/dL (3-10) THYROID STIMULATING HORMONE 0.469 uIU/mL (0.30-3.74) ACETAMINOPHEN < 2.0 L ug/mL (10-30) . PROGRESS AND PROCEDURES Course of Care: the patient is a pleasant 86-year-old male with past medical history significant for dementia presenting for evaluation of depression and suicidal gesture. At this time, patient will have laboratory studies drawn for medical clearance. Patient otherwise is in bed in no acute distress. Patient with subjective signs of depression. No homicidal ideation. No delusions or hallucinations. Patient is cooperative. Patient is medically cleared. Page has been placed out to the crisis counselor teams. Patient will be evaluated by them. Initial evaluation showed patient would likely need the [facility] evaluation. We are currently now awaiting the professional to come and evaluate the patient. Patient was evaluated by the [facility]. Patient not to Be a Danger to Self or Other People. Patient with Signs of Depression and with Adequate Resources. Patient without Any Signs of Suicide at This Time. Had a Discussion with the Patient in Regards to His Workup Here in Emergency Department Today As Well As the Diagnosis and Treatment As Well As Plan of Care. Patient Will Be Encouraged to Follow up with His Psychiatrist at the [place]. Feel That This Is the Most Appropriate Place for the Patient. Also Spoke with Family in Regards to Home Care. They Feel Comfortable with Watching the Patient and Will Return Immediately for Any concerning Signs or Symptoms. Patient Is a Stable Outpatient Candidate. Do Not Feel Patient Needs Be Admitted to the Hospital Require Further Emergency Department Workup/Evaluation. Patient without [place] to Firearms or Dangerous Weapons Otherwise. CLINICAL IMPRESSION 09/20/2016 03:59 BP: 179/63. HR: 63. RR: 18. O2 saturation: 100%. Pain level now: 0/10. Adjustment disorder with depressed mood (acute). Hypertensive. Oxygen saturation normal. Suicidal ideation (acute). Essential hypertension. INSTRUCTIONS Warnings: GENERAL WARNINGS: Return or contact your physician immediately if your condition worsens or changes unexpectedly, if not improving as expected, or if other problems arise. Specifically return if pain, vomiting, bleeding, breathing difficulty or fever. symptoms return. Your Current Medications: CONTINUE TAKING THE FOLLOWING MEDICATIONS: Acetaminophen Oral. Allopurinol Oral. Aspirin*. Methocarbamol*. Motrin*. Follow-up: Return to the emergency department as needed. Follow up with a specialist your psychiatrist. Call for the next available appointment. Reason for referral: recheck today's concerns. Summary of care provided to patient and family via paper. Follow up with your doctor in three days. Reason for referral: recheck today's concerns. Summary of care provided to patient and family via paper. Screening today revealed the patient's blood pressure to be in the hypertensive range. The patient should follow up with a primary care provider for blood pressure management. Understanding of the discharge instructions verbalized by patient and family. (Electronically signed by Anli Holloway Dr. 09/21/2016 6:58)
--- NOTE | 2016-09-20 08:30 | ED NURSING NOTES ---
Clinical Report - Nurses [facility] [place] [address] 09/19/2016 22:34 Patient: ISIDRA FIELD TRIAGE Triage time 22:53. Acuity: LEVEL 2. Chief Complaint: SUICIDAL THOUGHTS. --22:58 Marla Durant R.N. 22:53 09/19/16. BP: 187/65. HR: 89. RR: 18. O2 saturation: 98% on room air. Temp: 97.9 F. Pain level now: 0/10. --22:58 Marla Durant R.N. Weight: 74.8 kg stated. Height/Length: 67 inches Per Patient. BMI: 25.9. --22:56 Marla Durant R.N. Medications Acetaminophen Oral. Allopurinol Oral. Aspirin. Methocarbamol. Motrin. --22:55 Marla Durant R.N. Allergies Gemfibrozil. Penicillin. --22:55 Marla Durant R.N. History Arrived by private vehicle. Historian: patient and family. Accompanied by family. Onset: just prior to arrival. ( Family states pt placed a knife against his chest and stated he was going to kill himself.). SOCIAL HX: No alcohol use or drug use. FALL RISK ASSESSMENT: Fall risk assessment completed per protocol. Risk factors identified include patient age greater than 65 years, history of fall and impairment of mobility and cognition. Fall interventions initiated. Patient placed on stretcher. Side rails up x2. Brakes on Bed in low position. Patient visible from nurses' station. Call light in reach of patient. Instructed not to get up without assistance. --22:58 Marla Durant R.N. Interventions ID band on patient. --22:58 Marla Durant R.N. PHYSICAL ASSESSMENT GENERAL / NEURO / PSYCH: Alert. Appears in no acute distress. The patient is disoriented to person, place and time. Speech within normal limits. Affect appears normal. Patient appears calm and cooperative. Good eye contact. The patient describes suicidal thoughts (today, per family and [facility] home, pt does not remember.). Patient appears well-nourished and neat and clean. RESPIRATORY: Respirations not labored. Breath sounds within normal limits. SKIN: Skin is warm. --23:00 Marla Durant R.N. To room via wheelchair. --23:00 Marla Durant R.N. NURSING PROGRESS NOTES Patient ready for evaluation- chart flagged. --23:00 Marla Durant R.N. Two patient identifiers checked. Call light placed in reach. Side rails up x 1. Bed placed in lowest position. Brakes of bed on. --23: Marla Durant R.N. Patient ID band checked for patient name and birthdate: patient confirmed urine collected with return of yellow-colored adonay-colored clear urine; sample sent to lab. Specimen labeled in the presence of the patient. ( assisted pt to stand at bedside and use urinal.). --00:22 Mirtha Peterson R.N. 00:22 09/20/16. BP: 196/69. HR: 73. RR: 15 (regular and unlabored). O2 saturation: 100%. Pain level now: 0/10. --00:23 Mirtha Peterson R.N. Warming measures: blanket applied. --00:24 Mirtha Peterson R.N. The patient reports no complaints and he is calm and resting quietly. ( pt close to nurses station, pt denies SI or HI at this time, states just wants to go home to his girlfriend.). GENERAL / NEURO / PSYCH: Patient appears calm and cooperative. Affect appears normal. Two patient identifiers checked. Side rails up x 2. Bed placed in lowest position. --01:24 Marla Durant R.N. 01:21 09/20/16. BP: 168/62. HR: 79. RR: 18. O2 saturation: 100%. Temp: deferred. Pain level now: 0/10. --01:24 Marla Durant R.N. The patient reports no complaints and he is resting quietly. Overall patient status- he states feels better. GENERAL / NEURO / PSYCH: Patient appears calm and cooperative. Two patient identifiers checked. Call light placed in reach. Side rails up x 2. Bed placed in lowest position. Brakes of bed on. --02:19 Marla Durant R.N. The patient reports no complaints. Overall patient status is the same- he states feels the same. ( pt stood at bedside with assistance to void, no distress noted, placed back on bed and given warm blankets.). GENERAL / NEURO / PSYCH: Patient appears calm and cooperative. SKIN: Skin is warm. Two patient identifiers checked. Side rails up x 2. Bed placed in lowest position. Brakes of bed on. --04:11 Marla Durant R.N. 03:59 09/20/16. BP: 179/63. HR: 63. RR: 18. O2 saturation: 100% on room air. Temp: deferred. Pain level now: 0/10. --04:11 Marla Durant R.N. ( PAT here for evaluation). --04:22 Marla Durant R.N. GENERAL / NEURO / PSYCH: Patient appears calm and cooperative. Affect appears normal. --04:42 Marla Durant R.N. 07:35. ( wire welder helped patient to use the urinal.). --07:58 Josejeb Palak 07:45. ( At patient bedside to bring breakfast. patient requested coffee however he declined cooled down coffee. he agreed to have extra juice instead.). --08:01 Jose Daleya. Intake & Output Urine: voided, with return of 450 mL adonay-colored cloudy urine. --04:40 Marla Durant R.N. 07:35. Urine: 200 mL. --08:00 Edi Palak. DISPOSITION / DISCHARGE 09:32 09/20/16. Departure time: 921. ( MD aware of discharge vitals). Learning barriers present. Ability to learn limited by dementia; teaching performed with the family. Discharge instructions provided and reviewed with the patient and family. Patient and family verbalized understanding. Written instructions provided in [place]. The patient was discharged by the physician. He was discharged home and accompanied by family. He left the Emergency Department in a wheelchair and via private vehicle. Family member driving. --09:32 Jenna Arvizu R.N. 09:28 09/20/16. BP: 183/72. HR: 100. RR: 17. O2 saturation: 100% on room air. Temp: 97.5 F (oral). Pain level now 0/10. --09:32 Jenna Arvizu R.N. Locked/Released at 09/21/2016 10:38 by Savanna Harris R.N.
--- NOTE | 2016-09-20 08:30 | ED ORDER SUMMARY ---
..... Patient: ISIDRA FIELD OrderSheet [facility] VisitID: [id number] [place] [address] 86y, M Registration Date/Time: 09/19/2016 ORDER SHEET Weight: 74.8 kg (stated) Allergies: Gemfibrozil, Penicillin GENERAL ORDERS: CBC w Diff Urgent (22:56 09/19/2016 Harshad Reddy) (Ack 22:58 IJurca ER Tech1) (23:33 CBradburn R.N.) CMP Urgent (22:56 09/19/2016 Harshad Reddy) (Ack 22:58 TANurca ER Tech1) (23:33 NOLAradburn R.N.) UA-Culture if indicated Urgent (22:56 09/19/2016 Harshad Reddy) (Ack 22:58 IJurca ER Tech1) (0:24 RCollier R.N.) PT with INR Urgent (22:56 09/19/2016 Harshad Reddy) (Ack 22:58 IJurca ER Tech1) (23:33 CBradburn R.N.) Urine Drug Screen Urgent (22:56 09/19/2016 Harshad Reddy) (Ack 22:58 IJurca ER Tech1) (0:24 RCollier R.N.) TSH Urgent (22:56 09/19/2016 Harshad Reddy) (Ack 22:58 IJurca ER Tech1) (23:33 CBradburn R.N.) Acetaminophen Level Urgent (22:56 09/19/2016 Harshad Reddy) (Ack 22:58 IJurca ER Tech1) (23:33 CBradburn R.N.) Salicylate Level Urgent (22:56 09/19/2016 Harshad Reddy) (Ack 22:58 TANurca ER Tech1) (23:33 NOLAradburn R.N.) Ethyl Alcohol Urgent (22:56 09/19/2016 Harshad Reddy) (Ack 22:58 IJurca ER Tech1) (23:33 CBradburn R.N.) MEDICATION ORDERS: IV FLUIDS: ORDER SHEET NOTES: [Electronically signed by Anil Holloway Dr. (06:58 09/21/2016)] [Electronically signed by Savanna Harris R.N. (10:38 09/21/2016)] [Electronically locked/signed by Savanna Harris R.N. (10:38 09/21/2016)]
--- NOTE | 2016-09-21 10:38 | ED MED RECONCILIATION SUMMARY ---
Patient: ISIDRA FIELD Medication Reconciliation Report [facility] VisitID: [id number] [address] [place] [address] 86y, M Registration Date/Time: 09/19/2016 Weight: 74.8 kg Height/Length: 67 in. BMI: 25.9 ALLERGIES: Gemfibrozil, Penicillin The patient's Home Medications are listed below: CONTINUE TAKING THE FOLLOWING MEDICATIONS: Acetaminophen Oral Allopurinol Oral Aspirin Methocarbamol Motrin The source(s) of the original Home Medication information: Not obtained. The following Medications were given to the patient in the Emergency Department: None. The following Medications were prescribed to the patient: None.
--- NOTE | 2016-09-21 10:38 | ED MED RECONCILIATION SUMMARY ---
Patient: ISIDRA FIELD Medication Reconciliation Report [facility] VisitID: [id number] [address] [place] [address] 86y, M Registration Date/Time: 09/19/2016 Weight: 74.8 kg Height/Length: 67 in. BMI: 25.9 ALLERGIES: Gemfibrozil, Penicillin The patient's Home Medications are listed below: CONTINUE TAKING THE FOLLOWING MEDICATIONS: Acetaminophen Oral Allopurinol Oral Aspirin Methocarbamol Motrin The source(s) of the original Home Medication information: Not obtained. The following Medications were given to the patient in the Emergency Department: None. The following Medications were prescribed to the patient: None.
--- NOTE | 2016-09-21 10:38 | ED MAR SUMMARY ---
..... Medication Administration Record [facility] [address] [place], [place] [id number] Patient: ISIDRA FIELD Visit ID: [id number] 86y, M Weight: 74.8 kg Height/Length: 67 in BMI: 25.9 ALLERGIES: Gemfibrozil, Penicillin
--- NOTE | 2016-09-21 10:38 | ED MAR SUMMARY ---
..... Medication Administration Record [facility] [address] [place], [place] [id number] Patient: ISIDRA FIELD Visit ID: [id number] 86y, M Weight: 74.8 kg Height/Length: 67 in BMI: 25.9 ALLERGIES: Gemfibrozil, Penicillin
--- NOTE | 2016-09-21 10:38 | ED DISCHARGE INSTRUCTIONS ---
Patient: ISIDRA FIELD [facility] VisitID: [id number] [place] [address] 86y, M Registration Date/Time: 09/19/2016 09/20/2016 03:59 BP: 179/63. HR: 63. RR: 18. O2 saturation: 100%. Pain level now: 0/10. Adjustment disorder with depressed mood (acute). Hypertensive. Oxygen saturation normal. Suicidal ideation (acute). Essential hypertension. INSTRUCTIONS Warnings: GENERAL WARNINGS: Return or contact your physician immediately if your condition worsens or changes unexpectedly, if not improving as expected, or if other problems arise. Specifically return if pain, vomiting, bleeding, breathing difficulty or fever. symptoms return. Your Current Medications: CONTINUE TAKING THE FOLLOWING MEDICATIONS: Acetaminophen Oral. Allopurinol Oral. Aspirin*. Methocarbamol*. Motrin*. Follow-up: Return to the emergency department as needed. Follow up with a specialist your psychiatrist. Call for the next available appointment. Reason for referral: recheck today's concerns. Summary of care provided to patient and family via paper. Follow up with your doctor in three days. Reason for referral: recheck today's concerns. Summary of care provided to patient and family via paper. Screening today revealed the patient's blood pressure to be in the hypertensive range. The patient should follow up with a primary care provider for blood pressure management. Understanding of the discharge instructions verbalized by patient and family. ADDITIONAL INFORMATION Depression Depression is one of the most common mental health problems today. It is not just a state of unhappiness or sadness. It is a true disease. The cause seems to be related to a decrease in chemicals that transmit signals in the brain. Having a family history of depression, alcoholism or suicide increases the risk. Chronic illness, chronic pain, migraine headaches and high emotional stress also increase the risk. Depression can cause many different symptoms, such as: -- Loss of appetite -- Over-eating -- Not being able to sleep -- Sleeping too much -- Tiredness not related to physical exertion -- Restlessness or irritability -- Slowness of movement or speech -- Feeling depressed or withdrawn -- Loss of interest in things you once enjoyed -- Difficulty in concentrating, poor memory, have trouble making decisions -- Thoughts of harming or killing oneself, or thoughts that life is not worth living -- Low self-esteem The best treatment for depression is a combination of medicine and psychotherapy. Antidepressant medicines can reduce suffering and can improve the ability to function during the depressed period. Therapy can offer emotional support and help you understand emotional factors that may be causing the depression. Home Care: 1) Be kind to yourself. Make it a point to do things that you enjoy (gardening, walking in nature, going to a movie, etc.). Reward yourself for small successes. 2) Take care of your physical body. Eat a balanced diet (low in saturated fat and high in fruits and vegetables). Establish an exercise plan at least 3 times a week for 30 minutes. Even mild-moderate exercise (like brisk walking) can make you feel better. 3) Avoid alcohol, which can make depression worse. Follow-Up with your doctor as advised. It is important to keep in contact with a health care provider until your symptoms begin to improve. Get Prompt Medical Attention if any of the following occur: -- Feeling extreme depression, fear, anxiety, or anger toward yourself or others -- Feeling out of control -- Feeling that you may try to harm yourself or another -- Hearing voices that others do not hear -- Seeing things that others do not see -- Cant sleep or eat for 3 days in a row High Blood Pressure --Established High Blood Pressure (Hypertension) is a chronic disease. The cause is unknown in most cases. It can usually be controlled with lifestyle changes and/or medicines. Symptoms of high blood pressure may include headache, dizziness, visual changes, chest pain and shortness of breath. Sometimes it causes no symptoms at all. However, even if there are no symptoms, untreated high blood pressure increases the risk of heart attack, also known as acute myocardial infarction, or AMI, and stroke. It is a serious health risk and should not be ignored. A normal blood pressure is 120/80 or less. The first (top) number is the "systolic" pressure. The second (bottom) number is the "diastolic" pressure. Hypertension exists when either the top number is 140 or higher, OR the bottom number is 90 or higher on repeated measurements. Home Care: All patients with high blood pressure should do the following to lower their pressure. If you are on medicines, then these methods may reduce or eliminate your need for medicines in the future. Begin a weight loss program if you are overweight. Reduce your salt intake. Avoid high salt foods (olives, pickles, smoked meats, salted potato chips, etc.). Do not add salt to your food at the table. Use only small amounts of salt when cooking. Begin an exercise program. Discuss with your doctor what type of exercise program would be best for you. It doesn't have to be difficult. Even brisk walking for 20 minutes three times a week is a good form of exercise. Avoid medicines which contain heart stimulants. This includes many cold and sinus decongestant pills and sprays as well as diet pills. Check the warnings about hypertension on the label. Stimulants such as amphetamine or cocaine could be lethal for someone with hypertension. Never take these. Limit your caffeine intake or switch to caffeine-free products. Stop smoking. If you are a long-time smoker, this can be hard. Enroll in a stop-smoking program to improve your chance of success. Learning how to handle stress better is an important part of any program to lower blood pressure. Learn about relaxation methods such as meditation, yoga or biofeedback. If medicines were prescribed, take them exactly as directed. Missing doses may cause your blood pressure get out of control. Consider buying an automatic blood pressure machine (available at most pharmacies). Use this to monitor your blood pressure at home and report the results to your doctor. Follow Up: Regular visits to your own physician for blood pressure checks and medicine adjustment is an important part of your care. Make a follow-up appointment as directed by our staff. Get Prompt Medical Attention if any of the following occur: Chest pain or shortness of breath Severe headache Throbbing or rushing sound in the ears Nosebleed Sudden severe abdominal pain Extreme drowsiness, confusion or fainting Dizziness or vertigo (dizziness with spinning sensation) Weakness of an arm or leg or one side of the face Difficulty with speech or vision Adjustment Disorder An adjustment disorder is a condition that results from having a hard time coping with the normal stresses of life. You may feel you have too much to do and cant get it all done. These feelings may be triggered by divorce, job loss, someone you know dying, or by a positive event like getting a new job or getting . These feelings may interfere with your relationships at home and at work. With this condition, it is common to feel sad, guilty, hopeless and restless. These feelings may continue for weeks or months. It can be helpful to identify what is causing the additional stress and takes steps to get extra support. If new stressful events do not occur, it is likely that you will start feeling better within six months. Home Care: If you have been given a prescription for medicine, take it as directed. It helps to talk about your feelings and thoughts with family or friends that understand and support you. Follow Up with your doctor or therapist as advised by our staff. Let them know if this condition lasts more than six months without sign of improvement. For more information, contact the [employer] [place] [employer]ness at 869-515-5387 or visit www.zachery.org. Get Prompt Medical Attention if any of the following occur: Worsening depression or anxiety Feeling out of control Thoughts of harming yourself or another Being unable to care for yourself You have been given the following additional information: Depression Hypertension, Established Adjustment Disorder (Electronically signed by Anil Holloway Dr. 09/21/2016 6:58)
== END 2016-09-20 09:32 | disposition home or self-care (01) ==
LOC: ED SRH 22:34
DX: F43.21 Adjustment disorder with depressed mood (principal); R45.851 Suicidal ideations; I10 Essential (primary) hypertension; Z79.899 Other long term (current) drug therapy; Z79.82 Long term (current) use of aspirin; Z79.1 Long term (current) use of non-steroidal anti-inflammatories (NSAID); Z88.8 Allergy status to other drugs, medicaments and biological substances; Z88.0 Allergy status to penicillin
CPT/HCPCS: 90004; 90074; 90100; 92010; 92760; 92761; 92762; 92763; 92764; 92765; 92766; 92767; 92780; 93140; 94060; 95059; 97000

== ENCOUNTER 2016-11-16 01:33 | Emergency (ER) | payer OTHER ==
--- NOTE | 2016-11-16 03:02 | ED NURSING NOTES ---
Clinical Report - Nurses [facility] [address] [place] [address] 11/16/2016 1:34 [id number] Triage time 01:37 Nov 16 2016. Acuity: LEVEL 3. Chief Complaint: FALL OFF A CHAIR, onto a carpeted surface. SEPSIS SCREEN: Sepsis Screen: negative. Negative (no infection suspected/documented). EMMA COMA SCORE: Emma Coma Scale: 14- eyes open spontaneously (4); best verbal response- disoriented (4); best motor response- obeys commands (6). --01:41 Chela Ramirez 01:37 11/16/16. BP: 171/53. HR: 65. RR: 20. O2 saturation: 100% on room air. Temp: 97.7 F (oral). Pain level now: 11/08. --01:41 Chela Ramirez. Weight: 66.2 kg stated. Height/Length: 67 inches Per Patient. BMI: 22.9. --01:38 Chela Ramirez. Medications Acetaminophen Oral. Allopurinol Oral. Aspirin. Methocarbamol. Motrin. --01:38 Chela Ramirez Clopidogrel Bisulfate Oral. --01:44 Chela Ramirez Escitalopram Oxalate Oral. --01:44 Chela Ramirez. Medication/allergy information source: the patient. --01:41 Chela Ramirez. Allergies Gemfibrozil. Penicillin. --01:38 Chela Ramirez. History Arrived by EMS. Historian: patient. Unaccompanied. Location of injuries: neck and back. This occurred just prior to arrival. Occurred at half-way. ( Patient was found on the floor next to his chair by staff at half-way. Patient unsure of how the fall happened but reports back and neck pain.). Trauma activation: Pre-hospital notification of patient arrival was received. PAST MEDICAL HX: Immunizations: up-to-date. SOCIAL HX: Smoker- current status unknown. No alcohol use or drug use. ABUSE ASSESSMENT: No report of abuse. NUTRITIONAL RISK ASSESSMENT: The nutritional risk assessment revealed no deficiencies. FUNCTIONAL ASSESSMENT: Functional assessment: no impairments noted. LEARNING NEEDS ASSESSMENT: The learning needs assessment revealed no barriers. FALL RISK ASSESSMENT: Fall risk assessment completed. Risk factors identified include patient medications, age greater than 65 years, history of fall and impairment of mobility. Fall interventions initiated. Patient placed on stretcher. Side rails up x1. Brakes on Bed in low position. Patient visible from nurses' station. Call light in reach of patient. Instructed not to get up without assistance. SKIN INTEGRITY ASSESSMENT: Skin integrity risk assessment completed. No skin integrity risk identified. --01:41 Chela Ramirez. PROBLEMS: Adjustment Disorder. Suicidal Ideation. Hypovolemia. Hypotension. Renal Insufficiency. Anemia. Dyspnea. Abnormal EKG. Chest Pain. Dementia. Hyperthyroidism. Cervical Strain. Head Injury. Neck Pain. Contusion. Fall. PTSD. Pancreatitis. Upper Extremity Pain. Arthritis. Gout. Hypertension. --01:39 Chela Ramirez Hydrocephalus [RuleOut]. --01:39 Chela Ramirez. ADDITIONAL SURGERIES: Appendectomy. Cholecystectomy. Colonoscopy. Dental Surgery. Tonsillectomy. Umbilical Hernia Repair. --01:39 Chela Ramirez. Interventions ID band on patient. To treatment room. --01:41 Chela Ramirez. PHYSICAL ASSESSMENT GENERAL / NEURO / PSYCH: Alert. Oriented X 4. Appears in no acute distress. HEENT: Pupils equal, round and reactive to light. Head non-tender. Neck: tenderness. RESPIRATORY: Respirations not labored. CVS: Normal heart rate and rhythm. GI / : Abdomen soft and nontender. SKIN: Skin is warm and dry. BACK: Back: tenderness. --01:41 Chela Ramirez. NURSING PROGRESS NOTES Patient gowned. Reassurance given to the patient. Two patient identifiers checked. Call light placed in reach. Side rails up x 1. Bed placed in lowest position. Brakes of bed on. Patient ready for evaluation- chart flagged and ED physician notified. --01:42 Chela Ramirez 01:55 11/16/2016 Site #1 started via IV in the left wrist with an 20g angiocath, with aseptic technique and good blood return; one attempt. Blood drawn: rainbow set. Labeled in the presence of the patient and sent to the lab. Saline lock flushed with 10 mL saline. --02:00 Chela Ramirez Patient transported to CT by stretcher with tech. (02:Nov 16 2016). --02:01 Chela Ramirez Patient returned from CT by stretcher with tech. (02:Nov 16 2016). --02:11 Chela Ramirez 02:11 11/16/2016 Started bag #1 1000 mL IV Fluids IV NS (Saline); at 1000 mL/hr over 15 minute(s) via site #1 via IV pump. Allergies verified and confirmed 5 rights. IV patency established. IV site checked: no pain, redness, or swelling. IV flushed thoroughly pre- and post-medication administration. --02:11 Chela Ramirez 02:28 11/16/16. BP: 152/66. HR: 93. RR: 20. O2 saturation: 94% on room air. --02:29 James Chela ( Patient bedding and depends changed. Tayla care performed.). --02:29 Chela Ramirez Patient ID band checked for patient name and birthdate: patient confirmed. Instructions provided to collect clean catch urine and patient verbalized understanding. Clean catch urine collected with return of yellow-colored clear urine; sample sent to lab for urinalysis. Specimen labeled in the presence of the patient. --02:29 Chela Ramirez 02:57 11/16/16. BP: 160/66. HR: 80. RR: 20. O2 saturation: 98% on room air. --02:59 Chela Ramirez The patient is sleeping. --02:59 Chela Ramirez 03:46 11/16/2016 IV Fluids IV NS Discontinued: bag #1 discontinued upon discharge. Total amount infused: 500 mL. IV patency established. IV site checked: no pain, redness, or swelling. IV flushed thoroughly. --03:51 Chela Ramirez. DISPOSITION / DISCHARGE Condition at departure: stable. The goals identified in the patient's plan of care were met. No learning barriers present. Discharge instructions provided and reviewed with the patient. Reviewed need for increased fluid intake. Verbalized understanding. Written instructions provided in Czech. Verbalized understanding (Transport team). ( Follow up with your PCP in three days. Take anti-inflammatories as needed and ice the affected areas for twenty minutes at a time. Discussed prevention of falls.). The patient was discharged by the physician. He was discharged home. He left the Emergency Department via ambulance and on a stretcher. Driving (ambulance). Transported via ambulance by transport team. Patient's personal items; items were transported with the patient. --03:51 Chela Ramirez 03:46 11/16/16. BP: 160/45. HR: 80. RR: 20. O2 saturation: 98% on room air. Temp: 98.8 F (oral). Pain level now: 01/08. --03:51 Chela Ramirez 03:46 11/16/2016 Site #1 removed upon discharge. Catheter intact. Bandaid applied. --03:51 Chela Ramirez. Locked/Released at 11/17/2016 6:45 by Chela Ramirez,
--- NOTE | 2016-11-16 03:02 | ED ORDER SUMMARY ---
..... Patient: ISIDRA FIELD OrderSheet [facility] VisitID: [id number] [place] [address] 86y, M Registration Date/Time: 11/16/2016 ORDER SHEET Weight: 66.2 kg (stated) Allergies: Gemfibrozil, Penicillin GENERAL ORDERS: CT Cervical Spine wo Cont Urgent (:11/16/2016 [facility]) (Ack 1:47 RKaruga) (2:33 CBradburn R.N.) CT Head wo Cont [facility] (Ack 1:47 RKaruga) (2:33 CBradburn R.N.) Cardiac Panel Stat ([facility] (Ack 1:47 RKaruga) (2:33 CBradburn R.N.) Urine Drug Screen Urgent (:[facility]16[facility] (Ack 1:47 RKaruga) (2:33 CBradburn R.N.) UA-Culture if indicated Urgent (:[facility]16/[facility] (Ack 1:47 RKaruga) (2:33 CBradburn R.N.) MEDICATION ORDERS: IV FLUIDS: IV NS : initial bolus 250 mL (1000 mL/hr), then 250 mL/hr for X3 (NOW) (:11/16/2016 [facility]) (Ack 1:45 HSoule) (2:11 HSoule) ORDER SHEET NOTES: [Electronically signed by Kenton Alfred DO (06:08 11/16/2016)] [Electronically signed by Chela Ramirez (06:45 11/17/2016)] [Electronically locked/signed by Chela Ramirez (:45 11/17/2016)]
--- NOTE | 2016-11-16 03:02 | ED NURSING NOTES ---
Clinical Report - Nurses [facility] [address] [place] [address] 11/16/2016 1:34 [id number] Triage time 01:37 Nov 16 2016. Acuity: LEVEL 3. Chief Complaint: FALL OFF A CHAIR, onto a carpeted surface. SEPSIS SCREEN: Sepsis Screen: negative. Negative (no infection suspected/documented). EMMA COMA SCORE: Emma Coma Scale: 14- eyes open spontaneously (4); best verbal response- disoriented (4); best motor response- obeys commands (6). --01:41 Chela Ramirez 01:37 11/16/16. BP: 171/53. HR: 65. RR: 20. O2 saturation: 100% on room air. Temp: 97.7 F (oral). Pain level now: 11/08. --01:41 Chela Ramirez. Weight: 66.2 kg stated. Height/Length: 67 inches Per Patient. BMI: 22.9. --01:38 Chela Ramirez. Medications Acetaminophen Oral. Allopurinol Oral. Aspirin. Methocarbamol. Motrin. --01:38 Chela Ramirez Clopidogrel Bisulfate Oral. --01:44 Chela Ramirez Escitalopram Oxalate Oral. --01:44 Chela Ramirez. Medication/allergy information source: the patient. --01:41 Chela Ramirez. Allergies Gemfibrozil. Penicillin. --01:38 Chela Ramirez. History Arrived by EMS. Historian: patient. Unaccompanied. Location of injuries: neck and back. This occurred just prior to arrival. Occurred at long-term. ( Patient was found on the floor next to his chair by staff at long-term. Patient unsure of how the fall happened but reports back and neck pain.). Trauma activation: Pre-hospital notification of patient arrival was received. PAST MEDICAL HX: Immunizations: up-to-date. SOCIAL HX: Smoker- current status unknown. No alcohol use or drug use. ABUSE ASSESSMENT: No report of abuse. NUTRITIONAL RISK ASSESSMENT: The nutritional risk assessment revealed no deficiencies. FUNCTIONAL ASSESSMENT: Functional assessment: no impairments noted. LEARNING NEEDS ASSESSMENT: The learning needs assessment revealed no barriers. FALL RISK ASSESSMENT: Fall risk assessment completed. Risk factors identified include patient medications, age greater than 65 years, history of fall and impairment of mobility. Fall interventions initiated. Patient placed on stretcher. Side rails up x1. Brakes on Bed in low position. Patient visible from nurses' station. Call light in reach of patient. Instructed not to get up without assistance. SKIN INTEGRITY ASSESSMENT: Skin integrity risk assessment completed. No skin integrity risk identified. --01:41 Chela Ramirez. PROBLEMS: Adjustment Disorder. Suicidal Ideation. Hypovolemia. Hypotension. Renal Insufficiency. Anemia. Dyspnea. Abnormal EKG. Chest Pain. Dementia. Hyperthyroidism. Cervical Strain. Head Injury. Neck Pain. Contusion. Fall. PTSD. Pancreatitis. Upper Extremity Pain. Arthritis. Gout. Hypertension. --01:39 Chela Ramirez Hydrocephalus [RuleOut]. --01:39 Chela Ramirez. ADDITIONAL SURGERIES: Appendectomy. Cholecystectomy. Colonoscopy. Dental Surgery. Tonsillectomy. Umbilical Hernia Repair. --01:39 Chela Ramirez. Interventions ID band on patient. To treatment room. --01:41 Chela Ramirez. PHYSICAL ASSESSMENT GENERAL / NEURO / PSYCH: Alert. Oriented X 4. Appears in no acute distress. HEENT: Pupils equal, round and reactive to light. Head non-tender. Neck: tenderness. RESPIRATORY: Respirations not labored. CVS: Normal heart rate and rhythm. GI / : Abdomen soft and nontender. SKIN: Skin is warm and dry. BACK: Back: tenderness. --01:41 Chela Ramirez. NURSING PROGRESS NOTES Patient gowned. Reassurance given to the patient. Two patient identifiers checked. Call light placed in reach. Side rails up x 1. Bed placed in lowest position. Brakes of bed on. Patient ready for evaluation- chart flagged and ED physician notified. --01:42 Chela Ramirez 01:55 11/16/2016 Site #1 started via IV in the left wrist with an 20g angiocath, with aseptic technique and good blood return; one attempt. Blood drawn: rainbow set. Labeled in the presence of the patient and sent to the lab. Saline lock flushed with 10 mL saline. --02:00 Chela Ramirez Patient transported to CT by stretcher with tech. (02:Nov 16 2016). --02:01 Chela Ramirez Patient returned from CT by stretcher with tech. (02:Nov 16 2016). --02:11 Chela Ramirez 02:11 11/16/2016 Started bag #1 1000 mL IV Fluids IV NS (Saline); at 1000 mL/hr over 15 minute(s) via site #1 via IV pump. Allergies verified and confirmed 5 rights. IV patency established. IV site checked: no pain, redness, or swelling. IV flushed thoroughly pre- and post-medication administration. --02:11 Chela Ramirez 02:28 11/16/16. BP: 152/66. HR: 93. RR: 20. O2 saturation: 94% on room air. --02:29 James Chela ( Patient bedding and depends changed. Tayla care performed.). --02:29 Chela Ramirez Patient ID band checked for patient name and birthdate: patient confirmed. Instructions provided to collect clean catch urine and patient verbalized understanding. Clean catch urine collected with return of yellow-colored clear urine; sample sent to lab for urinalysis. Specimen labeled in the presence of the patient. --02:29 Chela Ramirez 02:57 11/16/16. BP: 160/66. HR: 80. RR: 20. O2 saturation: 98% on room air. --02:59 Chela Ramirez The patient is sleeping. --02:59 Chela Ramirez 03:46 11/16/2016 IV Fluids IV NS Discontinued: bag #1 discontinued upon discharge. Total amount infused: 500 mL. IV patency established. IV site checked: no pain, redness, or swelling. IV flushed thoroughly. --03:51 Chela Ramirez. DISPOSITION / DISCHARGE Condition at departure: stable. The goals identified in the patient's plan of care were met. No learning barriers present. Discharge instructions provided and reviewed with the patient. Reviewed need for increased fluid intake. Verbalized understanding. Written instructions provided in [place]. Verbalized understanding (Transport team). ( Follow up with your PCP in three days. Take anti-inflammatories as needed and ice the affected areas for twenty minutes at a time. Discussed prevention of falls.). The patient was discharged by the physician. He was discharged home. He left the Emergency Department via ambulance and on a stretcher. Driving (ambulance). Transported via ambulance by transport team. Patient's personal items; items were transported with the patient. --03:51 Chela Ramirez 03:46 11/16/16. BP: 160/45. HR: 80. RR: 20. O2 saturation: 98% on room air. Temp: 98.8 F (oral). Pain level now: 01/08. --03:51 Chela Ramirez 03:46 11/16/2016 Site #1 removed upon discharge. Catheter intact. Bandaid applied. --03:51 Chela Ramirez. Locked/Released at 11/17/2016 6:45 by Chela Ramirez,
--- NOTE | 2016-11-16 03:02 | ED CLINICAL REPORT ---
Clinical Report - Physicians/Mid Levels [facility] [address] [place] [address] 11/16/2016 1:34 Patient: ISIDRA FIELD Time Seen: 01:36. Arrived- By ambulance. Historian- patient and EMS personnel. HISTORY OF PRESENT ILLNESS Location of injuries- neck. Chief Complaint: FALL. The injury occurred just prior to arrival. Fell (Pt states, "I must have fallen", but he cannot remember the fall. Pt was found next to his chair at the assisted living area of [facility]). Occurred at home. The patient complains of moderate pain. No blow to the head or seizure. The patient complains of neck pain. The patient had loss of consciousness. (he cannot remember if he had a LOC). REVIEW OF SYSTEMS No numbness, dizziness, loss of vision, hearing loss or chest pain. No difficulty breathing, weakness, headache, nausea or abdominal pain. No laceration, fever, vomiting or urinary problems. The patient has no pain on weight bearing. PAST HISTORY See nurses notes. Problems: Anemia. Dyspnea. Abnormal EKG. Chest Pain. Hyperthyroidism. Cervical Strain. Head Injury. Neck Pain. Contusion. PTSD. Pancreatitis. Upper Extremity Pain. Arthritis. Gout. Hypertension. Dementia Surgeries: Appendectomy. Cholecystectomy. Colonoscopy. Dental Surgery. Tonsillectomy. Umbilical Hernia Repair. Medications: Escitalopram Oxalate Oral. Clopidogrel Bisulfate Oral. Acetaminophen Oral. Allopurinol Oral. Aspirin. Methocarbamol. Motrin. Allergies: Gemfibrozil. Penicillin. SOCIAL HISTORY Never smoker. No alcohol use or drug use. Residence: [facility] Resides in a long term. ADDITIONAL NOTES The nursing notes have been reviewed. PHYSICAL EXAM Vital Signs: 11/16/2016 01:37 BP: 171/53. HR: 65. RR: 20. O2 saturation: 100%. Temp: 97.7 F. Pain level now: 6/10. Appearance: Alert. Patient in mild distress. Head: Head non-tender. No swelling of head. No Coker's sign or raccoon eyes. Eyes: Pupils equal, round and reactive to light. EOM intact. ENT: No dental injury. No hemotympanum. Pharynx normal. Neck: (There is general midline and lateral tenderness with palpation; no step off; no crepitance; no ecchymosis). CVS: Heart sounds normal. Pulses normal. Respiratory: Breath sounds normal. Chest nontender. Abdomen: No visible injury. Soft and nontender. Back: No tenderness. ROM normal. No vertebral point tenderness. Skin: Skin intact. Skin warm and dry. Normal skin color. Normal skin turgor. Extremities: Normal inspection. Pelvis stable. Extremities atraumatic. Neuro: Emma Coma Scale: 14- eyes open spontaneously (4); best verbal response- disoriented (4); best motor response- obeys commands (6). No motor deficit. No sensory deficit. LABS, X-RAYS, AND EKG CT C-Spine: No acute findings. Degenerative joint disease. No fracture. The study was independently viewed by me and interpreted by the radiologist. The study was discussed with the radiologist (via [facility] report). CT Head: (1) Moderate involutional changes. Moderate patchy low density bilaterally in the deep white matter likely due to chronic ischemic samll vesel disease. Prominent ventricles. Possible NPH. No acute intracranial abnormality.). Head CT performed without contrast. The study was independently viewed by me and interpreted by the radiologist. The study was discussed with the radiologist (via [facility] report). Laboratory Tests: UA-Culture if indicated: (LINDSAY: 11/16/2016 02:25) ( MsgRcvd 11/16/2016 02:44) Final results Test Result Flag Units (Reference) URINE COLOR YELLOW URINE APPEARANCE CLEAR URINE GLUCOSE NEGATIVE (NEGATIVE) URINE BILIRUBIN NEGATIVE (NEGATIVE) URINE KETONE NEGATIVE (NEGATIVE) URINE SPECIFIC GRAVITY 1.010 (1.010-1.030) URINE PH 7.0 (5.0-8.0) URINE PROTEIN NEGATIVE (NEGATIVE) URINE UROBILINOGEN 0.2 EU/dL (0.2-1.0) URINE NITRITE NEGATIVE (NEGATIVE) URINE BLOOD NEGATIVE (NEGATIVE) URINE LEUK ESTERASE NEGATIVE (NEGATIVE) URINE RBC RARE rbc/hpf (0-1) URINE WBC RARE wbc/hpf (0-1) URINE EPITHELIAL CELLS NONE SEEN EPI/hpf (0-5) URINE BACTERIA NONE SEEN (NONE SEEN) URINE COMMENT CULT NOT INDICATED URINE CULTURES ARE SET-UP BASED ON THE FOLLOWING CRITERIA:POSITIVE NITRITEPOSITIVE LEUKOCYTE ESTERASEGREATER THAN 10 WHITE BLOOD CELLSMODERATE (2+) OR GREATER BACTERIA CBC w Diff: (LINDSAY: 11/16/2016 02:00) ( [facility] 11/16/2016 02:43) Final results Test Result Flag Units (Reference) WHITE BLOOD COUNT 7.1 K/uL (4.5-11.5) RED BLOOD COUNT 4.06 L M/uL (4.50-5.90) HEMOGLOBIN 10.5 L gm/dL (13.5-17.5) HEMATOCRIT 32.1 L % (41.0-53.0) MEAN CELL VOLUME 79 L fL (80-100) MEAN CORPUSCULAR HGB 26 pg (26-34) MEAN CORPUSCULAR HGB CONC 33 g/dL (31-37) RED CELL DISTRIBUTION WIDTH 16.9 H % (11.6-14.8) PLATELET COUNT 300 K/uL (150-400) POLY % 71 % (50-75) BAND % 3 % (0-8) LYMPH 21 L % (25-40) MONO 4 % (3-14) EOSINOPHIL % 1 % (0-4) BASOPHIL % 0 % (0-2) METAMYELOCYTE % 0 % (0-1) MYELOCYTE 0 % (0-1) OTHER CELL TYPE 0 Urine Drug Screen: (LINDSAY: 11/16/2016 02:25) ( [facility] 11/16/2016 02:52) Final results Test Result Flag Units (Reference) AMPHETAMINE/METHAMPHETAMINE NEGATIVE (NEGATIVE) BARBITURATE NEGATIVE (NEGATIVE) BENZODIAZEPINE NEGATIVE (NEGATIVE) CANNABINOID NEGATIVE (NEGATIVE) COCAINE NEGATIVE (NEGATIVE) ECSTASY NEGATIVE (NEGATIVE) METHADONE NEGATIVE (NEGATIVE) OPIATE NEGATIVE (NEGATIVE) The urine drug screen is a qualitative screening test fordrug overdose and abuse. All screen results should beconsidered as presumptive.Drugs screened for are as follows:BenzodiazepinesCocaineAmphetamines/MetamphetaminesTHC (Tetrahydrocannabinol)OpiatesBarbituratesEcstasyMethadonePositive results are unconfirmed. For confirmation, notifythe lab for the specimen to be sent to the reference lab.All confirmations must be performed by a differentmethodology.The ingestion of natural herbal and plant productscontaining Ephedra/Ephedra metabolites can produce in urineone or more substances capable of cross reacting withamphetamine/methamphetamine immunoassays. These testsprovide a preliminary result only. A more specificalternative chemical method must be used to obtain aconfirmed analytical result. Magnesium: (LINDSAY: 11/16/2016 02:00) ( MsgRcvd 11/16/2016 02:30) Final results Test Result Flag Units (Reference) GLUCOSE 93 mg/dL (70-110) BUN 45 H mg/dL (7-18) CREATININE 1.7 H mg/dL (0.6-1.3) Estimated GFR 41.01 mL/min Estimated GFR- 49.71 mL/min Note: Persistent reduction over 3 months in eGFR<60 mL/min/1.73 m2 defines CKD. Patients with eGFR values>=60 mL/min/1.73 m2 may also have CKD if evidence ofpersistent proteinuria. Additional information may be foundat www.kidney.org. SODIUM 137 mmol/L (136-145) POTASSIUM 4.4 mmol/L (3.5-5.1) CHLORIDE 101 mmol/L (98-107) CARBON DIOXIDE 27 mmol/L (21-32) CALCIUM 8.9 mg/dL (8.5-10.1) TOTAL PROTEIN 7.1 g/dL (6.4-8.2) ALBUMIN 3.5 g/dL (3.3-5.0) BILIRUBIN, TOTAL 0.6 mg/dL (0.0-1.0) ALKALINE PHOSPHATASE 109 U/L (46-116) AST (SGOT) 15 U/L (15-37) ALT (SGPT) 21 U/L (12-78) MAGNESIUM 2.0 mg/dL (1.8-2.4) CPK 33 U/L (24-260) TROPONIN I <0.05 ng/mL (0.00-1.5) TROPONIN REFERENCE RANGE:<0.1 NEGATIVE0.1-1.5 INDETERMINANT>1.5 POSITIVE . (HCT 33.5 on 09/19). Pulse Oximetry: 11/16/2016 01:37 O2 saturation: 100%. (FIO2 - room air). Interpretation: normal. PROGRESS AND PROCEDURES Course of Care: Pt with possible head injury taking Plavix - will obtain CT. Many prior visits for falls and SI / behavior problems. Resides at [facility] now. Uncertain how he came to be laying on the floor when found. No POLST available from EMS, but form from [facility] states, "DNR". Patient/family counseled. Old medical records ordered. (BILL with 15 visits to area ED's in past 12 months - at [facility] twice this month so far for SI and altered mental status). Disposition: Discharged to long term. Condition: stable and improved. CLINICAL IMPRESSION Chronic Alzheimer's disease with behavioral disturbance. Minor closed head injury. Unknown whether a loss of consciousness occurred. Mild dehydration Acute cervical strain. Moderate chronic anemia associated with chronic disease. Fall from chair. Large brain ventricles, consider Normal Pressure Hydrocephalus. INSTRUCTIONS Apply ice. Warnings: GENERAL WARNINGS: Return or contact your physician immediately if your condition worsens or changes unexpectedly, if not improving as expected, or if other problems arise. Your Current Medications: CONTINUE TAKING THE FOLLOWING MEDICATIONS: Acetaminophen Oral. Allopurinol Oral. Aspirin*. Clopidogrel Bisulfate Oral. Escitalopram Oxalate Oral. Methocarbamol*. Motrin*. Follow-up: Follow up with your doctor in about three days. (Electronically signed by Kenton Alfred DO 11/16/2016 6:08)
--- NOTE | 2016-11-16 03:02 | ED ORDER SUMMARY ---
..... Patient: ISIDRA FIELD OrderSheet [facility] VisitID: [id number] [place] [address] 86y, M Registration Date/Time: 11/16/2016 ORDER SHEET Weight: 66.2 kg (stated) Allergies: Gemfibrozil, Penicillin GENERAL ORDERS: CT Cervical Spine wo Cont Urgent (:11/16/2016 [facility]) (Ack 1:47 RKaruga) (2:33 CBradburn R.N.) CT Head wo Cont [facility] (Ack 1:47 RKaruga) (2:33 CBradburn R.N.) Cardiac Panel Stat ([facility] (Ack 1:47 RKaruga) (2:33 CBradburn R.N.) Urine Drug Screen Urgent (:[facility]16[facility] (Ack 1:47 RKaruga) (2:33 CBradburn R.N.) UA-Culture if indicated Urgent (:[facility]16[facility] (Ack 1:47 RKaruga) (2:33 CBradburn R.N.) MEDICATION ORDERS: IV FLUIDS: IV NS : initial bolus 250 mL (1000 mL/hr), then 250 mL/hr for X3 (NOW) (:11/16/2016 [facility]) (Ack 1:45 HSoule) (2:11 HSoule) ORDER SHEET NOTES: [Electronically signed by Kenton Alfred DO (06:08 11/16/2016)] [Electronically signed by Chela Ramirez (06:45 11/17/2016)] [Electronically locked/signed by Chela Ramirez (:45 11/17/2016)]
--- NOTE | 2016-11-16 03:02 | ED CLINICAL REPORT ---
Clinical Report - Physicians/Mid Levels [facility] [address] [place] [address] 11/16/2016 1:34 Patient: ISIDRA FIELD Time Seen: 01:36. Arrived- By ambulance. Historian- patient and EMS personnel. HISTORY OF PRESENT ILLNESS Location of injuries- neck. Chief Complaint: FALL. The injury occurred just prior to arrival. Fell (Pt states, "I must have fallen", but he cannot remember the fall. Pt was found next to his chair at the assisted living area of [facility]). Occurred at home. The patient complains of moderate pain. No blow to the head or seizure. The patient complains of neck pain. The patient had loss of consciousness. (he cannot remember if he had a LOC). REVIEW OF SYSTEMS No numbness, dizziness, loss of vision, hearing loss or chest pain. No difficulty breathing, weakness, headache, nausea or abdominal pain. No laceration, fever, vomiting or urinary problems. The patient has no pain on weight bearing. PAST HISTORY See nurses notes. Problems: Anemia. Dyspnea. Abnormal EKG. Chest Pain. Hyperthyroidism. Cervical Strain. Head Injury. Neck Pain. Contusion. PTSD. Pancreatitis. Upper Extremity Pain. Arthritis. Gout. Hypertension. Dementia Surgeries: Appendectomy. Cholecystectomy. Colonoscopy. Dental Surgery. Tonsillectomy. Umbilical Hernia Repair. Medications: Escitalopram Oxalate Oral. Clopidogrel Bisulfate Oral. Acetaminophen Oral. Allopurinol Oral. Aspirin. Methocarbamol. Motrin. Allergies: Gemfibrozil. Penicillin. SOCIAL HISTORY Never smoker. No alcohol use or drug use. Residence: [facility] Resides in a care home. ADDITIONAL NOTES The nursing notes have been reviewed. PHYSICAL EXAM Vital Signs: 11/16/2016 01:37 BP: 171/53. HR: 65. RR: 20. O2 saturation: 100%. Temp: 97.7 F. Pain level now: 6/10. Appearance: Alert. Patient in mild distress. Head: Head non-tender. No swelling of head. No Coker's sign or raccoon eyes. Eyes: Pupils equal, round and reactive to light. EOM intact. ENT: No dental injury. No hemotympanum. Pharynx normal. Neck: (There is general midline and lateral tenderness with palpation; no step off; no crepitance; no ecchymosis). CVS: Heart sounds normal. Pulses normal. Respiratory: Breath sounds normal. Chest nontender. Abdomen: No visible injury. Soft and nontender. Back: No tenderness. ROM normal. No vertebral point tenderness. Skin: Skin intact. Skin warm and dry. Normal skin color. Normal skin turgor. Extremities: Normal inspection. Pelvis stable. Extremities atraumatic. Neuro: Emma Coma Scale: 14- eyes open spontaneously (4); best verbal response- disoriented (4); best motor response- obeys commands (6). No motor deficit. No sensory deficit. LABS, X-RAYS, AND EKG CT C-Spine: No acute findings. Degenerative joint disease. No fracture. The study was independently viewed by me and interpreted by the radiologist. The study was discussed with the radiologist (via [facility] report). CT Head: (1) Moderate involutional changes. Moderate patchy low density bilaterally in the deep white matter likely due to chronic ischemic samll vesel disease. Prominent ventricles. Possible NPH. No acute intracranial abnormality.). Head CT performed without contrast. The study was independently viewed by me and interpreted by the radiologist. The study was discussed with the radiologist (via [facility] report). Laboratory Tests: UA-Culture if indicated: (LINDSAY: 11/16/2016 02:25) ( MsgRcvd 11/16/2016 02:44) Final results Test Result Flag Units (Reference) URINE COLOR YELLOW URINE APPEARANCE CLEAR URINE GLUCOSE NEGATIVE (NEGATIVE) URINE BILIRUBIN NEGATIVE (NEGATIVE) URINE KETONE NEGATIVE (NEGATIVE) URINE SPECIFIC GRAVITY 1.010 (1.010-1.030) URINE PH 7.0 (5.0-8.0) URINE PROTEIN NEGATIVE (NEGATIVE) URINE UROBILINOGEN 0.2 EU/dL (0.2-1.0) URINE NITRITE NEGATIVE (NEGATIVE) URINE BLOOD NEGATIVE (NEGATIVE) URINE LEUK ESTERASE NEGATIVE (NEGATIVE) URINE RBC RARE rbc/hpf (0-1) URINE WBC RARE wbc/hpf (0-1) URINE EPITHELIAL CELLS NONE SEEN EPI/hpf (0-5) URINE BACTERIA NONE SEEN (NONE SEEN) URINE COMMENT CULT NOT INDICATED URINE CULTURES ARE SET-UP BASED ON THE FOLLOWING CRITERIA:POSITIVE NITRITEPOSITIVE LEUKOCYTE ESTERASEGREATER THAN 10 WHITE BLOOD CELLSMODERATE (2+) OR GREATER BACTERIA CBC w Diff: (LINDSAY: 11/16/2016 02:00) ( [facility] 11/16/2016 02:43) Final results Test Result Flag Units (Reference) WHITE BLOOD COUNT 7.1 K/uL (4.5-11.5) RED BLOOD COUNT 4.06 L M/uL (4.50-5.90) HEMOGLOBIN 10.5 L gm/dL (13.5-17.5) HEMATOCRIT 32.1 L % (41.0-53.0) MEAN CELL VOLUME 79 L fL (80-100) MEAN CORPUSCULAR HGB 26 pg (26-34) MEAN CORPUSCULAR HGB CONC 33 g/dL (31-37) RED CELL DISTRIBUTION WIDTH 16.9 H % (11.6-14.8) PLATELET COUNT 300 K/uL (150-400) POLY % 71 % (50-75) BAND % 3 % (0-8) LYMPH 21 L % (25-40) MONO 4 % (3-14) EOSINOPHIL % 1 % (0-4) BASOPHIL % 0 % (0-2) METAMYELOCYTE % 0 % (0-1) MYELOCYTE 0 % (0-1) OTHER CELL TYPE 0 Urine Drug Screen: (LINDSAY: 11/16/2016 02:25) ( [facility] 11/16/2016 02:52) Final results Test Result Flag Units (Reference) AMPHETAMINE/METHAMPHETAMINE NEGATIVE (NEGATIVE) BARBITURATE NEGATIVE (NEGATIVE) BENZODIAZEPINE NEGATIVE (NEGATIVE) CANNABINOID NEGATIVE (NEGATIVE) COCAINE NEGATIVE (NEGATIVE) ECSTASY NEGATIVE (NEGATIVE) METHADONE NEGATIVE (NEGATIVE) OPIATE NEGATIVE (NEGATIVE) The urine drug screen is a qualitative screening test fordrug overdose and abuse. All screen results should beconsidered as presumptive.Drugs screened for are as follows:BenzodiazepinesCocaineAmphetamines/MetamphetaminesTHC (Tetrahydrocannabinol)OpiatesBarbituratesEcstasyMethadonePositive results are unconfirmed. For confirmation, notifythe lab for the specimen to be sent to the reference lab.All confirmations must be performed by a differentmethodology.The ingestion of natural herbal and plant productscontaining Ephedra/Ephedra metabolites can produce in urineone or more substances capable of cross reacting withamphetamine/methamphetamine immunoassays. These testsprovide a preliminary result only. A more specificalternative chemical method must be used to obtain aconfirmed analytical result. Magnesium: (LINDSAY: 11/16/2016 02:00) ( MsgRcvd 11/16/2016 02:30) Final results Test Result Flag Units (Reference) GLUCOSE 93 mg/dL (70-110) BUN 45 H mg/dL (7-18) CREATININE 1.7 H mg/dL (0.6-1.3) Estimated GFR 41.01 mL/min Estimated GFR- 49.71 mL/min Note: Persistent reduction over 3 months in eGFR<60 mL/min/1.73 m2 defines CKD. Patients with eGFR values>=60 mL/min/1.73 m2 may also have CKD if evidence ofpersistent proteinuria. Additional information may be foundat www.kidney.org. SODIUM 137 mmol/L (136-145) POTASSIUM 4.4 mmol/L (3.5-5.1) CHLORIDE 101 mmol/L (98-107) CARBON DIOXIDE 27 mmol/L (21-32) CALCIUM 8.9 mg/dL (8.5-10.1) TOTAL PROTEIN 7.1 g/dL (6.4-8.2) ALBUMIN 3.5 g/dL (3.3-5.0) BILIRUBIN, TOTAL 0.6 mg/dL (0.0-1.0) ALKALINE PHOSPHATASE 109 U/L (46-116) AST (SGOT) 15 U/L (15-37) ALT (SGPT) 21 U/L (12-78) MAGNESIUM 2.0 mg/dL (1.8-2.4) CPK 33 U/L (24-260) TROPONIN I <0.05 ng/mL (0.00-1.5) TROPONIN REFERENCE RANGE:<0.1 NEGATIVE0.1-1.5 INDETERMINANT>1.5 POSITIVE . (HCT 33.5 on 09/19). Pulse Oximetry: 11/16/2016 01:37 O2 saturation: 100%. (FIO2 - room air). Interpretation: normal. PROGRESS AND PROCEDURES Course of Care: Pt with possible head injury taking Plavix - will obtain CT. Many prior visits for falls and SI / behavior problems. Resides at [facility] now. Uncertain how he came to be laying on the floor when found. No POLST available from EMS, but form from [facility] states, "DNR". Patient/family counseled. Old medical records ordered. (BILL with 15 visits to area ED's in past 12 months - at [facility] twice this month so far for SI and altered mental status). Disposition: Discharged to care home. Condition: stable and improved. CLINICAL IMPRESSION Chronic Alzheimer's disease with behavioral disturbance. Minor closed head injury. Unknown whether a loss of consciousness occurred. Mild dehydration Acute cervical strain. Moderate chronic anemia associated with chronic disease. Fall from chair. Large brain ventricles, consider Normal Pressure Hydrocephalus. INSTRUCTIONS Apply ice. Warnings: GENERAL WARNINGS: Return or contact your physician immediately if your condition worsens or changes unexpectedly, if not improving as expected, or if other problems arise. Your Current Medications: CONTINUE TAKING THE FOLLOWING MEDICATIONS: Acetaminophen Oral. Allopurinol Oral. Aspirin*. Clopidogrel Bisulfate Oral. Escitalopram Oxalate Oral. Methocarbamol*. Motrin*. Follow-up: Follow up with your doctor in about three days. (Electronically signed by Kenton Alfred DO 11/16/2016 6:08)
--- NOTE | 2016-11-16 06:32 | DIAGNOSTIC IMAGING REPORT ---
PROCEDURE: CT CERVICAL SPINE W/O CONTRAST INDICATION: TRAUMA/INJURY TECHNIQUE: Noncontrast axial images with sagittal and coronal reformations. Preliminary report provided by Seun Goodman MD ([facility]). COMPARISON: Compared to CT cervical spine on 08/18/2016. FINDINGS: There are moderate to marked multilevel degenerative changes of the cervical spine primarily affecting the facet joints (slightly more pronounced on the right). Associated anterior vertebral body osteophytes. No evidence of an acute process or fracture. Alignment is normal. IMPRESSION: 1. Moderate to marked degenerative changes of the cervical spine. 2. No evidence of an acute process or fracture. All CT scans at this facility use dose modulation, iterative reconstruction, and/or weight-based dosing when appropriate to reduce radiation dose to as low as reasonably achievable.
--- NOTE | 2016-11-16 06:32 | DIAGNOSTIC IMAGING REPORT ---
PROCEDURE: CT HEAD WITHOUT CONTRAST INDICATION: TRAUMA/INJURY TECHNIQUE: Noncontrast axial images with sagittal and coronal reformations. Preliminary report provided by Seun Goodman MD ([facility]). COMPARISON: Compared to a head CT on 09/16/2016. FINDINGS: Moderate atrophic changes with mild chronic ventriculomegaly. Brain and ventricles are otherwise normal. No evidence of an acute process or hemorrhage. Right orbital globe scleral buckle with vitreous silicone bubble. Sinuses and mastoids are normal. IMPRESSION: 1. Moderate atrophic changes with mild chronic ventriculomegaly. While there has been no change, one might consider the possibility of normal-pressure hydrocephalus. 2. Findings discussed with Dr. Alfred at [address] scans at this facility use dose modulation, iterative reconstruction, and/or weight-based dosing when appropriate to reduce radiation dose to as low as reasonably achievable.
--- NOTE | 2016-11-16 06:32 | DIAGNOSTIC IMAGING REPORT ---
PROCEDURE: CT HEAD WITHOUT CONTRAST INDICATION: TRAUMA/INJURY TECHNIQUE: Noncontrast axial images with sagittal and coronal reformations. Preliminary report provided by Seun Goodman MD ([facility]). COMPARISON: Compared to a head CT on 09/16/2016. FINDINGS: Moderate atrophic changes with mild chronic ventriculomegaly. Brain and ventricles are otherwise normal. No evidence of an acute process or hemorrhage. Right orbital globe scleral buckle with vitreous silicone bubble. Sinuses and mastoids are normal. IMPRESSION: 1. Moderate atrophic changes with mild chronic ventriculomegaly. While there has been no change, one might consider the possibility of normal-pressure hydrocephalus. 2. Findings discussed with Dr. Alfred at [address] scans at this facility use dose modulation, iterative reconstruction, and/or weight-based dosing when appropriate to reduce radiation dose to as low as reasonably achievable.
--- NOTE | 2016-11-16 06:32 | DIAGNOSTIC IMAGING REPORT ---
PROCEDURE: CT CERVICAL SPINE W/O CONTRAST INDICATION: TRAUMA/INJURY TECHNIQUE: Noncontrast axial images with sagittal and coronal reformations. Preliminary report provided by Seun Goodman MD ([facility]). COMPARISON: Compared to CT cervical spine on 08/18/2016. FINDINGS: There are moderate to marked multilevel degenerative changes of the cervical spine primarily affecting the facet joints (slightly more pronounced on the right). Associated anterior vertebral body osteophytes. No evidence of an acute process or fracture. Alignment is normal. IMPRESSION: 1. Moderate to marked degenerative changes of the cervical spine. 2. No evidence of an acute process or fracture. All CT scans at this facility use dose modulation, iterative reconstruction, and/or weight-based dosing when appropriate to reduce radiation dose to as low as reasonably achievable.
--- NOTE | 2016-11-17 06:46 | ED MAR SUMMARY ---
..... Medication Administration Record [facility] [address] [place] [address] Patient: ISIDRA FIELD Visit ID: [id number] 86y, M Weight: 66.2 kg Height/Length: 67 in BMI: 22.9 ALLERGIES: Gemfibrozil, Penicillin Start 02:11 11/16/2016 Chela Ramirez,, Stop 03:46 11/16/2016 Chela Ramirez, Medication Administered: IV NS (SALINE), Dose: IV Fluids over 15 minute(s), Rate: 1000 mL/hr, Dispensed: 1000 mL bag, Site: #1 left wrist. Medication Ordered: IV NS : initial bolus 250 mL (1000 mL/hr), then 250 mL/hr for X3 (NOW).
--- NOTE | 2016-11-17 06:46 | ED MAR SUMMARY ---
..... Medication Administration Record [facility] [address] [place] [address] Patient: ISIDRA FIELD Visit ID: [id number] 86y, M Weight: 66.2 kg Height/Length: 67 in BMI: 22.9 ALLERGIES: Gemfibrozil, Penicillin Start 02:11 11/16/2016 Chela Ramirez,, Stop 03:46 11/16/2016 Chela Ramirez, Medication Administered: IV NS (SALINE), Dose: IV Fluids over 15 minute(s), Rate: 1000 mL/hr, Dispensed: 1000 mL bag, Site: #1 left wrist. Medication Ordered: IV NS : initial bolus 250 mL (1000 mL/hr), then 250 mL/hr for X3 (NOW).
--- NOTE | 2016-11-17 06:46 | ED DISCHARGE INSTRUCTIONS ---
Patient: ISIDRA FIELD General Instructions [facility] VisitID: [id number] [place] [address] 86y, M Registration Date/Time: 11/16/2016 Chronic Alzheimer's disease with behavioral disturbance. Minor closed head injury. Unknown whether a loss of consciousness occurred. Mild dehydration Acute cervical strain. Moderate chronic anemia associated with chronic disease. Fall from chair. Large brain ventricles, consider Normal Pressure Hydrocephalus. INSTRUCTIONS Apply ice. Warnings: GENERAL WARNINGS: Return or contact your physician immediately if your condition worsens or changes unexpectedly, if not improving as expected, or if other problems arise. Your Current Medications: CONTINUE TAKING THE FOLLOWING MEDICATIONS: Acetaminophen Oral. Allopurinol Oral. Aspirin*. Clopidogrel Bisulfate Oral. Escitalopram Oxalate Oral. Methocarbamol*. Motrin*. Follow-up: Follow up with your doctor in about three days. ADDITIONAL INFORMATION Fall, Uncertain Cause You have had a fall today. but the cause of your fall is not certain. Falls can occur due to slipping, tripping or losing your balance. A fall can also occur from a fainting spell or seizure. Because the cause of your fall today is not certain, it is possible that a fainting spell or seizure was the cause. This means that it could happen again, without warning. If you fall again, without a cause, then you should return to this facility promptly to have further tests. Otherwise, follow up with your doctor as explained below. Home Care: 1) Rest today and resume your normal activities as soon as you are feeling back to normal. It is best to remain with someone who can check on you for the next 24 hours to watch for another episode of falling. 2) If you were injured during the fall, follow the advice from your doctor regarding care of your injury. 3) If you become light-headed or dizzy, lie down immediately or sit and lean forward with your head down. 4) As a precaution, do not drive a car or operate dangerous equipment, do not take a bath alone (use a shower instead) and do not swim alone until you see your doctor. A condition causing fainting or seizures must be ruled out before resuming these activities. 5)You may use acetaminophen (Tylenol) or ibuprofen (Motrin, Advil) to control pain, unless another pain medicine was prescribed. [ NOTE : If you have chronic liver or kidney disease or ever had a stomach ulcer or GI bleeding, talk with your doctor before using these medicines.] 6) Keep your appointments for any further testing that may have been scheduled for you. Follow Up: Unless, given other advice, call your doctor on the next office day to advise of your fall and to schedule an appointment. Get Prompt Medical Attention if any of the following occur: -- Another unexplained fall -- Dizziness, fainting or seizure -- Severe headache -- Chest pain or shortness of breath -- Palpitations (very rapid or very slow or irregular heart beat) -- Blood in vomit, stools (black or red color) -- Weakness of an arm or leg or one side of the face -- Difficulty with speech or vision Neck Pain [No Trauma] There are several possible causes of neck pain without injury: You can get a minor ligament sprain or muscle strain from a sudden minor neck movement. Sleeping with your neck in an awkward position can also cause this. Some persons respond to emotional stress by tensing the muscles of their neck, shoulders and upper back. Chronic spasm in these muscles can cause neck pain and sometimes headaches. Gradualwear and tearof the joints in the spine can cause degenerative arthritis.This can be a source of occasional or chronic neck pain. With aging or repeated small injuries to the neck, the spinal disks (the cushions between each spinal bone) may bulge and put pressure on a nearby spinal nerve. This causes tingling, pain or numbness spreading from the neck to the shoulder, arm or hand on one side. Acute neck pain usually gets better in one to two weeks. Neck pain related to disk disease, arthritis in the spinal joints or spinal stenosis (narrowing of the spinal canal) can become chronic and last for months or years. Unless you had a forceful physical injury (for example, a car accident or fall), X-rays are usually not ordered for the initial evaluation of neck pain. If pain continues and does not respond to medical treatment, x-rays and other tests may be performed at a later time. Home Care: Rest and relax the muscles. Use a comfortable pillow that supports the head and keeps the spine in a neutral position. The position of the head should not be tilted forward or backward. A rolled up towel may help for a custom fit. Some persons find relief with heat (hot shower, hot bath or heating pad) and massage, while others prefer cold packs (crushed or cubed ice in a plastic bag, wrapped in a towel) . Try both and use the method that feels best for 20 minutes several times a day. You may use acetaminophen (Tylenol) or ibuprofen (Motrin, Advil) to control pain, unless another medicine was prescribed. [ NOTE : If you have chronic liver or kidney disease or ever had a stomach ulcer or GI bleeding, talk with your doctor before using these medicines.] Follow Up with your physician or this facility if your symptoms do not show signs of improvement after one week. Physical therapy or further tests may be needed. [NOTE: A radiologist will review any X-rays or CT scans that were taken. We will notify you of any new findings that may affect your care.] Get Prompt Medical Attention if any of the following occur: Pain becomes worse or spreads into one or both arms Weakness or numbness in one or both arms Increasing headache Neck swelling, difficulty or painful swallowing Fever of 100.4F (38C) or higher, or as directed by your healthcare provider Head Injury, No Wake-Up (Adult) You have had a head injury. It does not appear serious at this time. Symptoms of a more serious problem (concussion, bruising, or bleeding in the brain) may appear later. Therefore, watch for the WARNING SIGNS listed below. Home Care: Your healthcare provider will tell you whether its okay to drive. If so, you can drive yourself home. For the next day or so, be careful when driving or using heavy machinery until you are sure you have no delayed symptoms. During the next 24 hours someone must stay with you to check for the signs below. It is not necessary to stay awake or be awakened during the night. If you have swelling of the face or scalp, apply an ice pack (ice cubes in a plastic bag, wrapped in a towel) for 20 minutes. Do this every 1-2 hours until the swelling starts to go down. Do not use aspirin or ibuprofen (Motrin, Advil) after a head injury.You may use acetaminophen (Tylenol)to control pain, unless another pain medicine was prescribed. [NOTE: If you have chronic liver or kidney disease or ever had a stomach ulcer or GI bleeding, talk with your doctor before using these medicines.] For the next 24 hours: Do not take alcohol, sedatives or medicines that make you sleepy. Avoid strenuous activities. No lifting or straining. If you have had any symptoms of a concussion today (nausea, vomiting, dizziness, confusion, headache, memory loss or if you were knocked out), do not return to sports or any activity that could result in another head injury until all symptoms are gone and you have been cleared by your doctor. A second head injury before fully recovering from the first one can lead to serious brain injury. Follow Up with your doctor if symptoms are not improving after 24 hours, or as directed. [NOTE: A radiologist will review any X-rays or CT scans that were taken. We will notify you of any new findings that may affect your care.] Get Prompt Medical Attention if any of the followingWARNING SIGNS occur: Repeated vomiting Severe or worsening headache or dizziness Unusual drowsiness, or unable to awaken as usual Confusion or change in behavior or speech, memory loss, blurred vision Convulsion (seizure) Increasing scalp or face swelling Redness, warmth or pus from the swollen area Fluid drainage or bleeding from the nose or ears Dehydration (Adult) Dehydration occurs when your body loses too much fluid. This may be the result of vomiting a lot or from diarrhea,sweating a lot, or a high fever. It may also happen if you dont drink enough fluid when youre sick. Misuse of diuretics (water pills) can also be a cause. Symptoms include thirst and feeling dizzy, weak, fatigued, or very drowsy. The diet described below is usually enough to treat most cases. Sometimes you may needmedicine. Home Care Follow these guidelines for home care: Drink at least 12 8-ounce glasses of fluid every day to overcome the dehydration. Fluid may include water; orange juice; lemonade; apple, grape, and cranberry juice; clear fruit drinks; electrolyte replacement and sports drinks; and teas and coffee without caffeine. If you have been diagnosed with a kidney disease, ask your doctor how much and what types of fluids you should drink to prevent dehydration. If you have kidney disease, drinking too much fluid can cause it build up in the your body and be dangerous to your health. If you have fever, muscle aching, or headache from a viral syndrome, you may useacetaminophen or ibuprofen, unless another medicine was prescribed for this.If you have chronic liver or kidney disease or ever had a stomach ulcer or GI bleeding, talk with your doctor before using these medicines. Don't take aspirin if you are younger than 18 and are ill with a fever.Aspirin raises the chance forsevere liver injury. Follow-up care Follow up with your health care provider if you don't get better in the next 24 to 48 hours. When to seek medical care Get prompt medical attention if any of theseoccur: Continued vomiting (cant keep liquids down) Frequent diarrhea (more than 5 times a day); blood (red or black color) or mucus in diarrhea Blood in vomit or stool Swollen abdomen or increasing abdominal pain Weakness, dizziness, or fainting Unusually drowsy or confused Reduced urine output or extreme thirst Fever of 100.4 F (38 C) oral or higher that does not get better with fever medication Dementia & Caregiver Support (Advice For The Caregiver) Dementia is a chronic condition that affects the brain. It causes a gradual loss of memory. There may be trouble recognizing familiar people and places, or knowing what day it is. Memory, judgment and decision-making may also be affected. In severe cases there may be limited or no response to verbal commands. The most common form of dementia is Alzheimers disease. The cause of Alzheimer's disease is not fully understood. So far there is no cure. However, there are medicines to slow down the progress of the disease and to treat some of the symptoms. Some of the less common causes for dementia are curable. So, it is important to have a complete medical evaluation to look for conditions that can be treated. Home Care: A responsible person must be with the person who has advanced dementia at all times. He/she should not be left alone or unsupervised. In the case of advanced advanced dementia, keep medicines (prescription and [id number]) in a secure place, under the caregivers control. A person with advanced dementia should not be allowed to take their own medicines. This needs to be supervised by the caregiver. Ways to help a person with dementia: Activities:Keep to a daily routine. Changes in environment and schedules can be a source of stress for someone with dementia. Make a time schedule for common tasks of living such as bathing, dressing, taking medicines, meal times, going for walks, shopping, naps, and bed time. Communication:When speaking to a person with dementia, talk slowly and clearly. Use a gentle tone of voice. Choose short, simple words and sentences. Ask one question at a time. Do not interrupt, criticize or argue. Be calm and supportive. Use friendly facial expressions. Use pointing and touching to help communicate. If there has been loss of long-term memory, do not ask questions about past events. Instead, talk about what is happening now. Behavioral tips:Use lists, signs, family photos, clocks and calendars as memory aids. Label cabinets and drawers. Try to distract, not confront, the patient. When he/she becomes frustrated or upset, direct his/her attention to eating or some other activity of interest. Medical-Legal tips: Talk to your doctor and/or plant supervisor about getting a Power of Watch Engineer for health care and for financial decisions. It is best to do this while the person can still sign legal documents and make his/her own legal decisions. Otherwise a court order will be needed. Support For The Caregiver: As the caregiver, you will need a lot of support for yourself. Caring for a person with dementia is a full-time job. It can drain your emotions and lead to frustration and anger towards the one you love. It is common to have feelings of grief over losing the familiar relationship that you once knew. As a caregiver to someone with dementia, you are at higher risk for depression, anxiety and stress reactions. Here are some tips to help you cope with being a caregiver: Learn about dementia and Alzheimers disease so you know what to expect. Find out about the resources in your community, including adult day care programs. Ask our staff for a referral to a social science manager, if needed. Take care of yourself with a good diet, exercise and plenty of rest. Ask for help. Share some of the caretaking duties with family and friends. Make personal time for yourself. This is essential! Consider hiring an in-home sitter. Seek counseling and/or join a caregivers support group. Don't isolate yourself, or try to cope with this alone. In a support group, you can learn from others in a similar situation. Contact the Alzheimers Association ( ) or visit their website (www.alz.org) for more information. Follow-Up with the patients doctor or as advised by our staff. Get Prompt Medical Attention if any of the following occur: Frequent falling Refusal to eat or drink Violent behavior or behavior becomes too difficult to manage at home Increased drowsiness, or failure to respond normally Increasing headache, nausea or repeated vomiting Numbness or weakness of the face, one arm or one leg Slurred speech, trouble speaking, walking or seeing Fainting spell, dizziness or seizure Unexplained fever over 100.4 F (38.0 C) oral You have been given the following additional information: Fall, Uncertain Cause Neck Pain, No Trauma HEAD INJURY, No Wake-Up (Adult) Dehydration (Adult) Dementia, Any Type (Electronically signed by Kenton Alfred DO 11/16/2016 6:08)
--- NOTE | 2016-11-17 06:46 | ED MED RECONCILIATION SUMMARY ---
Patient: ISIDRA FIELD Medication Reconciliation Report [facility] VisitID: [id number] [address] [place] [address] 86y, M Registration Date/Time: 11/16/2016 Weight: 66.2 kg Height/Length: 67 in. BMI: 22.9 ALLERGIES: Gemfibrozil, Penicillin The patient's Home Medications are listed below: CONTINUE TAKING THE FOLLOWING MEDICATIONS: Acetaminophen Oral Allopurinol Oral Aspirin Clopidogrel Bisulfate Oral Escitalopram Oxalate Oral Methocarbamol Motrin The source(s) of the original Home Medication information: patient The following Medications were given to the patient in the Emergency Department: IV NS IV Fluids bolus 0, then 1000 mL/hr, administered: 11/16/2016 2:11:00 AM The following Medications were prescribed to the patient: None.
--- NOTE | 2016-11-17 06:46 | ED MED RECONCILIATION SUMMARY ---
Patient: ISIDRA FIELD Medication Reconciliation Report [facility] VisitID: [id number] [address] [place] [address] 86y, M Registration Date/Time: 11/16/2016 Weight: 66.2 kg Height/Length: 67 in. BMI: 22.9 ALLERGIES: Gemfibrozil, Penicillin The patient's Home Medications are listed below: CONTINUE TAKING THE FOLLOWING MEDICATIONS: Acetaminophen Oral Allopurinol Oral Aspirin Clopidogrel Bisulfate Oral Escitalopram Oxalate Oral Methocarbamol Motrin The source(s) of the original Home Medication information: patient The following Medications were given to the patient in the Emergency Department: IV NS IV Fluids bolus 0, then 1000 mL/hr, administered: 11/16/2016 2:11:00 AM The following Medications were prescribed to the patient: None.
== END 2016-11-16 03:50 | disposition home or self-care (01) ==
LOC: ED SRH 01:33
DX: G93.89 Other specified disorders of brain (principal); S09.90XA Unspecified injury of head, initial encounter; S16.1XXA Strain of muscle, fascia and tendon at neck level, initial encounter; W07.XXXA Fall from chair, initial encounter; Y92.129 Unspecified place in nursing home as the place of occurrence of the external cause; G30.9 Alzheimer's disease, unspecified; F02.81 Dementia in other diseases classified elsewhere, unspecified severity, with behavioral disturbance; E86.0 Dehydration; D64.9 Anemia, unspecified
CPT/HCPCS: 90004; 90100; 90616; 91643; 92610; 92720; 92760; 92761; 92762; 92763; 92764; 92765; 92766; 92767; 95059

== ENCOUNTER 2016-11-17 20:07 | Emergency (ER) | payer OTHER ==
--- NOTE | 2016-11-17 21:52 | ED CLINICAL REPORT ---
Clinical Report - Physicians/Mid Levels [facility] [address] [place] [address] 11/17/2016 20:08 Patient: ISIDRA FIELD Time Seen: 2016. Arrived- By ambulance. Historian- patient and EMS personnel. HISTORY OF PRESENT ILLNESS Chief Complaint: lower lip swelling. This started just prior to arrival and is still present. (patient starting new medication today, ecitalopram, and started having lower lip swelling over the last4-5 hours. No Benadryl or medications prior to arrival. No recent illness. Patient denies any pain. Denies any shortness of breath. patient with no shortness of breath. No rash.). REVIEW OF SYSTEMS No sore throat, cough, abdominal pain, nausea or diarrhea. No skin rash, back pain or blackouts. No difficulty with ambulation. All systems otherwise negative, except as recorded above. PAST HISTORY Pt is his own POA, limited interventions PULSED form. Problems: Dehydration. Adjustment Disorder. Suicidal Ideation. Hypovolemia. Hypotension. Renal Insufficiency. Anemia. Dyspnea. Abnormal EKG. Chest Pain. Dementia. Hyperthyroidism. Cervical Strain. Head Injury. Neck Pain. Contusion. Fall. PTSD. Pancreatitis. Upper Extremity Pain. Arthritis. Gout. Hypertension. Additional Surgeries: Appendectomy. Cholecystectomy. Colonoscopy. Dental Surgery. Tonsillectomy. Umbilical Hernia Repair. Medications: Acetaminophen Oral. Allopurinol Oral. Aspirin. Clopidogrel Bisulfate Oral. Methocarbamol. Motrin. Allergies: Escitalopram.(angioedema) (11/17/16) Gemfibrozil. Penicillin. SOCIAL HISTORY No drug use. ADDITIONAL NOTES The nursing notes have been reviewed. PHYSICAL EXAM Vital Signs: 11/17/2016 20:11 BP: 166/59. HR: 78. RR: 18. O2 saturation: 100%. Temp: 97.9 F. Pain level now: 0/10. Appearance: Alert. Eyes: Eyes normal inspection. ENT: Nose normal. Pharynx normal. (lower lip swelling). Neck: Neck supple. CVS: Normal heart rate and rhythm. Heart sounds normal. Respiratory: No respiratory distress. Breath sounds normal. Chest nontender. No decreased air movement or rales. Abdomen: No visible injury. Soft. Skin: Skin warm. No rash. Neuro: Oriented X 3. PROGRESS AND PROCEDURES Course of Care: Here in the emergency department patient is with signs of angioedema, improving with treatment in the emergency department. No worsening. Lungs clear. Patient has no complaints. New escitalopram started, patient will need to stop this medication. 11/17/2016 22:35 BP: 151/71. HR: 80. RR: 18. O2 saturation: 100%. Temp: 98.2 F. Pain level now: 0/10. 11/17/2016 22:20 BP: 164/57. HR: 81. RR: 18. O2 saturation: 100%. Pain level now: 0/10. Patient is stable. Symptoms better. Patient/family counseled. Disposition: Discharged. CLINICAL IMPRESSION Allergic reaction. INSTRUCTIONS (DO NOT TAKE ESCITALOPRAM). Warnings: Further evaluation is necessary. OTC Medications: Take Benadryl according to label instructions. Available over the counter. Follow-up: Follow up with your doctor as needed. (Electronically signed by Sarai Arias P.A.-C 11/17/2016 23:05)
--- NOTE | 2016-11-17 21:52 | ED CLINICAL REPORT ---
Clinical Report - Physicians/Mid Levels [facility] [address] [place] [address] 11/17/2016 20:08 Patient: ISIDRA FIELD Time Seen: 2016. Arrived- By ambulance. Historian- patient and EMS personnel. HISTORY OF PRESENT ILLNESS Chief Complaint: lower lip swelling. This started just prior to arrival and is still present. (patient starting new medication today, ecitalopram, and started having lower lip swelling over the last4-5 hours. No Benadryl or medications prior to arrival. No recent illness. Patient denies any pain. Denies any shortness of breath. patient with no shortness of breath. No rash.). REVIEW OF SYSTEMS No sore throat, cough, abdominal pain, nausea or diarrhea. No skin rash, back pain or blackouts. No difficulty with ambulation. All systems otherwise negative, except as recorded above. PAST HISTORY Pt is his own POA, limited interventions PULSED form. Problems: Dehydration. Adjustment Disorder. Suicidal Ideation. Hypovolemia. Hypotension. Renal Insufficiency. Anemia. Dyspnea. Abnormal EKG. Chest Pain. Dementia. Hyperthyroidism. Cervical Strain. Head Injury. Neck Pain. Contusion. Fall. PTSD. Pancreatitis. Upper Extremity Pain. Arthritis. Gout. Hypertension. Additional Surgeries: Appendectomy. Cholecystectomy. Colonoscopy. Dental Surgery. Tonsillectomy. Umbilical Hernia Repair. Medications: Acetaminophen Oral. Allopurinol Oral. Aspirin. Clopidogrel Bisulfate Oral. Methocarbamol. Motrin. Allergies: Escitalopram.(angioedema) (11/17/16) Gemfibrozil. Penicillin. SOCIAL HISTORY No drug use. ADDITIONAL NOTES The nursing notes have been reviewed. PHYSICAL EXAM Vital Signs: 11/17/2016 20:11 BP: 166/59. HR: 78. RR: 18. O2 saturation: 100%. Temp: 97.9 F. Pain level now: 0/10. Appearance: Alert. Eyes: Eyes normal inspection. ENT: Nose normal. Pharynx normal. (lower lip swelling). Neck: Neck supple. CVS: Normal heart rate and rhythm. Heart sounds normal. Respiratory: No respiratory distress. Breath sounds normal. Chest nontender. No decreased air movement or rales. Abdomen: No visible injury. Soft. Skin: Skin warm. No rash. Neuro: Oriented X 3. PROGRESS AND PROCEDURES Course of Care: Here in the emergency department patient is with signs of angioedema, improving with treatment in the emergency department. No worsening. Lungs clear. Patient has no complaints. New escitalopram started, patient will need to stop this medication. 11/17/2016 22:35 BP: 151/71. HR: 80. RR: 18. O2 saturation: 100%. Temp: 98.2 F. Pain level now: 0/10. 11/17/2016 22:20 BP: 164/57. HR: 81. RR: 18. O2 saturation: 100%. Pain level now: 0/10. Patient is stable. Symptoms better. Patient/family counseled. Disposition: Discharged. CLINICAL IMPRESSION Allergic reaction. INSTRUCTIONS (DO NOT TAKE ESCITALOPRAM). Warnings: Further evaluation is necessary. OTC Medications: Take Benadryl according to label instructions. Available over the counter. Follow-up: Follow up with your doctor as needed. (Electronically signed by Sarai Arias P.A.-C 11/17/2016 23:05)
--- NOTE | 2016-11-17 21:52 | ED ORDER SUMMARY ---
..... Patient: ISIDRA FIELD OrderSheet [facility] VisitID: [id number] [place] [address] 86y, M Registration Date/Time: 11/17/2016 ORDER SHEET Weight: 73.9 kg Allergies: Gemfibrozil, Penicillin, Escitalopram GENERAL ORDERS: MEDICATION ORDERS: IV FLUIDS: Solu-MEDROL IV 125 mg (NOW) (20:25 11/17/2016 EKoroleva P.A.-C) (Ack 20:35 JSanders R.N.) (21:03 JSanders R.N.) Benadryl IV 50 mg (NOW) (20:11/17/2016 EKoroleva P.A.-C) (Ack 20:35 JSanders R.N.) (21:00 JSanders R.N.) IV Saline Lock (20:11/17/2016 EKoroleva P.A.-C) (Ack 20:35 JSanders R.N.) (20:58 JSanders R.N.) IV NS : initial bolus 500 mL (1000 mL/hr), then 10 mL/hr for X1 (NOW); Chris (21:27 11/17/2016 EKoroleva P.A.-C) (Ack 21:39 JSanders R.N.) (21:43 JSanders R.N.) ORDER SHEET NOTES: [Electronically signed by Sarai Arias PBlankaA.-C (23:05 11/17/2016)] [Electronically signed by Katerin Latham R.N. (00:31 11/18/2016)] [Electronically locked/signed by Katerin Latham R.N. (00:11/18/2016)]
--- NOTE | 2016-11-17 21:52 | ED ORDER SUMMARY ---
..... Patient: ISIDRA FIELD OrderSheet [facility] VisitID: [id number] [place] [address] 86y, M Registration Date/Time: 11/17/2016 ORDER SHEET Weight: 73.9 kg Allergies: Gemfibrozil, Penicillin, Escitalopram GENERAL ORDERS: MEDICATION ORDERS: IV FLUIDS: Solu-MEDROL IV 125 mg (NOW) (20:25 11/17/2016 EKoroleva P.A.-C) (Ack 20:35 JSanders R.N.) (21:03 JSanders R.N.) Benadryl IV 50 mg (NOW) (20:11/17/2016 EKoroleva P.A.-C) (Ack 20:35 JSanders R.N.) (21:00 JSanders R.N.) IV Saline Lock (20:11/17/2016 EKoroleva P.A.-C) (Ack 20:35 JSanders R.N.) (20:58 JSanders R.N.) IV NS : initial bolus 500 mL (1000 mL/hr), then 10 mL/hr for X1 (NOW); Chris (21:27 11/17/2016 EKoroleva P.A.-C) (Ack 21:39 JSanders R.N.) (21:43 JSanders R.N.) ORDER SHEET NOTES: [Electronically signed by Sarai Arias PBlankaA.-C (23:05 11/17/2016)] [Electronically signed by Katerin Latham R.N. (00:31 11/18/2016)] [Electronically locked/signed by Katerin Latham R.N. (00:11/18/2016)]
--- NOTE | 2016-11-17 21:52 | ED NURSING NOTES ---
Clinical Report - Nurses [facility] [address] [place] [address] 11/17/2016 20:08 Patient: ISIDRA FIELD TRIAGE Triage time 20:Nov 17 2016. Acuity: LEVEL 3. Chief Complaint: POSSIBLE ALLERGIC REACTION and . Edema in lower lip, ONEILL and dizziness as well. 20:18 11/17/16. SEPSIS SCREEN: Sepsis Screen. Negative (no infection suspected/documented). EMMA COMA SCORE: Emma Coma Scale: 15- eyes open spontaneously (4); best verbal response- oriented x 4 (5); best motor response- obeys commands (6). --20:18 Katerin Latham R.N. 20:11 11/17/16. BP: 166/59 (regular adult cuff) taken on the left arm, while sitting. HR: 78. RR: 18. O2 saturation: 100%. Temp: 97.9 F (oral). Pain level now: 0/10. --20:18 Katerin Latham R.N. EMMA COMA SCORE: Wendell Coma Scale: 14- eyes open spontaneously (4); best verbal response- disoriented (4); best motor response- obeys commands (6). --20:20 Katerin Latham R.N. Weight: 73.9 kg. Height/Length: 67 inches. BMI: 25.5. --20:12 Katerin Latham R.N. Medications Acetaminophen Oral. Allopurinol Oral. Aspirin. Clopidogrel Bisulfate Oral. Escitalopram Oxalate Oral. Methocarbamol. Motrin. --20:12 Katerin Latham R.N. Allergies Gemfibrozil. Penicillin. --20:12 Katerin Latham R.N. History Arrived by EMS. Historian: EMS. This started today. ( Patient took Escitalopram 10mg prior to swelling of lower lip, EMS was called thinking this was an allergic reaction). He has had swelling- lower lip. 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 SOCIAL HX: Smoker- current status unknown. Patient refuses to answer tobacco use questions. No alcohol use or drug use. No infectious disease exposure. ABUSE ASSESSMENT: No report of abuse. SELF HARM ASSESSMENT: A self harm assessment was performed. The patient answered "no" to the question "Do you have thoughts of harming or killing yourself?" and "Have you recently had thoughts about harming or killing others?". --20:18 Katerin Latham R.N. PROBLEMS: Dehydration. Adjustment Disorder. Hypovolemia. Hypotension. Renal Insufficiency. Anemia. Dyspnea. Abnormal EKG. Chest Pain. Dementia. Hyperthyroidism. Contusion. Fall. PTSD. Pancreatitis. Arthritis. Gout. Hypertension. --20:12 Katerin Latham R.N. ADDITIONAL SURGERIES: Appendectomy. Cholecystectomy. Colonoscopy. Dental Surgery. Tonsillectomy. Umbilical Hernia Repair. --20:12 Katerin Latham R.N. Interventions ID band on patient. To treatment room. --20:18 Katerin Latham R.N. PHYSICAL ASSESSMENT 20:19 11/17/16. To room via stretcher. Patient gowned. ( Swelling of lower lip). GENERAL / NEURO / PSYCH: Alert. The patient does not appear to be in acute distress. Oriented X 4. HEENT: Pupils equal, round and reactive to light. Mucous membranes are pink. RESPIRATORY: Respirations not labored. Breath sounds within normal limits. CVS: Normal sinus rhythm noted. Capillary refill less than 2 seconds. Pulses within normal limits. GI / : Abdomen nontender. SKIN: Skin is intact, warm and dry. --20:19 Katerin Latham R.N. NURSING PROGRESS NOTES 20:11/17/16. The plan of care for this patient has been created. Monitoring of patient in place. Patient gowned. Head of bed elevated. Reassurance given. Two patient identifiers checked. Call light placed in reach. Side rails up x 2. Bed placed in lowest position. Brakes of bed on. Patient ready for evaluation- chart flagged and ED physician notified. --20:19 Katerin Latham R.N. 20:58 11/17/2016 Site #1 started via IV in the left forearm with an 20g angiocath; one attempt. Blood drawn: rainbow set. Labeled in the presence of the patient and sent to the lab. Saline lock flushed with 10 mL saline. --20:58 Katerin Latham R.N. 21:00 11/17/2016 Benadryl (DiphenhydrAMINE HCl) IVP 50 mg given over 2 minute(s) via site #1. Allergies verified, confirmed 5 rights and sedative warning given to the patient. IV patency established. IV site checked: no pain, redness, or swelling. IV flushed thoroughly pre- and post-medication administration. IVP given by RN. --21:00 Katerin Latham R.N. 21:03 11/17/2016 SOLU-MEDROL (MethylPREDNISolone Sodium Succ) IVP 125 mg given over 2 minute(s) via site #1. Allergies verified and confirmed 5 rights. IV patency established. IV site checked: no pain, redness, or swelling. IV flushed thoroughly pre- and post-medication administration. IVP given by RN. --21:03 Katerin Latham R.N. 21:04 11/17/16. ( Patient going to take a nap, One attempt made by JOSE Conklin to get IV unsuccessful, another nurse JOSE Gutiérrez successful. Patient tolerated well, given another blanket for comfort.). --21:05 Katerin Latham R.N. 21:11/17/16. BP: 175/59 (regular adult cuff) taken on the left arm, while sitting. HR: 76. RR: 18. O2 saturation: 100% on room air. Pain level now: 0/10. --21:05 Katerin Latham R.N. 21:21 11/17/16. BP: 180/70 (regular adult cuff) taken on the left arm, while sitting. HR: 75. RR: 18. O2 saturation: 99% on room air. Pain level now: 0/10. --21:22 Katerin Latham R.N. 21:43 11/17/2016 Started bag #1 1000 mL IV Fluids IV NS (Saline); bolus of 500 mL over 30 minute(s) then at 1000 mL/hr over 30 minute(s) via site #1 via IV pump. Allergies verified and confirmed 5 rights. IV patency established. IV site checked: no pain, redness, or swelling. IV flushed thoroughly pre- and post-medication administration. --21:43 Katerin Latham R.N. 21:44 11/17/16. BP: 160/56 (regular adult cuff) taken on the left arm, while sitting. HR: 80. RR: 18. O2 saturation: 100% on room air. Pain level now: 0/10. --21:44 Katerin Latham R.N. 22:01 11/17/16. ( Patient sleeping, easily aroused). --22:01 Katerin Latham R.N. 22:00 11/17/16. BP: 118/103 (regular adult cuff) taken on the left arm, while sitting. HR: 76. RR: 18. O2 saturation: 100% on room air. Pain level now: 0/10. --22:01 Katerin Latham R.N. 22:04 11/17/16. ( PA aware of BP increase). --22:04 Katerin Latham R.N. 22:20 11/17/16. BP: 164/57 (regular adult cuff) taken on the left arm, while sitting. HR: 81. RR: 18. O2 saturation: 100% on room air. Pain level now: 0/10. --22:21 Katerin Latham R.N. 22:24 11/17/2016 IV Fluids IV NS Discontinued: bag #1 discontinued. Total amount infused: 500 mL. IV patency established. IV site checked: no pain, redness, or swelling. IV flushed thoroughly. (Ambulance coming to get patient). --22:24 Katerin Latham R.N. DISPOSITION / DISCHARGE 22:37 11/17/2016 Site #1 removed upon discharge. Bandaid applied. --22:37 Katerin Latham R.N. 22:37 11/17/16. Condition at departure: improved. No learning barriers present. Discharge instructions provided and reviewed with the patient. Reviewed medication(s) (Discontinue Escitalopram and start OTC Benadryl according to label instructions). Patient verbalized understanding. Written instructions provided in Micronesian. The patient was discharged by the physician. He was discharged to the correction and ([facility] via EMS) and accompanied by EMS. He left the Emergency Department via ambulance. Driving (Ambulance). --22:37 Katerin Latham R.N. 22:35 11/17/16. BP: 151/71 (regular adult cuff) taken on the left arm, while sitting. HR: 80. RR: 18. O2 saturation: 100% on room air. Temp: 98.2 F (oral). Pain level now: 0/10. --22:37 Katerin Latham R.N. 22:46 11/17/16. Departure time: 22:46 Nov 17 2016. ( Patient dressed, given warm blanket, and transferred with EMS to [facility] with paperwork). --22:46 Katerin Latham R.N. Locked/Released at 11/18/2016 0:31 by Katerin Latham R.N.
--- NOTE | 2016-11-18 00:31 | ED MAR SUMMARY ---
..... Medication Administration Record [facility] [address] [place] [address] Patient: ISIDRA FIELD Visit ID: [id number] 86y, M Weight: 73.9 kg Height/Length: 67 in BMI: 25.5 ALLERGIES: Gemfibrozil, Penicillin, Escitalopram Given 21:00 11/17/2016 Katerin Latham R.N. Medication Administered: BENADRYL [IVP] (DIPHENHYDRAMINE HCL), Dose: 50 mg IVP over 2 minute(s), Site: #1 left forearm. Medication Ordered: Benadryl IV 50 mg (NOW). Given 21:03 11/17/2016 Katerin Latham R.N. Medication Administered: SOLU-MEDROL [IVP] (METHYLPREDNISOLONE SODIUM SUCC), Dose: 125 mg IVP over 2 minute(s), Site: #1 left forearm. Medication Ordered: Solu-MEDROL IV 125 mg (NOW). Start 21:43 11/17/2016 Katerin Latham R.N., Stop 22:24 11/17/2016 Katerin Latham R.N. Medication Administered: IV NS (SALINE), Dose: IV Fluids over 30 minute(s), Rate: 1000 mL/hr, Bolus: 500 mL over 30 minute(s), Dispensed: 1000 mL bag, Site: #1 left forearm. Medication Ordered: IV NS : initial bolus 500 mL (1000 mL/hr), then 10 mL/hr for X1 (NOW); Chris.
--- NOTE | 2016-11-18 00:31 | ED MAR SUMMARY ---
..... Medication Administration Record [facility] [address] [place] [address] Patient: ISIDRA FIELD Visit ID: [id number] 86y, M Weight: 73.9 kg Height/Length: 67 in BMI: 25.5 ALLERGIES: Gemfibrozil, Penicillin, Escitalopram Given 21:00 11/17/2016 Katerin Latham R.N. Medication Administered: BENADRYL [IVP] (DIPHENHYDRAMINE HCL), Dose: 50 mg IVP over 2 minute(s), Site: #1 left forearm. Medication Ordered: Benadryl IV 50 mg (NOW). Given 21:03 11/17/2016 Katerin Latham R.N. Medication Administered: SOLU-MEDROL [IVP] (METHYLPREDNISOLONE SODIUM SUCC), Dose: 125 mg IVP over 2 minute(s), Site: #1 left forearm. Medication Ordered: Solu-MEDROL IV 125 mg (NOW). Start 21:43 11/17/2016 Katerin Latham R.N., Stop 22:24 11/17/2016 Katerin Latham R.N. Medication Administered: IV NS (SALINE), Dose: IV Fluids over 30 minute(s), Rate: 1000 mL/hr, Bolus: 500 mL over 30 minute(s), Dispensed: 1000 mL bag, Site: #1 left forearm. Medication Ordered: IV NS : initial bolus 500 mL (1000 mL/hr), then 10 mL/hr for X1 (NOW); Chris.
--- NOTE | 2016-11-18 00:31 | ED DISCHARGE INSTRUCTIONS ---
Patient: ISIDRA FIELD General Instructions [facility] VisitID: [id number] [place] [address] 86y, M Registration Date/Time: 11/17/2016 Allergic reaction. INSTRUCTIONS (DO NOT TAKE ESCITALOPRAM). Warnings: Further evaluation is necessary. OTC Medications: Take Benadryl according to label instructions. Available over the counter. Follow-up: Follow up with your doctor as needed. ADDITIONAL INFORMATION Allergic Reaction,Generalized [Other] You are having an allergic reaction. This may cause an itchy rash, dizziness, fainting, trouble breathing or swallowing, and swelling of the face or other parts of the body. This can be caused by exposure to something in your surroundings that you have become sensitive to. This could be due to medicine or food. This could also be due to something you put on your skin or in your hair or something in the air. Often it is not possible to find out exactly what has caused your reaction. The goal of today's treatment is to relieve symptoms. The rash will usually fade over several days, but can sometimes last up to two weeks. Home Care: 1) If you know what you are allergic to, avoid it because future reactions could be worse than this one. 2) Avoid tight clothing and anything that heats up your skin (hot showers/baths, direct sunlight) since heat will make itching worse. 3) An ice pack will relieve local areas of intense itching and redness. Lanacaine cream or Solarcaine spray (or other product containing "benzocaine", available without a prescription) will reduce the itching. 4) Oral Benadryl (diphenhydramine) is an antihistamine available at drug and grocery stores. Unless a prescription antihistamine was given, Benadryl may be used to reduce itching if large areas of the skin are involved. Use lower doses during the daytime and higher doses at bedtime since the drug may make you sleepy. [NOTE: Do not use Benadryl if you have glaucoma or if you are a man with trouble urinating due to an enlarged prostate.] Claritin (loratidine) is an antihistamine that causes less drowsiness and is a good alternative for daytime use. Follow Up Follow Up with your doctor or this facility in two days if your symptoms do not continue to improve. If you had a severe reaction today, or if you have had several mild-moderate allergic reactions in the past, ask your doctor about allergy testing to find out what you are allergic to. If your reaction included dizziness, fainting or trouble breathing or swallowing, ask your doctor about carrying an Allergy Kit (injectable epinephrine) for home use. Get Prompt Medical Attention if any of the following occur: -- Trouble breathing or swallowing -- New or worse swelling in the face, eyelids, lips, mouth, tongue or throat -- Dizziness, weakness or fainting Angioedema Angioedema ([id number]) is a sudden appearance of swollen patches (edema) on the skin or mucous membranes. The swelling is painless and does not itch. It most often involves the face, lips, mouth, tongue, back of throat or vocal cords. It may also occur in other places such as the arms or legs. A rash may also appear during the first 4 days of this illness. The most common cause for this condition is a side-effect to a class of medicine calledACE inhibitor.This type of drug is used to treat high blood pressure. It includes captopril (Capoten), enalapril (Vasotec) and lisinopril (Prinivil, Zestril). Tell your doctor if you are taking any of these medicines. Other causes of angioedema include allergic reaction to something eaten, touched or inhaled. Angioedema may also be hereditary. In some cases, no cause can be found. Angioedema can lead to the swelling of the air passage in the mouth or throat. Severe swelling can block your breathing and cause . Your doctor believes that you are not at risk for this; however, be alert for early signs of increased swelling in the mouth or throat, or difficulty with swallowing or breathing. Angioedema may recur. It is therefore important to watch for the earliest signs of this condition (below). Return to the hospital promptly if swelling involves the face, mouth or throat areas. Home Care: Rest quietly today. No heavy exertion or excess physical activity. If you were told that your angioedema was from a medicine that you are taking, you must stop taking this medicine. Contact your doctor for a different one. In the future, advise medical staff that you are allergic to this medicine. If medicine was prescribed to treat angioedema (for example, steroids or antihistamines), take it as directed. Oral Benadryl (diphenhydramine) is an antihistamine available at drug and grocery stores. Unless another antihistamine was prescribed, Benadryl may be used to reduce swelling or itching. Use lower doses during the daytime and higher doses at bedtime since the drug may make you sleepy. [NOTE: Do not use Benadryl if you have glaucoma or if you are a man with trouble urinating due to an enlarged prostate.] Claritin (loratidine) is an antihistamine that causes less drowsiness and is a good alternative for daytime use. Follow Up with your doctor or as advised by our staff. Get Prompt Medical Attention if any of the following occur: Increase in swelling of lip, mouth, tongue or throat Trouble swallowing Trouble breathing Severe abdominal pains You have been given the following additional information: Allergic Reaction, Other (General) Angioedema (Electronically signed by Sarai Arias P.A.-C 11/17/2016 23:05)
--- NOTE | 2016-11-18 00:32 | ED MED RECONCILIATION SUMMARY ---
Patient: ISIDRA FIELD Medication Reconciliation Report [facility] VisitID: [id number] [address] [place] [address] 86y, M Registration Date/Time: 11/17/2016 Weight: 73.9 kg Height/Length: 67 in. BMI: 25.5 ALLERGIES: Escitalopram, Gemfibrozil, Penicillin The patient's Home Medications are listed below: THE FOLLOWING MEDICATIONS NEED TO BE RECONCILED: Acetaminophen Oral Allopurinol Oral Aspirin Clopidogrel Bisulfate Oral Methocarbamol Motrin The source(s) of the original Home Medication information: Not obtained. The following Medications were given to the patient in the Emergency Department: Benadryl [IVP] IVP 50 mg, administered: 11/17/2016 9:00:00 PM SOLU-MEDROL [IVP] IVP 125 mg, administered: 11/17/2016 9:03:00 PM IV NS IV Fluids bolus 500 mL over 30 minute(s), then 1000 mL/hr, administered: 11/17/2016 9:43:00 PM The following Medications were prescribed to the patient: Take Benadryl according to label instructions. Available over the counter. -- Sarai Arias P.A.-C
--- NOTE | 2016-11-18 00:32 | ED MED RECONCILIATION SUMMARY ---
Patient: ISIDRA FIELD Medication Reconciliation Report [facility] VisitID: [id number] [address] [place] [address] 86y, M Registration Date/Time: 11/17/2016 Weight: 73.9 kg Height/Length: 67 in. BMI: 25.5 ALLERGIES: Escitalopram, Gemfibrozil, Penicillin The patient's Home Medications are listed below: THE FOLLOWING MEDICATIONS NEED TO BE RECONCILED: Acetaminophen Oral Allopurinol Oral Aspirin Clopidogrel Bisulfate Oral Methocarbamol Motrin The source(s) of the original Home Medication information: Not obtained. The following Medications were given to the patient in the Emergency Department: Benadryl [IVP] IVP 50 mg, administered: 11/17/2016 9:00:00 PM SOLU-MEDROL [IVP] IVP 125 mg, administered: 11/17/2016 9:03:00 PM IV NS IV Fluids bolus 500 mL over 30 minute(s), then 1000 mL/hr, administered: 11/17/2016 9:43:00 PM The following Medications were prescribed to the patient: Take Benadryl according to label instructions. Available over the counter. -- Sarai Arias P.A.-C
== END 2016-11-17 22:46 | disposition home or self-care (01) ==
LOC: ED SRH 20:07
DX: T78.3XXA Angioneurotic edema, initial encounter (principal); X58.XXXA Exposure to other specified factors, initial encounter; I10 Essential (primary) hypertension; E05.90 Thyrotoxicosis, unspecified without thyrotoxic crisis or storm; Z79.899 Other long term (current) drug therapy; Z79.1 Long term (current) use of non-steroidal anti-inflammatories (NSAID); Z79.82 Long term (current) use of aspirin; Z88.0 Allergy status to penicillin; Z88.8 Allergy status to other drugs, medicaments and biological substances